=== PATIENT | male | born 1980 | race African-American/Black ===

== ENCOUNTER 2017-01-13 16:17 | Emergency (ER) | payer OTHER ==
[~2017-01-13] VITALS: Ht 188 cm; Wt 97.5 kg
[~2017-01-13 16:17] MED LIST: ZOFRAN ODT4 MG ORAL
[2017-01-13] MEDS ORDERED: METFORMIN HCL1000 M1 ORAL (16:28)
[2017-01-13] MEDS ORDERED: Morphine Sulfate 4mg/ml Inj IVP ONE ×2 (16:45→20:30)
[2017-01-13 17:00] VITALS: BP 149/95
--- NOTE | 2017-01-13 17:02 | Emergency Room Report ---
History of Present Illness General Chief Complaint: General Complaint Source: Patient Present Illness [facility] The patient presents with 2 days of swelling and increased pain in his left testicle. He denies any trauma. Denies any fevers or dysuria. Denies hematuria. Diabetic and has had some dry mouth and polydipsia. He takes metformin and does not take insulin. He denies previous hernia, fevers, chills , vomiting, diarrhea. Pain is 10/10, constant, worse with standing and walking , burning pressure, radiates into abdomen. He walks with a limp due to the pain. No change in bowels, rashes, joint pain, MATHEWS, depression. Allergies: Coded Allergies: No Known Allergies (Unverified , 05/14/15) Patient History Past Medical History: see triage record Social History: Reports: smoking Social History Narrative works at [employer] - Reviewed Nursing Documentation: PMH: Agreed, PSxH: Agreed Nursing Documentation-PMH Past Medical History: No History, Except For Hx Diabetes: Yes Review of Systems All Other Systems: negative except mentioned in HPI Physical Exam Vital Signs Date Time Temp Pulse Resp B/P (MAP) Pulse Ox O2 Delivery O2 Flow Rate FiO2 01/13/17 16:24 98.2 127 20 157/97 97 Room Air Sp02 EP Interpretation: reviewed, normal General Appearance: well appearing, no apparent distress, GCS 15 Head: normocephalic Eyes: bilateral eye normal inspection, bilateral eye PERRL ENT: moist mucus membranes - slightly dry Neck: supple Respiratory: lungs clear, normal breath sounds Cardiovascular #1: regular rate, rhythm Cardiovascular #2: 2+ radial (R) Gastrointestinal: normal inspection, normal bowel sounds, non tender, no mass, non-distended, no hernia Genitourinary: no CVA tenderness, penis normal, other - L scrotal swelling and epididymal tenderness, not high laying testicle Musculoskeletal: back normal, gait/station normal, normal range of motion Neurologic: alert, oriented x3, grossly normal Psychiatric: mood/affect normal Skin: normal inspection, warm/dry, other - min erythema of scrotal tissue Medical Decision Making Diagnostic Impression: Primary Impression: Hyperglycemia Additional Impressions: Acute epididymitis Scrotal abscess ER Course aPatient presents with left testicular pain. Differential includes torsion, epididymitis, hernia, scrotal cellulitis, Laura's gangrene amongst others. In addition to that his diabetes is out of control. He be evaluated with labs and ultrasound. In addition to that he will get IV hydration and repeat Accu- Cheks. He will be treated for pain. Exam against Laura's. Labs significant for leukocytosis, hyperglycemia. Ultrasound with epididymitis and possible early scrotal infection. Antibiotics begun. Excludes torsion. Patient improved treatment but still hyperglycemic. Continue hydration and insulin is ordered. Due to the fact that both blood sugars [id number] and the patient has significant scrotal and epididymal infection patient admitted for IV antibiotics. Patient was discussed with Dr. Saravia who accepts patient at [facility]. Stable for transfer, improved. Laboratory Tests Test 01/13/17 17:00 White Blood Count 13.7 K/UL (4.8-10.8) H Red Blood Count 5.72 M/UL (4.70-6.10) Hemoglobin 15.3 G/DL (14.2-18.0) Hematocrit 46.7 % (42.0-52.0) Mean Corpuscular Volume 82 FL (80-99) Mean Corpuscular Hemoglobin 26.7 PG (27.0-31.0) L Mean Corpuscular Hemoglobin Concent 32.8 G/DL (32.0-36.0) Red Cell Distribution Width 11.5 % (11.6-14.8) L Platelet Count 188 K/UL (150-450) Mean Platelet Volume 9.9 FL (6.5-10.1) Neutrophils (%) (Auto) 80.0 % (45.0-75.0) H Lymphocytes (%) (Auto) 12.3 % (20.0-45.0) L Monocytes (%) (Auto) 6.4 % (1.0-10.0) Eosinophils (%) (Auto) 0.6 % (0.0-3.0) Basophils (%) (Auto) 0.7 % (0.0-2.0) Prothrombin Time 9.8 SEC (9.30-11.50) Prothrombin Time INR 0.9 (0.9-1.1) PTT 28 SEC (23-33) Urine Color Pale yellow Urine Appearance Clear Urine pH 6 (4.5-8.0) Urine Specific [place] 1.010 (1.005-1.035) Urine Protein 3+ (NEGATIVE) H Urine Glucose (UA) 4+ (NEGATIVE) H Urine Ketones 2+ (NEGATIVE) H Urine Occult Blood 4+ (NEGATIVE) H Urine Nitrite Negative (NEGATIVE) Urine Bilirubin Negative (NEGATIVE) Urine Urobilinogen Normal MG/DL (0.0-1.0) Urine Leukocyte Esterase Negative (NEGATIVE) Urine RBC 2-4 /HPF (0 - 0) H Urine WBC 0-2 /HPF (0 - 0) Urine Squamous Epithelial Cells None /LPF (NONE/OCC) Urine Bacteria Few /HPF (NONE) Sodium Level 134 MMOL/L (136-145) L Potassium Level 3.7 MMOL/L (3.5-5.1) Chloride Level 96 MMOL/L (98-107) L Carbon Dioxide Level 27 MMOL/L (21-32) Anion Gap 11 mmol/L (5-15) Blood Urea Nitrogen 9 mg/dL (7-18) Creatinine 1.2 MG/DL (0.55-1.30) Estimate Glomerular Filtration Rate > 60 mL/min (>60) Glucose Level 435 MG/DL (74-106) H Calcium Level 9.4 MG/DL (8.5-10.1) Total Bilirubin 0.5 MG/DL (0.2-1.0) Aspartate Amino Transferase (AST) 13 U/L (15-37) L Alanine Aminotransferase (ALT) 17 U/L (12-78) Alkaline Phosphatase 98 U/L (46-116) Total Protein 7.7 G/DL (6.4-8.2) Albumin 3.1 G/DL (3.4-5.0) L Globulin 4.6 g/dL Albumin/Globulin Ratio 0.7 (1.0-2.7) L Lipase 84 U/L (73-393) CT/MRI/US Diagnostic Results CT/MRI/US Diagnostic Results : Imaging Test Ordered: sctotal u/s Impression epididymitis and ST abscess Last Vital Signs Date Time Temp Pulse Resp B/P (MAP) Pulse Ox O2 Delivery O2 Flow Rate FiO2 01/13/17 23:07 105 20 152/82 100 Room Air 01/13/17 20:00 98.0 Status: improved Disposition: ADMITTED INPATIENT Condition: Serious [facility]errals: [facility]ERR[facility] (PCP) Angel Gallagher M.D. Jan 13, 2017 17:02
--- NOTE | 2017-01-13 17:02 | Emergency Room Report ---
History of Present Illness General Chief Complaint: General Complaint Source: Patient Present Illness [facility] The patient presents with 2 days of swelling and increased pain in his left testicle. He denies any trauma. Denies any fevers or dysuria. Denies hematuria. Diabetic and has had some dry mouth and polydipsia. He takes metformin and does not take insulin. He denies previous hernia, fevers, chills , vomiting, diarrhea. Pain is 10/10, constant, worse with standing and walking , burning pressure, radiates into abdomen. He walks with a limp due to the pain. No change in bowels, rashes, joint pain, MATHEWS, depression. Allergies: Coded Allergies: No Known Allergies (Unverified , 05/14/15) Patient History Past Medical History: see triage record Social History: Reports: smoking Social History Narrative works at [employer] - Reviewed Nursing Documentation: PMH: Agreed, PSxH: Agreed Nursing Documentation-PMH Past Medical History: No History, Except For Hx Diabetes: Yes Review of Systems All Other Systems: negative except mentioned in HPI Physical Exam Vital Signs Date Time Temp Pulse Resp B/P (MAP) Pulse Ox O2 Delivery O2 Flow Rate FiO2 01/13/17 16:24 98.2 127 20 157/97 97 Room Air Sp02 EP Interpretation: reviewed, normal General Appearance: well appearing, no apparent distress, GCS 15 Head: normocephalic Eyes: bilateral eye normal inspection, bilateral eye PERRL ENT: moist mucus membranes - slightly dry Neck: supple Respiratory: lungs clear, normal breath sounds Cardiovascular #1: regular rate, rhythm Cardiovascular #2: 2+ radial (R) Gastrointestinal: normal inspection, normal bowel sounds, non tender, no mass, non-distended, no hernia Genitourinary: no CVA tenderness, penis normal, other - L scrotal swelling and epididymal tenderness, not high laying testicle Musculoskeletal: back normal, gait/station normal, normal range of motion Neurologic: alert, oriented x3, grossly normal Psychiatric: mood/affect normal Skin: normal inspection, warm/dry, other - min erythema of scrotal tissue Medical Decision Making Diagnostic Impression: Primary Impression: Hyperglycemia Additional Impressions: Acute epididymitis Scrotal abscess ER Course aPatient presents with left testicular pain. Differential includes torsion, epididymitis, hernia, scrotal cellulitis, Laura's gangrene amongst others. In addition to that his diabetes is out of control. He be evaluated with labs and ultrasound. In addition to that he will get IV hydration and repeat Accu- Cheks. He will be treated for pain. Exam against Laura's. Labs significant for leukocytosis, hyperglycemia. Ultrasound with epididymitis and possible early scrotal infection. Antibiotics begun. Excludes torsion. Patient improved treatment but still hyperglycemic. Continue hydration and insulin is ordered. Due to the fact that both blood sugars [id number] and the patient has significant scrotal and epididymal infection patient admitted for IV antibiotics. Patient was discussed with Dr. Saravia who accepts patient at [facility]. Stable for transfer, improved. Laboratory Tests Test 01/13/17 17:00 White Blood Count 13.7 K/UL (4.8-10.8) H Red Blood Count 5.72 M/UL (4.70-6.10) Hemoglobin 15.3 G/DL (14.2-18.0) Hematocrit 46.7 % (42.0-52.0) Mean Corpuscular Volume 82 FL (80-99) Mean Corpuscular Hemoglobin 26.7 PG (27.0-31.0) L Mean Corpuscular Hemoglobin Concent 32.8 G/DL (32.0-36.0) Red Cell Distribution Width 11.5 % (11.6-14.8) L Platelet Count 188 K/UL (150-450) Mean Platelet Volume 9.9 FL (6.5-10.1) Neutrophils (%) (Auto) 80.0 % (45.0-75.0) H Lymphocytes (%) (Auto) 12.3 % (20.0-45.0) L Monocytes (%) (Auto) 6.4 % (1.0-10.0) Eosinophils (%) (Auto) 0.6 % (0.0-3.0) Basophils (%) (Auto) 0.7 % (0.0-2.0) Prothrombin Time 9.8 SEC (9.30-11.50) Prothrombin Time INR 0.9 (0.9-1.1) PTT 28 SEC (23-33) Urine Color Pale yellow Urine Appearance Clear Urine pH 6 (4.5-8.0) Urine Specific [place] 1.010 (1.005-1.035) Urine Protein 3+ (NEGATIVE) H Urine Glucose (UA) 4+ (NEGATIVE) H Urine Ketones 2+ (NEGATIVE) H Urine Occult Blood 4+ (NEGATIVE) H Urine Nitrite Negative (NEGATIVE) Urine Bilirubin Negative (NEGATIVE) Urine Urobilinogen Normal MG/DL (0.0-1.0) Urine Leukocyte Esterase Negative (NEGATIVE) Urine RBC 2-4 /HPF (0 - 0) H Urine WBC 0-2 /HPF (0 - 0) Urine Squamous Epithelial Cells None /LPF (NONE/OCC) Urine Bacteria Few /HPF (NONE) Sodium Level 134 MMOL/L (136-145) L Potassium Level 3.7 MMOL/L (3.5-5.1) Chloride Level 96 MMOL/L (98-107) L Carbon Dioxide Level 27 MMOL/L (21-32) Anion Gap 11 mmol/L (5-15) Blood Urea Nitrogen 9 mg/dL (7-18) Creatinine 1.2 MG/DL (0.55-1.30) Estimate Glomerular Filtration Rate > 60 mL/min (>60) Glucose Level 435 MG/DL (74-106) H Calcium Level 9.4 MG/DL (8.5-10.1) Total Bilirubin 0.5 MG/DL (0.2-1.0) Aspartate Amino Transferase (AST) 13 U/L (15-37) L Alanine Aminotransferase (ALT) 17 U/L (12-78) Alkaline Phosphatase 98 U/L (46-116) Total Protein 7.7 G/DL (6.4-8.2) Albumin 3.1 G/DL (3.4-5.0) L Globulin 4.6 g/dL Albumin/Globulin Ratio 0.7 (1.0-2.7) L Lipase 84 U/L (73-393) CT/MRI/US Diagnostic Results CT/MRI/US Diagnostic Results : Imaging Test Ordered: sctotal u/s Impression epididymitis and ST abscess Last Vital Signs Date Time Temp Pulse Resp B/P (MAP) Pulse Ox O2 Delivery O2 Flow Rate FiO2 01/13/17 23:07 105 20 152/82 100 Room Air 01/13/17 20:00 98.0 Status: improved Disposition: ADMITTED INPATIENT Condition: Serious Referrals: [facility] (PCP) Angel Gallagher M.D. Jan 13, 2017 17:02
[2017-01-13 17:21] LABS: BASOPHILS % (AUTO) 0.7 % (0.0-2.0); EOSINOPHILS % (AUTO) 0.6 % (0.0-3.0); HEMATOCRIT 46.7 % (42.0-52.0); HEMOGLOBIN 15.3 G/DL (14.2-18.0); LYMPHOCYTES % (AUTO) 12.3 % (20.0-45.0); MEAN CORPUSCULAR VOLUME 82 FL (80-99); MONOCYTES % (AUTO) 6.4 % (1.0-10.0); PLATELET COUNT 188 K/UL (150-450); RED BLOOD COUNT 5.72 M/UL (4.70-6.10); RED CELL DISTRIBUTION WIDTH 11.5 % (11.6-14.8); WHITE BLOOD COUNT 13.7 K/UL (4.8-10.8)
[2017-01-13 17:22] LABS: APPEARANCE,URINE CLEAR; BILIRUBIN, URINE NEGATIVE (NEGATIVE); COLOR,URINE PALE YELLOW; GLUCOSE, URINE (UA) 4+ (NEGATIVE); KETONES,URINE 2+ (NEGATIVE); LEUKOCYTE ESTERASE ,URINE NEGATIVE (NEGATIVE); NITRITE,URINE NEGATIVE (NEGATIVE); PH,URINE 6 (4.5-8.0); PROTEIN,URINE 3+ (NEGATIVE); UROBILINOGEN,URINE NORMAL MG/DL (0.0-1.0)
[2017-01-13 17:36] LABS: INR 0.9 (0.9-1.1)
[2017-01-13 17:38] LABS: ALANINE AMINOTRANSFERASE 17 U/L (12-78); ALBUMIN 3.1 G/DL (3.4-5.0); ALBUMIN/GLOBULIN RATIO 0.7 (1.0-2.7); ALKALINE PHOSPHATASE 98 U/L (46-116); ANION GAP 11 mmol/L (5-15); ASPARTATE AMINO TRANSFERASE 13 U/L (15-37); BILIRUBIN,TOTAL 0.5 MG/DL (0.2-1.0); BLOOD UREA NITROGEN 9 mg/dL (7-18); CALCIUM 9.4 MG/DL (8.5-10.1); CARBON DIOXIDE 27 MMOL/L (21-32); CHLORIDE 96 MMOL/L (98-107); CREATININE 1.2 MG/DL (0.55-1.30); POTASSIUM 3.7 MMOL/L (3.5-5.1); SODIUM 134 MMOL/L (136-145)
[2017-01-13] MEDS ORDERED: cefTRIAXone 1 GM in NS 55 ML IVPB ONE (18:15)
[2017-01-13 20:00] VITALS: BP 135/68
[2017-01-13 23:07] VITALS: BP 152/82
--- NOTE | 2017-01-14 08:42 | Diagnostic Imaging Report ---
Indication: PAIN Technique: ULT TESTICULAR/SCROTUM Comparison: None. Findings: The testes are normal in size and echogenicity. The right epididymis is normal. There is enlargement of the left epididymis. Left epididymis is heterogeneous. Minimal scrotal fluid on the left. Scrotal wall edema is noted on left. Within the left scrotal wall there is a hypoechoic area measuring approximately 3.7 x 1.2 cm. Impression: Left epididymitis. Scrotal wall swelling. Small hypoechoic area within the left scrotal wall. The possibility of scrotal wall abscess cannot be excluded.
== END 2017-01-13 22:30 | disposition short-term general hospital (02) ==
LOC: EMR 16:45
DX: E11.65 Type 2 diabetes mellitus with hyperglycemia (principal); N45.1 Epididymitis; N49.2 Inflammatory disorders of scrotum; F17.200 Nicotine dependence, unspecified, uncomplicated
CPT/HCPCS: 36415; 76870; 80053; 81003; 82962; 83690; 85025; 85610; 85730; 96361; 96374; 96375; 99285; J0696; J1815; J2270; J2405

== ENCOUNTER 2017-07-06 11:55 | Inpatient (IN) | payer MEDICAID, OTHER ==
[~2017-07-06] VITALS: Ht 188 cm; Wt 90.7 kg
[~2017-07-06 11:55] MED LIST changes: +METFORMIN HCL1000 M1 ORAL
[2017-07-06] MEDS ORDERED: LEVEMIR100 UNIT/1 SUBQ (12:08)
[2017-07-06 12:14] VITALS: BP 115/67
[2017-07-06] MEDS ORDERED: oxyCODONE HCL/Acetaminophen 5/325mg ORAL ONE (12:30)
[2017-07-06 12:52] LABS: APPEARANCE,URINE CLEAR; BILIRUBIN, URINE NEGATIVE (NEGATIVE); COLOR,URINE PALE YELLOW; GLUCOSE, URINE (UA) 4+ (NEGATIVE); KETONES,URINE 2+ (NEGATIVE); LEUKOCYTE ESTERASE ,URINE NEGATIVE (NEGATIVE); NITRITE,URINE NEGATIVE (NEGATIVE); PH,URINE 5 (4.5-8.0); PROTEIN,URINE 3+ (NEGATIVE); UROBILINOGEN,URINE NORMAL MG/DL (0.0-1.0)
[2017-07-06 12:54] LABS: HEMOGLOBIN 12.7 G/DL (14.2-18.0); MEAN CORPUSCULAR VOLUME 77 FL (80-99); PLATELET COUNT 307 K/UL (150-450); RED BLOOD COUNT 4.91 M/UL (4.70-6.10); RED CELL DISTRIBUTION WIDTH 12.2 % (11.6-14.8); WHITE BLOOD COUNT 15.8 K/UL (4.8-10.8)
[2017-07-06 13:13] LABS: ALANINE AMINOTRANSFERASE 14 U/L (12-78); ALBUMIN 1.9 G/DL (3.4-5.0); ALBUMIN/GLOBULIN RATIO 0.3 (1.0-2.7); ALKALINE PHOSPHATASE 137 U/L (46-116); ANION GAP 8 mmol/L (5-15); ASPARTATE AMINO TRANSFERASE 9 U/L (15-37); BILIRUBIN,TOTAL 0.6 MG/DL (0.2-1.0); BLOOD UREA NITROGEN 12 mg/dL (7-18); CALCIUM 8.4 MG/DL (8.5-10.1); CARBON DIOXIDE 29 MMOL/L (21-32); CHLORIDE 92 MMOL/L (98-107); CREATININE 1.5 MG/DL (0.55-1.30); POTASSIUM 3.7 MMOL/L (3.5-5.1); SODIUM 129 MMOL/L (136-145)
[2017-07-06] MEDS ORDERED: Vancomycin 1.5gm/D5W 250ml 250 ML IVPB ONE (14:00)
--- NOTE | 2017-07-06 14:46 | Emergency Room Report ---
History of Present Illness General Chief Complaint: Pain Source: Patient Present Illness HPI 37-year-old male presents to the emergency department complaining of 10 out of 10 in severity localized left hip pain with smelling progressive 4 days. Patient was evaluated by alternate ER several days ago and was discharged home with ibuprofen and no clear explanation for his pain. Patient states x-rays were performed and there were no fractures. Patient states that his pain is progressed to the point where standing or attempts to walk exacerbates his pain. Patient reports history of diabetes he states that he takes insulin and metformin and that his blood sugars are not usually well-controlled. Patient also reports some nausea that he associated with ibuprofen. Patient denies vomiting. He denies history of trauma, fall or open wounds in the affected area. Denies numbness tingling or loss of sensation or gross motor movements of the extremities, incontinence of bowel or bladder. Denies CP, Palpitations, LOC , AMS, dizziness, Changes in Vision, Sensation, paresthesias, or a sudden severe headache. Allergies: Coded Allergies: No Known Allergies (Unverified , 05/14/15) Patient History Past Medical History: see triage record Past Surgical History: none Pertinent Family History: none Immunizations: UTD Reviewed Nursing Documentation: PMH: Agreed; PSxH: Agreed Nursing Documentation-PMH Past Medical History: No History, Except For Hx Diabetes: Yes Review of Systems All Other Systems: negative except mentioned in HPI Physical Exam Vital Signs Date Time Temp Pulse Resp B/P (MAP) Pulse Ox O2 Delivery O2 Flow Rate FiO2 07/06/17 12:00 98.0 118 12 115/67 98 Room Air 98.1 Sp02 EP Interpretation: reviewed, normal General Appearance: no apparent distress, alert, GCS 15, non-toxic Head: normocephalic, atraumatic Eyes: bilateral eye normal inspection, bilateral eye PERRL ENT: hearing grossly normal, normal voice Neck: full range of motion Respiratory: chest non-tender, lungs clear, normal breath sounds, speaking full sentences Cardiovascular #1: regular rate, rhythm, tachycardia Gastrointestinal: normal bowel sounds, non tender, soft Genitourinary: normal inspection, no CVA tenderness Musculoskeletal: back normal, gait/station normal, normal range of motion, swelling - left hip, tender - TTP left anterior and lateral hip, erythema noted , and oft tissue swelling compared to the right hip. Neurologic: alert, oriented x3, responsive, motor strength/tone normal, sensory intact, speech normal, grossly normal Psychiatric: judgement/insight normal Skin: no rash, warm/dry, well hydrated, other - erythema, swelling and increased temperature to palpation of the left hip, no open wounds or scratches , no bruises. Medical Decision Making PA Attestation Dr. Day is my supervising Physician whom patient management has been discussed with. Diagnostic Impression: Primary Impression: Hyperglycemia Additional Impression: Cellulitis of hip, left ER Course 37-year-old male presents to the emergency department complaining of 10 out of 10 in severity localized left hip pain with smelling progressive 4 days. Patient was evaluated by alternate ER several days ago and was discharged home with ibuprofen and no clear explanation for his pain. Patient states x-rays were performed and there were no fractures. Patient states that his pain is progressed to the point where standing or attempts to walk exacerbates his pain. Patient reports history of diabetes he states that he takes insulin and metformin and that his blood sugars are not usually well-controlled. Patient also reports some nausea that he associated with ibuprofen. Patient denies vomiting. He denies history of trauma, fall or open wounds in the affected area. Denies numbness tingling or loss of sensation or gross motor movements of the extremities, incontinence of bowel or bladder. Denies CP, Palpitations, LOC , AMS, dizziness, Changes in Vision, Sensation, paresthesias, or a sudden severe headache. Ddx considered but are not limited to cellulitis, fracture, d/L, gout, hyperglycemia just to name a few. Vital signs: are WNL, pt. is afebrile H&PE are most consistent with left hip cellulitis with no obvious open wounds. - Bedside Accu-Chek was critically high. ORDERS: -CBC: Elevated white blood cell count CMP: Mild hyponatremia with elevated blood glucose of 514. Lactic acid: 2.10 , then 1.1 -Cultures: Pending Magnesium: Acetone: Negative UA: Consistent with hyperglycemia elevated protein and glucose in the urine. occasional bacteria however no inflammatory marker elevation. ED INTERVENTIONS: -2 L normal saline IV -1.5 g, Vancomycin and IV 400 mg ciprofloxacin IV DISPOSITION: at this time pt. will be admitted to Dr. Roman for Hyperglycemia and cellulitis. Dr. Roman agreed to admit the pt. and to continue pt. care management. EKG Diagnostic Results EP Interpretation: Dr. Day Rate: tachycardiac - 106 Rhythm: NSR ST Segments: no acute changes ASA given to the pt in ED: No PA Scribe Text This Interpretation was scribed by ADRIANNE Cueva. Other X-Ray Diagnostic Results Other X-Ray Diagnostic Results : X-Ray ordered: Left Hip # of Views/Limited Vs Complete: 2 View Indication: Swelling EP Interpretation: Yes PA Xray: Interpretation reviewed, by supervising MD, and agrees with findings. Interpretation: no dislocation, no soft tissue swelling, no fractures, other - no subcutaneous gas, no bone errosion Impression: No acute disease Electronically Signed by: Bhavya Cueva PA-C Last Vital Signs Date Time Temp Pulse Resp B/P (MAP) Pulse Ox O2 Delivery O2 Flow Rate FiO2 07/06/17 12:43 98.1 07/06/17 12:14 105 12 115/67 98 Room Air Disposition: ADMITTED INPATIENT Condition: Serious Scripts Multivitamins* (MULTIVITAMINS*) 1 Each Tablet 1 TAB ORAL DAILY, #30 TAB 0 Refills Prov: Bhavya Cueva 07/06/17 Cholecalciferol (Vitamin D3)* (VITAMIN D*) 1,000 Unit Tablet 1000 UNIT ORAL DAILY, #30 TAB Prov: Bhavya Cueva 07/06/17 Referrals: NOT APPLICABLE THIS PATIENT,RE (PCP) Bhavya Cueva Jul 06, 2017 14:46
[2017-07-06] MEDS ORDERED: MULTIVITAMINS1 EAC2 ORAL (15:08)
[2017-07-06] MEDS ORDERED: VITAMIN D1000 UNI1 ORAL (15:08)
[2017-07-06 15:42] VITALS: BP 116/63
--- NOTE | 2017-07-06 15:44 | Diagnostic Imaging Report ---
Indication: Left hip pain Technique: 2 views of the left hip Comparison: none Findings: No acute fractures. No dislocations. The joint spaces are preserved. There are mild degenerative proliferative changes Impression: No acute bony trauma
[2017-07-06 16:47] VITALS: BP 119/72
[2017-07-06] MEDS ORDERED: Levemir Flexpen SUBQ SCH (18:00)
[2017-07-06] MEDS: metFORMIN 500mg tab ORAL SCH (18:35)
[2017-07-06 19:55] VITALS: BP 130/92
[2017-07-06] MEDS: Heparin 5000 units/ml inj SUBQ SCH (21:02)
[2017-07-06] MEDS: NovoLOG Insulin Flexpen SUBQ SCH (21:03)
[2017-07-07] VITALS (10 sets, daily range): BP systolic 119–157; BP diastolic 74–95
--- NOTE | 2017-07-07 03:45 | History and Physical Report ---
DATE OF ADMISSION: 07/06/2017 REASON FOR ADMISSION: Left hip and thigh pain. 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 He came to the emergency room complaining of severe left hip pain and swelling for the past several days. He was seen at [facility] emergency room three or four days ago and was treated with ibuprofen. He was not treated for an infection. The pain has progressed and his blood sugars, although usually elevated have been worsening. The patient has been on ibuprofen since his prior ER visit and notes associated nausea. The patient has not fallen and denies any specific trauma or wound to the area affected. He does have a prior history of cellulitis and about a year ago injured his left first toe and ultimately developed osteomyelitis and required amputation. PAST MEDICAL HISTORY: Insulin-requiring diabetes mellitus. MEDICATIONS: Reviewed and reconciled. SOCIAL HISTORY: Denies smoking, alcohol, or substance abuse. ALLERGIES: None known. REVIEW OF SYSTEMS: Otherwise unremarkable. PHYSICAL EXAMINATION: VITAL SIGNS: Blood pressure 115/67, pulse 118, respiratory rate 12 and afebrile. HEENT: Conjunctivae are pink. Oropharynx clear. No thrush. NECK: Supple. No adenopathy. LUNGS: Clear. CARDIAC: Regular rhythm and rate. Normal S1 and S2 with no murmur, rub, or gallop. ABDOMEN: Soft and nontender. No guarding or rebound. EXTREMITIES: Good pulses distally. No edema. Some healed wound sites are noted on all the extremities. The left hip and upper thigh region are swollen with redness and warmth to palpation. No adenopathy. LABORATORY AND DIAGNOSTIC DATA: White count 15.8 and hemoglobin 12.7. Sodium 129, potassium 3.7, bicarbonate 29, BUN 12, creatinine 1.5, and glucose 514. Magnesium 1.7. Albumin 1.9. Lactic acid 2.1. X-ray of the hip revealed no trauma. IMPRESSION: 1. Diabetes mellitus, out of control. 2. Possible cellulitis, left hip and thigh. 3. . PLAN: 1. IV antibiotics. 2. MRI of the hip and thigh on the left side. 3. Insulin titration. 4. DVT prophylaxis. 5. Further recommendations to follow. Angel Skyler Cano DR: MARY JOB#: [id number] CC:
[2017-07-07] MEDS: Vancomycin 1gm/D5W 275ml IVPB SCH ×4 (05:23→17:32)
[2017-07-07] MEDS: NovoLOG Insulin Flexpen SUBQ SCH ×4 (05:27→21:09)
[2017-07-07 08:06] LABS: BASOPHILS % (AUTO) 0.3 % (0.0-2.0); EOSINOPHILS % (AUTO) 0.3 % (0.0-3.0); HEMATOCRIT 34.7 % (42.0-52.0); HEMOGLOBIN 11.9 G/DL (14.2-18.0); LYMPHOCYTES % (AUTO) 8.4 % (20.0-45.0); MEAN CORPUSCULAR VOLUME 78 FL (80-99); MONOCYTES % (AUTO) 8.2 % (1.0-10.0); NEUTROPHILS % (AUTO) 82.7 % (45.0-75.0); PLATELET COUNT 311 K/UL (150-450); RED BLOOD COUNT 4.43 M/UL (4.70-6.10); RED CELL DISTRIBUTION WIDTH 12.5 % (11.6-14.8); WHITE BLOOD COUNT 17.5 K/UL (4.8-10.8)
[2017-07-07 08:40] LABS: ALANINE AMINOTRANSFERASE 12 U/L (12-78); ALBUMIN 1.8 G/DL (3.4-5.0); ALBUMIN/GLOBULIN RATIO 0.3 (1.0-2.7); ALKALINE PHOSPHATASE 128 U/L (46-116); ANION GAP 8 mmol/L (5-15); ASPARTATE AMINO TRANSFERASE 10 U/L (15-37); BILIRUBIN,TOTAL 0.4 MG/DL (0.2-1.0); BLOOD UREA NITROGEN 15 mg/dL (7-18); CALCIUM 8.2 MG/DL (8.5-10.1); CARBON DIOXIDE 28 MMOL/L (21-32); CHLORIDE 94 MMOL/L (98-107); CREATININE 1.6 MG/DL (0.55-1.30); POTASSIUM 3.9 MMOL/L (3.5-5.1); SODIUM 130 MMOL/L (136-145)
[2017-07-07] MEDS ORDERED: Levemir Flexpen SUBQ SCH ×2 (09:00→18:00)
[2017-07-07] MEDS: metFORMIN 500mg tab ORAL SCH ×2 (09:16→18:31)
[2017-07-07] MEDS: Heparin 5000 units/ml inj SUBQ SCH ×2 (09:17→21:11)
--- NOTE | 2017-07-07 16:51 | Diagnostic Imaging Report ---
Indication: Swelling of left hip and left thigh, pain Technique: Coronal and axial T1 fast spin echo, coronal and axial FSE IR, axial T1 fast spin echo views of the pelvis sagittal, coronal and oblique proton-density fat-saturated images of the left hip, precontrast axial T1 fat saturated postcontrast axial and coronal T1 fat saturated images of the pelvis, Comparison: Plain radiograph yesterday Findings: Between the left gluteus leslie and gluteus medius musculature posteriorly, there is a fluid collection which measures 9.7 x 4 x 6.5 cm. This demonstrates surrounding enhancement. There is also high T2 signal and enhancement involving much of the gluteus leslie muscle, as well as the subcutaneous fat of the lateral thigh. There is also high signal within the proximal tensor fascia jacqui the muscle and the proximal vastus lateralis. No osseous or articular abnormality seen in the left hip. No bone marrow abnormality to suggest osteomyelitis. The pelvic viscera are unremarkable Impression: Abnormal enhancement and high T2 signal within the left hip subcutaneous fat, gluteal and proximal lateral thigh musculature, consistent with soft tissue cellulitis 9.7 x 4 x 6.5 cm abscess deep to the left gluteus leslie muscle No evidence of osteomyelitis or significant articular pathology.
--- NOTE | 2017-07-07 16:54 | Consultation ---
History of Present Illness General Date patient seen: Jul 07, 2017 Chief Complaint: Pain Reason for Consultation: left hip abscess Present Illness HPI 37yo M with DM noted left hip pain and swelling for over a week now. Initially went to outside facility where he was treated for pain but not infection. Was discharged but continued to have discomfort, swelling, worsening erythema/ warmth so he came to [place] for evaluation. Was admitted, placed on Abx, and had imaging. CT identified large intergluteal abscess. Surgery called to evaluate. patient does not recall trauma or injury to area. spontaneous onset without history. glucose has been high for some time now. no drainage. has had history of abscess prior. has left toe amputation and prior scrotal surgery for fluid collection? patient seen, chart reviewed, patient examined. CT reviewed. Allergies: Coded Allergies: No Known Allergies (Unverified , 05/14/15) Medication History Scheduled Cholecalciferol (Vitamin D3)* (Vitamin D*), 1,000 UNIT ORAL DAILY Insulin Detemir (Levemir), 3 UNIT SUBQ BEDTIME, (Reported) Metformin Hcl* (Metformin Hcl*), 1,000 MG ORAL BID, (Reported) Multivitamins* (Multivitamins*), 1 TAB ORAL DAILY Patient History History Provided By: Patient, Medical Record, PMD Healthcare decision maker Resuscitation status Full Code Advanced Directive on File Past Medical/Surgical History Past Medical/Surgical History: (1) Gluteal abscess (2) Nausea, vomiting, and diarrhea (3) Hyperglycemia (4) Cellulitis of hip, left Review of Systems All Other Systems: negative except mentioned in HPI Physical Exam General Appearance: no apparent distress, alert Lines, tubes and drains: peripheral HEENT: normocephalic Neck: supple Respiratory/Chest: chest wall non-tender, lungs clear, normal breath sounds, no respiratory distress, no accessory muscle use Cardiovascular/Chest: normal peripheral pulses, normal rate, regular rhythm Abdomen: normal bowel sounds, non tender, soft, no organomegaly, no mass Genitourinary/Rectal: normal genital exam Extremities: normal range of motion, non-tender, other - left hip with edema, erythema, warmth, no fluctuance. Skin Exam: normal pigmentation Neurologic: alert, oriented x 3 Last 24 Hour Vital Signs Date Time Temp Pulse Resp B/P (MAP) Pulse Ox O2 Delivery O2 Flow Rate FiO2 07/07/17 16:00 98.1 107 21 135/83 98 98.1 07/07/17 12:00 98.7 111 20 136/79 96 98.7 07/07/17 12:00 Room Air 07/07/17 08:18 100.0 101 21 141/88 95 Room Air 100.0 07/07/17 04:10 97 Room Air 07/07/17 04:10 98.0 102 20 123/84 97 Room Air 98.0 07/07/17 00:08 98.7 116 20 148/74 96 Room Air 98.7 07/07/17 00:08 96 Room Air 07/06/17 23:40 98.8 07/06/17 19:55 98.8 117 20 130/92 96 Room Air 98.8 07/06/17 19:55 96 Room Air 07/06/17 16:51 98.1 100 20 119/72 98 Room Air 98.1 07/06/17 16:47 98.1 100 20 119/72 98 98.1 Intake and Output 07/06/17 07/07/17 19:00 07:00 Intake Total 2200 ml 608.708 ml Output Total 200 ml Balance 2000 ml 608.708 ml Intake IV Total 2200 ml 608.708 ml Output Urine Total 200 ml # Voids 1 4 # Bowel Movements 1 Laboratory Tests Test 07/07/17 05:35 White Blood Count 17.5 K/UL (4.8-10.8) H Red Blood Count 4.43 M/UL (4.70-6.10) L Hemoglobin 11.9 G/DL (14.2-18.0) L Hematocrit 34.7 % (42.0-52.0) L Mean Corpuscular Volume 78 FL (80-99) L Mean Corpuscular Hemoglobin 26.8 PG (27.0-31.0) L Mean Corpuscular Hemoglobin Concent 34.2 G/DL (32.0-36.0) Red Cell Distribution Width 12.5 % (11.6-14.8) Platelet Count 311 K/UL (150-450) Mean Platelet Volume 8.1 FL (6.5-10.1) Neutrophils (%) (Auto) 82.7 % (45.0-75.0) H Lymphocytes (%) (Auto) 8.4 % (20.0-45.0) L Monocytes (%) (Auto) 8.2 % (1.0-10.0) Eosinophils (%) (Auto) 0.3 % (0.0-3.0) Basophils (%) (Auto) 0.3 % (0.0-2.0) Sodium Level 130 MMOL/L (136-145) L Potassium Level 3.9 MMOL/L (3.5-5.1) Chloride Level 94 MMOL/L (98-107) L Carbon Dioxide Level 28 MMOL/L (21-32) Anion Gap 8 mmol/L (5-15) Blood Urea Nitrogen 15 mg/dL (7-18) Creatinine 1.6 MG/DL (0.55-1.30) H Estimat Glomerular Filtration Rate 59.3 mL/min (>60) Glucose Level 371 MG/DL (74-106) #H Hemoglobin A1c 13.4 % (4.3-6.0) H Calcium Level 8.2 MG/DL (8.5-10.1) L Total Bilirubin 0.4 MG/DL (0.2-1.0) Aspartate Amino Transf (AST/SGOT) 10 U/L (15-37) L Alanine Aminotransferase (ALT/SGPT) 12 U/L (12-78) Alkaline Phosphatase 128 U/L (46-116) H Total Protein 7.4 G/DL (6.4-8.2) Albumin 1.8 G/DL (3.4-5.0) L Globulin 5.6 g/dL Albumin/Globulin Ratio 0.3 (1.0-2.7) L Thyroid Stimulating Hormone (TSH) 0.602 uiU/mL (0.358-3.740) Height (Feet): 6 Height (Inches): 2.00 Weight (Pounds): 200 Medications Current Medications Medications (Trade) Dose Ordered Sig/Shania Route PRN Reason Start Time Stop Time Status Last Admin Dose Admin Acetaminophen (Tylenol) 650 mg Q6H PRN ORAL Mild Pain/Temp > 100.5 07/06/17 17:32 08/05/17 17:31 07/06/17 22:41 Acetaminophen/ Hydrocodone Bitart ([place] 5/325) 1 tab Q6H PRN ORAL MODERATE PAIN(PAIN SCALE 4-6) 07/06/17 17:33 5/3/18 17:32 Dextrose (Dextrose 50%) 25 ml STAT PRN IV Hypoglycemia BS 60-69mg/dl 07/06/17 17:36 08/05/17 17:35 Dextrose (Dextrose 50%) 50 ml STAT PRN IV Hypoglycemia BS less than 60mg 07/06/17 17:15 08/05/17 17:14 Heparin Sodium (Porcine) (Heparin 5000 units/ml) 5,000 units EVERY 12 HOURS SUBQ 07/06/17 21:00 08/05/17 20:59 07/07/17 09:17 Insulin Aspart (NovoLOG) BEFORE MEALS AND HS SUBQ 07/06/17 21:00 08/05/17 20:59 07/07/17 12:18 Insulin Detemir (Levemir) 12 units TWICE A DAY SUBQ 07/07/17 18:00 08/06/17 17:59 Metformin HCl (Glucophage) 1,000 mg BID ORAL 07/06/17 18:00 08/05/17 17:59 07/07/17 09:16 Multivitamins (Multivitamins) 1 tab DAILY ORAL 07/07/17 09:00 08/06/17 08:59 07/07/17 09:16 Sodium Chloride 1,000 ml @ 125 mls/hr Q8H IV 07/07/17 18:15 08/06/17 18:14 Vancomycin HCl (Vanco rx to dose) 1 ea DAILY PRN MISC Per rx protocol 07/06/17 17:15 08/05/17 17:14 Vancomycin HCl 1 gm/Dextrose 275 ml @ 183.708 mls/hr Q12H IVPB 07/07/17 06:00 07/12/17 05:59 07/07/17 05:23 Assessment/Plan Problem List: (1) Gluteal abscess Assessment & Plan: 37M with left gluteal abscess. low grade fever, leukocytosis, on exam overlying tissue with edema, erythema, warmth, cellulitis. CT with large abscess between major and minor muscle. -Ultrasound guided drain placement for evacuation of abscess today by radiology -If able to successfully drain via catheter will do so. unfortunately it has been present for some time now and fluid may be viscous and unable to drain without formal incision and drainage. will monitor for now. -cont IV Abx -okay for diet -okay for activity -drain care and management. will follow with recs. thank you for this consultation. ICD Codes: L02.31 - Cutaneous abscess of buttock SNOMED: [id number] Status: stable Nahid Bartholomew Jul 07, 2017 16:54
--- NOTE | 2017-07-07 17:29 | Diagnostic Imaging Report ---
Indication: Left buttock abscess demonstrated on MRI Technique: Informed consent obtained prior to commencement of the procedure. Procedural timeout performed. Sterile prepping and draping. Local anesthesia with lidocaine. A large and used to localize the optimal puncture site. Under real-time ultrasound guidance, a 8.5 [place] Cook multipurpose drainage catheter was inserted into the left buttock abscess using trocar technique. Approximately 60 mL of pus aspirated. This failed to completely evacuate the lesion, however. A specimen was sent to the lab for microbial analysis. The catheter was fixed to the skin and placed to UreSil bag drainage. The patient tolerated the procedure well, without immediate complication. Comparison: Reference made to MRI of the pelvis of earlier the same day Findings: As above Impression: Successful placement of drainage catheter for drainage of left buttock abscess, under ultrasound guidance, yielding 60 mL of pus. Note, however, that forcible aspiration failed to completely evacuate the abscess. Contents may be of too high viscosity for complete catheter drainage. Consider imaging follow-up in a few days Procedure and findings discussed by phone with Dr. Bartholomew
--- NOTE | 2017-07-07 18:45 | Consultation ---
DATE OF CONSULTATION: 07/07/2017 INFECTIOUS DISEASE CONSULTATION CONSULTING PHYSICIAN: Terri Escobedo M.D. REFERRING PHYSICIAN: Angel Cano M.D. REASON FOR CONSULTATION: Left thigh cellulitis. 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 He was seen at [facility] and was treated with ibuprofen, but now he has increasing redness with increasing pain and an Infectious Diseases consultation has been obtained for antibiotics. PAST MEDICAL HISTORY: 1. History of diabetes. 2. History of left big toe cellulitis after a spider bite and turned into osteomyelitis and required an amputation. MEDICATIONS: As an inpatient, he is on multivitamin, insulin, IV vancomycin, metformin, [place] and Tylenol. ALLERGIES: No known drug allergies. SOCIAL HISTORY: He does not smoke, drink, or use drugs. FAMILY HISTORY: Noncontributory. REVIEW OF SYSTEMS: RESPIRATORY: No fever, chills, cough, shortness of breath or chest pain. CARDIAC: No chest pain. No palpitations. No dizziness. No syncope. GASTROINTESTINAL: He had nausea. No vomiting. No abdominal pain or diarrhea. MUSCULOSKELETAL: He complains of left hip pain. PHYSICAL EXAMINATION: VITAL SIGNS: Temperature of 100 degrees, T-max of 100 degrees, pulse of 101, respiratory rate 21, blood pressure 141/88 and O2 saturation of 95%. HEENT: Pupils equally reactive to light and accommodation. Mouth appears clean without thrush. NECK: Supple. No adenopathy. No JVD. CARDIOVASCULAR: Regular rate and rhythm. No murmurs. LUNGS: Clear to auscultation bilaterally. No crackles. No wheezes. ABDOMEN: Soft and nontender. No organomegaly. EXTREMITIES: No cyanosis, no clubbing, and no edema. Left hip erythema noted. LABORATORY AND DIAGNOSTIC DATA: White count of 17.5, hemoglobin 11.9, hematocrit 34.7, MCV 78 and platelet count of 311,00 with neutrophils of 82%. Sodium 130, potassium 3.9, chloride 94, bicarbonate 28, BUN 15, creatinine 1.6 and glucose 371. Calcium 8.2. Total bilirubin 0.4. AST 10, ALT 12 and alkaline phosphatase 128. Total protein 7.4. Albumin 1.8. UA showing 0-2 white cells. Blood cultures showing gram-positive cocci in clusters in the aerobic bottle. Hip x-ray showing no acute bony trauma . ASSESSMENT: 1. This is a 37-year-old gentleman with history of diabetes who comes in with left hip erythema and swelling, would be concerned with left hip cellulitis. We would also like to rule out underlying septic arthritis and osteomyelitis. 2. Renal insufficiency. 3. Positive blood cultures with gram-positive cocci in clusters. We would like to rule out sepsis as the possibility. PLAN: 1. Continue IV vancomycin. 2. We will do follow up cultures and MRI results of the left hip. I would like to thank, Dr. Cano, for this consultation. Terri Escobedo M.D. DR: PORTILLO JOB#: [id number] CC: Angel Cano M.D.
[2017-07-08] VITALS: BP 140/86
--- NOTE | 2017-07-08 03:00 | Progress Note ---
DATE: 07/07/2017 INTERNAL MEDICINE PROGRESS NOTE SUBJECTIVE: The patient continues to have pain, fevers, and redness of his left hip and buttocks region. He has been on IV antibiotics since admission. Blood cultures are positive for gram-positive cocci. Imaging studies namely MRI revealed an abscess in the buttocks region. Surgical consultation was obtained and partial drainage of pus performed by Interventional Radiology. OBJECTIVE: VITAL SIGNS: Blood pressure 129/77, pulse 112, respirations 20, and afebrile. LUNGS: Clear. CARDIAC: Regular. No murmur. ABDOMEN: Soft. EXTREMITIES: With left leg, thigh, and pelvis redness and swelling. IMPRESSION: 1. Cellulitis. 2. Abscess. 3. Severe protein-calorie malnutrition. 4. Diabetes mellitus, uncontrolled. PLAN: 1. Drainage catheter. May need I and D. 2. Advance insulin. 3. DVT prophylaxis. 4. Antimicrobials per Infectious Disease networks software consultant. 5. Titrate insulin. Angel Cano M.D. DR: JOHNNIE JOB#: [id number] CC:
[2017-07-08 04:00] VITALS: BP 157/93
[2017-07-08] MEDS: Vancomycin 1gm/D5W 275ml IVPB SCH ×4 (05:45→18:56)
[2017-07-08] MEDS: NovoLOG Insulin Flexpen SUBQ SCH ×7 (05:47→21:25)
[2017-07-08] MEDS ORDERED: NovoLOG Insulin Flexpen SUBQ SCH (06:30)
[2017-07-08 07:37] LABS: ALANINE AMINOTRANSFERASE 12 U/L (12-78); ALBUMIN 1.5 G/DL (3.4-5.0); ALBUMIN/GLOBULIN RATIO 0.3 (1.0-2.7); ALKALINE PHOSPHATASE 134 U/L (46-116); ANION GAP 8 mmol/L (5-15); ASPARTATE AMINO TRANSFERASE 11 U/L (15-37); BILIRUBIN,TOTAL 0.3 MG/DL (0.2-1.0); BLOOD UREA NITROGEN 15 mg/dL (7-18); CALCIUM 8.2 MG/DL (8.5-10.1); CARBON DIOXIDE 26 MMOL/L (21-32); CHLORIDE 96 MMOL/L (98-107); CREATININE 1.3 MG/DL (0.55-1.30); POTASSIUM 4.2 MMOL/L (3.5-5.1); SODIUM 130 MMOL/L (136-145)
[2017-07-08 07:40] LABS: BASOPHILS % (AUTO) 0.3 % (0.0-2.0); EOSINOPHILS % (AUTO) 0.3 % (0.0-3.0); HEMATOCRIT 33.3 % (42.0-52.0); HEMOGLOBIN 11.3 G/DL (14.2-18.0); LYMPHOCYTES % (AUTO) 10.1 % (20.0-45.0); MEAN CORPUSCULAR VOLUME 79 FL (80-99); MONOCYTES % (AUTO) 7.3 % (1.0-10.0); PLATELET COUNT 309 K/UL (150-450); RED BLOOD COUNT 4.23 M/UL (4.70-6.10); RED CELL DISTRIBUTION WIDTH 13.1 % (11.6-14.8); WHITE BLOOD COUNT 17.9 K/UL (4.8-10.8)
[2017-07-08] MEDS: Heparin 5000 units/ml inj SUBQ SCH ×2 (09:00→21:25)
[2017-07-08] MEDS ORDERED: Levemir Flexpen SUBQ SCH (09:00)
[2017-07-08] MEDS: Norco 5mg/325mg tab ORAL PRN (10:11)
[2017-07-08] MEDS: Levemir Flexpen SUBQ SCH ×2 (10:46→17:43)
--- NOTE | 2017-07-08 11:10 | Infectious Diseases Prog Note ---
Assessment/Plan Assessment/Plan antibiotics : vancomycin iv A 1. staph aureus sepsis 2. left hip cellulitis improving 3. left buttock abscess s/p drainage 4. diabetes mellitus 5. renal insufficiency improving P 1. continue iv vancomycin 2. 2 d echo 3. will follow up cultures Subjective Constitutional: Denies: fever, chills Respiratory: Denies: shortness of breath, dry cough Gastrointestinal/Abdominal: Denies: nausea, vomiting, diarrhea Musculoskeletal: Reports: other - sore left hip Allergies: Coded Allergies: No Known Allergies (Unverified , 05/14/15) Objective Vital Signs Last 24 Hour Vital Signs Date Time Temp Pulse Resp B/P (MAP) Pulse Ox O2 Delivery O2 Flow Rate FiO2 07/08/17 10:11 98.4 07/08/17 04:00 98.4 98 20 157/93 100 Room Air 98.4 07/08/17 04:00 100 Room Air 07/08/17 00:00 98.4 100 20 140/86 97 Room Air 98.4 07/08/17 00:00 97 Room Air 07/07/17 19:43 96 Room Air 07/07/17 19:43 98.2 112 20 129/77 96 Room Air 98.2 07/07/17 18:30 110 145/86 07/07/17 18:15 140/78 07/07/17 18:00 134/94 07/07/17 17:40 98.8 111 20 157/95 97 Room Air 98.8 07/07/17 16:00 98.1 107 21 135/83 98 98.1 07/07/17 12:00 98.7 111 20 136/79 96 98.7 07/07/17 12:00 Room Air Height (Feet): 6 Height (Inches): 2.00 Weight (Pounds): 200 Respiratory/Chest: lungs clear Cardiovascular: normal rate, regular rhythm, no gallop/murmur Abdomen: soft, non tender Extremities: no edema, other - left hip decreased erythema, drain Microbiology Date/Time Source Procedure Growth Status 07/06/17 13:30 Blood Blood Culture - Preliminary Staphylococcus Aureus Resulted Laboratory Tests Test 07/08/17 05:20 White Blood Count 17.9 K/UL (4.8-10.8) H Red Blood Count 4.23 M/UL (4.70-6.10) L Hemoglobin 11.3 G/DL (14.2-18.0) L Hematocrit 33.3 % (42.0-52.0) L Mean Corpuscular Volume 79 FL (80-99) L Mean Corpuscular Hemoglobin 26.7 PG (27.0-31.0) L Mean Corpuscular Hemoglobin Concent 33.9 G/DL (32.0-36.0) Red Cell Distribution Width 13.1 % (11.6-14.8) Platelet Count 309 K/UL (150-450) Mean Platelet Volume 7.8 FL (6.5-10.1) Neutrophils (%) (Auto) 82.0 % (45.0-75.0) H Lymphocytes (%) (Auto) 10.1 % (20.0-45.0) L Monocytes (%) (Auto) 7.3 % (1.0-10.0) Eosinophils (%) (Auto) 0.3 % (0.0-3.0) Basophils (%) (Auto) 0.3 % (0.0-2.0) Sodium Level 130 MMOL/L (136-145) L Potassium Level 4.2 MMOL/L (3.5-5.1) Chloride Level 96 MMOL/L (98-107) L Carbon Dioxide Level 26 MMOL/L (21-32) Anion Gap 8 mmol/L (5-15) Blood Urea Nitrogen 15 mg/dL (7-18) Creatinine 1.3 MG/DL (0.55-1.30) Estimat Glomerular Filtration Rate > 60 mL/min (>60) Glucose Level 439 MG/DL (74-106) H Calcium Level 8.2 MG/DL (8.5-10.1) L Total Bilirubin 0.3 MG/DL (0.2-1.0) Aspartate Amino Transf (AST/SGOT) 11 U/L (15-37) L Alanine Aminotransferase (ALT/SGPT) 12 U/L (12-78) Alkaline Phosphatase 134 U/L (46-116) H Total Protein 7.1 G/DL (6.4-8.2) Albumin 1.5 G/DL (3.4-5.0) L Globulin 5.6 g/dL Albumin/Globulin Ratio 0.3 (1.0-2.7) L Current Medications Medications (Trade) Dose Ordered Sig/Shania Route PRN Reason Start Time Stop Time Status Last Admin Dose Admin Acetaminophen (Tylenol) 650 mg Q6H PRN ORAL Mild Pain/Temp > 100.5 07/06/17 17:32 08/05/17 17:31 07/07/17 17:29 Acetaminophen/ Hydrocodone Bitart ([place] 5/325) 1 tab Q6H PRN ORAL MODERATE PAIN(PAIN SCALE 4-6) 07/06/17 17:33 07/13/17 17:32 07/08/17 10:11 Dextrose (Dextrose 50%) 25 ml STAT PRN IV Hypoglycemia 07/08/17 07:00 08/07/17 06:59 Dextrose (Dextrose 50%) 50 ml STAT PRN IV Hypoglycemia 07/08/17 07:00 08/07/17 06:59 Famotidine (Pepcid) 20 mg BID ORAL 07/08/17 09:00 08/07/17 08:59 Heparin Sodium (Porcine) (Heparin 5000 units/ml) 5,000 units EVERY 12 HOURS SUBQ 07/06/17 21:00 08/05/17 20:59 07/07/17 21:11 Insulin Aspart (NovoLOG) BEFORE MEALS AND HS SUBQ 07/08/17 06:30 08/07/17 06:29 07/08/17 05:47 Insulin Aspart (NovoLOG) 10 units NOVOTIAC SUBQ 07/08/17 07:00 08/07/17 06:59 Insulin Detemir (Levemir) 23 units TWICE A DAY SUBQ 07/08/17 09:00 08/07/17 08:59 07/08/17 10:46 Multivitamins (Multivitamins) 1 tab DAILY ORAL 07/07/17 09:00 08/06/17 08:59 07/08/17 10:02 Sodium Chloride 1,000 ml @ 125 mls/hr Q8H IV 07/07/17 18:15 08/06/17 18:14 07/08/17 03:03 Vancomycin HCl (Vanco rx to dose) 1 ea DAILY PRN MISC Per rx protocol 07/06/17 17:15 08/05/17 17:14 Vancomycin HCl 1 gm/Dextrose 275 ml @ 183.708 mls/hr Q12H IVPB 07/07/17 06:00 07/12/17 05:59 07/08/17 05:45 KUSH CUNNINGHAM Jul 08, 2017 11:10
[2017-07-08 12:00] VITALS: BP 163/93
--- NOTE | 2017-07-08 12:54 | General Surgery Progress Note ---
General Surgery-Progress Note Subjective Additional Comments doing well. no acute events. comfortable. had drain placed yesterday. since tenderness and edema improved as per patient. no n/v/f/c. still with leukocytosis Objective Last 24 Hour Vital Signs Date Time Temp Pulse Resp B/P (MAP) Pulse Ox O2 Delivery O2 Flow Rate FiO2 07/08/17 12:00 98.1 100 20 163/93 96 98.1 07/08/17 11:10 98.4 07/08/17 10:11 98.4 07/08/17 04:00 98.4 98 20 157/93 100 Room Air 98.4 07/08/17 04:00 100 Room Air 07/08/17 00:00 98.4 100 20 140/86 97 Room Air 98.4 07/08/17 00:00 97 Room Air 07/07/17 19:43 96 Room Air 07/07/17 19:43 98.2 112 20 129/77 96 Room Air 98.2 07/07/17 18:30 110 145/86 07/07/17 18:15 140/78 07/07/17 18:00 134/94 07/07/17 17:40 98.8 111 20 157/95 97 Room Air 98.8 07/07/17 16:00 98.1 107 21 135/83 98 98.1 I&O Intake and Output 07/07/17 07/08/17 19:00 07:00 Intake Total 471.292 ml 1463.708 ml Output Total 0 ml Balance 471.292 ml 1463.708 ml Intake Oral 380 ml IV Total 91.292 ml 1463.708 ml Other 0 ml # Voids 2 # Bowel Movements 1 Drains: other - with thick purulent drainage Cardiovascular: RSR Respiratory: clear Abdomen: soft, flat, non-tender, present bowel sounds Extremities: edema - around left hip , no tenderness, no cyanosis Laboratory Tests Test 07/08/17 05:20 White Blood Count 17.9 K/UL (4.8-10.8) H Red Blood Count 4.23 M/UL (4.70-6.10) L Hemoglobin 11.3 G/DL (14.2-18.0) L Hematocrit 33.3 % (42.0-52.0) L Mean Corpuscular Volume 79 FL (80-99) L Mean Corpuscular Hemoglobin 26.7 PG (27.0-31.0) L Mean Corpuscular Hemoglobin Concent 33.9 G/DL (32.0-36.0) Red Cell Distribution Width 13.1 % (11.6-14.8) Platelet Count 309 K/UL (150-450) Mean Platelet Volume 7.8 FL (6.5-10.1) Neutrophils (%) (Auto) 82.0 % (45.0-75.0) H Lymphocytes (%) (Auto) 10.1 % (20.0-45.0) L Monocytes (%) (Auto) 7.3 % (1.0-10.0) Eosinophils (%) (Auto) 0.3 % (0.0-3.0) Basophils (%) (Auto) 0.3 % (0.0-2.0) Sodium Level 130 MMOL/L (136-145) L Potassium Level 4.2 MMOL/L (3.5-5.1) Chloride Level 96 MMOL/L (98-107) L Carbon Dioxide Level 26 MMOL/L (21-32) Anion Gap 8 mmol/L (5-15) Blood Urea Nitrogen 15 mg/dL (7-18) Creatinine 1.3 MG/DL (0.55-1.30) Estimat Glomerular Filtration Rate > 60 mL/min (>60) Glucose Level 439 MG/DL (74-106) H Calcium Level 8.2 MG/DL (8.5-10.1) L Total Bilirubin 0.3 MG/DL (0.2-1.0) Aspartate Amino Transf (AST/SGOT) 11 U/L (15-37) L Alanine Aminotransferase (ALT/SGPT) 12 U/L (12-78) Alkaline Phosphatase 134 U/L (46-116) H Total Protein 7.1 G/DL (6.4-8.2) Albumin 1.5 G/DL (3.4-5.0) L Globulin 5.6 g/dL Albumin/Globulin Ratio 0.3 (1.0-2.7) L Plan Problems: (1) Gluteal abscess Assessment & Plan: 37M with left gluteal abscess. low grade fever, leukocytosis, on exam overlying tissue with edema, erythema, warmth, cellulitis. CT with large abscess between major and minor muscle. s/p Ultrasound guided drain placement for evacuation of abscess by radiology. If able to successfully drain via catheter will do so. unfortunately it has been present for some time now and fluid may be viscous and unable to drain without formal incision and drainage. -cont IV Abx -okay for diet -tight glucose control -okay for activity -drain care and management. -discussed with patient and will monitor for next 24-48 hours. if not significantly improved may still need I&D. will monitor for now. will follow with recs. thank you for this consultation. Nahid Bartholomew Jul 08, 2017 12:54
[2017-07-08 16:00] VITALS: BP 150/99
[2017-07-08 20:00] VITALS: BP 147/96
[2017-07-08] MEDS ORDERED: Tubing IV Secondary IV ONE (20:24)
--- NOTE | 2017-07-08 22:30 | Progress Note ---
DATE: 07/08/2017 CARDIOLOGY PROGRESS NOTE SUBJECTIVE: The patient feels weak and tired. He is status post drain placement for abscess in the buttock. He continues to have leukocytosis with white count over 17,000 and is on IV antibiotics. According to the imaging studies, there may continue to be loculated areas of fibrinous abscess that needs to be incised and drained by the surgeon. Glucose parameters remained quite elevated and A1c was noted to be high. PLAN: Plan of care at this time is, continue antibiotics. Drainage procedure. Consideration for incision and drainage, and titration of insulin dosing to optimize blood glucose control. Angel Cano M.D. DR: JESUS JOB#: [id number] CC:
[2017-07-09] VITALS (7 sets, daily range): BP systolic 139–164; BP diastolic 90–109
[2017-07-09] MEDS ORDERED: Vancomycin 1250mg/D5W 250ml IVPB SCH (04:00)
--- NOTE | 2017-07-09 04:45 | Consultation ---
DATE OF CONSULTATION: 07/08/2017 NOTE: POOR AUDIO ENDOCRINOLOGY CONSULTATION CONSULTING PHYSICIAN: Kenyon Kirkpatrick M.D. REFERRING PHYSICIAN: Angel Cano M.D. REASON FOR CONSULTATION: Diabetes management. HISTORY OF PRESENT ILLNESS: The patient is a 37-year-old male with history of diabetes, diagnosed last year, on Levemir 40 units daily and metformin, who presented to the hospital with a left hip pain, was diagnosed with cellulitis. Blood glucose is running around 300. Endocrinology was consulted management of diabetes. PAST MEDICAL HISTORY: 1. History of diabetes as above. 2. cellulitis. 3. osteomyelitis and required amputation. MEDICATIONS: Levemir 40 units daily and metformin. For the rest, refer to medication reconciliation form. ALLERGIES: Allergies to medication, none. SOCIAL HISTORY: No smoking, alcohol, or drug use. FAMILY HISTORY: History of diabetes runs in the family. REVIEW OF SYSTEMS: As per history of present illness. PHYSICAL EXAMINATION: VITAL SIGNS: Temperature of 100, respiratory rate of 20, blood pressure of 140/80. HEENT: Pupils are equal and reactive to light and accommodation. Sclerae anicteric. NECK: No JVD. No thyromegaly. No bruit. LUNGS: Clear. HEART: Regular rate and rhythm. ABDOMEN: Positive bowel sounds. Soft. EXTREMITIES: No clubbing, cyanosis, or edema. Left hip erythema noted. LABORATORY VALUES: Sodium 130, potassium 3.9, chloride 94, bicarbonate 20, BUN 15, creatinine 1.6, glucose of . A1c 13.4. TSH 0.6. DIAGNOSES: 1. Left hip cellulitis. 2. Diabetes, out of control. 3. Acute kidney injury. PLAN: 1. Discontinue metformin. 2. Creatinine elevated. 3. Increase Levemir to 23 units b.i.d. 4. Add NovoLog 10 units before each meal. 5. Continue NovoLog sliding scale. 6. Further adjustment according to blood glucose values. Thank you, Dr. Cano, for the courtesy of this consultation. Kenyon Kirkpatrick M.D. DR: DIANE JOB#: [id number] CC:
--- NOTE | 2017-07-09 06:50 | General Progress Note ---
Assessment/Plan Problem List: (1) Hyperglycemia ICD Codes: R73.9 - Hyperglycemia, unspecified SNOMED: 10552144 (2) Cellulitis of hip, left ICD Codes: L03.116 - Cellulitis of left lower limb SNOMED: 3174031 (3) Gluteal abscess ICD Codes: L02.31 - Cutaneous abscess of buttock SNOMED: 42163823 Assessment/Plan continue Levemir 23 units bid continue Novolog 10 units ac tid + NISS Subjective Allergies: Coded Allergies: No Known Allergies (Unverified , 05/14/15) All Systems: reviewed and negative except above Subjective fasting glucose improved Objective Last 24 Hour Vital Signs Date Time Temp Pulse Resp B/P (MAP) Pulse Ox O2 Delivery O2 Flow Rate FiO2 07/09/17 04:00 98.4 100 19 151/90 97 Room Air 98.4 07/09/17 01:21 Room Air 07/09/17 00:00 97.9 100 20 139/92 97 Room Air 97.9 07/08/17 20:00 98.2 108 18 147/96 96 Room Air 98.2 07/08/17 20:00 Room Air 07/08/17 16:00 97.7 99 18 150/99 99 97.7 07/08/17 12:00 98.1 100 20 163/93 96 98.1 07/08/17 11:10 98.4 07/08/17 10:11 98.4 Intake and Output 07/08/17 07/09/17 19:00 07:00 Intake Total 1696.292 ml 125 ml Output Total 0 ml Balance 1696.292 ml 125 ml Intake Oral 480 ml IV Total 1216.292 ml 125 ml Other 0 ml # Voids 3 4 Laboratory Tests 07/08/17 17:43: Vancomycin Level Trough 9.5 Height (Feet): 6 Height (Inches): 2.00 Weight (Pounds): 200 General Appearance: no apparent distress Neck: normal alignment Cardiovascular: normal rate Respiratory/Chest: lungs clear Abdomen: normal bowel sounds Objective Current Medications Medications (Trade) Dose Ordered Sig/Shania Route PRN Reason Start Time Stop Time Status Last Admin Dose Admin Acetaminophen (Tylenol) 650 mg Q6H PRN ORAL Mild Pain/Temp > 100.5 07/06/17 17:32 08/05/17 17:31 07/07/17 17:29 Acetaminophen/ Hydrocodone Bitart ([place] 5/325) 1 tab Q6H PRN ORAL MODERATE PAIN(PAIN SCALE 4-6) 07/06/17 17:33 07/13/17 17:32 07/08/17 10:11 Dextrose (Dextrose 50%) 25 ml STAT PRN IV Hypoglycemia 07/08/17 07:00 08/07/17 06:59 Dextrose (Dextrose 50%) 50 ml STAT PRN IV Hypoglycemia 07/08/17 07:00 08/07/17 06:59 Famotidine (Pepcid) 20 mg BID ORAL 07/08/17 09:00 08/07/17 08:59 Heparin Sodium (Porcine) (Heparin 5000 units/ml) 5,000 units EVERY 12 HOURS SUBQ 07/06/17 21:00 08/05/17 20:59 07/08/17 21:25 Insulin Aspart (NovoLOG) BEFORE MEALS AND HS SUBQ 07/08/17 06:30 08/07/17 06:29 07/08/17 21:25 Insulin Aspart (NovoLOG) 10 units NOVOTIAC SUBQ 07/08/17 07:00 08/07/17 06:59 07/08/17 17:41 Insulin Detemir (Levemir) 23 units TWICE A DAY SUBQ 07/08/17 09:00 08/07/17 08:59 07/08/17 17:43 Multivitamins (Multivitamins) 1 tab DAILY ORAL 07/07/17 09:00 08/06/17 08:59 07/08/17 10:02 Sodium Chloride 1,000 ml @ 125 mls/hr Q8H IV 07/07/17 18:15 08/06/17 18:14 07/09/17 01:03 Vancomycin HCl (Vanco rx to dose) 1 ea DAILY PRN MISC Per rx protocol 07/06/17 17:15 08/05/17 17:14 Vancomycin HCl/ Dextrose 250 ml @ 166.667 mls/hr Q12H IVPB 07/09/17 04:00 07/14/17 03:59 07/09/17 03:43 Item Value Date Time Bedside Blood Glucose 173 mg/dl H 07/09/17 0633 Bedside Blood Glucose 231 mg/dl H 07/08/17 2125 Bedside Blood Glucose 246 mg/dl H 07/08/17 1743 Bedside Blood Glucose 351 mg/dl H 07/08/17 1209 ADILENE JIMENEZ Jul 09, 2017 06:50
[2017-07-09] MEDS: NovoLOG Insulin Flexpen SUBQ SCH ×7 (06:54→22:39)
[2017-07-09 08:19] LABS: HEMATOCRIT 30.6 % (42.0-52.0); HEMOGLOBIN 10.7 G/DL (14.2-18.0); MEAN CORPUSCULAR VOLUME 78 FL (80-99); PLATELET COUNT 301 K/UL (150-450); RED BLOOD COUNT 3.93 M/UL (4.70-6.10); RED CELL DISTRIBUTION WIDTH 12.9 % (11.6-14.8); WHITE BLOOD COUNT 19.2 K/UL (4.8-10.8)
[2017-07-09 09:16] LABS: ALANINE AMINOTRANSFERASE 12 U/L (12-78); ALBUMIN 1.4 G/DL (3.4-5.0); ALBUMIN/GLOBULIN RATIO 0.3 (1.0-2.7); ALKALINE PHOSPHATASE 137 U/L (46-116); ANION GAP 10 mmol/L (5-15); ASPARTATE AMINO TRANSFERASE 20 U/L (15-37); BILIRUBIN,TOTAL 0.3 MG/DL (0.2-1.0); BLOOD UREA NITROGEN 10 mg/dL (7-18); CALCIUM 7.8 MG/DL (8.5-10.1); CARBON DIOXIDE 26 MMOL/L (21-32); CHLORIDE 97 MMOL/L (98-107); CREATININE 1.2 MG/DL (0.55-1.30); POTASSIUM 3.3 MMOL/L (3.5-5.1); SODIUM 133 MMOL/L (136-145)
[2017-07-09] MEDS: Heparin 5000 units/ml inj SUBQ SCH ×2 (09:43→22:33)
[2017-07-09] MEDS: Levemir Flexpen SUBQ SCH ×2 (09:46→17:16)
[2017-07-09] MEDS ORDERED: Metoprolol 25mg tab ORAL SCH (11:15)
[2017-07-09] MEDS: Norco 5mg/325mg tab ORAL PRN ×2 (12:38→23:10)
--- NOTE | 2017-07-09 13:15 | Infectious Diseases Prog Note ---
Assessment/Plan Assessment/Plan A 1. staph aureus sepsis, MSSA 2. left hip cellulitis improving 3. left buttock abscess s/p drainage 4. diabetes mellitus 5. renal insufficiency improving P 1. change iv vancomycin to Ancef 2. 2 d echo negative 3. will follow up cultures Subjective ROS Limited/Unobtainable: No Constitutional: Reports: no symptoms Respiratory: Reports: no symptoms Cardiovascular: Reports: no symptoms Gastrointestinal/Abdominal: Reports: no symptoms Genitourinary: Reports: no symptoms Musculoskeletal: Reports: pain, other - left leg Allergies: Coded Allergies: No Known Allergies (Unverified , 05/14/15) Objective Vital Signs Last 24 Hour Vital Signs Date Time Temp Pulse Resp B/P (MAP) Pulse Ox O2 Delivery O2 Flow Rate FiO2 07/09/17 12:38 98.1 07/09/17 12:00 98.1 107 20 160/109 98 98.1 07/09/17 11:32 104 162/101 07/09/17 08:56 98.6 104 21 162/101 97 98.6 07/09/17 04:00 98.4 100 19 151/90 97 Room Air 98.4 07/09/17 04:00 Room Air 07/09/17 01:21 Room Air 07/09/17 00:00 97.9 100 20 139/92 97 Room Air 97.9 07/08/17 20:00 98.2 108 18 147/96 96 Room Air 98.2 07/08/17 20:00 Room Air 07/08/17 16:00 97.7 99 18 150/99 99 97.7 Height (Feet): 6 Height (Inches): 2.00 Weight (Pounds): 200 General Appearance: no acute distress HEENT: mucous membranes moist Respiratory/Chest: lungs clear Cardiovascular: normal rate Abdomen: soft, non tender Neurologic/Psychiatric: alert, oriented x 3, responsive Musculoskeletal: other - drain in left buttock Microbiology Date/Time Source Procedure Growth Status 07/06/17 13:30 Blood Blood Culture - Final Staphylococcus Aureus Complete 07/06/17 13:20 Blood Blood Culture - Preliminary NO GROWTH AFTER 48 HOURS Resulted 07/07/17 16:40 Body Fluid Abscess Gram Stain - Final Resulted 07/07/17 16:40 Body Fluid Abscess Aerobic Culture Pending Resulted 07/07/17 16:40 Body Fluid Abscess Anaerobic Culture Pending Resulted 07/07/17 16:40 Body Fluid Abscess Gram Stain - Final Resulted 07/07/17 16:40 Body Fluid Abscess Body Fluid Culture Pending Resulted Laboratory Tests Test 07/08/17 17:43 07/09/17 05:25 Vancomycin Level Trough 9.5 ug/mL (5.0-12.0) White Blood Count 19.2 K/UL (4.8-10.8) H Red Blood Count 3.93 M/UL (4.70-6.10) L Hemoglobin 10.7 G/DL (14.2-18.0) L Hematocrit 30.6 % (42.0-52.0) L Mean Corpuscular Volume 78 FL (80-99) L Mean Corpuscular Hemoglobin 27.2 PG (27.0-31.0) Mean Corpuscular Hemoglobin Concent 34.8 G/DL (32.0-36.0) Red Cell Distribution Width 12.9 % (11.6-14.8) Platelet Count 301 K/UL (150-450) Mean Platelet Volume 8.0 FL (6.5-10.1) Neutrophils (%) (Auto) % (45.0-75.0) Lymphocytes (%) (Auto) % (20.0-45.0) Monocytes (%) (Auto) % (1.0-10.0) Eosinophils (%) (Auto) % (0.0-3.0) Basophils (%) (Auto) % (0.0-2.0) Differential Total Cells Counted 100 Neutrophils % (Manual) 73 % (45-75) Lymphocytes % (Manual) 17 % (20-45) L Monocytes % (Manual) 7 % (1-10) Eosinophils % (Manual) 2 % (0-3) Basophils % (Manual) 0 % (0-2) Band Neutrophils 1 % (0-8) Platelet Estimate Adequate Platelet Morphology Normal Hypochromasia 1+ Microcytosis 1+ Sodium Level 133 MMOL/L (136-145) L Potassium Level 3.3 MMOL/L (3.5-5.1) L Chloride Level 97 MMOL/L (98-107) L Carbon Dioxide Level 26 MMOL/L (21-32) Anion Gap 10 mmol/L (5-15) Blood Urea Nitrogen 10 mg/dL (7-18) Creatinine 1.2 MG/DL (0.55-1.30) Estimat Glomerular Filtration Rate > 60 mL/min (>60) Glucose Level 131 MG/DL (74-106) #H Calcium Level 7.8 MG/DL (8.5-10.1) L Total Bilirubin 0.3 MG/DL (0.2-1.0) Aspartate Amino Transf (AST/SGOT) 20 U/L (15-37) Alanine Aminotransferase (ALT/SGPT) 12 U/L (12-78) Alkaline Phosphatase 137 U/L (46-116) H Total Protein 6.9 G/DL (6.4-8.2) Albumin 1.4 G/DL (3.4-5.0) L Globulin 5.5 g/dL Albumin/Globulin Ratio 0.3 (1.0-2.7) L Current Medications Medications (Trade) Dose Ordered Sig/Shania Route PRN Reason Start Time Stop Time Status Last Admin Dose Admin Acetaminophen (Tylenol) 650 mg Q6H PRN ORAL Mild Pain/Temp > 100.5 07/06/17 17:32 08/05/17 17:31 07/07/17 17:29 Acetaminophen/ Hydrocodone Bitart ([place] 5/325) 1 tab Q6H PRN ORAL MODERATE PAIN(PAIN SCALE 4-6) 07/06/17 17:33 07/13/17 17:32 07/09/17 12:38 Dextrose (Dextrose 50%) 25 ml STAT PRN IV Hypoglycemia 07/08/17 07:00 08/07/17 06:59 Dextrose (Dextrose 50%) 50 ml STAT PRN IV Hypoglycemia 07/08/17 07:00 08/07/17 06:59 Famotidine (Pepcid) 20 mg BID ORAL 07/08/17 09:00 08/07/17 08:59 Heparin Sodium (Porcine) (Heparin 5000 units/ml) 5,000 units EVERY 12 HOURS SUBQ 07/06/17 21:00 08/05/17 20:59 07/09/17 09:43 Insulin Aspart (NovoLOG) BEFORE MEALS AND HS SUBQ 07/08/17 06:30 08/07/17 06:29 07/09/17 06:55 Insulin Aspart (NovoLOG) 10 units NOVOTIAC SUBQ 07/08/17 07:00 5/28/18 06:59 07/09/17 06:54 Insulin Detemir (Levemir) 23 units TWICE A DAY SUBQ 07/08/17 09:00 08/07/17 08:59 07/09/17 09:46 Metoprolol Tartrate (Lopressor) 25 mg Q12HR ORAL 07/09/17 21:00 08/08/17 20:59 Multivitamins (Multivitamins) 1 tab DAILY ORAL 07/07/17 09:00 08/06/17 08:59 07/09/17 09:42 Sodium Chloride 1,000 ml @ 125 mls/hr Q8H IV 07/07/17 18:15 08/06/17 18:14 07/09/17 12:33 Vancomycin HCl (Vanco rx to dose) 1 ea DAILY PRN MISC Per rx protocol 07/06/17 17:15 08/05/17 17:14 Vancomycin HCl/ Dextrose 250 ml @ 166.667 mls/hr Q12H IVPB 07/09/17 04:00 07/14/17 03:59 07/09/17 03:43 DANISHA SOSA Jul 09, 2017 13:15
--- NOTE | 2017-07-09 14:00 | General Surgery Progress Note ---
General Surgery-Progress Note Subjective Additional Comments states he is doing well. pain improved. no n/v/f/c. comfortable. drain without output. cellulitis improved. leukocytosis worse. Objective Last 24 Hour Vital Signs Date Time Temp Pulse Resp B/P (MAP) Pulse Ox O2 Delivery O2 Flow Rate FiO2 07/09/17 12:38 98.1 07/09/17 12:00 98.1 107 20 160/109 98 98.1 07/09/17 11:32 104 162/101 07/09/17 08:56 98.6 104 21 162/101 97 98.6 07/09/17 04:00 98.4 100 19 151/90 97 Room Air 98.4 07/09/17 04:00 Room Air 07/09/17 01:21 Room Air 07/09/17 00:00 97.9 100 20 139/92 97 Room Air 97.9 07/08/17 20:00 98.2 108 18 147/96 96 Room Air 98.2 07/08/17 20:00 Room Air 07/08/17 16:00 97.7 99 18 150/99 99 97.7 I&O Intake and Output 07/08/17 07/09/17 19:00 07:00 Intake Total 1696.292 ml 625.000 ml Output Total 0 ml Balance 1696.292 ml 625.000 ml Intake Oral 480 ml IV Total 1216.292 ml 625.000 ml Other 0 ml # Voids 3 4 Drains: other Cardiovascular: RSR Respiratory: clear Abdomen: soft, flat, non-tender, present bowel sounds Extremities: no tenderness, no cyanosis Laboratory Tests Test 07/08/17 17:43 07/09/17 05:25 Vancomycin Level Trough 9.5 ug/mL (5.0-12.0) White Blood Count 19.2 K/UL (4.8-10.8) H Red Blood Count 3.93 M/UL (4.70-6.10) L Hemoglobin 10.7 G/DL (14.2-18.0) L Hematocrit 30.6 % (42.0-52.0) L Mean Corpuscular Volume 78 FL (80-99) L Mean Corpuscular Hemoglobin 27.2 PG (27.0-31.0) Mean Corpuscular Hemoglobin Concent 34.8 G/DL (32.0-36.0) Red Cell Distribution Width 12.9 % (11.6-14.8) Platelet Count 301 K/UL (150-450) Mean Platelet Volume 8.0 FL (6.5-10.1) Neutrophils (%) (Auto) % (45.0-75.0) Lymphocytes (%) (Auto) % (20.0-45.0) Monocytes (%) (Auto) % (1.0-10.0) Eosinophils (%) (Auto) % (0.0-3.0) Basophils (%) (Auto) % (0.0-2.0) Differential Total Cells Counted 100 Neutrophils % (Manual) 73 % (45-75) Lymphocytes % (Manual) 17 % (20-45) L Monocytes % (Manual) 7 % (1-10) Eosinophils % (Manual) 2 % (0-3) Basophils % (Manual) 0 % (0-2) Band Neutrophils 1 % (0-8) Platelet Estimate Adequate Platelet Morphology Normal Hypochromasia 1+ Microcytosis 1+ Sodium Level 133 MMOL/L (136-145) L Potassium Level 3.3 MMOL/L (3.5-5.1) L Chloride Level 97 MMOL/L (98-107) L Carbon Dioxide Level 26 MMOL/L (21-32) Anion Gap 10 mmol/L (5-15) Blood Urea Nitrogen 10 mg/dL (7-18) Creatinine 1.2 MG/DL (0.55-1.30) Estimat Glomerular Filtration Rate > 60 mL/min (>60) Glucose Level 131 MG/DL (74-106) #H Calcium Level 7.8 MG/DL (8.5-10.1) L Total Bilirubin 0.3 MG/DL (0.2-1.0) Aspartate Amino Transf (AST/SGOT) 20 U/L (15-37) Alanine Aminotransferase (ALT/SGPT) 12 U/L (12-78) Alkaline Phosphatase 137 U/L (46-116) H Total Protein 6.9 G/DL (6.4-8.2) Albumin 1.4 G/DL (3.4-5.0) L Globulin 5.5 g/dL Albumin/Globulin Ratio 0.3 (1.0-2.7) L Plan Problems: (1) Gluteal abscess Assessment & Plan: 37M with left gluteal abscess. low grade fever, leukocytosis, on exam overlying tissue with edema, erythema, warmth, cellulitis. CT with large abscess between major and minor muscle. s/p Ultrasound guided drain placement for evacuation of abscess by radiology. If able to successfully drain via catheter will do so. unfortunately it has been present for some time now and fluid may be viscous and unable to drain without formal incision and drainage. -cont IV Abx -NPO p MN -unfortunately drain not enough to manage abscess. will need formal I&D. will plan for tomorrow if can get no schedule. discussed findings with patient, no drain output, worsening leukocytosis and plan for I&D. he expressed understanding. -tight glucose control -okay for activity -drain care and management. will follow with recs. thank you for this consultation. Nahid Bartholomew Jul 09, 2017 14:00
--- NOTE | 2017-07-09 14:02 | Pre-Procedure Note/Attestation ---
Pre-Procedure Note/Attestation Complete Prior to Procedure Planned Procedure: left Procedure Narrative: incision and drainage of deep left gluteal abscess Indications for Procedure Pre-Operative Diagnosis: left deep intermuscular gluteal abscess Attestation I attest that I discussed the nature of the procedure; its benefits; risks and complications; and alternatives (and the risks and benefits of such alternatives ), prior to the procedure, with the patient (or the patient's legal service center representative). I attest that, if there was a reasonable possibility of needing a blood transfusion, the patient (or the patient's legal service center representative) was given the [facility] standardized written summary, pursuant to the Santiago Zohra Blood Safety Act ([place] Health and Safety Code # 1645, as amended). I attest that I re-evaluated the patient just prior to the surgery and that there has been no change in the patient's H&P, except as documented below: Nahid Bartholomew Jul 09, 2017 14:02
[2017-07-09] MEDS: ceFAZolin sod 1 GM in D5W 55 ML IVPB SCH ×2 (15:15→22:31)
--- NOTE | 2017-07-09 17:51 | Cardiology Report ---
APPROVED REPORT EKG Measurement Heart [id number] Sinus tachycardia Otherwise normal ECG
[2017-07-09] MEDS: Metoprolol 25mg tab ORAL SCH (22:32)
[2017-07-10] VITALS (13 sets, daily range): BP systolic 127–191; BP diastolic 67–119
--- NOTE | 2017-07-10 03:45 | Progress Note ---
DATE: 07/09/2017 INTERNAL MEDICINE PROGRESS NOTE SUBJECTIVE: The patient continues to have left hip and thigh pain. He is scheduled for I and D tomorrow. His white count continues to remain elevated. He continues to have additional abscess that could not be drained percutaneously. OBJECTIVE: VITAL SIGNS: Blood pressure 151/93, pulse 108, respiratory rate 15, temperature 100.2. LUNGS: Clear. CARDIAC: Regular. ABDOMEN: Soft. EXTREMITIES: No edema. Glucose control has improved. IMPRESSION: 1. Peripheral artery disease. 2. Abscess of the left thigh and buttocks. 3. Insulin-requiring diabetes, uncontrolled. 4. Prior history of left first toe amputation. PLAN: As noted. Skyler Rodriguez JOB#: [id number] CC:
[2017-07-10] MEDS: NovoLOG Insulin Flexpen SUBQ SCH ×7 (06:02→20:50)
[2017-07-10] MEDS: ceFAZolin sod 1 GM in D5W 55 ML IVPB SCH (06:05)
--- NOTE | 2017-07-10 07:05 | General Progress Note ---
Assessment/Plan Problem List: (1) Hyperglycemia ICD Codes: R73.9 - Hyperglycemia, unspecified SNOMED: 74806525 (2) Cellulitis of hip, left ICD Codes: L03.116 - Cellulitis of left lower limb SNOMED: 1362935 (3) Gluteal abscess ICD Codes: L02.31 - Cutaneous abscess of buttock SNOMED: 66355763 Assessment/Plan BG values in good control insulin requirement has diminished - reduce Levemir to 15 units bid - reduce Novolog to 6 units ac tid - continue NISS Subjective Allergies: Coded Allergies: No Known Allergies (Unverified , 05/14/15) All Systems: reviewed and negative except above Subjective events noted he is resting Objective Last 24 Hour Vital Signs Date Time Temp Pulse Resp B/P (MAP) Pulse Ox O2 Delivery O2 Flow Rate FiO2 07/10/17 06:05 98.6 07/10/17 05:07 100.4 07/10/17 04:13 100.4 101 16 147/86 97 100.4 07/10/17 00:00 99.9 95 15 127/67 98 99.9 07/09/17 22:32 108 151/93 07/09/17 20:00 100.2 108 15 151/93 97 100.2 07/09/17 18:49 99 158/98 07/09/17 16:00 97.9 101 20 164/92 98 97.9 07/09/17 13:37 98.1 07/09/17 12:38 98.1 07/09/17 12:00 98.1 107 20 160/109 98 98.1 07/09/17 11:32 104 162/101 07/09/17 08:56 98.6 104 21 162/101 97 98.6 Intake and Output 07/09/17 07/10/17 19:00 07:00 Intake Total 1160 ml 55 ml Balance 1160 ml 55 ml Intake Oral 480 ml IV Total 680 ml 55 ml # Voids 3 1 # Bowel Movements 1 1 Laboratory Tests 07/09/17 15:22: Stool Occult Blood [Pending] 07/10/17 04:50: White Blood Count [Pending], Red Blood Count [Pending], Hemoglobin [Pending], Hematocrit [Pending], Mean Corpuscular Volume [Pending], Mean Corpuscular Hemoglobin [Pending], Mean Corpuscular Hemoglobin Concent [Pending], Red Cell Distribution Width [Pending], Platelet Count [Pending], Mean Platelet Volume [ Pending], Neutrophils (%) (Auto) [Pending], Lymphocytes (%) (Auto) [Pending], Monocytes (%) (Auto) [Pending], Eosinophils (%) (Auto) [Pending], Basophils (%) (Auto) [Pending], Prothrombin Time [Pending], Prothromb Time International Ratio [Pending], Activated Partial Thromboplast Time [Pending], Sodium Level [ Pending], Potassium Level [Pending], Chloride Level [Pending], Carbon Dioxide Level [Pending], Blood Urea Nitrogen [Pending], Creatinine [Pending], Estimat Glomerular Filtration Rate [Pending], Glucose Level [Pending], Calcium Level [ Pending], Magnesium Level [Pending] Height (Feet): 6 Height (Inches): 2.00 Weight (Pounds): 200 General Appearance: no apparent distress Neck: normal alignment Cardiovascular: regular rhythm Respiratory/Chest: lungs clear Abdomen: normal bowel sounds Edema: no edema noted Arm (L), no edema noted Arm (R), no edema noted Leg (L), no edema noted Leg (R), no edema noted Pedal (L), no edema noted Pedal (R), no edema noted Generalized Objective Current Medications Medications (Trade) Dose Ordered Sig/Shania Route PRN Reason Start Time Stop Time Status Last Admin Dose Admin Acetaminophen (Tylenol) 650 mg Q6H PRN ORAL Mild Pain/Temp > 100.5 07/06/17 17:32 08/05/17 17:31 07/10/17 05:07 Acetaminophen/ Hydrocodone Bitart ([place] 5/325) 1 tab Q6H PRN ORAL MODERATE PAIN(PAIN SCALE 4-6) 07/06/17 17:33 07/13/17 17:32 07/09/17 23:10 Cefazolin Sodium 1 gm/Dextrose 55 ml @ 110 mls/hr Q8HR IVPB 07/09/17 14:30 07/16/17 14:29 07/10/17 06:05 Dextrose (Dextrose 50%) 25 ml STAT PRN IV Hypoglycemia 07/08/17 07:00 08/07/17 06:59 Dextrose (Dextrose 50%) 50 ml STAT PRN IV Hypoglycemia 07/08/17 07:00 08/07/17 06:59 Famotidine (Pepcid) 20 mg BID ORAL 07/08/17 09:00 08/07/17 08:59 Heparin Sodium (Porcine) (Heparin 5000 units/ml) 5,000 units EVERY 12 HOURS SUBQ 07/06/17 21:00 08/05/17 20:59 07/09/17 22:33 Insulin Aspart (NovoLOG) BEFORE MEALS AND HS SUBQ 07/08/17 06:30 08/07/17 06:29 07/09/17 22:39 Insulin Aspart (NovoLOG) 10 units NOVOTIAC SUBQ 07/08/17 07:00 08/07/17 06:59 07/09/17 17:15 Insulin Detemir (Levemir) 23 units TWICE A DAY SUBQ 07/08/17 09:00 08/07/17 08:59 07/09/17 17:16 Lisinopril (Prinivil) 20 mg DAILY ORAL 07/10/17 16:00 08/09/17 15:59 Metoprolol Tartrate (Lopressor) 25 mg Q12HR ORAL 07/09/17 21:00 08/08/17 20:59 07/09/17 22:32 Multivitamins (Multivitamins) 1 tab DAILY ORAL 07/07/17 09:00 08/06/17 08:59 07/09/17 09:42 Sodium Chloride 1,000 ml @ 125 mls/hr Q8H IV 07/07/17 18:15 08/06/17 18:14 07/09/17 22:42 Item Value Date Time Bedside Blood Glucose 86 mg/dl 07/10/17 0605 Bedside Blood Glucose 136 mg/dl H 07/09/17 2239 Bedside Blood Glucose 111 mg/dl 07/09/17 1716 Bedside Blood Glucose 109 mg/dl 07/09/17 1150 Bedside Blood Glucose 173 mg/dl H 07/09/17 0946 Bedside Blood Glucose 173 mg/dl H 07/09/17 0655 ADILENE JIMENEZ Jul 10, 2017 07:05
[2017-07-10 07:15] LABS: HEMATOCRIT 32.9 % (42.0-52.0); HEMOGLOBIN 11.4 G/DL (14.2-18.0); MEAN CORPUSCULAR VOLUME 78 FL (80-99); PLATELET COUNT 341 K/UL (150-450); RED BLOOD COUNT 4.24 M/UL (4.70-6.10); RED CELL DISTRIBUTION WIDTH 12.9 % (11.6-14.8); WHITE BLOOD COUNT 18.2 K/UL (4.8-10.8)
[2017-07-10 07:20] LABS: ANION GAP 10 mmol/L (5-15); BLOOD UREA NITROGEN 9 mg/dL (7-18); CARBON DIOXIDE 25 MMOL/L (21-32); CHLORIDE 99 MMOL/L (98-107); CREATININE 1.2 MG/DL (0.55-1.30); POTASSIUM 3.6 MMOL/L (3.5-5.1); SODIUM 134 MMOL/L (136-145)
[2017-07-10 07:47] LABS: INR 0.9 (0.9-1.1)
[2017-07-10] MEDS: Norco 5mg/325mg tab ORAL PRN ×2 (08:20→20:45)
[2017-07-10] MEDS: Heparin 5000 units/ml inj SUBQ SCH ×2 (08:43→20:48)
[2017-07-10] MEDS: Levemir Flexpen SUBQ SCH ×2 (09:00→18:15)
[2017-07-10] MEDS: Metoprolol 25mg tab ORAL SCH ×2 (09:19→20:45)
--- NOTE | 2017-07-10 10:54 | Cardiology Report ---
APPROVED REPORT EXAM: Two-dimensional and M-mode echocardiogram with Doppler and color Doppler. INDICATION ENDOCARDITIS M-Mode DIMENSIONS IVSd1.2 (0.7-1.1cm)Left Atrium (MM)3.0 (1.6-4.0cm) LVDd3.3 (3.5-5.6cm)Aortic Root3.5 (2.0-3.7cm) PWd1.1 (0.7-1.1cm)Aortic Cusp Exc.2.0 (1.5-2.0cm) IVSs1.6 cm Normal left ventricular chamber size, systolic function and wall motion . Left ventricular ejection fraction estimated to be 70 %. No evidence of left ventricular hypertrophy . No evidence of pericardial effusion. All other cardiac chamber sizes are within normal limits. Mildly Focal aortic valve sclerosis with adequate cusp excursion. MildlyThickened mitral valve leaflets with normal excursion. Mildly Mitral annulus and aortic root calcification. Normal pulmonic valve structure. Normal tricuspid valve structure. IVC at size 2.2 with physiologic collapse . A color flow and spectral Doppler study was performed and revealed: No aortic regurgitation. Trace mitral regurgitation. Mitral diastolic velocities suggest reduced left ventricular relaxation c/w mild LV diastolic dysfunction (Grade I ). Trace tricuspid regurgitation. Tricuspid systolic velocities suggests peak right ventricular systolic pressure of 15 mmHg. No Pulmonic regurgitation present.
--- NOTE | 2017-07-10 11:39 | Infectious Diseases Prog Note ---
Assessment/Plan Assessment/Plan antibiotics : ancef A 1. staph aureus sepsis 2. left hip cellulitis 3. left buttock abscess s/p drainage with staph aureus 4. diabetes mellitus 5. renal insufficiency improving P 1. continue ancef 2. will follow up cultures 3. i and d planned Subjective Constitutional: Denies: fever, chills Respiratory: Denies: shortness of breath, dry cough Gastrointestinal/Abdominal: Denies: nausea, vomiting, diarrhea Musculoskeletal: Reports: pain - in left hip Allergies: Coded Allergies: No Known Allergies (Unverified , 05/14/15) Objective Vital Signs Last 24 Hour Vital Signs Date Time Temp Pulse Resp B/P (MAP) Pulse Ox O2 Delivery O2 Flow Rate FiO2 07/10/17 09:19 99 159/91 07/10/17 08:00 98.0 99 18 159/91 95 Room Air 98.0 07/10/17 06:05 98.6 07/10/17 05:07 100.4 07/10/17 04:13 100.4 101 16 147/86 97 100.4 07/10/17 00:00 99.9 95 15 127/67 98 99.9 07/09/17 22:32 108 151/93 07/09/17 20:00 100.2 108 15 151/93 97 100.2 07/09/17 18:49 99 158/98 07/09/17 16:00 97.9 101 20 164/92 98 97.9 07/09/17 13:37 98.1 07/09/17 12:38 98.1 07/09/17 12:00 98.1 107 20 160/109 98 98.1 Height (Feet): 6 Height (Inches): 2.00 Weight (Pounds): 200 Respiratory/Chest: lungs clear Cardiovascular: normal rate, regular rhythm, no gallop/murmur Abdomen: soft, non tender Extremities: no edema, other - left hip swelling, erythema, drain Microbiology Date/Time Source Procedure Growth Status 07/07/17 16:40 Body Fluid Abscess Gram Stain - Final Resulted 07/07/17 16:40 Aerobic Culture - Preliminary Staphylococcus Aureus Resulted 07/07/17 16:40 Body Fluid Abscess Anaerobic Culture Pending Resulted 07/07/17 16:40 Body Fluid Abscess Gram Stain - Final Resulted 07/07/17 16:40 Body Fluid Culture - Preliminary Staphylococcus Aureus Resulted Laboratory Tests Test 07/09/17 15:22 07/10/17 04:50 Stool Occult Blood Negative (NEGATIVE) White Blood Count 18.2 K/UL (4.8-10.8) H Red Blood Count 4.24 M/UL (4.70-6.10) L Hemoglobin 11.4 G/DL (14.2-18.0) L Hematocrit 32.9 % (42.0-52.0) L Mean Corpuscular Volume 78 FL (80-99) L Mean Corpuscular Hemoglobin 26.8 PG (27.0-31.0) L Mean Corpuscular Hemoglobin Concent 34.5 G/DL (32.0-36.0) Red Cell Distribution Width 12.9 % (11.6-14.8) Platelet Count 341 K/UL (150-450) Mean Platelet Volume 7.5 FL (6.5-10.1) Neutrophils (%) (Auto) % (45.0-75.0) Lymphocytes (%) (Auto) % (20.0-45.0) Monocytes (%) (Auto) % (1.0-10.0) Eosinophils (%) (Auto) % (0.0-3.0) Basophils (%) (Auto) % (0.0-2.0) Differential Total Cells Counted 100 Neutrophils % (Manual) 80 % (45-75) H Lymphocytes % (Manual) 14 % (20-45) L Monocytes % (Manual) 6 % (1-10) Eosinophils % (Manual) 0 % (0-3) Basophils % (Manual) 0 % (0-2) Band Neutrophils 0 % (0-8) Platelet Estimate Adequate Platelet Morphology Normal Hypochromasia 1+ Anisocytosis 1+ Prothrombin Time 9.6 SEC (9.30-11.50) Prothromb Time International Ratio 0.9 (0.9-1.1) Activated Partial Thromboplast Time 32 SEC (23-33) Sodium Level 134 MMOL/L (136-145) L Potassium Level 3.6 MMOL/L (3.5-5.1) Chloride Level 99 MMOL/L (98-107) Carbon Dioxide Level 25 MMOL/L (21-32) Anion Gap 10 mmol/L (5-15) Blood Urea Nitrogen 9 mg/dL (7-18) Creatinine 1.2 MG/DL (0.55-1.30) Estimat Glomerular Filtration Rate > 60 mL/min (>60) Glucose Level 76 MG/DL (74-106) Calcium Level 8.0 MG/DL (8.5-10.1) L Magnesium Level 2.1 MG/DL (1.8-2.4) Current Medications Medications (Trade) Dose Ordered Sig/Shania Route PRN Reason Start Time Stop Time Status Last Admin Dose Admin Acetaminophen (Tylenol) 650 mg Q6H PRN ORAL Mild Pain/Temp > 100.5 07/06/17 17:32 08/05/17 17:31 07/10/17 05:07 Acetaminophen/ Hydrocodone Bitart ([place] 5/325) 1 tab Q6H PRN ORAL MODERATE PAIN(PAIN SCALE 4-6) 07/06/17 17:33 07/13/17 17:32 07/10/17 08:20 Cefazolin Sodium 1 gm/Dextrose 55 ml @ 110 mls/hr Q8HR IVPB 07/09/17 14:30 07/16/17 14:29 07/10/17 06:05 Dextrose (Dextrose 50%) 25 ml STAT PRN IV Hypoglycemia 07/08/17 07:00 08/07/17 06:59 Dextrose (Dextrose 50%) 50 ml STAT PRN IV Hypoglycemia 07/08/17 07:00 08/07/17 06:59 Famotidine (Pepcid) 20 mg BID ORAL 07/08/17 09:00 08/07/17 08:59 Heparin Sodium (Porcine) (Heparin 5000 units/ml) 5,000 units EVERY 12 HOURS SUBQ 07/06/17 21:00 08/05/17 20:59 07/09/17 22:33 Insulin Aspart (NovoLOG) BEFORE MEALS AND HS SUBQ 07/08/17 06:30 08/07/17 06:29 07/09/17 22:39 Insulin Aspart (NovoLOG) 6 units NOVOTIAC SUBQ 07/10/17 11:50 08/07/17 06:59 Insulin Detemir (Levemir) 15 units TWICE A DAY SUBQ 07/10/17 09:00 08/07/17 08:59 Lisinopril (Prinivil) 20 mg DAILY ORAL 07/10/17 16:00 08/09/17 15:59 Metoprolol Tartrate (Lopressor) 25 mg Q12HR ORAL 07/09/17 21:00 08/08/17 20:59 07/10/17 09:19 Multivitamins (Multivitamins) 1 tab DAILY ORAL 07/07/17 09:00 08/06/17 08:59 07/09/17 09:42 Sodium Chloride 1,000 ml @ 125 mls/hr Q8H IV 07/07/17 18:15 08/06/17 18:14 07/09/17 22:42 KUSH CUNNINGHAM Jul 10, 2017 11:39
[2017-07-10] MEDS ORDERED: Midazolam 2mg/2ml Inj ONE (13:18)
[2017-07-10] MEDS ORDERED: fentaNYL 100 mcg/2 mL IV ONE (13:18)
[2017-07-10] MEDS ORDERED: Bacitracin 50000 Units Vial IRRIG ONE (13:40)
[2017-07-10] MEDS ORDERED: NeoSporin Gu Irrig 1ml Amp IRRIG ONE (13:40)
[2017-07-10] MEDS ORDERED: Lidocaine 1% 10mg/ml/Epi 0.005mg/ml 30ml vial INJ ONE (13:40)
[2017-07-10] MEDS ORDERED: LR 1000ml 1,000 ML IVLG SCH (14:11)
[2017-07-10] MEDS ORDERED: Hydromorphone 0.5mg/0.5ml inj IVP PRN (14:15)
[2017-07-10] MEDS ORDERED: LORazepam Inj 2mg/ml 1ml IV PRN (14:15)
[2017-07-10] MEDS ORDERED: Meperidine 50mg/ml Inj(FOR RIGORS ONLY) IVP ONE (14:15)
--- NOTE | 2017-07-10 14:16 | Anethesia Preoperative Eval ---
Anesthesia Pre-op PMH/ROS General Date of Evaluation: Jul 10, 2017 Time of Evaluation: 13:10 Anesthesiologist: Jake ASA Score: ASA 3 Mallampati Score Class I : Soft palate, uvula, fauces, pillars visible Class II: Soft palate, uvula, fauces visible Class III: Soft palate, base of uvula visible Class IV: Only hard plate visible Mallampati Classification: Class II Surgeon: Puma Diagnosis: Cellulitis, absess left buttocks Surgical Procedure: I&D Family History: no anesthesia problems Allergies: Coded Allergies: No Known Allergies (Unverified , 05/14/15) Medications: see eMAR Past Medical History Cardiovascular: Reports: HTN; Denies: CAD, MD, valve dz, arrhythmia, other Pulmonary: Denies: asthma, COPD, VIDA, other Gastrointestinal/Genitourinary: Denies: GERD, CRI, ESRD, other Neurologic/Psychiatric: Denies: dementia, CVA, depression/anxiety, TIA, other Endocrine: Reports: DM; Denies: hypothyroidism, steroids, other HEENT: Denies: cataract (L), cataract (R), glaucoma, [place] (L), [place] (R), other Hematology/Immune: Denies: anemia, DVT, bleeding disorder, other Musculoskeletal/Integumentary: Denies: OA, RA, DJD, DDD, edema, other PMH Narrative: DM, HTN PSxH Narrative: Right great toe amputation Anesthesia Pre-op Phys. Exam Physician Exam Last Vital Signs Date Time Temp Pulse Resp B/P (MAP) Pulse Ox O2 Delivery O2 Flow Rate FiO2 07/10/17 09:19 99 159/91 07/10/17 08:00 98.0 18 95 Room Air 98.0 Constitutional: NAD Neurologic: CN 2-12 intact Cardiovascular: RRR, no M/R/G Respiratory: CTA Gastrointestinal: S/NT/ND Airway Exam Mallampati Score: Class II MO: full ROM: full Teeth: intact Anesthesia Pre-op A/P Labs Hematology Test 07/10/17 04:50 White Blood Count 18.2 K/UL (4.8-10.8) H Red Blood Count 4.24 M/UL (4.70-6.10) L Hemoglobin 11.4 G/DL (14.2-18.0) L Hematocrit 32.9 % (42.0-52.0) L Mean Corpuscular Volume 78 FL (80-99) L Mean Corpuscular Hemoglobin 26.8 PG (27.0-31.0) L Mean Corpuscular Hemoglobin Concent 34.5 G/DL (32.0-36.0) Red Cell Distribution Width 12.9 % (11.6-14.8) Platelet Count 341 K/UL (150-450) Mean Platelet Volume 7.5 FL (6.5-10.1) Neutrophils (%) (Auto) % (45.0-75.0) Lymphocytes (%) (Auto) % (20.0-45.0) Monocytes (%) (Auto) % (1.0-10.0) Eosinophils (%) (Auto) % (0.0-3.0) Basophils (%) (Auto) % (0.0-2.0) Differential Total Cells Counted 100 Neutrophils % (Manual) 80 % (45-75) H Lymphocytes % (Manual) 14 % (20-45) L Monocytes % (Manual) 6 % (1-10) Eosinophils % (Manual) 0 % (0-3) Basophils % (Manual) 0 % (0-2) Band Neutrophils 0 % (0-8) Platelet Estimate Adequate Platelet Morphology Normal Hypochromasia 1+ Anisocytosis 1+ Coagulation Test 07/10/17 04:50 Prothrombin Time 9.6 SEC (9.30-11.50) Prothromb Time International Ratio 0.9 (0.9-1.1) Activated Partial Thromboplast Time 32 SEC (23-33) Chemistry Test 07/10/17 04:50 Sodium Level 134 MMOL/L (136-145) L Potassium Level 3.6 MMOL/L (3.5-5.1) Chloride Level 99 MMOL/L (98-107) Carbon Dioxide Level 25 MMOL/L (21-32) Anion Gap 10 mmol/L (5-15) Blood Urea Nitrogen 9 mg/dL (7-18) Creatinine 1.2 MG/DL (0.55-1.30) Estimat Glomerular Filtration Rate > 60 mL/min (>60) Glucose Level 76 MG/DL (74-106) Calcium Level 8.0 MG/DL (8.5-10.1) L Magnesium Level 2.1 MG/DL (1.8-2.4) Studies Pre-op Studies: echo - WNL, EF= 70% Risk Assessment & Plan Assessment: Class 3 male here for I&D of left buttocks abscess Plan: GA, LMA Status Change Before Surgery: No Pre-Antibiotics Drug: Patient on antibiotics Santiago Joseph MD Jul 10, 2017 14:16
--- NOTE | 2017-07-10 14:17 | Immediate Post-Op Evaluation ---
Immediate Post-Op Evalulation Immediate Post-Op Evalulation Procedure: I&D left buttocks abscess Date of Evaluation: Jul 10, 2017 Time of Evaluation: 14:55 IV Fluids: 600 Blood Pressure Systolic: 175 Blood Pressure Diastolic: 105 Pulse Rate: 105 Respiratory Rate: 22 O2 Sat by Pulse Oximetry: 100 Temperature (Fahrenheit): 99.4 Pain Score (1-10): 0 Nausea: No Vomiting: No Complications No complication Patient Status: reacts, patent, none Hydration Status: adequate Drug: Patient on antibiotics Santiago Joseph MD Jul 10, 2017 14:17
--- NOTE | 2017-07-10 15:07 | Brief Operative Note ---
Immediate Post Operative Note Operative Note Pre-op Diagnosis: left deep intermuscular gluteal abscess Procedure: 1. incision and drainage of left deep intermuscular gluteal abscess 2. drain placement with complex multi layer closure using adjacent skin tissues Post-op Diagnosis: same as pre-op Surgeon: jaida Anesthesiologist: alonzo Anesthesia: general, local Specimen: yes Complications: none Condition: stable Fluids: see records Estimated Blood Loss: minimal Drains: [place] Implant(s) used?: No Nahid Bartholomew Jul 10, 2017 15:07
[2017-07-10] MEDS ORDERED: Labetalol 5mg/ml 20ml vial IV ONE (15:11)
[2017-07-10] MEDS: Labetalol 5mg/ml 20ml vial IV PRN ×2 (15:14→15:31)
[2017-07-10] MEDS: ceFAZolin sod 2 GM in D5W 110 ML IVPB SCH ×2 (17:01→22:08)
[2017-07-10] MEDS: Lisinopril 20mg tab ORAL SCH (17:01)
--- NOTE | 2017-07-10 17:45 | Operative Note - Dictated ---
DATE OF OPERATION: 07/10/2017 PREOPERATIVE DIAGNOSIS: Left deep intergluteal large abscess. POSTOPERATIVE DIAGNOSIS: Left deep intergluteal large abscess. OPERATION PERFORMED: 1. Incision and drainage of left deep intergluteal abscess. 2. Drain placement with complex multilayer closure using adjacent tissues. ATTENDING SURGEON: Nahid Bartholomew M.D. FILM SOUND COORDINATOR: None. ANESTHESIOLOGIST: Santiago Joseph M.D. 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 ESTIMATED BLOOD LOSS: Minimal. IV FLUIDS: Please see anesthesia records. COMPLICATIONS: None. SPECIMENS: Cultures of purulent fluid sent to pathology for review. DRAINS: A 19-[place] Citizen Gael drain left in the deep abscess cavity after washout. COUNTS: Sponge and needle count correct x2. ANTIBIOTICS: The patient on scheduled IV antibiotics for acute active inflammatory process. INDICATIONS FOR PROCEDURE: This 37-year-old male who initially presented to an outside facility almost 2 weeks back complaining of left-sided cellulitis and pain. The patient was not treated for infectious source and was given pain control and discharged. The patient's cellulitis progressively worsened over the subsequent days and he came to [facility] for evaluation, at which time he was noted to have left gluteal cellulitis, tenderness with some difficulty walking. MRI was performed identifying a 9.7 x 4 x 6.5 abscess deep to the left gluteus leslie muscle. Initial management was attempted with IV antibiotics and Interventional Radiology agreed to place a pigtail catheter. Unfortunately, over the subsequent days, the patient continued to have worsening leukocytosis and cellulitis not significantly improved. During the drain placement, it was noted that the drain fluid was very thick and potential for it not be drained completely using pigtail catheter. As the patient's condition not improved, decision was made to proceed to operating room for formal incision and drainage with washout. Risks, benefits, and alternatives were discussed with the patient and his family member in detail. Consent was obtained for surgery, which was performed on 07/10/2017. OPERATIVE NOTE: The patient was taken to the operating room and placed on the operating table in supine position with bilateral arms out. All bony prominences well padded. Appropriate time-out was taken identifying the patient, procedure, operative staff, and surgical staff. SCDs were placed. Castillo catheter was not inserted. The patient is on scheduled IV antibiotics prior to entering the operating room. General anesthesia was induced and the patient was intubated. The patient was then placed in the right lateral decubitus position using the camacho bag and pads. The left gluteal drain was identified and prepped into the operative field using chlorhexidine. The left gluteal region was prepped and draped in standard surgical fashion. Following this, an incision was made overlying the area, which was identified to be the likely abscess cavity based on MRI findings, physical examination, and drain placement. An incision was made to include the drain site into the incision. This incision was made using fresh #10 scalpel and carried down pass through subcutaneous tissue to the gluteus muscle with electrocautery as necessary. Following this, the gluteal muscles were split with Pean and muscles were cut with electrocautery as necessary. The abscess cavity was identified and approximately 100 to 200 mL of purulent fluid was evacuated. This fluid was sent for Gram stain and cultures. Following this, the deep intergluteal abscess was irrigated with copious amounts of antibiotic sterile saline solution. Hemostasis was achieved with electrocautery. At this time, given size of the cavity, decision was made to leave a larger 19-[place] Citizen Gael drain in the cavity, which was placed through the subcutaneous tissue just proximal to the incision site. A drain was placed in the deep abscess cavity, which was fairly large after appropriate washout. Drain was stitched to the skin using 2-0 nylon suture. Following this, decision was made to began our closure. A complex closure in multiple layers using adjacent tissue flaps was initiated. The fascia overlying the muscles was reapproximated followed by two layers of subcutaneous tissue in interrupted fashion using 3-0 Vicryl sutures followed by closure of the skin using 2-0 nylon interrupted sutures. Dressings were applied. Drain was placed to bulb suction. The patient tolerated the procedure well, was extubated, and taken to postanesthetic care unit. Nahid Bartholomew M.D. DR: Tracey JOB#: [id number] CC:
--- NOTE | 2017-07-10 22:15 | Progress Note ---
DATE: 07/10/2017 INTERNAL MEDICINE PROGRESS NOTE SUBJECTIVE: The patient continues to have leukocytosis with white count [id number]. He is afebrile with stable vital signs. Imaging studies revealed persistent abscess of the hip and buttocks. The patient required incision and drainage of the left deep intragluteal muscle with drain placed. He will continue on IV antibiotics and pain control. We will continue to maximize nutritional parameters and optimize diabetic control. Angel Cano M.D. DR: Skinny JOB#: [id number] CC:
[2017-07-11] MEDS: Norco 5mg/325mg tab ORAL PRN ×4 (02:50→22:50)
[2017-07-11 04:13] VITALS: BP 116/65
[2017-07-11] MEDS: ceFAZolin sod 2 GM in D5W 110 ML IVPB SCH ×3 (05:52→22:49)
[2017-07-11] MEDS: NovoLOG Insulin Flexpen SUBQ SCH ×7 (05:56→21:08)
--- NOTE | 2017-07-11 06:21 | General Progress Note ---
Assessment/Plan Problem List: (1) Hyperglycemia ICD Codes: R73.9 - Hyperglycemia, unspecified SNOMED: 92853110 (2) Cellulitis of hip, left ICD Codes: L03.116 - Cellulitis of left lower limb SNOMED: 7146168 (3) Gluteal abscess ICD Codes: L02.31 - Cutaneous abscess of buttock SNOMED: 49378143 Assessment/Plan elevated glucose this morning after he did not receive full dose of basal insulin yesterday - continue Levemir 15 units bid - continue Novolog 6 units ac tid - continue NISS Subjective Allergies: Coded Allergies: No Known Allergies (Unverified , 05/14/15) All Systems: reviewed and negative except above Subjective events noted missed Levemir 15 units yesterday am this morning glucose is > 200 Objective Last 24 Hour Vital Signs Date Time Temp Pulse Resp B/P (MAP) Pulse Ox O2 Delivery O2 Flow Rate FiO2 07/11/17 04:13 98.2 89 20 116/65 96 Room Air 98.2 89 07/11/17 01:20 99.3 07/11/17 00:21 101.5 07/10/17 23:38 101.5 117 20 152/85 96 Room Air 101.5 117 07/10/17 20:45 114 138/83 07/10/17 19:32 96.8 114 20 138/83 96 Room Air 96.8 116 07/10/17 17:01 154/99 07/10/17 16:00 99.9 110 21 154/99 99 Nasal Cannula 3.0 99.9 07/10/17 15:45 112 17 173/105 99 Nasal Cannula 3.0 07/10/17 15:39 179/109 07/10/17 15:31 111 185/109 07/10/17 15:30 111 11 185/109 99 Nasal Cannula 3.0 07/10/17 15:15 111 18 187/107 99 Nasal Cannula 3.0 07/10/17 15:14 114 187/107 07/10/17 15:05 111 16 191/119 99 Nasal Cannula 3.0 07/10/17 14:57 179/113 07/10/17 14:55 108 21 179/113 99 Simple Mask 6.0 07/10/17 14:53 210.9 105 22 100 07/10/17 14:50 105 21 178/112 99 Simple Mask 6.0 07/10/17 14:45 99.4 104 21 147/93 99 Simple Mask 6.0 99.4 07/10/17 09:19 99 159/91 07/10/17 08:00 98.0 99 18 159/91 95 Room Air 98.0 Intake and Output 07/10/17 07/11/17 19:00 07:00 Intake Total 1750 ml 1360 ml Output Total 65 ml Balance 1685 ml 1360 ml IV Total 1750 ml 1360 ml Drainage Total 50 ml Estimated Blood Loss 15 ml Height (Feet): 6 Height (Inches): 2.00 Weight (Pounds): 200 General Appearance: no apparent distress Neck: normal alignment Cardiovascular: normal rate Respiratory/Chest: lungs clear Abdomen: normal bowel sounds Objective Current Medications Medications (Trade) Dose Ordered Sig/Shania Route PRN Reason Start Time Stop Time Status Last Admin Dose Admin Acetaminophen (Tylenol) 650 mg Q6H PRN ORAL Mild Pain/Temp > 100.5 07/06/17 17:32 08/05/17 17:31 07/11/17 00:21 Acetaminophen/ Hydrocodone Bitart ([place] 5/325) 1 tab Q6H PRN ORAL MODERATE PAIN(PAIN SCALE 4-6) 07/06/17 17:33 07/13/17 17:32 07/11/17 02:50 Cefazolin Sodium 2 gm/Dextrose 110 ml @ 220 mls/hr Q8HR IVPB 07/10/17 14:00 07/17/17 13:59 07/11/17 05:52 Dextrose (Dextrose 50%) 25 ml STAT PRN IV Hypoglycemia 07/08/17 07:00 08/07/17 06:59 Dextrose (Dextrose 50%) 50 ml STAT PRN IV Hypoglycemia 07/08/17 07:00 08/07/17 06:59 Famotidine (Pepcid) 20 mg BID ORAL 07/08/17 09:00 08/07/17 08:59 Heparin Sodium (Porcine) (Heparin 5000 units/ml) 5,000 units EVERY 12 HOURS SUBQ 07/06/17 21:00 08/05/17 20:59 07/10/17 20:48 Insulin Aspart (NovoLOG) BEFORE MEALS AND HS SUBQ 07/08/17 06:30 08/07/17 06:29 07/11/17 05:58 Insulin Aspart (NovoLOG) 6 units NOVOTIAC SUBQ 07/10/17 11:50 08/07/17 06:59 07/11/17 05:56 Insulin Detemir (Levemir) 15 units TWICE A DAY SUBQ 07/10/17 09:00 08/07/17 08:59 07/10/17 18:15 Lisinopril (Prinivil) 20 mg DAILY ORAL 07/10/17 16:00 08/09/17 15:59 07/10/17 17:01 Metoprolol Tartrate (Lopressor) 25 mg Q12HR ORAL 07/09/17 21:00 08/08/17 20:59 07/10/17 20:45 Multivitamins (Multivitamins) 1 tab DAILY ORAL 07/07/17 09:00 08/06/17 08:59 07/09/17 09:42 Sodium Chloride 1,000 ml @ 125 mls/hr Q8H IV 07/07/17 18:15 08/06/17 18:14 07/11/17 02:14 Item Value Date Time Bedside Blood Glucose 242 mg/dl H 07/11/17 0558 Bedside Blood Glucose 221 mg/dl H 07/10/17 2100 Bedside Blood Glucose 193 mg/dl H 07/10/17 1815 Bedside Blood Glucose 102 mg/dl 07/10/17 1150 Bedside Blood Glucose 102 mg/dl 07/10/17 0900 ADILENE JIMENEZ July 11, 2017 06:21
[2017-07-11 07:08] LABS: HEMOGLOBIN 9.7 G/DL (14.2-18.0); MEAN CORPUSCULAR VOLUME 78 FL (80-99); PLATELET COUNT 303 K/UL (150-450); RED BLOOD COUNT 3.61 M/UL (4.70-6.10); RED CELL DISTRIBUTION WIDTH 13.2 % (11.6-14.8); WHITE BLOOD COUNT 19.6 K/UL (4.8-10.8)
[2017-07-11 07:09] LABS: PHOSPHORUS 4.1 MG/DL (2.5-4.9)
[2017-07-11 07:23] LABS: ALANINE AMINOTRANSFERASE 10 U/L (12-78); ALBUMIN 1.2 G/DL (3.4-5.0); ALBUMIN/GLOBULIN RATIO 0.2 (1.0-2.7); ALKALINE PHOSPHATASE 133 U/L (46-116); ANION GAP 8 mmol/L (5-15); ASPARTATE AMINO TRANSFERASE 19 U/L (15-37); BILIRUBIN,TOTAL 0.4 MG/DL (0.2-1.0); BLOOD UREA NITROGEN 10 mg/dL (7-18); CALCIUM 7.6 MG/DL (8.5-10.1); CARBON DIOXIDE 26 MMOL/L (21-32); CHLORIDE 98 MMOL/L (98-107); CREATININE 1.3 MG/DL (0.55-1.30); POTASSIUM 4.1 MMOL/L (3.5-5.1); SODIUM 132 MMOL/L (136-145)
[2017-07-11 08:00] VITALS: BP 152/89
[2017-07-11] MEDS: Lisinopril 20mg tab ORAL SCH (09:04)
[2017-07-11] MEDS: Metoprolol 25mg tab ORAL SCH ×2 (09:04→20:27)
[2017-07-11] MEDS: Heparin 5000 units/ml inj SUBQ SCH ×2 (09:07→20:30)
[2017-07-11] MEDS: Levemir Flexpen SUBQ SCH ×2 (09:08→18:08)
--- NOTE | 2017-07-11 09:31 | 48 Hour Post Anesthesia Eval ---
Post Anesthesia Evaluation Procedure: I&D left buttocks abscess Date of Evaluation: July 11, 2017 Time of Evaluation: 11:00 Blood Pressure Systolic: 152 0: 89 Pulse Rate: 98 Respiratory Rate: 16 Temperature (Fahrenheit): 98.4 O2 Sat by Pulse Oximetry: 97 Airway: patent Nausea: No Vomiting: No Pain Intensity: 3 Hydration Status: adequate Cardiopulmonary Status: Stable Mental Status/LOC: patient returned to baseline Follow-up Care/Observations: As per surgery Post-Anesthesia Complications: No anesthetic complication Follow-up care needed: N/A Santiago Joseph MD July 11, 2017 09:31
--- NOTE | 2017-07-11 10:46 | Infectious Diseases Prog Note ---
Assessment/Plan Assessment/Plan antibiotics : ancef A 1. staph aureus sepsis 2. left hip cellulitis 3. left buttock abscess with staph aureus s/p i and d 4. diabetes mellitus P 1. continue ancef 2. will follow up cultures Subjective Constitutional: Denies: fever, chills Respiratory: Denies: shortness of breath, dry cough Gastrointestinal/Abdominal: Denies: nausea, vomiting, diarrhea Musculoskeletal: Reports: pain - in left hip Allergies: Coded Allergies: No Known Allergies (Unverified , 05/14/15) Objective Vital Signs Last 24 Hour Vital Signs Date Time Temp Pulse Resp B/P (MAP) Pulse Ox O2 Delivery O2 Flow Rate FiO2 07/11/17 09:31 209.1 98 16 97 07/11/17 09:04 152/89 07/11/17 09:04 98 152/89 07/11/17 09:03 98.4 07/11/17 08:00 98.4 98 16 152/89 97 98.4 98 07/11/17 04:13 98.2 89 20 116/65 96 Room Air 98.2 89 07/11/17 01:20 99.3 07/11/17 00:21 101.5 07/10/17 23:38 101.5 117 20 152/85 96 Room Air 101.5 117 07/10/17 20:45 114 138/83 07/10/17 19:32 96.8 114 20 138/83 96 Room Air 96.8 116 07/10/17 17:01 154/99 07/10/17 16:00 99.9 110 21 154/99 99 Nasal Cannula 3.0 99.9 07/10/17 15:45 112 17 173/105 99 Nasal Cannula 3.0 07/10/17 15:39 179/109 07/10/17 15:31 111 185/109 07/10/17 15:30 111 11 185/109 99 Nasal Cannula 3.0 07/10/17 15:15 111 18 187/107 99 Nasal Cannula 3.0 07/10/17 15:14 114 187/107 07/10/17 15:05 111 16 191/119 99 Nasal Cannula 3.0 07/10/17 14:57 179/113 07/10/17 14:55 108 21 179/113 99 Simple Mask 6.0 07/10/17 14:53 210.9 105 22 100 07/10/17 14:50 105 21 178/112 99 Simple Mask 6.0 07/10/17 14:45 99.4 104 21 147/93 99 Simple Mask 6.0 99.4 Height (Feet): 6 Height (Inches): 2.00 Weight (Pounds): 200 Respiratory/Chest: lungs clear Cardiovascular: normal rate, regular rhythm, no gallop/murmur Abdomen: soft, non tender Extremities: no edema, other - left hip [place] drain Laboratory Tests Test 07/11/17 05:20 White Blood Count 19.6 K/UL (4.8-10.8) H Red Blood Count 3.61 M/UL (4.70-6.10) L Hemoglobin 9.7 G/DL (14.2-18.0) L Hematocrit 28.0 % (42.0-52.0) L Mean Corpuscular Volume 78 FL (80-99) L Mean Corpuscular Hemoglobin 26.9 PG (27.0-31.0) L Mean Corpuscular Hemoglobin Concent 34.7 G/DL (32.0-36.0) Red Cell Distribution Width 13.2 % (11.6-14.8) Platelet Count 303 K/UL (150-450) Mean Platelet Volume 7.3 FL (6.5-10.1) Neutrophils (%) (Auto) % (45.0-75.0) Lymphocytes (%) (Auto) % (20.0-45.0) Monocytes (%) (Auto) % (1.0-10.0) Eosinophils (%) (Auto) % (0.0-3.0) Basophils (%) (Auto) % (0.0-2.0) Differential Total Cells Counted 100 Neutrophils % (Manual) 71 % (45-75) Lymphocytes % (Manual) 20 % (20-45) Monocytes % (Manual) 6 % (1-10) Eosinophils % (Manual) 1 % (0-3) Basophils % (Manual) 0 % (0-2) Band Neutrophils 2 % (0-8) Platelet Estimate Adequate Platelet Morphology Normal Hypochromasia 1+ Microcytosis 1+ Sodium Level 132 MMOL/L (136-145) L Potassium Level 4.1 MMOL/L (3.5-5.1) Chloride Level 98 MMOL/L (98-107) Carbon Dioxide Level 26 MMOL/L (21-32) Anion Gap 8 mmol/L (5-15) Blood Urea Nitrogen 10 mg/dL (7-18) Creatinine 1.3 MG/DL (0.55-1.30) Estimat Glomerular Filtration Rate > 60 mL/min (>60) Glucose Level 234 MG/DL (74-106) #H Calcium Level 7.6 MG/DL (8.5-10.1) L Phosphorus Level 4.1 MG/DL (2.5-4.9) Magnesium Level 2.0 MG/DL (1.8-2.4) Total Bilirubin 0.4 MG/DL (0.2-1.0) Aspartate Amino Transf (AST/SGOT) 19 U/L (15-37) Alanine Aminotransferase (ALT/SGPT) 10 U/L (12-78) L Alkaline Phosphatase 133 U/L (46-116) H Total Protein 6.4 G/DL (6.4-8.2) Albumin 1.2 G/DL (3.4-5.0) L Globulin 5.2 g/dL Albumin/Globulin Ratio 0.2 (1.0-2.7) L Current Medications Medications (Trade) Dose Ordered Sig/Shania Route PRN Reason Start Time Stop Time Status Last Admin Dose Admin Acetaminophen (Tylenol) 650 mg Q6H PRN ORAL Mild Pain/Temp > 100.5 07/06/17 17:32 08/05/17 17:31 07/11/17 00:21 Acetaminophen/ Hydrocodone Bitart ([place] 5/325) 1 tab Q6H PRN ORAL MODERATE PAIN(PAIN SCALE 4-6) 07/06/17 17:33 07/13/17 17:32 07/11/17 09:03 Cefazolin Sodium 2 gm/Dextrose 110 ml @ 220 mls/hr Q8HR IVPB 07/10/17 14:00 07/17/17 13:59 07/11/17 05:52 Dextrose (Dextrose 50%) 25 ml STAT PRN IV Hypoglycemia 07/08/17 07:00 08/07/17 06:59 Dextrose (Dextrose 50%) 50 ml STAT PRN IV Hypoglycemia 07/08/17 07:00 08/07/17 06:59 Famotidine (Pepcid) 20 mg BID ORAL 07/08/17 09:00 08/07/17 08:59 07/11/17 09:03 Heparin Sodium (Porcine) (Heparin 5000 units/ml) 5,000 units EVERY 12 HOURS SUBQ 07/06/17 21:00 08/05/17 20:59 07/11/17 09:07 Insulin Aspart (NovoLOG) BEFORE MEALS AND HS SUBQ 07/08/17 06:30 08/07/17 06:29 07/11/17 05:58 Insulin Aspart (NovoLOG) 6 units NOVOTIAC SUBQ 07/10/17 11:50 08/07/17 06:59 07/11/17 05:56 Insulin Detemir (Levemir) 15 units TWICE A DAY SUBQ 07/10/17 09:00 08/07/17 08:59 07/11/17 09:08 Lisinopril (Prinivil) 20 mg DAILY ORAL 07/10/17 16:00 08/09/17 15:59 07/11/17 09:04 Metoprolol Tartrate (Lopressor) 25 mg Q12HR ORAL 07/09/17 21:00 08/08/17 20:59 07/11/17 09:04 Multivitamins (Multivitamins) 1 tab DAILY ORAL 07/07/17 09:00 08/06/17 08:59 07/11/17 09:03 Sodium Chloride 1,000 ml @ 125 mls/hr Q8H IV 07/07/17 18:15 08/06/17 18:14 07/11/17 02:14 KUSH CUNNINGHAM July 11, 2017 10:46
[2017-07-11 12:00] VITALS: BP 140/87
[2017-07-11] MEDS ORDERED: NS Irrig 2000ml IRRIG ONE (13:00)
[2017-07-11] MEDS ORDERED: LR 1000ml ONE (13:00)
[2017-07-11] MEDS ORDERED: NS Irrig 1000ml ONE (13:00)
[2017-07-11] MEDS ORDERED: Propofol 200mg/20ml IV ONE (13:00)
[2017-07-11] MEDS ORDERED: Sterile Water Irrig 1000ml IRRIG ONE (13:00)
--- NOTE | 2017-07-11 14:06 | General Progress Note ---
Progress Note Progress Note Surgery: POD #1 s/p drainage of large 100-200 cc intramuscular gluteal abscess. doing well. pain as anticipated. no n/v/f/c. leukocytosis. incision c/d/i. dressings okay drain with serosang output and some murky output. exam with improved edema/erythema, and area much softer Continue IV Abx drain care and management dressing to wound site pen ambulate and out of bed trend labs will need IV Abx for a few days then can consider transition or oral for d/c planning. will likely need drain for a few days. thank you Nahid Bartholomew July 11, 2017 14:06
[2017-07-11 15:59] VITALS: BP 158/98
[2017-07-11 20:00] VITALS: BP 148/90
[2017-07-12] VITALS (7 sets, daily range): BP systolic 131–157; BP diastolic 70–87
--- NOTE | 2017-07-12 01:30 | Progress Note ---
DATE: 07/11/2017 SUBJECTIVE: The patient is postoperative day #1 following buttock abscess incision and drainage. White count remains elevated at 19,000. He has some decrease in pain and increase in mobility capacity. OBJECTIVE: VITAL SIGNS: Otherwise stable. LUNGS: Clear lungs. HEART: Regular rhythm and rate. Normal S1 and S2. ABDOMEN: Soft. EXTREMITIES: Trace edema. LABORATORY AND DIAGNOSTIC DATA: The labs are notable for albumin of 1.2. Glucose parameters have improved. RECOMMENDATION: 1. Continue IV antibiotics. 2. Continue drainage and local care. 3. DVT prophylaxis. 4. Titration of insulin regimen. 5. Protein supplement. 6. We will consider renal assessment of proteinuria. Angel Cano M.D. DR: MARY JOB#: [id number] CC:
[2017-07-12] MEDS: ceFAZolin sod 2 GM in D5W 110 ML IVPB SCH ×3 (05:04→23:15)
[2017-07-12] MEDS: Norco 5mg/325mg tab ORAL PRN ×3 (05:20→19:05)
[2017-07-12] MEDS: NovoLOG Insulin Flexpen SUBQ SCH ×7 (05:22→21:00)
--- NOTE | 2017-07-12 06:50 | General Progress Note ---
Assessment/Plan Problem List: (1) Hyperglycemia ICD Codes: R73.9 - Hyperglycemia, unspecified SNOMED: 52416841 (2) Cellulitis of hip, left ICD Codes: L03.116 - Cellulitis of left lower limb SNOMED: 3398223 (3) Gluteal abscess ICD Codes: L02.31 - Cutaneous abscess of buttock SNOMED: 17533873 Assessment/Plan glucose values in better control - continue Levemir 15 units bid - continue Novolog 6 units ac tid - continue NISS Subjective Allergies: Coded Allergies: No Known Allergies (Unverified , 05/14/15) All Systems: reviewed and negative except above Subjective events noted BG values in fair control he is resting Objective Last 24 Hour Vital Signs Date Time Temp Pulse Resp B/P (MAP) Pulse Ox O2 Delivery O2 Flow Rate FiO2 07/12/17 06:19 98.8 07/12/17 05:20 98.8 07/12/17 04:20 98.8 07/12/17 04:00 98.5 104 18 139/87 97 98.5 07/12/17 03:21 98.8 07/12/17 00:25 98.8 107 17 140/86 96 98.8 07/11/17 22:50 98.4 07/11/17 20:27 112 148/90 07/11/17 20:25 98.4 07/11/17 20:00 99.0 112 18 148/90 96 99.0 07/11/17 20:00 Room Air 07/11/17 16:44 98.4 07/11/17 15:59 98.4 110 20 158/98 96 98.4 07/11/17 12:00 97.9 89 20 140/87 99 97.9 89 07/11/17 09:31 209.1 98 16 97 07/11/17 09:04 152/89 07/11/17 09:04 98 152/89 07/11/17 09:03 98.4 07/11/17 08:00 98.4 98 16 152/89 97 98.4 98 Intake and Output 07/11/17 07/12/17 19:00 07:00 Intake Total 485 ml 610 ml Output Total 80 ml Balance 485 ml 530 ml Intake Oral 360 ml 360 ml IV Total 125 ml 250 ml Drainage Total 80 ml # Voids 2 # Bowel Movements 1 Height (Feet): 6 Height (Inches): 2.00 Weight (Pounds): 200 General Appearance: no apparent distress Neck: normal alignment Cardiovascular: normal rate Respiratory/Chest: lungs clear Objective Current Medications Medications (Trade) Dose Ordered Sig/Shania Route PRN Reason Start Time Stop Time Status Last Admin Dose Admin Acetaminophen (Tylenol) 650 mg Q6H PRN ORAL Mild Pain/Temp > 100.5 07/06/17 17:32 08/05/17 17:31 07/12/17 03:21 Acetaminophen/ Hydrocodone Bitart ([place] 5/325) 1 tab Q6H PRN ORAL MODERATE PAIN(PAIN SCALE 4-6) 07/06/17 17:33 07/13/17 17:32 07/12/17 05:20 Cefazolin Sodium 2 gm/Dextrose 110 ml @ 220 mls/hr Q8HR IVPB 07/10/17 14:00 07/17/17 13:59 07/12/17 05:04 Dextrose (Dextrose 50%) 25 ml STAT PRN IV Hypoglycemia 07/08/17 07:00 08/07/17 06:59 Dextrose (Dextrose 50%) 50 ml STAT PRN IV Hypoglycemia 07/08/17 07:00 08/07/17 06:59 Famotidine (Pepcid) 20 mg BID ORAL 07/08/17 09:00 08/07/17 08:59 07/11/17 18:07 Heparin Sodium (Porcine) (Heparin 5000 units/ml) 5,000 units EVERY 12 HOURS SUBQ 07/06/17 21:00 08/05/17 20:59 07/11/17 09:07 Insulin Aspart (NovoLOG) BEFORE MEALS AND HS SUBQ 07/08/17 06:30 08/07/17 06:29 07/11/17 21:08 Insulin Aspart (NovoLOG) 6 units NOVOTIAC SUBQ 07/10/17 11:50 08/07/17 06:59 07/11/17 11:40 Insulin Detemir (Levemir) 15 units TWICE A DAY SUBQ 07/10/17 09:00 08/07/17 08:59 07/11/17 18:08 Lisinopril (Prinivil) 40 mg DAILY ORAL 07/12/17 09:00 08/11/17 08:59 Metoprolol Tartrate (Lopressor) 25 mg Q12HR ORAL 07/09/17 21:00 08/08/17 20:59 07/11/17 20:27 Multivitamins (Multivitamins) 1 tab DAILY ORAL 07/07/17 09:00 08/06/17 08:59 07/11/17 09:03 Sodium Chloride 1,000 ml @ 125 mls/hr Q8H IV 07/07/17 18:15 08/06/17 18:14 07/12/17 05:04 Item Value Date Time Bedside Blood Glucose 101 mg/dl 07/12/17 0602 Bedside Blood Glucose 170 mg/dl H 07/11/17 2108 Bedside Blood Glucose 104 mg/dl 07/11/17 1808 Bedside Blood Glucose 213 mg/dl H 07/11/17 1141 Bedside Blood Glucose 242 mg/dl H 07/11/17 0908 Bedside Blood Glucose 242 mg/dl H 07/11/17 0630 ADILENE JIMENEZ July 12, 2017 06:50
[2017-07-12 09:20] LABS: HEMATOCRIT 27.3 % (42.0-52.0); HEMOGLOBIN 9.4 G/DL (14.2-18.0); MEAN CORPUSCULAR VOLUME 78 FL (80-99); PLATELET COUNT 384 K/UL (150-450); RED CELL DISTRIBUTION WIDTH 13.1 % (11.6-14.8)
[2017-07-12] MEDS: Metoprolol 25mg tab ORAL SCH ×2 (10:34→22:23)
[2017-07-12] MEDS: Lisinopril 20mg tab ORAL SCH (10:35)
[2017-07-12] MEDS: Heparin 5000 units/ml inj SUBQ SCH ×2 (10:38→22:25)
[2017-07-12] MEDS: Levemir Flexpen SUBQ SCH ×2 (10:41→17:33)
--- NOTE | 2017-07-12 13:18 | Infectious Diseases Prog Note ---
Assessment/Plan Assessment/Plan A 1. staph aureus sepsis, MSSA 2. left hip cellulitis improving 3. left buttock abscess s/p drainage 4. diabetes mellitus 5. renal insufficiency improving P 1. continue Ancef 2. 2 d echo negative 3. will follow up CBC & wound cultures Subjective ROS Limited/Unobtainable: No Constitutional: Reports: other - doing better Respiratory: Reports: no symptoms Cardiovascular: Reports: no symptoms Gastrointestinal/Abdominal: Reports: no symptoms Genitourinary: Reports: no symptoms Musculoskeletal: Reports: pain, other - buttock Allergies: Coded Allergies: No Known Allergies (Unverified , 05/14/15) Objective Vital Signs Last 24 Hour Vital Signs Date Time Temp Pulse Resp B/P (MAP) Pulse Ox O2 Delivery O2 Flow Rate FiO2 07/12/17 12:42 96.8 07/12/17 12:14 96.8 105 15 153/70 96.8 07/12/17 12:00 96.8 105 15 153/70 98 Room Air 96.8 07/12/17 10:35 159/78 07/12/17 10:34 104 159/78 07/12/17 08:00 98.1 96 15 132/71 97 Room Air 98.1 07/12/17 08:00 97.0 84 15 132/71 97.0 07/12/17 06:19 98.8 07/12/17 05:20 98.8 07/12/17 04:20 98.8 07/12/17 04:00 98.5 104 18 139/87 97 98.5 07/12/17 03:21 98.8 07/12/17 00:25 98.8 107 17 140/86 96 98.8 07/11/17 22:50 98.4 07/11/17 20:27 112 148/90 07/11/17 20:25 98.4 07/11/17 20:00 99.0 112 18 148/90 96 99.0 07/11/17 20:00 Room Air 07/11/17 16:44 98.4 07/11/17 15:59 98.4 110 20 158/98 96 98.4 Height (Feet): 6 Height (Inches): 2.00 Weight (Pounds): 200 General Appearance: no acute distress HEENT: mucous membranes moist Respiratory/Chest: lungs clear Cardiovascular: normal rate Abdomen: soft, non tender Extremities: no edema Skin: other - drain in left buttock Neurologic/Psychiatric: alert, oriented x 3, responsive Microbiology Date/Time Source Procedure Growth Status 07/10/17 14:25 Buttock Left Gram Stain - Final Resulted 07/10/17 14:25 Aerobic Culture - Preliminary Staphylococcus Aureus Resulted 07/10/17 14:25 Buttock Left Anaerobic Culture Pending Resulted Laboratory Tests Test 07/12/17 06:39 White Blood Count 24.0 K/UL (4.8-10.8) *H Red Blood Count 3.50 M/UL (4.70-6.10) L Hemoglobin 9.4 G/DL (14.2-18.0) L Hematocrit 27.3 % (42.0-52.0) L Mean Corpuscular Volume 78 FL (80-99) L Mean Corpuscular Hemoglobin 26.8 PG (27.0-31.0) L Mean Corpuscular Hemoglobin Concent 34.4 G/DL (32.0-36.0) Red Cell Distribution Width 13.1 % (11.6-14.8) Platelet Count 384 K/UL (150-450) Mean Platelet Volume 6.4 FL (6.5-10.1) L Neutrophils (%) (Auto) % (45.0-75.0) Lymphocytes (%) (Auto) % (20.0-45.0) Monocytes (%) (Auto) % (1.0-10.0) Eosinophils (%) (Auto) % (0.0-3.0) Basophils (%) (Auto) % (0.0-2.0) Differential Total Cells Counted 100 Neutrophils % (Manual) 83 % (45-75) H Lymphocytes % (Manual) 8 % (20-45) L Monocytes % (Manual) 5 % (1-10) Eosinophils % (Manual) 0 % (0-3) Basophils % (Manual) 0 % (0-2) Band Neutrophils 4 % (0-8) Platelet Estimate Adequate Platelet Morphology Normal Current Medications Medications (Trade) Dose Ordered Sig/Shania Route PRN Reason Start Time Stop Time Status Last Admin Dose Admin Acetaminophen (Tylenol) 650 mg Q6H PRN ORAL Mild Pain/Temp > 100.5 07/06/17 17:32 08/05/17 17:31 07/12/17 03:21 Acetaminophen/ Hydrocodone Bitart ([place] 5/325) 1 tab Q6H PRN ORAL MODERATE PAIN(PAIN SCALE 4-6) 07/06/17 17:33 07/13/17 17:32 07/12/17 12:42 Cefazolin Sodium 2 gm/Dextrose 110 ml @ 220 mls/hr Q8HR IVPB 07/10/17 14:00 07/17/17 13:59 07/12/17 05:04 Dextrose (Dextrose 50%) 25 ml STAT PRN IV Hypoglycemia 07/08/17 07:00 08/07/17 06:59 Dextrose (Dextrose 50%) 50 ml STAT PRN IV Hypoglycemia 07/08/17 07:00 08/07/17 06:59 Famotidine (Pepcid) 20 mg BID ORAL 07/08/17 09:00 08/07/17 08:59 07/12/17 10:37 Heparin Sodium (Porcine) (Heparin 5000 units/ml) 5,000 units EVERY 12 HOURS SUBQ 07/06/17 21:00 08/05/17 20:59 07/12/17 10:38 Insulin Aspart (NovoLOG) BEFORE MEALS AND HS SUBQ 07/08/17 06:30 08/07/17 06:29 07/12/17 11:27 Insulin Aspart (NovoLOG) 6 units NOVOTIAC SUBQ 07/10/17 11:50 08/07/17 06:59 07/12/17 11:28 Insulin Detemir (Levemir) 15 units TWICE A DAY SUBQ 07/10/17 09:00 08/07/17 08:59 07/12/17 10:41 Lisinopril (Prinivil) 40 mg DAILY ORAL 07/12/17 09:00 08/11/17 08:59 07/12/17 10:35 Metoprolol Tartrate (Lopressor) 25 mg Q12HR ORAL 07/09/17 21:00 08/08/17 20:59 07/12/17 10:34 Multivitamins (Multivitamins) 1 tab DAILY ORAL 07/07/17 09:00 08/06/17 08:59 07/12/17 10:28 Sodium Chloride 1,000 ml @ 125 mls/hr Q8H IV 07/07/17 18:15 08/06/17 18:14 5/2/18 05:04 DANISHA OSSA July 12, 2017 13:18
--- NOTE | 2017-07-12 16:35 | General Surgery Progress Note ---
General Surgery-Progress Note Subjective Procedure Performed 1. incision and drainage of left deep intermuscular gluteal abscess 2. drain placement with complex multi layer closure using adjacent skin tissues Additional Comments doing well. pain improved. ambulatory. leukocytosis worse Objective Last 24 Hour Vital Signs Date Time Temp Pulse Resp B/P (MAP) Pulse Ox O2 Delivery O2 Flow Rate FiO2 07/12/17 15:56 98 Room Air 07/12/17 15:42 99.7 97 18 131/77 99.7 07/12/17 13:41 96.8 07/12/17 12:42 96.8 07/12/17 12:14 96.8 105 15 153/70 96.8 07/12/17 12:00 96.8 105 15 153/70 98 Room Air 96.8 07/12/17 10:35 159/78 07/12/17 10:34 104 159/78 07/12/17 08:00 98.1 96 15 132/71 97 Room Air 98.1 07/12/17 08:00 97.0 84 15 132/71 97.0 07/12/17 05:20 98.8 07/12/17 04:20 98.8 07/12/17 04:00 98.5 104 18 139/87 97 98.5 07/12/17 03:21 98.8 07/12/17 00:25 98.8 107 17 140/86 96 98.8 07/11/17 22:50 98.4 07/11/17 20:27 112 148/90 07/11/17 20:25 98.4 07/11/17 20:00 99.0 112 18 148/90 96 99.0 07/11/17 20:00 Room Air 07/11/17 16:44 98.4 I&O Intake and Output 07/11/17 07/12/17 19:00 07:00 Intake Total 485 ml 610 ml Output Total 80 ml Balance 485 ml 530 ml Intake Oral 360 ml 360 ml IV Total 125 ml 250 ml Drainage Total 80 ml # Voids 2 # Bowel Movements 1 Dressing: dry Wound: clean, dry, intact Drains: liborio Cardiovascular: RSR Respiratory: clear Abdomen: soft, flat, non-tender, present bowel sounds Extremities: edema, no tenderness, no cyanosis Laboratory Tests Test 07/12/17 06:39 White Blood Count 24.0 K/UL (4.8-10.8) *H Red Blood Count 3.50 M/UL (4.70-6.10) L Hemoglobin 9.4 G/DL (14.2-18.0) L Hematocrit 27.3 % (42.0-52.0) L Mean Corpuscular Volume 78 FL (80-99) L Mean Corpuscular Hemoglobin 26.8 PG (27.0-31.0) L Mean Corpuscular Hemoglobin Concent 34.4 G/DL (32.0-36.0) Red Cell Distribution Width 13.1 % (11.6-14.8) Platelet Count 384 K/UL (150-450) Mean Platelet Volume 6.4 FL (6.5-10.1) L Neutrophils (%) (Auto) % (45.0-75.0) Lymphocytes (%) (Auto) % (20.0-45.0) Monocytes (%) (Auto) % (1.0-10.0) Eosinophils (%) (Auto) % (0.0-3.0) Basophils (%) (Auto) % (0.0-2.0) Differential Total Cells Counted 100 Neutrophils % (Manual) 83 % (45-75) H Lymphocytes % (Manual) 8 % (20-45) L Monocytes % (Manual) 5 % (1-10) Eosinophils % (Manual) 0 % (0-3) Basophils % (Manual) 0 % (0-2) Band Neutrophils 4 % (0-8) Platelet Estimate Adequate Platelet Morphology Normal Plan Problems: (1) Gluteal abscess Assessment & Plan: 37M with left gluteal abscess. low grade fever, leukocytosis, on exam overlying tissue with edema, erythema, warmth, cellulitis. CT with large abscess between major and minor muscle. s/p Ultrasound guided drain placement for evacuation of abscess by radiology. If able to successfully drain via catheter will do so. unfortunately it has been present for some time now and fluid may be viscous and unable to drain without formal incision and drainage. POD #2 s/p I&D. recovering. leukocytosis 24k now -CT pelvis to evaluate for another abscess or other etiology of worsening leukocytosis. may be reactive to recent surgery or can be post op related. need to evaluate further -tight glucose control -okay for activity -drain care and management. will follow with recs. thank you for this consultation. Nahid Bartholomew July 12, 2017 16:35
--- NOTE | 2017-07-12 19:15 | Progress Note ---
DATE: 07/12/2017 INTERNAL MEDICINE PROGRESS NOTE SUBJECTIVE: The patient has no new complaints. The patient continues to have leukocytosis now above 24,000. CAT scan of the pelvis was just obtained and the results are pending. OBJECTIVE: VITAL SIGNS: Stable. Blood pressure is ranging from 131/77 to 153/70. LUNGS: Clear. CARDIAC: Regular. ABDOMEN: Soft. EXTREMITIES: No edema. IMPRESSION: 1. Abscess of left buttock. 2. Cellulitis. 3. Insulin-requiring diabetes mellitus, now with better control. 4. Proteinuria. 5. Severe protein-calorie malnutrition. PLAN: 1. Continue antibiotics. 2. Continue drainage. 3. Follow up results of CT scan. 4. May need repeat intervention by surgeon. 5. A 24-hour urine collection for protein and creatinine clearance. 6. Continue ANGELIKA inhibitor. Angel Cano M.D. DR: JOHNNIE JOB#: [id number] CC:
[2017-07-13 00:33] VITALS: BP 147/85
[2017-07-13] MEDS: Norco 5mg/325mg tab ORAL PRN ×3 (01:33→20:30)
[2017-07-13 04:00] VITALS: BP 153/96
[2017-07-13] MEDS: ceFAZolin sod 2 GM in D5W 110 ML IVPB SCH ×3 (06:00→21:27)
[2017-07-13] MEDS: NovoLOG Insulin Flexpen SUBQ SCH ×7 (06:01→20:29)
--- NOTE | 2017-07-13 07:11 | General Progress Note ---
Assessment/Plan Problem List: (1) Hyperglycemia ICD Codes: R73.9 - Hyperglycemia, unspecified SNOMED: 34475339 (2) Cellulitis of hip, left ICD Codes: L03.116 - Cellulitis of left lower limb SNOMED: 0170360 (3) Gluteal abscess ICD Codes: L02.31 - Cutaneous abscess of buttock SNOMED: 55358938 Assessment/Plan glucose values in fair control - continue Levemir 15 units bid - continue Novolog 6 units ac tid - continue NISS Subjective Allergies: Coded Allergies: No Known Allergies (Unverified , 05/14/15) All Systems: reviewed and negative except above Subjective events noted Objective Last 24 Hour Vital Signs Date Time Temp Pulse Resp B/P (MAP) Pulse Ox O2 Delivery O2 Flow Rate FiO2 07/13/17 04:00 97.8 103 18 153/96 98 Room Air 97.8 07/13/17 02:43 99.7 07/13/17 01:33 99.7 07/13/17 00:33 99.7 107 18 147/85 99 Room Air 99.7 07/12/17 22:23 88 157/78 07/12/17 20:00 95 07/12/17 20:00 99.0 88 18 157/78 Room Air 99.0 07/12/17 19:05 99.7 07/12/17 15:56 98 Room Air 07/12/17 15:42 99.7 97 18 131/77 99.7 07/12/17 12:42 96.8 07/12/17 12:14 96.8 105 15 153/70 96.8 07/12/17 12:00 96.8 105 15 153/70 98 Room Air 96.8 07/12/17 10:35 159/78 07/12/17 10:34 104 159/78 07/12/17 08:00 98.1 96 15 132/71 97 Room Air 98.1 07/12/17 08:00 97.0 84 15 132/71 97.0 Intake and Output 07/12/17 07/13/17 19:00 07:00 Intake Total 855 ml 1460 ml Output Total 40 ml 550 ml Balance 815 ml 910 ml Intake Oral 510 ml 240 ml IV Total 345 ml 1220 ml Output Urine Total 500 ml Drainage Total 40 ml 50 ml # Voids 2 Laboratory Tests 07/13/17 05:15: White Blood Count [Pending], Red Blood Count [Pending], Hemoglobin [Pending], Hematocrit [Pending], Mean Corpuscular Volume [Pending], Mean Corpuscular Hemoglobin [Pending], Mean Corpuscular Hemoglobin Concent [Pending], Red Cell Distribution Width [Pending], Platelet Count [Pending], Mean Platelet Volume [ Pending], Neutrophils (%) (Auto) [Pending], Lymphocytes (%) (Auto) [Pending], Monocytes (%) (Auto) [Pending], Eosinophils (%) (Auto) [Pending], Basophils (%) (Auto) [Pending], Sodium Level [Pending], Potassium Level [Pending], Chloride Level [Pending], Carbon Dioxide Level [Pending], Blood Urea Nitrogen [Pending], Creatinine [Pending], Estimat Glomerular Filtration Rate [Pending], Glucose Level [Pending], Calcium Level [Pending], Total Bilirubin [Pending], Aspartate Amino Transf (AST/SGOT) [Pending], Alanine Aminotransferase (ALT/SGPT) [Pending] , Alkaline Phosphatase [Pending], Total Protein [Pending], Albumin [Pending], Globulin [Pending] Height (Feet): 6 Height (Inches): 2.00 Weight (Pounds): 200 General Appearance: no apparent distress Neck: normal alignment Cardiovascular: normal rate Respiratory/Chest: lungs clear Abdomen: normal bowel sounds Objective Current Medications Medications (Trade) Dose Ordered Sig/Shania Route PRN Reason Start Time Stop Time Status Last Admin Dose Admin Acetaminophen (Tylenol) 650 mg Q6H PRN ORAL Mild Pain/Temp > 100.5 07/06/17 17:32 08/05/17 17:31 07/12/17 03:21 Acetaminophen/ Hydrocodone Bitart ([place] 5/325) 1 tab Q6H PRN ORAL MODERATE PAIN(PAIN SCALE 4-6) 07/06/17 17:33 07/13/17 17:32 07/13/17 01:33 Cefazolin Sodium 2 gm/Dextrose 110 ml @ 220 mls/hr Q8HR IVPB 07/10/17 14:00 07/17/17 13:59 07/13/17 06:00 Dextrose (Dextrose 50%) 25 ml STAT PRN IV Hypoglycemia 07/08/17 07:00 08/07/17 06:59 Dextrose (Dextrose 50%) 50 ml STAT PRN IV Hypoglycemia 07/08/17 07:00 08/07/17 06:59 Famotidine (Pepcid) 20 mg BID ORAL 07/08/17 09:00 08/07/17 08:59 07/12/17 17:30 Heparin Sodium (Porcine) (Heparin 5000 units/ml) 5,000 units EVERY 12 HOURS SUBQ 07/06/17 21:00 08/05/17 20:59 07/12/17 22:25 Insulin Aspart (NovoLOG) BEFORE MEALS AND HS SUBQ 07/08/17 06:30 08/07/17 06:29 07/13/17 06:01 Insulin Aspart (NovoLOG) 6 units NOVOTIAC SUBQ 07/10/17 11:50 08/07/17 06:59 07/13/17 06:01 Insulin Detemir (Levemir) 15 units TWICE A DAY SUBQ 07/10/17 09:00 08/07/17 08:59 07/12/17 17:33 Lisinopril (Prinivil) 40 mg DAILY ORAL 07/12/17 09:00 08/11/17 08:59 07/12/17 10:35 Metoprolol Tartrate (Lopressor) 25 mg Q12HR ORAL 07/09/17 21:00 08/08/17 20:59 07/12/17 22:23 Multivitamins (Multivitamins) 1 tab DAILY ORAL 07/07/17 09:00 08/06/17 08:59 07/12/17 10:28 Sodium Chloride 1,000 ml @ 125 mls/hr Q8H IV 07/07/17 18:15 08/06/17 18:14 07/13/17 01:32 Item Value Date Time Bedside Blood Glucose 235 mg/dl H 07/13/17 0601 Bedside Blood Glucose 80 mg/dl 07/12/17 2145 Bedside Blood Glucose 181 mg/dl H 07/12/17 1733 Bedside Blood Glucose 165 mg/dl H 07/12/17 1130 Bedside Blood Glucose 101 mg/dl 07/12/17 1041 Bedside Blood Glucose 101 mg/dl 07/12/17 0602 ADILENE JIMENEZ July 13, 2017 07:11
[2017-07-13 07:30] LABS: HEMOGLOBIN 8.6 G/DL (14.2-18.0); MEAN CORPUSCULAR VOLUME 78 FL (80-99); PLATELET COUNT 405 K/UL (150-450); RED BLOOD COUNT 3.19 M/UL (4.70-6.10); RED CELL DISTRIBUTION WIDTH 13.5 % (11.6-14.8); WHITE BLOOD COUNT 21.5 K/UL (4.8-10.8)
[2017-07-13 07:32] LABS: ALANINE AMINOTRANSFERASE 12 U/L (12-78); ALBUMIN 1.2 G/DL (3.4-5.0); ALBUMIN/GLOBULIN RATIO 0.2 (1.0-2.7); ALKALINE PHOSPHATASE 157 U/L (46-116); ANION GAP 11 mmol/L (5-15); ASPARTATE AMINO TRANSFERASE 18 U/L (15-37); BILIRUBIN,TOTAL 0.1 MG/DL (0.2-1.0); BLOOD UREA NITROGEN 9 mg/dL (7-18); CALCIUM 7.5 MG/DL (8.5-10.1); CARBON DIOXIDE 24 MMOL/L (21-32); CHLORIDE 102 MMOL/L (98-107); CREATININE 1.3 MG/DL (0.55-1.30); POTASSIUM 3.7 MMOL/L (3.5-5.1); SODIUM 136 MMOL/L (136-145)
[2017-07-13 08:00] VITALS: BP 141/83
--- NOTE | 2017-07-13 09:11 | Diagnostic Imaging Report ---
Indication: History of a left buttock abscess status post percutaneous drainage. Follow-up Technique: Continuous helical transaxial imaging of the pelvis was obtained from the iliac crest to the pubic symphysis. Coronal 2-D reformats were also obtained. Study obtained in a Siemens sensation [address] Intravenous non-ionic contrast was not administered. Total Dose length Product (DLP): 1441.[address] Dose Index Volume (CTDIvol): 19.75,19.75 mGy Comparison: None Findings: Study was done without contrast material and as such is limited in evaluation for abscess. There is a percutaneous drain within a fluid collection that is isoattenuated to surrounding gluteal musculature as well as the first edema within the subcutaneous fat. Abscess is therefore not visualized adequately by this examination. There is fullness in the area suggestive of underlying abscess. There is a marked amount of the subcutaneous expansion due to edema consistent with cellulitis. There is generalized subcutaneous edema bilaterally. There is a moderate amount of stool in the visualized colon and rectum. The bladder is mildly distended. IMPRESSION: Percutaneous drain within an abscess collection in the left gluteal region. The study was done without intravenous contrast and as such evaluation for residual collections of abscess is not possible. That said, there is suspected residual abscess present. The CT scanner at [facility] is accredited by the [employer] and the scans are performed using dose optimization techniques as appropriate to a performed exam including Automatic Exposure control.
[2017-07-13] MEDS: Lisinopril 20mg tab ORAL SCH (09:22)
[2017-07-13] MEDS: Metoprolol 25mg tab ORAL SCH ×2 (09:22→20:30)
[2017-07-13] MEDS: Heparin 5000 units/ml inj SUBQ SCH ×2 (09:23→20:28)
[2017-07-13] MEDS: Levemir Flexpen SUBQ SCH ×2 (09:24→18:00)
--- NOTE | 2017-07-13 10:36 | Infectious Diseases Prog Note ---
Assessment/Plan Assessment/Plan antibiotics : ancef A 1. staph aureus sepsis 2. left hip cellulitis 3. left buttock abscess with staph aureus s/p i and d 4. diabetes mellitus 5. leucocytosis improving P 1. continue ancef 2. will follow up cultures Subjective Constitutional: Denies: fever, chills Respiratory: Denies: shortness of breath, dry cough Gastrointestinal/Abdominal: Denies: nausea, vomiting, diarrhea Musculoskeletal: Reports: pain - in left hip Allergies: Coded Allergies: No Known Allergies (Unverified , 05/14/15) Objective Vital Signs Last 24 Hour Vital Signs Date Time Temp Pulse Resp B/P (MAP) Pulse Ox O2 Delivery O2 Flow Rate FiO2 07/13/17 09:22 141/83 07/13/17 09:22 97 141/83 07/13/17 09:21 98.2 07/13/17 08:00 98.2 97 20 141/83 97 98.2 07/13/17 04:00 97.8 103 18 153/96 98 Room Air 97.8 07/13/17 02:43 99.7 07/13/17 01:33 99.7 07/13/17 00:33 99.7 107 18 147/85 99 Room Air 99.7 07/12/17 22:23 88 157/78 07/12/17 20:00 95 07/12/17 20:00 99.0 88 18 157/78 Room Air 99.0 07/12/17 19:05 99.7 07/12/17 15:56 98 Room Air 07/12/17 15:42 99.7 97 18 131/77 99.7 07/12/17 12:42 96.8 07/12/17 12:14 96.8 105 15 153/70 96.8 07/12/17 12:00 96.8 105 15 153/70 98 Room Air 96.8 07/12/17 10:35 159/78 Height (Feet): 6 Height (Inches): 2.00 Weight (Pounds): 200 Respiratory/Chest: lungs clear Cardiovascular: normal rate, regular rhythm, no gallop/murmur Abdomen: soft, non tender Extremities: no edema, other - left hip [place] drain Microbiology Date/Time Source Procedure Growth Status 07/10/17 14:25 Buttock Left Gram Stain - Final Resulted 07/10/17 14:25 Aerobic Culture - Preliminary Staphylococcus Aureus Resulted 07/10/17 14:25 Buttock Left Anaerobic Culture Pending Resulted Laboratory Tests Test 07/13/17 05:15 White Blood Count 21.5 K/UL (4.8-10.8) H Red Blood Count 3.19 M/UL (4.70-6.10) L Hemoglobin 8.6 G/DL (14.2-18.0) L Hematocrit 25.0 % (42.0-52.0) L Mean Corpuscular Volume 78 FL (80-99) L Mean Corpuscular Hemoglobin 26.9 PG (27.0-31.0) L Mean Corpuscular Hemoglobin Concent 34.3 G/DL (32.0-36.0) Red Cell Distribution Width 13.5 % (11.6-14.8) Platelet Count 405 K/UL (150-450) Mean Platelet Volume 6.4 FL (6.5-10.1) L Neutrophils (%) (Auto) % (45.0-75.0) Lymphocytes (%) (Auto) % (20.0-45.0) Monocytes (%) (Auto) % (1.0-10.0) Eosinophils (%) (Auto) % (0.0-3.0) Basophils (%) (Auto) % (0.0-2.0) Neutrophils % (Manual) Pending Lymphocytes % (Manual) Pending Platelet Estimate Pending Platelet Morphology Pending Sodium Level 136 MMOL/L (136-145) Potassium Level 3.7 MMOL/L (3.5-5.1) Chloride Level 102 MMOL/L (98-107) Carbon Dioxide Level 24 MMOL/L (21-32) Anion Gap 11 mmol/L (5-15) Blood Urea Nitrogen 9 mg/dL (7-18) Creatinine 1.3 MG/DL (0.55-1.30) Estimat Glomerular Filtration Rate > 60 mL/min (>60) Glucose Level 248 MG/DL (74-106) H Calcium Level 7.5 MG/DL (8.5-10.1) L Total Bilirubin 0.1 MG/DL (0.2-1.0) L Aspartate Amino Transf (AST/SGOT) 18 U/L (15-37) Alanine Aminotransferase (ALT/SGPT) 12 U/L (12-78) Alkaline Phosphatase 157 U/L (46-116) H Total Protein 6.4 G/DL (6.4-8.2) Albumin 1.2 G/DL (3.4-5.0) L Globulin 5.2 g/dL Albumin/Globulin Ratio 0.2 (1.0-2.7) L Current Medications Medications (Trade) Dose Ordered Sig/Shania Route PRN Reason Start Time Stop Time Status Last Admin Dose Admin Acetaminophen (Tylenol) 650 mg Q6H PRN ORAL Mild Pain/Temp > 100.5 07/06/17 17:32 08/05/17 17:31 07/12/17 03:21 Acetaminophen/ Hydrocodone Bitart ([place] 5/325) 1 tab Q6H PRN ORAL MODERATE PAIN(PAIN SCALE 4-6) 07/06/17 17:33 07/13/17 17:32 07/13/17 09:21 Cefazolin Sodium 2 gm/Dextrose 110 ml @ 220 mls/hr Q8HR IVPB 07/10/17 14:00 07/17/17 13:59 07/13/17 06:00 Dextrose (Dextrose 50%) 25 ml STAT PRN IV Hypoglycemia 07/08/17 07:00 08/07/17 06:59 Dextrose (Dextrose 50%) 50 ml STAT PRN IV Hypoglycemia 07/08/17 07:00 08/07/17 06:59 Famotidine (Pepcid) 20 mg BID ORAL 07/08/17 09:00 08/07/17 08:59 07/13/17 09:22 Heparin Sodium (Porcine) (Heparin 5000 units/ml) 5,000 units EVERY 12 HOURS SUBQ 07/06/17 21:00 08/05/17 20:59 07/13/17 09:23 Insulin Aspart (NovoLOG) BEFORE MEALS AND HS SUBQ 07/08/17 06:30 08/07/17 06:29 07/13/17 06:01 Insulin Aspart (NovoLOG) 6 units NOVOTIAC SUBQ 07/10/17 11:50 08/07/17 06:59 07/13/17 06:01 Insulin Detemir (Levemir) 15 units TWICE A DAY SUBQ 07/10/17 09:00 08/07/17 08:59 07/13/17 09:24 Lisinopril (Prinivil) 40 mg DAILY ORAL 07/12/17 09:00 08/11/17 08:59 07/13/17 09:22 Metoprolol Tartrate (Lopressor) 25 mg Q12HR ORAL 07/09/17 21:00 08/08/17 20:59 07/13/17 09:22 Multivitamins (Multivitamins) 1 tab DAILY ORAL 07/07/17 09:00 08/06/17 08:59 07/13/17 09:22 Sodium Chloride 1,000 ml @ 125 mls/hr Q8H IV 07/07/17 18:15 08/06/17 18:14 07/13/17 01:32 KUSH CUNNINGHAM July 13, 2017 10:36
--- NOTE | 2017-07-13 11:55 | General Surgery Progress Note ---
General Surgery-Progress Note Subjective Procedure Performed 1. incision and drainage of left deep intermuscular gluteal abscess 2. drain placement with complex multi layer closure using adjacent skin tissues Additional Comments no acute events. leukocytosis slightly better. pain improved today. left lower extremity still with edema. Objective Last 24 Hour Vital Signs Date Time Temp Pulse Resp B/P (MAP) Pulse Ox O2 Delivery O2 Flow Rate FiO2 07/13/17 10:20 98.2 07/13/17 09:22 141/83 07/13/17 09:22 97 141/83 07/13/17 09:21 98.2 07/13/17 08:00 98.2 97 20 141/83 97 98.2 07/13/17 04:00 97.8 103 18 153/96 98 Room Air 97.8 07/13/17 01:33 99.7 07/13/17 00:33 99.7 107 18 147/85 99 Room Air 99.7 07/12/17 22:23 88 157/78 07/12/17 20:00 95 07/12/17 20:00 99.0 88 18 157/78 Room Air 99.0 07/12/17 19:05 99.7 07/12/17 15:56 98 Room Air 07/12/17 15:42 99.7 97 18 131/77 99.7 07/12/17 12:42 96.8 07/12/17 12:14 96.8 105 15 153/70 96.8 07/12/17 12:00 96.8 105 15 153/70 98 Room Air 96.8 I&O Intake and Output 07/12/17 07/13/17 19:00 07:00 Intake Total 855 ml 1460 ml Output Total 40 ml 550 ml Balance 815 ml 910 ml Intake Oral 510 ml 240 ml IV Total 345 ml 1220 ml Output Urine Total 500 ml Drainage Total 40 ml 50 ml # Voids 2 Dressing: dry Wound: clean, dry, intact Drains: liborio - milky fluid drainaing Cardiovascular: RSR Respiratory: clear Abdomen: soft, flat, non-tender, present bowel sounds Extremities: edema, tenderness, other - still with left hip/thigh edema/ cellulitis Laboratory Tests Test 07/13/17 05:15 White Blood Count 21.5 K/UL (4.8-10.8) H Red Blood Count 3.19 M/UL (4.70-6.10) L Hemoglobin 8.6 G/DL (14.2-18.0) L Hematocrit 25.0 % (42.0-52.0) L Mean Corpuscular Volume 78 FL (80-99) L Mean Corpuscular Hemoglobin 26.9 PG (27.0-31.0) L Mean Corpuscular Hemoglobin Concent 34.3 G/DL (32.0-36.0) Red Cell Distribution Width 13.5 % (11.6-14.8) Platelet Count 405 K/UL (150-450) Mean Platelet Volume 6.4 FL (6.5-10.1) L Neutrophils (%) (Auto) % (45.0-75.0) Lymphocytes (%) (Auto) % (20.0-45.0) Monocytes (%) (Auto) % (1.0-10.0) Eosinophils (%) (Auto) % (0.0-3.0) Basophils (%) (Auto) % (0.0-2.0) Differential Total Cells Counted 100 Neutrophils % (Manual) 73 % (45-75) Lymphocytes % (Manual) 11 % (20-45) L Monocytes % (Manual) 8 % (1-10) Eosinophils % (Manual) 1 % (0-3) Basophils % (Manual) 0 % (0-2) Band Neutrophils 7 % (0-8) Platelet Estimate Increased H Platelet Morphology Normal Hypochromasia 1+ Microcytosis 1+ Sodium Level 136 MMOL/L (136-145) Potassium Level 3.7 MMOL/L (3.5-5.1) Chloride Level 102 MMOL/L (98-107) Carbon Dioxide Level 24 MMOL/L (21-32) Anion Gap 11 mmol/L (5-15) Blood Urea Nitrogen 9 mg/dL (7-18) Creatinine 1.3 MG/DL (0.55-1.30) Estimat Glomerular Filtration Rate > 60 mL/min (>60) Glucose Level 248 MG/DL (74-106) H Calcium Level 7.5 MG/DL (8.5-10.1) L Total Bilirubin 0.1 MG/DL (0.2-1.0) L Aspartate Amino Transf (AST/SGOT) 18 U/L (15-37) Alanine Aminotransferase (ALT/SGPT) 12 U/L (12-78) Alkaline Phosphatase 157 U/L (46-116) H Total Protein 6.4 G/DL (6.4-8.2) Albumin 1.2 G/DL (3.4-5.0) L Globulin 5.2 g/dL Albumin/Globulin Ratio 0.2 (1.0-2.7) L Plan Problems: (1) Gluteal abscess Assessment & Plan: 37M with left gluteal abscess. low grade fever, leukocytosis, on exam overlying tissue with edema, erythema, warmth, cellulitis. CT with large abscess between major and minor muscle. s/p Ultrasound guided drain placement for evacuation of abscess by radiology. If able to successfully drain via catheter will do so. unfortunately it has been present for some time now and fluid may be viscous and unable to drain without formal incision and drainage. POD #3 s/p I&D. recovering. leukocytosis slightly improved. drain with mikly output. may be cellulitis resolving slowly or forming another abscess. CT scan reviewed and still lots of edema/cellulitis. cannot determine if abscess or not but no large abscess noted. drain in good positioning. -discussed findings with patient. will need to monitor him closely. if does not show improvement over next day or two, or if drain output does not clear up he will likely need more aggressive treatment with open wound, packing and dressings. abscess was completely drained during surgery and large drain was placed after extensive washout. initially drain output serosang but now becoming milky. -tight glucose control -okay for activity -drain care and management. will follow with recs. thank you for this consultation. Nahid Bartholomew July 13, 2017 11:55
[2017-07-13 12:00] VITALS: BP 123/74
--- NOTE | 2017-07-13 15:46 | Consultation ---
History of Present Illness General Date patient seen: July 13, 2017 Time patient seen: 15:41 Chief Complaint: Pain Referring physician: Dr Cano Reason for Consultation: Right hallux abscess Present Illness Allergies: Coded Allergies: No Known Allergies (Unverified , 05/14/15) Medication History Scheduled Cholecalciferol (Vitamin D3)* (Vitamin D*), 1,000 UNIT ORAL DAILY Insulin Detemir (Levemir), 3 UNIT SUBQ BEDTIME, (Reported) Metformin Hcl* (Metformin Hcl*), 1,000 MG ORAL BID, (Reported) Multivitamins* (Multivitamins*), 1 TAB ORAL DAILY Patient History History Provided By: Patient Healthcare decision maker Resuscitation status Full Code Advanced Directive on File Past Medical/Surgical History Past Medical/Surgical History: (1) Hyperglycemia (2) Diabetes mellitus type 2 with neurological manifestations Review of Systems Constitutional: Reports: no symptoms Cardiovascular: Denies: no symptoms, see HPI, chest pain, edema, palpitations, syncope, PND, other Musculoskeletal: Denies: no symptoms, see HPI, back pain, gout, joint pain, joint swelling, muscle pain, muscle stiffness, other Neurological: Reports: numbness Physical Exam General Appearance: WD/WN, alert Extremities: normal range of motion, non-tender, no calf tenderness, normal capillary refill, no edema, no cyanosis Skin Exam: normal pigmentation, other - drainage of lateral border right hallux toenail Neurologic: sensory deficit Musculoskeletal: other - amputated left hallux Last 24 Hour Vital Signs Date Time Temp Pulse Resp B/P (MAP) Pulse Ox O2 Delivery O2 Flow Rate FiO2 07/13/17 12:00 98.1 85 20 123/74 98 98.1 07/13/17 10:20 98.2 07/13/17 09:22 141/83 07/13/17 09:22 97 141/83 07/13/17 09:21 98.2 07/13/17 08:00 98.2 97 20 141/83 97 98.2 07/13/17 04:00 97.8 103 18 153/96 98 Room Air 97.8 07/13/17 01:33 99.7 07/13/17 00:33 99.7 107 18 147/85 99 Room Air 99.7 07/12/17 22:23 88 157/78 07/12/17 20:00 95 07/12/17 20:00 99.0 88 18 157/78 Room Air 99.0 07/12/17 19:05 99.7 07/12/17 15:56 98 Room Air 07/12/17 15:42 99.7 97 18 131/77 99.7 Intake and Output 07/12/17 07/13/17 19:00 07:00 Intake Total 855 ml 1460 ml Output Total 40 ml 550 ml Balance 815 ml 910 ml Intake Oral 510 ml 240 ml IV Total 345 ml 1220 ml Output Urine Total 500 ml Drainage Total 40 ml 50 ml # Voids 2 Laboratory Tests Test 07/13/17 05:15 White Blood Count 21.5 K/UL (4.8-10.8) H Red Blood Count 3.19 M/UL (4.70-6.10) L Hemoglobin 8.6 G/DL (14.2-18.0) L Hematocrit 25.0 % (42.0-52.0) L Mean Corpuscular Volume 78 FL (80-99) L Mean Corpuscular Hemoglobin 26.9 PG (27.0-31.0) L Mean Corpuscular Hemoglobin Concent 34.3 G/DL (32.0-36.0) Red Cell Distribution Width 13.5 % (11.6-14.8) Platelet Count 405 K/UL (150-450) Mean Platelet Volume 6.4 FL (6.5-10.1) L Neutrophils (%) (Auto) % (45.0-75.0) Lymphocytes (%) (Auto) % (20.0-45.0) Monocytes (%) (Auto) % (1.0-10.0) Eosinophils (%) (Auto) % (0.0-3.0) Basophils (%) (Auto) % (0.0-2.0) Differential Total Cells Counted 100 Neutrophils % (Manual) 73 % (45-75) Lymphocytes % (Manual) 11 % (20-45) L Monocytes % (Manual) 8 % (1-10) Eosinophils % (Manual) 1 % (0-3) Basophils % (Manual) 0 % (0-2) Band Neutrophils 7 % (0-8) Platelet Estimate Increased H Platelet Morphology Normal Hypochromasia 1+ Microcytosis 1+ Sodium Level 136 MMOL/L (136-145) Potassium Level 3.7 MMOL/L (3.5-5.1) Chloride Level 102 MMOL/L (98-107) Carbon Dioxide Level 24 MMOL/L (21-32) Anion Gap 11 mmol/L (5-15) Blood Urea Nitrogen 9 mg/dL (7-18) Creatinine 1.3 MG/DL (0.55-1.30) Estimat Glomerular Filtration Rate > 60 mL/min (>60) Glucose Level 248 MG/DL (74-106) H Calcium Level 7.5 MG/DL (8.5-10.1) L Total Bilirubin 0.1 MG/DL (0.2-1.0) L Aspartate Amino Transf (AST/SGOT) 18 U/L (15-37) Alanine Aminotransferase (ALT/SGPT) 12 U/L (12-78) Alkaline Phosphatase 157 U/L (46-116) H Total Protein 6.4 G/DL (6.4-8.2) Albumin 1.2 G/DL (3.4-5.0) L Globulin 5.2 g/dL Albumin/Globulin Ratio 0.2 (1.0-2.7) L Height (Feet): 6 Height (Inches): 2.00 Weight (Pounds): 200 Medications Current Medications Medications (Trade) Dose Ordered Sig/Shania Route PRN Reason Start Time Stop Time Status Last Admin Dose Admin Acetaminophen (Tylenol) 650 mg Q6H PRN ORAL Mild Pain/Temp > 100.5 07/06/17 17:32 08/05/17 17:31 07/12/17 03:21 Acetaminophen/ Hydrocodone Bitart ([place] 5/325) 1 tab Q6H PRN ORAL MODERATE PAIN(PAIN SCALE 4-6) 07/06/17 17:33 07/13/17 17:32 07/13/17 09:21 Cefazolin Sodium 2 gm/Dextrose 110 ml @ 220 mls/hr Q8HR IVPB 07/10/17 14:00 07/17/17 13:59 07/13/17 15:04 Dextrose (Dextrose 50%) 25 ml STAT PRN IV Hypoglycemia 07/08/17 07:00 08/07/17 06:59 Dextrose (Dextrose 50%) 50 ml STAT PRN IV Hypoglycemia 07/08/17 07:00 08/07/17 06:59 Famotidine (Pepcid) 20 mg BID ORAL 07/08/17 09:00 08/07/17 08:59 07/13/17 09:22 Heparin Sodium (Porcine) (Heparin 5000 units/ml) 5,000 units EVERY 12 HOURS SUBQ 07/06/17 21:00 08/05/17 20:59 07/13/17 09:23 Hydrochlorothiazide (Hydrodiuril) 25 mg BID ORAL 07/13/17 18:00 08/12/17 17:59 Insulin Aspart (NovoLOG) BEFORE MEALS AND HS SUBQ 07/08/17 06:30 08/07/17 06:29 07/13/17 06:01 Insulin Aspart (NovoLOG) 6 units NOVOTIAC SUBQ 07/10/17 11:50 08/07/17 06:59 07/13/17 06:01 Insulin Detemir (Levemir) 15 units TWICE A DAY SUBQ 07/10/17 09:00 08/07/17 08:59 07/13/17 09:24 Lisinopril (Prinivil) 40 mg DAILY ORAL 07/12/17 09:00 08/11/17 08:59 07/13/17 09:22 Metoprolol Tartrate (Lopressor) 25 mg Q12HR ORAL 07/09/17 21:00 08/08/17 20:59 07/13/17 09:22 Multivitamins (Multivitamins) 1 tab DAILY ORAL 07/07/17 09:00 08/06/17 08:59 07/13/17 09:22 Assessment/Plan Assessment/Plan A/ 1) Ingrown toenail removed by girl friend with superficial infection 2) DM with neuropathy 3) Left halllux amp 2/2 to spider bite Feb 2017 P/ 1) Patient and mother advised on condition. 2) Will order soaks and topical abx 3) Educated patient on DM control Thank you Daniel Douglas DPM July 13, 2017 15:46
[2017-07-13 16:00] VITALS: BP 157/92
[2017-07-13] MEDS ORDERED: Tubing IV Secondary IV ONE (16:36)
--- NOTE | 2017-07-13 18:15 | Consultation ---
DATE OF CONSULTATION: 07/13/2017 NEPHROLOGY CONSULTATION CONSULTING PHYSICIAN: Angel Barriga M.D. REFERRING PHYSICIAN: Angel Cano M.D. REASON FOR CONSULTATION: Proteinuria and hypoalbuminemia. HISTORY OF PRESENT ILLNESS: The patient is a 37-year-old male who has history of diabetes for about a year, was on metformin at home and now is on insulin. The patient presented with left hip abscess and pain and is now status post incision and drainage of left deep intergluteal abscesses on 07/10/2017. He has had marked swelling of the left greater than the right leg and thigh. History is significant for a left great toe amputation in 02/2017 apparently after an insect bite. He also has scars on his leg and chronic skin problems with his legs. He is not really aware of any renal disease or proteinuria with history of difficulty voiding. He denies history of hypertension prior to admission. MEDICATIONS: Prior to admission included metformin and he got a short dose of ibuprofen from the emergency room. Apparently, he had Levemir insulin as well. Current medications in the hospital include cefazolin, Tylenol for moderate pain, subcutaneous heparin, [place], sliding-scale NovoLog, Levemir, lisinopril, metoprolol, and multivitamin. ALLERGIES: None known. HABITS: He denies cigarette smoking, alcohol, or drugs. REVIEW OF SYSTEMS: HEAD, EYES, EARS, NOSE, THROAT: He has mild decreased visual acuity. He states he needs glasses. No history of diabetic retinopathy. Hearing is good. ENDOCRINE: History of obesity and diabetes. He is not aware of thyroid disease. PULMONARY: No asthma, TB, or chronic cough. CARDIAC: No angina, IN, or palpitations. GASTROINTESTINAL: No GI bleeding, ulcers, or abdominal pain. GENITOURINARY: No dysuria, hematuria, or kidney stones. NEUROLOGIC: No CVA, syncope, or seizures. MUSCULOSKELETAL: No history of chronic joint pains. HEMATOLOGIC/ONCOLOGIC: No history of bleeding disorder, DVT, or malignancy. PHYSICAL EXAMINATION: GENERAL: The patient is an alert man, lying in bed, in no acute distress. VITAL SIGNS: Temperature 98.1 degrees, pulse 85, respirations 20, and blood pressure 123/74. Weight 90.7. BMI 25.7. HEAD, EYES, EARS, NOSE, THROAT: Sclerae are nonicteric. Ocular motions intact in all directions. Oral mucosa moist. NECK: No adenopathy or thyroid enlargement. LUNGS: Clear. HEART: Rhythm is regular. I hear no murmur. ABDOMEN: Obese and soft. No organomegaly or masses. EXTREMITIES: There is marked swelling of the left thigh, 2 to 3+, and 1+ in the left lower leg with trace edema on the right leg. There is a drain in the left thigh area. NEUROLOGIC: He is alert and oriented. Cranial nerves are intact. PERTINENT LABORATORY AND DIAGNOSTIC DATA: Electrolytes are normal. BUN 9 and creatinine 1.3. Earlier, he had creatinine up to 1.6. His glucose was over 500 earlier in the admission. There is one urinalysis on 07/06/2017 with 3+ protein, 4+ glucose, 2+ ketones, 4+ occult blood, 5-10 red cells, and 0-2 white cells per high-power field. His serum albumin is very low and most recent 1.4 and repeat was 1.2. IMPRESSION: The patient has proteinuria and very likely nephrotic syndrome. There is no history of liver disease and he states he has been eating well, although he has had weight loss of over 20 pounds in the last year. PLAN: I will collect 24-hour urine for protein and creatinine clearance. If the heavy proteinuria is confirmed, differential diagnosis includes diabetic nephropathy versus proteinuria from nephrotic syndrome in nondiabetic. 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 He is already on an ANGELIKA inhibitor, which I would continue. I would try to avoid fluid overload and put him on low-salt diet. Pending the results of the 24-hour urine, further recommendations will be given. Thank you so much for allowing me to participate in the care of this patient. Angel Barriga M.D. DR: ERICA JOB#: [id number] CC:
[2017-07-13 20:00] VITALS: BP 154/90
[2017-07-13 21:48] LABS: CREATININE 1.3 MG/DL (0.55-1.30)
[2017-07-14] VITALS: BP 123/74
[2017-07-14 02:50] LABS: APPEARANCE,URINE CLEAR; BILIRUBIN, URINE NEGATIVE (NEGATIVE); COLOR,URINE PALE YELLOW; GLUCOSE, URINE (UA) NEGATIVE (NEGATIVE); KETONES,URINE NEGATIVE (NEGATIVE); LEUKOCYTE ESTERASE ,URINE NEGATIVE (NEGATIVE); NITRITE,URINE NEGATIVE (NEGATIVE); PH,URINE 6 (4.5-8.0); PROTEIN,URINE 1+ (NEGATIVE); UROBILINOGEN,URINE NORMAL MG/DL (0.0-1.0)
--- NOTE | 2017-07-14 03:15 | Progress Note ---
DATE: 07/13/2017 INTERNAL MEDICINE PROGRESS NOTE SUBJECTIVE: The patient is complaining of pain in his right first toe due to an ingrown toenail with drainage noted by that is purulent. Concern is raised because of similar event on his left first toe in the past resulted in gangrene and amputation. The patient continues to require drainage from the left hip area and buttocks region following I and D pockets of abscess still possibly persisting. This was discussed with the surgeon. OBJECTIVE: VITAL SIGNS: Blood pressure 141/83, pulse 97, respirations 20, and afebrile. LUNGS: Clear. CARDIAC: Regular. ABDOMEN: Soft. EXTREMITIES: No edema. Drain in place. Right first toe nail with warmth and redness around the toe. LABORATORY DATA: Glucose control improved. White count down to 21,000. IMPRESSION: Remains high risk. PLAN: I have discussed with the patient, his mother, and his the seriousness of his condition and the fact that his buttocks infection remains uncontrolled and further drainage may be considered over the next several days depending on clinical course. In addition, Podiatry evaluation is requested for management of right first toe. We will continue ongoing titration of insulin, intravenous antibiotics, nutritional support, and a 24 hour urine is in progress for evaluation of proteinuria and kidney disease due to diabetic nephropathy. Angel Cano M.D. DR: JOHNNIE JOB#: [id number] CC:
[2017-07-14 04:00] VITALS: BP 161/99
[2017-07-14] MEDS: Norco 5mg/325mg tab ORAL PRN ×3 (05:27→20:24)
[2017-07-14] MEDS: ceFAZolin sod 2 GM in D5W 110 ML IVPB SCH ×3 (05:27→22:08)
[2017-07-14] MEDS: NovoLOG Insulin Flexpen SUBQ SCH ×7 (05:35→20:28)
[2017-07-14 07:02] LABS: ANION GAP 7 mmol/L (5-15); BLOOD UREA NITROGEN 7 mg/dL (7-18); CARBON DIOXIDE 27 MMOL/L (21-32); CHLORIDE 100 MMOL/L (98-107); CREATININE 1.2 MG/DL (0.55-1.30); SODIUM 134 MMOL/L (136-145)
--- NOTE | 2017-07-14 07:13 | General Progress Note ---
Assessment/Plan Problem List: (1) Hyperglycemia ICD Codes: R73.9 - Hyperglycemia, unspecified SNOMED: 36488867 (2) Cellulitis of hip, left ICD Codes: L03.116 - Cellulitis of left lower limb SNOMED: 4324914 (3) Gluteal abscess ICD Codes: L02.31 - Cutaneous abscess of buttock SNOMED: 95729831 Assessment/Plan glucose values in fair control - continue Levemir 15 units bid - continue Novolog 6 units ac tid - continue NISS Subjective Allergies: Coded Allergies: No Known Allergies (Unverified , 05/14/15) All Systems: reviewed and negative except above Subjective events noted Objective Last 24 Hour Vital Signs Date Time Temp Pulse Resp B/P (MAP) Pulse Ox O2 Delivery O2 Flow Rate FiO2 07/14/17 06:27 98.5 07/14/17 05:27 98.5 07/14/17 04:00 98.1 104 18 161/99 98 98.1 07/14/17 00:00 98.5 93 18 123/74 98 98.5 07/13/17 20:30 98.2 07/13/17 20:30 100 157/92 07/13/17 20:00 98.9 102 18 154/90 100 98.9 07/13/17 16:00 98.2 100 20 157/92 99 98.2 07/13/17 12:00 98.1 85 20 123/74 98 98.1 07/13/17 10:20 98.2 07/13/17 09:22 141/83 07/13/17 09:22 97 141/83 07/13/17 09:21 98.2 07/13/17 08:00 98.2 97 20 141/83 97 98.2 Intake and Output 07/13/17 07/14/17 19:00 07:00 Intake Total 450 ml 980 ml Output Total 1880 ml Balance 450 ml -900 ml Intake Oral 450 ml 760 ml IV Total 220 ml Output Urine Total 1800 ml Drainage Total 80 ml # Voids 3 # Bowel Movements 1 Laboratory Tests 07/14/17 02:20: Urine Color Pale yellow, Urine Appearance Clear, Urine pH 6, Urine Specific [place] 1.005, Urine Protein 1+H, Urine Glucose (UA) Negative, Urine Ketones Negative, Urine Occult Blood 1+H, Urine Nitrite Negative, Urine Bilirubin Negative, Urine Urobilinogen Normal, Urine Leukocyte Esterase Negative, Urine RBC 0-2H, Urine WBC 0, Urine Squamous Epithelial Cells Few, Urine Bacteria None 07/14/17 05:15: Sodium Level [Pending], Potassium Level [Pending], Chloride Level [Pending], Carbon Dioxide Level [Pending], Blood Urea Nitrogen [Pending], Creatinine [ Pending], Estimat Glomerular Filtration Rate [Pending], Glucose Level [Pending] , Calcium Level [Pending], Anti-Nuclear Antibody Screen [Pending], c-ANCA Titer [Pending], p-ANCA Titer [Pending], Complement C3 [Pending], Complement C4 [ Pending], Hepatitis B Surface Antigen [Pending], Hepatitis B Surface Antibody [ Pending], Hepatitis C Antibody [Pending], HIV (1&2) Antibody Rapid [Pending] Height (Feet): 6 Height (Inches): 2.00 Weight (Pounds): 200 General Appearance: no apparent distress Neck: normal alignment Cardiovascular: normal rate Respiratory/Chest: lungs clear Abdomen: normal bowel sounds Objective Current Medications Medications (Trade) Dose Ordered Sig/Shania Route PRN Reason Start Time Stop Time Status Last Admin Dose Admin Acetaminophen (Tylenol) 650 mg Q6H PRN ORAL Mild Pain/Temp > 100.5 07/06/17 17:32 08/05/17 17:31 07/12/17 03:21 Acetaminophen/ Hydrocodone Bitart ([place] 5/325) 1 tab Q6H PRN ORAL For MODERATE PAIN 07/13/17 19:22 07/20/17 19:21 07/14/17 05:27 Cefazolin Sodium 2 gm/Dextrose 110 ml @ 220 mls/hr Q8HR IVPB 07/10/17 14:00 07/17/17 13:59 07/14/17 05:27 Dextrose (Dextrose 50%) 25 ml STAT PRN IV Hypoglycemia 07/08/17 07:00 08/07/17 06:59 Dextrose (Dextrose 50%) 50 ml STAT PRN IV Hypoglycemia 07/08/17 07:00 08/07/17 06:59 Famotidine (Pepcid) 20 mg BID ORAL 07/08/17 09:00 08/07/17 08:59 07/13/17 18:05 Heparin Sodium (Porcine) (Heparin 5000 units/ml) 5,000 units EVERY 12 HOURS SUBQ 07/06/17 21:00 08/05/17 20:59 07/13/17 20:28 Hydrochlorothiazide (Hydrodiuril) 25 mg BID ORAL 07/13/17 18:00 08/12/17 17:59 07/13/17 18:05 Insulin Aspart (NovoLOG) BEFORE MEALS AND HS SUBQ 07/08/17 06:30 08/07/17 06:29 07/14/17 05:37 Insulin Aspart (NovoLOG) 6 units NOVOTIAC SUBQ 07/10/17 11:50 08/07/17 06:59 07/14/17 05:35 Insulin Detemir (Levemir) 15 units TWICE A DAY SUBQ 07/10/17 09:00 08/07/17 08:59 07/13/17 09:24 Lisinopril (Prinivil) 40 mg DAILY ORAL 07/12/17 09:00 08/11/17 08:59 07/13/17 09:22 Metoprolol Tartrate (Lopressor) 25 mg Q12HR ORAL 07/09/17 21:00 08/08/17 20:59 07/13/17 20:30 Multivitamins (Multivitamins) 1 tab DAILY ORAL 07/07/17 09:00 08/06/17 08:59 07/13/17 09:22 Mupirocin (Bactroban Oint) 1 applic DAILY TOPIC 07/14/17 09:00 07/19/17 08:59 Item Value Date Time Bedside Blood Glucose 190 mg/dl H 07/14/17 0626 Bedside Blood Glucose 120 mg/dl 07/13/17 2115 Bedside Blood Glucose 105 mg/dl 07/13/17 1800 Bedside Blood Glucose 95 mg/dl 07/13/17 1150 Bedside Blood Glucose 235 mg/dl H 07/13/17 0924 Bedside Blood Glucose 235 mg/dl H 07/13/17 0601 ADILENE JIMENEZ July 14, 2017 07:13
[2017-07-14 08:40] VITALS: BP 137/80
[2017-07-14] MEDS: Metoprolol 25mg tab ORAL SCH ×2 (09:29→20:24)
[2017-07-14] MEDS: Lisinopril 20mg tab ORAL SCH (09:30)
[2017-07-14] MEDS: Heparin 5000 units/ml inj SUBQ SCH ×2 (09:31→20:25)
[2017-07-14] MEDS: Levemir Flexpen SUBQ SCH ×2 (09:32→20:26)
[2017-07-14 11:55] VITALS: BP 140/87
--- NOTE | 2017-07-14 11:57 | Infectious Diseases Prog Note ---
Assessment/Plan Assessment/Plan antibiotics : ancef A 1. staph aureus sepsis 2. left hip cellulitis 3. left buttock abscess with staph aureus s/p i and d 4. diabetes mellitus 5. leucocytosis improving P 1. continue ancef 2. stool for c.diff 3. will follow up cultures Subjective Constitutional: Denies: fever, chills Respiratory: Denies: shortness of breath, dry cough Gastrointestinal/Abdominal: Reports: diarrhea; Denies: nausea, vomiting Musculoskeletal: Reports: pain Allergies: Coded Allergies: No Known Allergies (Unverified , 05/14/15) Objective Vital Signs Last 24 Hour Vital Signs Date Time Temp Pulse Resp B/P (MAP) Pulse Ox O2 Delivery O2 Flow Rate FiO2 07/14/17 11:55 97.9 86 20 140/87 98 97.9 07/14/17 09:30 137/80 07/14/17 09:29 114 137/80 07/14/17 08:40 98.1 114 20 137/80 99 98.1 07/14/17 06:27 98.5 07/14/17 05:27 98.5 07/14/17 04:00 98.1 104 18 161/99 98 98.1 07/14/17 00:00 98.5 93 18 123/74 98 98.5 07/13/17 20:30 98.2 07/13/17 20:30 100 157/92 07/13/17 20:00 98.9 102 18 154/90 100 98.9 07/13/17 16:00 98.2 100 20 157/92 99 98.2 07/13/17 12:00 98.1 85 20 123/74 98 98.1 Height (Feet): 6 Height (Inches): 2.00 Weight (Pounds): 200 Respiratory/Chest: lungs clear Cardiovascular: normal rate, regular rhythm, no gallop/murmur Abdomen: soft, non tender Extremities: no edema, other - left hip [place] drain Laboratory Tests Test 07/14/17 02:20 07/14/17 05:15 Urine Color Pale yellow Urine Appearance Clear Urine pH 6 (4.5-8.0) Urine Specific [place] 1.005 (1.005-1.035) Urine Protein 1+ (NEGATIVE) H Urine Glucose (UA) Negative (NEGATIVE) Urine Ketones Negative (NEGATIVE) Urine Occult Blood 1+ (NEGATIVE) H Urine Nitrite Negative (NEGATIVE) Urine Bilirubin Negative (NEGATIVE) Urine Urobilinogen Normal MG/DL (0.0-1.0) Urine Leukocyte Esterase Negative (NEGATIVE) Urine RBC 0-2 /HPF (0 - 0) H Urine WBC 0 /HPF (0 - 0) Urine Squamous Epithelial Cells Few /LPF (NONE/OCC) Urine Bacteria None /HPF (NONE) Sodium Level 134 MMOL/L (136-145) L Potassium Level 4.0 MMOL/L (3.5-5.1) Chloride Level 100 MMOL/L (98-107) Carbon Dioxide Level 27 MMOL/L (21-32) Anion Gap 7 mmol/L (5-15) Blood Urea Nitrogen 7 mg/dL (7-18) Creatinine 1.2 MG/DL (0.55-1.30) Estimat Glomerular Filtration Rate > 60 mL/min (>60) Glucose Level 185 MG/DL (74-106) H Calcium Level 8.0 MG/DL (8.5-10.1) L Anti-Nuclear Antibody Screen Pending c-ANCA Titer Pending p-ANCA Titer Pending Complement C3 Pending Complement C4 Pending Hepatitis B Surface Antigen Pending Hepatitis B Surface Antibody Pending Hepatitis C Antibody Pending HIV (1&2) Antibody Rapid Negative (NEGATIVE) Current Medications Medications (Trade) Dose Ordered Sig/Shania Route PRN Reason Start Time Stop Time Status Last Admin Dose Admin Acetaminophen (Tylenol) 650 mg Q6H PRN ORAL Mild Pain/Temp > 100.5 07/06/17 17:32 08/05/17 17:31 07/12/17 03:21 Acetaminophen/ Hydrocodone Bitart ([place] 5/325) 1 tab Q6H PRN ORAL For MODERATE PAIN 07/13/17 19:22 07/20/17 19:21 07/14/17 05:27 Cefazolin Sodium 2 gm/Dextrose 110 ml @ 220 mls/hr Q8HR IVPB 07/10/17 14:00 07/17/17 13:59 07/14/17 05:27 Dextrose (Dextrose 50%) 25 ml STAT PRN IV Hypoglycemia 07/08/17 07:00 08/07/17 06:59 Dextrose (Dextrose 50%) 50 ml STAT PRN IV Hypoglycemia 07/08/17 07:00 08/07/17 06:59 Famotidine (Pepcid) 20 mg BID ORAL 07/08/17 09:00 08/07/17 08:59 07/14/17 09:29 Heparin Sodium (Porcine) (Heparin 5000 units/ml) 5,000 units EVERY 12 HOURS SUBQ 07/06/17 21:00 08/05/17 20:59 07/14/17 09:31 Hydrochlorothiazide (Hydrodiuril) 25 mg BID ORAL 07/13/17 18:00 08/12/17 17:59 07/14/17 09:29 Insulin Aspart (NovoLOG) BEFORE MEALS AND HS SUBQ 07/08/17 06:30 08/07/17 06:29 07/14/17 05:37 Insulin Aspart (NovoLOG) 6 units NOVOTIAC SUBQ 07/10/17 11:50 08/07/17 06:59 07/14/17 05:35 Insulin Detemir (Levemir) 15 units TWICE A DAY SUBQ 07/10/17 09:00 08/07/17 08:59 07/14/17 09:32 Lisinopril (Prinivil) 40 mg DAILY ORAL 07/12/17 09:00 08/11/17 08:59 07/14/17 09:30 Metoprolol Tartrate (Lopressor) 25 mg Q12HR ORAL 07/09/17 21:00 08/08/17 20:59 07/14/17 09:29 Multivitamins (Multivitamins) 1 tab DAILY ORAL 07/07/17 09:00 08/06/17 08:59 07/14/17 09:29 Mupirocin (Bactroban Oint) 1 applic DAILY TOPIC 07/14/17 09:00 07/19/17 08:59 07/14/17 09:32 KUSH CUNNINGHAM July 14, 2017 11:57
--- NOTE | 2017-07-14 12:36 | General Surgery Progress Note ---
General Surgery-Progress Note Subjective Procedure Performed 1. incision and drainage of left deep intermuscular gluteal abscess 2. drain placement with complex multi layer closure using adjacent skin tissues Symptoms: improved Additional Comments no acute events. doing well. ambulatory. states edema improving Objective Last 24 Hour Vital Signs Date Time Temp Pulse Resp B/P (MAP) Pulse Ox O2 Delivery O2 Flow Rate FiO2 07/14/17 11:55 97.9 86 20 140/87 98 97.9 07/14/17 09:30 137/80 07/14/17 09:29 114 137/80 07/14/17 08:40 98.1 114 20 137/80 99 98.1 07/14/17 06:27 98.5 07/14/17 05:27 98.5 07/14/17 04:00 98.1 104 18 161/99 98 98.1 07/14/17 00:00 98.5 93 18 123/74 98 98.5 07/13/17 20:30 98.2 07/13/17 20:30 100 157/92 07/13/17 20:00 98.9 102 18 154/90 100 98.9 07/13/17 16:00 98.2 100 20 157/92 99 98.2 I&O Intake and Output 07/13/17 07/14/17 19:00 07:00 Intake Total 450 ml 980 ml Output Total 1880 ml Balance 450 ml -900 ml Intake Oral 450 ml 760 ml IV Total 220 ml Output Urine Total 1800 ml Drainage Total 80 ml # Voids 3 # Bowel Movements 1 Dressing: dry Wound: clean, dry, intact Drains: liborio - with milky output but seems thinner today Cardiovascular: RSR Respiratory: clear Abdomen: soft, flat, non-tender, present bowel sounds Extremities: edema, tenderness, no cyanosis Laboratory Tests Test 07/14/17 02:20 07/14/17 05:15 Urine Color Pale yellow Urine Appearance Clear Urine pH 6 (4.5-8.0) Urine Specific [place] 1.005 (1.005-1.035) Urine Protein 1+ (NEGATIVE) H Urine Glucose (UA) Negative (NEGATIVE) Urine Ketones Negative (NEGATIVE) Urine Occult Blood 1+ (NEGATIVE) H Urine Nitrite Negative (NEGATIVE) Urine Bilirubin Negative (NEGATIVE) Urine Urobilinogen Normal MG/DL (0.0-1.0) Urine Leukocyte Esterase Negative (NEGATIVE) Urine RBC 0-2 /HPF (0 - 0) H Urine WBC 0 /HPF (0 - 0) Urine Squamous Epithelial Cells Few /LPF (NONE/OCC) Urine Bacteria None /HPF (NONE) White Blood Count Pending Red Blood Count Pending Hemoglobin Pending Hematocrit Pending Mean Corpuscular Volume Pending Mean Corpuscular Hemoglobin Pending Mean Corpuscular Hemoglobin Concent Pending Red Cell Distribution Width Pending Platelet Count Pending Mean Platelet Volume Pending Neutrophils (%) (Auto) Pending Lymphocytes (%) (Auto) Pending Monocytes (%) (Auto) Pending Eosinophils (%) (Auto) Pending Basophils (%) (Auto) Pending Sodium Level 134 MMOL/L (136-145) L Potassium Level 4.0 MMOL/L (3.5-5.1) Chloride Level 100 MMOL/L (98-107) Carbon Dioxide Level 27 MMOL/L (21-32) Anion Gap 7 mmol/L (5-15) Blood Urea Nitrogen 7 mg/dL (7-18) Creatinine 1.2 MG/DL (0.55-1.30) Estimat Glomerular Filtration Rate > 60 mL/min (>60) Glucose Level 185 MG/DL (74-106) H Calcium Level 8.0 MG/DL (8.5-10.1) L Anti-Nuclear Antibody Screen Pending c-ANCA Titer Pending p-ANCA Titer Pending Complement C3 Pending Complement C4 Pending Hepatitis B Surface Antigen Pending Hepatitis B Surface Antibody Pending Hepatitis C Antibody Pending HIV (1&2) Antibody Rapid Negative (NEGATIVE) Plan Problems: (1) Gluteal abscess Assessment & Plan: 37M with left gluteal abscess. low grade fever, leukocytosis, on exam overlying tissue with edema, erythema, warmth, cellulitis. CT with large abscess between major and minor muscle. s/p Ultrasound guided drain placement for evacuation of abscess by radiology. If able to successfully drain via catheter will do so. unfortunately it has been present for some time now and fluid may be viscous and unable to drain without formal incision and drainage. POD #4 s/p I&D. recovering. still with milky drainage but seems to be thinning out. may be cellulitis resolving slowly or forming another abscess. CT scan reviewed and still lots of edema/cellulitis. cannot determine if abscess or not but no large abscess noted. drain in good positioning. -discussed findings with patient. will need to monitor him closely. if does not show improvement over next day or two, or if drain output does not clear up he will likely need more aggressive treatment with open wound, packing and dressings. abscess was completely drained during surgery and large drain was placed after extensive washout. initially drain output serosang but now becoming milky. -tight glucose control -okay for activity -drain care and management. -pending CBC today will follow with recs. thank you for this consultation. Nahid Bartholomew July 14, 2017 12:36
[2017-07-14 12:37] LABS: HEMATOCRIT 28.8 % (42.0-52.0); HEMOGLOBIN 9.4 G/DL (14.2-18.0); MEAN CORPUSCULAR VOLUME 78 FL (80-99); PLATELET COUNT 538 K/UL (150-450); RED BLOOD COUNT 3.68 M/UL (4.70-6.10); RED CELL DISTRIBUTION WIDTH 13.6 % (11.6-14.8); WHITE BLOOD COUNT 23.3 K/UL (4.8-10.8)
[2017-07-14] MEDS ORDERED: Isovue-300 100ml vial INJ PRN (14:00)
--- NOTE | 2017-07-14 14:20 | Nephrology Progress Note ---
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 (6) Fluid overload Plan creat clearance 69 24 hr protein 110mg to repeat, mild proteinuria does not explain severly low albumin, liver serologies pending Subjective Constitutional: Reports: no symptoms HEENT: Reports: no symptoms Genitourinary: Reports: no symptoms Neurologic/Psychiatric: Reports: no symptoms Objective Objective Last 24 Hour Vital Signs Date Time Temp Pulse Resp B/P (MAP) Pulse Ox O2 Delivery O2 Flow Rate FiO2 07/14/17 13:44 97.9 07/14/17 11:55 97.9 86 20 140/87 98 97.9 07/14/17 09:30 137/80 07/14/17 09:29 114 137/80 07/14/17 08:40 98.1 114 20 137/80 99 98.1 07/14/17 06:27 98.5 07/14/17 05:27 98.5 07/14/17 04:00 98.1 104 18 161/99 98 98.1 07/14/17 00:00 98.5 93 18 123/74 98 98.5 07/13/17 20:30 98.2 07/13/17 20:30 100 157/92 07/13/17 20:00 98.9 102 18 154/90 100 98.9 07/13/17 16:00 98.2 100 20 157/92 99 98.2 Intake and Output 07/13/17 07/14/17 19:00 07:00 Intake Total 450 ml 980 ml Output Total 1880 ml Balance 450 ml -900 ml Intake Oral 450 ml 760 ml IV Total 220 ml Output Urine Total 1800 ml Drainage Total 80 ml # Voids 3 # Bowel Movements 1 Laboratory Tests 07/14/17 02:20: Urine Color Pale yellow, Urine Appearance Clear, Urine pH 6, Urine Specific [place] 1.005, Urine Protein 1+H, Urine Glucose (UA) Negative, Urine Ketones Negative, Urine Occult Blood 1+H, Urine Nitrite Negative, Urine Bilirubin Negative, Urine Urobilinogen Normal, Urine Leukocyte Esterase Negative, Urine RBC 0-2H, Urine WBC 0, Urine Squamous Epithelial Cells Few, Urine Bacteria None 07/14/17 05:15: White Blood Count 23.3*H, Red Blood Count 3.68L, Hemoglobin 9.4L, Hematocrit 28.8L, Mean Corpuscular Volume 78L, Mean Corpuscular Hemoglobin 25.6L, Mean Corpuscular Hemoglobin Concent 32.6, Red Cell Distribution Width 13.6, Platelet Count 538H, Mean Platelet Volume 5.8L, Neutrophils (%) (Auto) , Lymphocytes (%) (Auto) , Monocytes (%) (Auto) , Eosinophils (%) (Auto) , Basophils (%) (Auto) , Differential Total Cells Counted 100, Neutrophils % (Manual) 87H, Lymphocytes % (Manual) 10L, Monocytes % (Manual) 2, Eosinophils % (Manual) 1, Basophils % ( Manual) 0, Band Neutrophils 0, Platelet Estimate IncreasedH, Platelet Morphology Normal, Hypochromasia 1+, Microcytosis 1+, Sodium Level 134L, Potassium Level 4.0, Chloride Level 100, Carbon Dioxide Level 27, Anion Gap 7, Blood Urea Nitrogen 7, Creatinine 1.2, Estimat Glomerular Filtration Rate > 60, Glucose Level 185H, Calcium Level 8.0L, Anti-Nuclear Antibody Screen [Pending], c-ANCA Titer [Pending], p-ANCA Titer [Pending], Complement C3 [Pending], Complement C4 [Pending], Hepatitis B Surface Antigen [Pending], Hepatitis B Surface Antibody [Pending], Hepatitis C Antibody [Pending], HIV (1&2) Antibody Rapid Negative Height (Feet): 6 Height (Inches): 2.00 Weight (Pounds): 200 General Appearance: no apparent distress, alert EENT: normal ENT inspection Neck: normal alignment Cardiovascular: normal rate, regular rhythm Respiratory/Chest: lungs clear Abdomen: non tender, soft, no organomegaly Extremities: moderate edema Neurologic: bit setter II-XII grossly normal MAURICIO BERNABE July 14, 2017 14:20
[2017-07-14 16:22] VITALS: BP 143/92
--- NOTE | 2017-07-14 16:59 | Diagnostic Imaging Report ---
Indication: Follow-up, left gluteal abscess Technique: Continuous helical transaxial imaging of the pelvis was obtained from the iliac crest to the pubic symphysis after administration of IV contrast. Coronal 2-D reformats were also obtained. Study obtained in a Siemens sensation [address] Total Dose length Product (DLP): [address] Dose Index Volume (CTDIvol): 27.2 mGy Comparison: 07/12/2017 Findings: A left-sided percutaneous drainage catheter is unchanged in position compared to the prior exam. There is asymmetric edema and infiltration of the left-sided hip musculature and soft tissues, with unchanged obscuration of fat planes between the gluteus muscles and quadratus femoris. There is no well-defined/ring-enhancing fluid collection about the area of the current drainage catheter. There is however a collection of fluid and air with some rim enhancement that tracks inferiorly adjacent to the left vastus lateralis muscle. This measures approximately 3.5 cm AP by 1.6 cm transverse and spans approximately 17 cm in craniocaudal dimension (series 3 image #100; series 5 image #60). There is some prominent bilateral inguinal lymph nodes, likely reactive in etiology. The bladder is mildly distended. Thickening of the bladder wall is noted. Correlate with urinalysis to exclude the possibility of a cystitis. There is trace free fluid in the pelvis. No evidence of bowel obstruction. There is no acute osseous abnormality. IMPRESSION: Left-sided percutaneous drain unchanged in position. There is persistent marked edema and inflammatory change of the left hip musculature. No well-defined/ring-enhancing abscess is noted about the drain in the region of the gluteal musculature. There is however a rim-enhancing thin collection tracking inferiorly along the vastus lateralis muscle as detailed above concerning for abscess. Mild thickening of the bladder wall. Correlate with urinalysis to exclude cystitis. The CT scanner at [facility] is accredited by the [employer] and the scans are performed using dose optimization techniques as appropriate to a performed exam including Automatic Exposure control.
[2017-07-14 20:00] VITALS: BP 155/95
[2017-07-15] VITALS: BP 119/69
--- NOTE | 2017-07-15 00:45 | Progress Note ---
DATE: 07/14/2017 INTERNAL MEDICINE PROGRESS NOTE SUBJECTIVE: The case was reviewed with the surgeon. The patient continues to have leukocytosis. His vital signs are stable. Drainage tube in place. Glucose parameters are somewhat better. Urinary creatinine clearance of 69 and urinary protein of 110 suggest mild proteinuria. OBJECTIVE: LUNGS: Clear. ABDOMEN: Soft. CARDIAC: Regular. Normal S1 and S2 with no murmur. EXTREMITIES: With drain in place in the left hip region. No edema. Right first toe has dressing in place with no active drainage. LABORATORY AND DIAGNOSTIC DATA: White count 23 and hemoglobin 9.4. Potassium 4. IMPRESSION: 1. Abscess of the buttocks. 2. Cellulitis. 3. Diabetes mellitus. 4. Severe protein-calorie malnutrition. 5. Leukocytosis. 6. Chronic kidney disease. 7. Insulin-requiring diabetes mellitus. 8. Hypertension. PLAN: 1. Advance insulin. 2. Continue drainage. 3. Repeat CAT scan. 4. Reassess for new debridement. 5. Monitor white count. 6. Liver panel pending. 7. Protein supplement. 8. Remains high risk. 9. Discussed with family members yesterday. Angel Cano M.D. DR: MARY JOB#: [id number] CC:
[2017-07-15] MEDS: Norco 5mg/325mg tab ORAL PRN ×3 (03:29→19:03)
[2017-07-15 04:00] VITALS: BP 130/86
[2017-07-15] MEDS: ceFAZolin sod 2 GM in D5W 110 ML IVPB SCH ×3 (05:45→21:48)
[2017-07-15] MEDS: NovoLOG Insulin Flexpen SUBQ SCH ×7 (05:59→20:45)
[2017-07-15 08:32] VITALS: BP 128/76
[2017-07-15] MEDS: Lisinopril 20mg tab ORAL SCH (09:00)
[2017-07-15] MEDS: Metoprolol 25mg tab ORAL SCH ×2 (09:01→20:40)
[2017-07-15 09:02] LABS: HEMATOCRIT 25.2 % (42.0-52.0); HEMOGLOBIN 8.5 G/DL (14.2-18.0); MEAN CORPUSCULAR VOLUME 78 FL (80-99); PLATELET COUNT 522 K/UL (150-450); RED BLOOD COUNT 3.22 M/UL (4.70-6.10); RED CELL DISTRIBUTION WIDTH 13.5 % (11.6-14.8)
[2017-07-15 09:04] LABS: WHITE BLOOD COUNT 22.3 K/UL (4.8-10.8)
[2017-07-15] MEDS: Heparin 5000 units/ml inj SUBQ SCH ×2 (09:09→20:42)
[2017-07-15 09:28] LABS: ANION GAP 9 mmol/L (5-15); BLOOD UREA NITROGEN 8 mg/dL (7-18); CALCIUM 8.1 MG/DL (8.5-10.1); CARBON DIOXIDE 27 MMOL/L (21-32); CHLORIDE 102 MMOL/L (98-107); CREATININE 1.1 MG/DL (0.55-1.30); PHOSPHORUS 3.7 MG/DL (2.5-4.9); POTASSIUM 3.9 MMOL/L (3.5-5.1); SODIUM 138 MMOL/L (136-145)
[2017-07-15] MEDS: Levemir Flexpen SUBQ SCH ×2 (09:40→20:43)
--- NOTE | 2017-07-15 10:28 | General Progress Note ---
Assessment/Plan Problem List: (1) Hyperglycemia ICD Codes: R73.9 - Hyperglycemia, unspecified SNOMED: 44719682 (2) Cellulitis of hip, left ICD Codes: L03.116 - Cellulitis of left lower limb SNOMED: 0720880 (3) Gluteal abscess ICD Codes: L02.31 - Cutaneous abscess of buttock SNOMED: 95051399 Assessment/Plan glucose values in fair control - Levemir increased to 17 units bid, keep as is - continue Novolog 6 units ac tid, hold if not eating - continue NISS Subjective Allergies: Coded Allergies: No Known Allergies (Unverified , 05/14/15) Subjective events noted BG values in fair control Objective Last 24 Hour Vital Signs Date Time Temp Pulse Resp B/P (MAP) Pulse Ox O2 Delivery O2 Flow Rate FiO2 07/15/17 09:01 94 128/76 07/15/17 09:00 128/76 07/15/17 08:32 98.2 94 20 128/76 98 98.2 07/15/17 04:28 98.2 07/15/17 04:00 98.6 92 20 130/86 99 Room Air 98.6 07/15/17 03:29 98.2 07/15/17 00:00 98.2 83 19 119/69 97 Room Air 98.2 07/14/17 20:24 97.9 07/14/17 20:24 90 143/92 07/14/17 20:00 98.1 96 18 155/95 98 Room Air 98.1 07/14/17 20:00 98 Room Air 07/14/17 16:22 97.9 90 20 143/92 98 97.9 07/14/17 13:44 97.9 07/14/17 11:55 97.9 86 20 140/87 98 97.9 Intake and Output 07/14/17 07/15/17 19:00 07:00 Intake Total 600 ml 220 ml Balance 600 ml 220 ml Intake Oral 600 ml IV Total 220 ml # Bowel Movements 1 Laboratory Tests 07/15/17 08:20: White Blood Count 22.3*H, Red Blood Count 3.22L, Hemoglobin 8.5L, Hematocrit 25.2L, Mean Corpuscular Volume 78L, Mean Corpuscular Hemoglobin 26.6L, Mean Corpuscular Hemoglobin Concent 33.9, Red Cell Distribution Width 13.5, Platelet Count 522H, Mean Platelet Volume 5.8L, Neutrophils (%) (Auto) , Lymphocytes (%) (Auto) , Monocytes (%) (Auto) , Eosinophils (%) (Auto) , Basophils (%) (Auto) , Neutrophils % (Manual) [Pending], Lymphocytes % (Manual) [Pending], Platelet Estimate [Pending], Platelet Morphology [Pending], Sodium Level 138, Potassium Level 3.9, Chloride Level 102, Carbon Dioxide Level 27, Anion Gap 9, Blood Urea Nitrogen 8, Creatinine 1.1, Estimat Glomerular Filtration Rate > 60, Glucose Level 111H, Calcium Level 8.1L, Phosphorus Level 3.7, Magnesium Level 2.0 Height (Feet): 6 Height (Inches): 2.00 Weight (Pounds): 200 General Appearance: no apparent distress Neck: normal alignment Cardiovascular: normal rate Respiratory/Chest: lungs clear Abdomen: non tender Pelvis: normal external exam Objective Current Medications Medications (Trade) Dose Ordered Sig/Shania Route PRN Reason Start Time Stop Time Status Last Admin Dose Admin Acetaminophen (Tylenol) 650 mg Q6H PRN ORAL Mild Pain/Temp > 100.5 07/06/17 17:32 08/05/17 17:31 07/12/17 03:21 Acetaminophen/ Hydrocodone Bitart ([place] 5/325) 1 tab Q6H PRN ORAL For MODERATE PAIN 07/13/17 19:22 07/20/17 19:21 07/15/17 09:36 Cefazolin Sodium 2 gm/Dextrose 110 ml @ 220 mls/hr Q8HR IVPB 07/10/17 14:00 07/17/17 13:59 07/15/17 05:45 Dextrose (Dextrose 50%) 25 ml STAT PRN IV Hypoglycemia 07/08/17 07:00 08/07/17 06:59 Dextrose (Dextrose 50%) 50 ml STAT PRN IV Hypoglycemia 07/08/17 07:00 08/07/17 06:59 Famotidine (Pepcid) 20 mg BID ORAL 07/08/17 09:00 08/07/17 08:59 07/15/17 09:01 Heparin Sodium (Porcine) (Heparin 5000 units/ml) 5,000 units EVERY 12 HOURS SUBQ 07/06/17 21:00 08/05/17 20:59 07/15/17 09:09 Insulin Aspart (NovoLOG) BEFORE MEALS AND HS SUBQ 07/08/17 06:30 08/07/17 06:29 07/14/17 20:28 Insulin Aspart (NovoLOG) 6 units NOVOTIAC SUBQ 07/10/17 11:50 08/07/17 06:59 07/14/17 17:09 Insulin Detemir (Levemir) 17 units Q12HR SUBQ 07/14/17 21:00 08/13/17 20:59 07/15/17 09:40 Iopamidol (Isovue-300 100ml) 100 ml NOW PRN INJ Radiology Procedure 07/14/17 14:00 07/16/17 23:59 Lisinopril (Prinivil) 40 mg DAILY ORAL 07/12/17 09:00 08/11/17 08:59 07/14/17 09:30 Metoprolol Tartrate (Lopressor) 25 mg Q12HR ORAL 07/09/17 21:00 08/08/17 20:59 07/15/17 09:01 Multivitamins (Multivitamins) 1 tab DAILY ORAL 07/07/17 09:00 08/06/17 08:59 07/15/17 09:01 Mupirocin (Bactroban Oint) 1 applic DAILY TOPIC 07/14/17 09:00 07/19/17 08:59 07/15/17 09:35 Item Value Date Time Bedside Blood Glucose 104 mg/dl 07/15/17 0940 Bedside Blood Glucose 104 mg/dl 07/15/17 0602 Bedside Blood Glucose 162 mg/dl H 07/14/17 2051 Bedside Blood Glucose 194 mg/dl H 07/14/17 1710 Bedside Blood Glucose 106 mg/dl 07/14/17 1135 Bedside Blood Glucose 190 mg/dl H 07/14/17 0932 Bedside Blood Glucose 190 mg/dl H 07/14/17 0626 ADILENE JIMENEZ July 15, 2017 10:28
[2017-07-15 11:55] VITALS: BP 131/78
--- NOTE | 2017-07-15 13:00 | Nephrology Progress Note ---
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 (6) Fluid overload Plan creat clearance 69 24 hr protein 110mg to repeat, mild proteinuria does not explain severly low albumin, liver serologies pending, dyazide+acei for diuresis and renal protection Subjective Constitutional: Reports: weakness HEENT: Reports: no symptoms Genitourinary: Reports: no symptoms Neurologic/Psychiatric: Reports: no symptoms Objective Objective Last 24 Hour Vital Signs Date Time Temp Pulse Resp B/P (MAP) Pulse Ox O2 Delivery O2 Flow Rate FiO2 07/15/17 11:55 98.1 81 20 131/78 98 98.1 07/15/17 09:01 94 128/76 07/15/17 09:00 128/76 07/15/17 08:32 98.2 94 20 128/76 98 98.2 07/15/17 04:28 98.2 07/15/17 04:00 98.6 92 20 130/86 99 Room Air 98.6 07/15/17 03:29 98.2 07/15/17 00:00 98.2 83 19 119/69 97 Room Air 98.2 07/14/17 20:24 97.9 07/14/17 20:24 90 143/92 07/14/17 20:00 98.1 96 18 155/95 98 Room Air 98.1 07/14/17 20:00 98 Room Air 07/14/17 16:22 97.9 90 20 143/92 98 97.9 07/14/17 13:44 97.9 Intake and Output 07/14/17 07/15/17 19:00 07:00 Intake Total 600 ml 220 ml Balance 600 ml 220 ml Intake Oral 600 ml IV Total 220 ml # Bowel Movements 1 Laboratory Tests 07/15/17 08:20: White Blood Count 22.3*H, Red Blood Count 3.22L, Hemoglobin 8.5L, Hematocrit 25.2L, Mean Corpuscular Volume 78L, Mean Corpuscular Hemoglobin 26.6L, Mean Corpuscular Hemoglobin Concent 33.9, Red Cell Distribution Width 13.5, Platelet Count 522H, Mean Platelet Volume 5.8L, Neutrophils (%) (Auto) , Lymphocytes (%) (Auto) , Monocytes (%) (Auto) , Eosinophils (%) (Auto) , Basophils (%) (Auto) , Differential Total Cells Counted 100, Neutrophils % (Manual) 79H, Lymphocytes % (Manual) 15L, Monocytes % (Manual) 6, Eosinophils % (Manual) 0, Basophils % ( Manual) 0, Band Neutrophils 0, Platelet Estimate IncreasedH, Platelet Morphology Normal, Hypochromasia 1+, Sodium Level 138, Potassium Level 3.9, Chloride Level 102, Carbon Dioxide Level 27, Anion Gap 9, Blood Urea Nitrogen 8 , Creatinine 1.1, Estimat Glomerular Filtration Rate > 60, Glucose Level 111H, Calcium Level 8.1L, Phosphorus Level 3.7, Magnesium Level 2.0 Height (Feet): 6 Height (Inches): 2.00 Weight (Pounds): 200 General Appearance: no apparent distress EENT: normal ENT inspection Neck: normal alignment Cardiovascular: normal rate, regular rhythm Respiratory/Chest: lungs clear Abdomen: non tender Extremities: moderate edema Neurologic: husbandry person II-XII grossly normal MAURICIO BERNABE July 15, 2017 13:00
[2017-07-15] MEDS ORDERED: Triamterene/Hctz 37.5/25 cap ORAL SCH (13:15)
--- NOTE | 2017-07-15 15:04 | General Surgery Progress Note ---
General Surgery-Progress Note Subjective Procedure Performed 1. incision and drainage of left deep intermuscular gluteal abscess 2. drain placement with complex multi layer closure using adjacent skin tissues Additional Comments doing well. more comfortable today. edema improving as per patient. ambulatory. glucose improving. Objective Last 24 Hour Vital Signs Date Time Temp Pulse Resp B/P (MAP) Pulse Ox O2 Delivery O2 Flow Rate FiO2 07/15/17 11:55 98.1 81 20 131/78 98 98.1 07/15/17 09:01 94 128/76 07/15/17 09:00 128/76 07/15/17 08:32 98.2 94 20 128/76 98 98.2 07/15/17 04:28 98.2 07/15/17 04:00 98.6 92 20 130/86 99 Room Air 98.6 07/15/17 03:29 98.2 07/15/17 00:00 98.2 83 19 119/69 97 Room Air 98.2 07/14/17 20:24 97.9 07/14/17 20:24 90 143/92 07/14/17 20:00 98.1 96 18 155/95 98 Room Air 98.1 07/14/17 20:00 98 Room Air 07/14/17 16:22 97.9 90 20 143/92 98 97.9 I&O Intake and Output 07/14/17 07/15/17 19:00 07:00 Intake Total 600 ml 220 ml Balance 600 ml 220 ml Intake Oral 600 ml IV Total 220 ml # Bowel Movements 1 Wound: clean, dry Drains: liborio - milky output somewhat thinner today Cardiovascular: RSR Respiratory: clear Abdomen: soft, non-tender, present bowel sounds Extremities: edema, no tenderness, no cyanosis Laboratory Tests Test 07/15/17 08:20 White Blood Count 22.3 K/UL (4.8-10.8) *H Red Blood Count 3.22 M/UL (4.70-6.10) L Hemoglobin 8.5 G/DL (14.2-18.0) L Hematocrit 25.2 % (42.0-52.0) L Mean Corpuscular Volume 78 FL (80-99) L Mean Corpuscular Hemoglobin 26.6 PG (27.0-31.0) L Mean Corpuscular Hemoglobin Concent 33.9 G/DL (32.0-36.0) Red Cell Distribution Width 13.5 % (11.6-14.8) Platelet Count 522 K/UL (150-450) H Mean Platelet Volume 5.8 FL (6.5-10.1) L Neutrophils (%) (Auto) % (45.0-75.0) Lymphocytes (%) (Auto) % (20.0-45.0) Monocytes (%) (Auto) % (1.0-10.0) Eosinophils (%) (Auto) % (0.0-3.0) Basophils (%) (Auto) % (0.0-2.0) Differential Total Cells Counted 100 Neutrophils % (Manual) 79 % (45-75) H Lymphocytes % (Manual) 15 % (20-45) L Monocytes % (Manual) 6 % (1-10) Eosinophils % (Manual) 0 % (0-3) Basophils % (Manual) 0 % (0-2) Band Neutrophils 0 % (0-8) Platelet Estimate Increased H Platelet Morphology Normal Hypochromasia 1+ Sodium Level 138 MMOL/L (136-145) Potassium Level 3.9 MMOL/L (3.5-5.1) Chloride Level 102 MMOL/L (98-107) Carbon Dioxide Level 27 MMOL/L (21-32) Anion Gap 9 mmol/L (5-15) Blood Urea Nitrogen 8 mg/dL (7-18) Creatinine 1.1 MG/DL (0.55-1.30) Estimat Glomerular Filtration Rate > 60 mL/min (>60) Glucose Level 111 MG/DL (74-106) H Calcium Level 8.1 MG/DL (8.5-10.1) L Phosphorus Level 3.7 MG/DL (2.5-4.9) Magnesium Level 2.0 MG/DL (1.8-2.4) Plan Problems: (1) Gluteal abscess Assessment & Plan: 37M with left gluteal abscess. low grade fever, leukocytosis, on exam overlying tissue with edema, erythema, warmth, cellulitis. CT with large abscess between major and minor muscle. s/p Ultrasound guided drain placement for evacuation of abscess by radiology. If able to successfully drain via catheter will do so. unfortunately it has been present for some time now and fluid may be viscous and unable to drain without formal incision and drainage. POD #5 s/p I&D. recovering. still with milky drainage but seems to be thinning out. CT with IV contrast reviewed. no definitive abscess noted. drain in good positioning. -discussed findings with patient. will need to monitor him closely. if does not show improvement or if drain output does not clear up he will likely need more aggressive treatment with open wound, packing and dressings. abscess was completely drained during surgery and large drain was placed after extensive washout. initially drain output serosang but now becoming milky. -tight glucose control -okay for activity -drain care and management. -possible plans for repeat I&D Monday if not improving. will follow with recs. thank you for this consultation. Nahid Bartholomew July 15, 2017 15:04
[2017-07-15 16:00] LABS: CREATININE 1.2 MG/DL (0.55-1.30)
[2017-07-15 16:07] VITALS: BP 163/92
[2017-07-15] MEDS: Triamterene/Hctz 37.5/25 cap ORAL SCH (17:56)
--- NOTE | 2017-07-15 18:15 | Infectious Diseases Prog Note ---
Assessment/Plan Assessment/Plan A 1. staph aureus sepsis, MSSA 2. left hip cellulitis improving 3. left buttock abscess s/p drainage 4. diabetes mellitus 5. Persistent leukocytosis P 1. continue Ancef 2. 2 d echo negative 3. will follow up CBC Subjective ROS Limited/Unobtainable: No Constitutional: Reports: no symptoms Cardiovascular: Reports: no symptoms Gastrointestinal/Abdominal: Reports: diarrhea Genitourinary: Reports: no symptoms Allergies: Coded Allergies: No Known Allergies (Unverified , 05/14/15) Objective Vital Signs Last 24 Hour Vital Signs Date Time Temp Pulse Resp B/P (MAP) Pulse Ox O2 Delivery O2 Flow Rate FiO2 07/15/17 17:56 163/92 07/15/17 16:07 98.4 86 20 163/92 98 98.4 07/15/17 11:55 98.1 81 20 131/78 98 98.1 07/15/17 09:01 94 128/76 07/15/17 09:00 128/76 07/15/17 08:32 98.2 94 20 128/76 98 98.2 07/15/17 04:28 98.2 07/15/17 04:00 98.6 92 20 130/86 99 Room Air 98.6 07/15/17 03:29 98.2 07/15/17 00:00 98.2 83 19 119/69 97 Room Air 98.2 07/14/17 20:24 97.9 07/14/17 20:24 90 143/92 07/14/17 20:00 98.1 96 18 155/95 98 Room Air 98.1 07/14/17 20:00 98 Room Air Height (Feet): 6 Height (Inches): 2.00 Weight (Pounds): 200 General Appearance: no acute distress HEENT: mucous membranes moist Respiratory/Chest: normal breath sounds Cardiovascular: normal rate Abdomen: soft, non tender Extremities: no edema Neurologic/Psychiatric: alert, oriented x 3, responsive Musculoskeletal: other - Gluteal drain Laboratory Tests Test 07/15/17 08:20 White Blood Count 22.3 K/UL (4.8-10.8) *H Red Blood Count 3.22 M/UL (4.70-6.10) L Hemoglobin 8.5 G/DL (14.2-18.0) L Hematocrit 25.2 % (42.0-52.0) L Mean Corpuscular Volume 78 FL (80-99) L Mean Corpuscular Hemoglobin 26.6 PG (27.0-31.0) L Mean Corpuscular Hemoglobin Concent 33.9 G/DL (32.0-36.0) Red Cell Distribution Width 13.5 % (11.6-14.8) Platelet Count 522 K/UL (150-450) H Mean Platelet Volume 5.8 FL (6.5-10.1) L Neutrophils (%) (Auto) % (45.0-75.0) Lymphocytes (%) (Auto) % (20.0-45.0) Monocytes (%) (Auto) % (1.0-10.0) Eosinophils (%) (Auto) % (0.0-3.0) Basophils (%) (Auto) % (0.0-2.0) Differential Total Cells Counted 100 Neutrophils % (Manual) 79 % (45-75) H Lymphocytes % (Manual) 15 % (20-45) L Monocytes % (Manual) 6 % (1-10) Eosinophils % (Manual) 0 % (0-3) Basophils % (Manual) 0 % (0-2) Band Neutrophils 0 % (0-8) Platelet Estimate Increased H Platelet Morphology Normal Hypochromasia 1+ Sodium Level 138 MMOL/L (136-145) Potassium Level 3.9 MMOL/L (3.5-5.1) Chloride Level 102 MMOL/L (98-107) Carbon Dioxide Level 27 MMOL/L (21-32) Anion Gap 9 mmol/L (5-15) Blood Urea Nitrogen 8 mg/dL (7-18) Creatinine 1.1 MG/DL (0.55-1.30) Estimat Glomerular Filtration Rate > 60 mL/min (>60) Glucose Level 111 MG/DL (74-106) H Calcium Level 8.1 MG/DL (8.5-10.1) L Phosphorus Level 3.7 MG/DL (2.5-4.9) Magnesium Level 2.0 MG/DL (1.8-2.4) Current Medications Medications (Trade) Dose Ordered Sig/Shania Route PRN Reason Start Time Stop Time Status Last Admin Dose Admin Acetaminophen (Tylenol) 650 mg Q6H PRN ORAL Mild Pain/Temp > 100.5 07/06/17 17:32 08/05/17 17:31 07/12/17 03:21 Acetaminophen/ Hydrocodone Bitart ([place] 5/325) 1 tab Q6H PRN ORAL For MODERATE PAIN 07/13/17 19:22 07/20/17 19:21 07/15/17 09:36 Cefazolin Sodium 2 gm/Dextrose 110 ml @ 220 mls/hr Q8HR IVPB 07/10/17 14:00 07/17/17 13:59 07/15/17 13:32 Clonidine HCl (Catapres Tab) 0.1 mg QID PRN ORAL SBP > 160 07/15/17 17:29 08/14/17 17:28 07/15/17 17:56 Dextrose (Dextrose 50%) 25 ml STAT PRN IV Hypoglycemia 07/08/17 07:00 08/07/17 06:59 Dextrose (Dextrose 50%) 50 ml STAT PRN IV Hypoglycemia 07/08/17 07:00 08/07/17 06:59 Famotidine (Pepcid) 20 mg BID ORAL 07/08/17 09:00 08/07/17 08:59 07/15/17 17:56 Heparin Sodium (Porcine) (Heparin 5000 units/ml) 5,000 units EVERY 12 HOURS SUBQ 07/06/17 21:00 08/05/17 20:59 07/15/17 09:09 Insulin Aspart (NovoLOG) BEFORE MEALS AND HS SUBQ 07/08/17 06:30 08/07/17 06:29 07/15/17 16:44 Insulin Aspart (NovoLOG) 6 units NOVOTIAC SUBQ 07/10/17 11:50 08/07/17 06:59 07/15/17 16:42 Insulin Detemir (Levemir) 17 units Q12HR SUBQ 07/14/17 21:00 08/13/17 20:59 07/15/17 09:40 Iopamidol (Isovue-300 100ml) 100 ml NOW PRN INJ Radiology Procedure 07/14/17 14:00 07/16/17 23:59 Lisinopril (Prinivil) 40 mg DAILY ORAL 07/12/17 09:00 08/11/17 08:59 07/14/17 09:30 Metoprolol Tartrate (Lopressor) 25 mg Q12HR ORAL 07/09/17 21:00 08/08/17 20:59 07/15/17 09:01 Multivitamins (Multivitamins) 1 tab DAILY ORAL 07/07/17 09:00 08/06/17 08:59 07/15/17 09:01 Mupirocin (Bactroban Oint) 1 applic DAILY TOPIC 07/14/17 09:00 07/19/17 08:59 07/15/17 09:35 Triamterene/HCTZ (Dyazide) 1 cap BID ORAL 07/15/17 18:00 08/14/17 17:59 07/15/17 17:56 DANISHA SOSA July 15, 2017 18:15
[2017-07-15 20:00] VITALS: BP 129/78
[2017-07-16] VITALS: BP 124/73
[2017-07-16] MEDS: Norco 5mg/325mg tab ORAL PRN ×3 (01:17→15:35)
[2017-07-16 04:00] VITALS: BP 130/80
[2017-07-16] MEDS: ceFAZolin sod 2 GM in D5W 110 ML IVPB SCH ×3 (05:31→21:13)
[2017-07-16] MEDS: NovoLOG Insulin Flexpen SUBQ SCH ×7 (06:29→20:22)
[2017-07-16 07:38] VITALS: BP 143/89
--- NOTE | 2017-07-16 08:22 | Infectious Diseases Prog Note ---
Assessment/Plan Assessment/Plan A 1. staph aureus sepsis, MSSA 2. left hip cellulitis improving 3. left buttock abscess s/p drainage 4. diabetes mellitus 5. Persistent leukocytosis 6. Diarrhea P 1. continue Ancef 2. will f/u C. difficile test 3. will follow up CBC Subjective ROS Limited/Unobtainable: Yes Allergies: Coded Allergies: No Known Allergies (Unverified , 05/14/15) Objective Vital Signs Last 24 Hour Vital Signs Date Time Temp Pulse Resp B/P (MAP) Pulse Ox O2 Delivery O2 Flow Rate FiO2 07/16/17 07:38 97.9 86 20 143/89 98 Room Air 97.9 07/16/17 04:00 98.7 89 19 130/80 98 98.7 07/16/17 02:16 98.2 07/16/17 01:17 98.2 07/16/17 00:00 98.2 89 20 124/73 97 Room Air 98.2 07/15/17 20:40 97 129/78 07/15/17 20:00 99.0 97 18 129/78 97 99.0 07/15/17 17:56 163/92 07/15/17 16:07 98.4 86 20 163/92 98 98.4 07/15/17 11:55 98.1 81 20 131/78 98 98.1 07/15/17 09:01 94 128/76 07/15/17 09:00 128/76 07/15/17 08:32 98.2 94 20 128/76 98 98.2 Height (Feet): 6 Height (Inches): 2.00 Weight (Pounds): 200 General Appearance: no acute distress HEENT: mucous membranes moist Respiratory/Chest: lungs clear Cardiovascular: normal rate Abdomen: soft, non tender Extremities: no edema Skin: other - Gluteal drain Neurologic/Psychiatric: other - sleeping Current Medications Medications (Trade) Dose Ordered Sig/Shania Route PRN Reason Start Time Stop Time Status Last Admin Dose Admin Acetaminophen (Tylenol) 650 mg Q6H PRN ORAL Mild Pain/Temp > 100.5 07/06/17 17:32 08/05/17 17:31 07/12/17 03:21 Acetaminophen/ Hydrocodone Bitart ([place] 5/325) 1 tab Q6H PRN ORAL For MODERATE PAIN 07/13/17 19:22 07/20/17 19:21 07/16/17 07:33 Cefazolin Sodium 2 gm/Dextrose 110 ml @ 220 mls/hr Q8HR IVPB 07/10/17 14:00 07/17/17 13:59 07/16/17 05:31 Clonidine HCl (Catapres Tab) 0.1 mg QID PRN ORAL SBP > 160 07/15/17 17:29 08/14/17 17:28 07/15/17 17:56 Dextrose (Dextrose 50%) 25 ml STAT PRN IV Hypoglycemia 07/08/17 07:00 08/07/17 06:59 Dextrose (Dextrose 50%) 50 ml STAT PRN IV Hypoglycemia 07/08/17 07:00 08/07/17 06:59 Famotidine (Pepcid) 20 mg BID ORAL 07/08/17 09:00 08/07/17 08:59 07/15/17 17:56 Heparin Sodium (Porcine) (Heparin 5000 units/ml) 5,000 units EVERY 12 HOURS SUBQ 07/06/17 21:00 08/05/17 20:59 07/15/17 20:42 Insulin Aspart (NovoLOG) BEFORE MEALS AND HS SUBQ 07/08/17 06:30 08/07/17 06:29 07/16/17 06:29 Insulin Aspart (NovoLOG) 6 units NOVOTIAC SUBQ 07/10/17 11:50 08/07/17 06:59 07/16/17 06:30 Insulin Detemir (Levemir) 17 units Q12HR SUBQ 07/14/17 21:00 08/13/17 20:59 07/15/17 20:43 Iopamidol (Isovue-300 100ml) 100 ml NOW PRN INJ Radiology Procedure 07/14/17 14:00 07/16/17 23:59 Lisinopril (Prinivil) 40 mg DAILY ORAL 07/12/17 09:00 08/11/17 08:59 07/14/17 09:30 Metoprolol Tartrate (Lopressor) 25 mg Q12HR ORAL 07/09/17 21:00 08/08/17 20:59 07/15/17 20:40 Multivitamins (Multivitamins) 1 tab DAILY ORAL 07/07/17 09:00 5/27/18 08:59 07/15/17 09:01 Mupirocin (Bactroban Oint) 1 applic DAILY TOPIC 07/16/17 21:00 07/19/17 08:59 UNV Ondansetron HCl (Zofran) 4 mg Q4HR PRN IVP Nausea & Vomiting 07/15/17 19:30 08/14/17 19:29 07/16/17 07:32 Triamterene/HCTZ (Dyazide) 1 cap BID ORAL 07/15/17 18:00 08/14/17 17:59 07/15/17 17:56 DANISHA SOSA July 16, 2017 08:22
[2017-07-16] MEDS: Lisinopril 20mg tab ORAL SCH (08:53)
[2017-07-16] MEDS: Triamterene/Hctz 37.5/25 cap ORAL SCH ×2 (08:53→17:19)
[2017-07-16] MEDS: Metoprolol 25mg tab ORAL SCH ×2 (08:53→20:16)
[2017-07-16] MEDS: Heparin 5000 units/ml inj SUBQ SCH ×2 (08:58→20:14)
[2017-07-16] MEDS: Levemir Flexpen SUBQ SCH ×2 (08:59→20:25)
[2017-07-16] MEDS ORDERED: NS 275ml ONE (09:17)
[2017-07-16 09:36] LABS: HEMATOCRIT 26.4 % (42.0-52.0); HEMOGLOBIN 8.7 G/DL (14.2-18.0); MEAN CORPUSCULAR VOLUME 78 FL (80-99); PLATELET COUNT 642 K/UL (150-450); RED BLOOD COUNT 3.37 M/UL (4.70-6.10); RED CELL DISTRIBUTION WIDTH 13.6 % (11.6-14.8); WHITE BLOOD COUNT 20.7 K/UL (4.8-10.8)
[2017-07-16 10:13] LABS: ANION GAP 12 mmol/L (5-15); BLOOD UREA NITROGEN 7 mg/dL (7-18); CALCIUM 8.5 MG/DL (8.5-10.1); CARBON DIOXIDE 25 MMOL/L (21-32); CHLORIDE 101 MMOL/L (98-107); CREATININE 1.1 MG/DL (0.55-1.30); POTASSIUM 3.7 MMOL/L (3.5-5.1); SODIUM 138 MMOL/L (136-145)
--- NOTE | 2017-07-16 10:57 | General Progress Note ---
Assessment/Plan Problem List: (1) Hyperglycemia ICD Codes: R73.9 - Hyperglycemia, unspecified SNOMED: 52138051 (2) Cellulitis of hip, left ICD Codes: L03.116 - Cellulitis of left lower limb SNOMED: 7732236 (3) Gluteal abscess ICD Codes: L02.31 - Cutaneous abscess of buttock SNOMED: 19179552 Assessment/Plan glucose values in good control - continue Levemir 17 units bid - continue Novolog 6 units ac tid, hold if not eating - continue NISS Subjective Allergies: Coded Allergies: No Known Allergies (Unverified , 05/14/15) All Systems: reviewed and negative except above Subjective events noted BG values controlled received all scheduled insulins Objective Last 24 Hour Vital Signs Date Time Temp Pulse Resp B/P (MAP) Pulse Ox O2 Delivery O2 Flow Rate FiO2 07/16/17 08:53 143/89 07/16/17 08:53 86 143/89 07/16/17 07:38 97.9 86 20 143/89 98 Room Air 97.9 07/16/17 04:00 98.7 89 19 130/80 98 98.7 07/16/17 02:16 98.2 07/16/17 01:17 98.2 07/16/17 00:00 98.2 89 20 124/73 97 Room Air 98.2 07/15/17 20:40 97 129/78 07/15/17 20:00 99.0 97 18 129/78 97 99.0 07/15/17 17:56 163/92 07/15/17 16:07 98.4 86 20 163/92 98 98.4 07/15/17 11:55 98.1 81 20 131/78 98 98.1 Intake and Output 07/15/17 07/16/17 19:00 07:00 Intake Total 590 ml 220 ml Output Total 115 ml 40 ml Balance 475 ml 180 ml Intake Oral 480 ml IV Total 110 ml 220 ml Drainage Total 115 ml 40 ml # Voids 1 4 # Bowel Movements 2 3 Laboratory Tests 07/16/17 07:09: White Blood Count 20.7H, Red Blood Count 3.37L, Hemoglobin 8.7L, Hematocrit 26.4L, Mean Corpuscular Volume 78L, Mean Corpuscular Hemoglobin 25.9L, Mean Corpuscular Hemoglobin Concent 33.1, Red Cell Distribution Width 13.6, Platelet Count 642H, Mean Platelet Volume 5.2L, Neutrophils (%) (Auto) , Lymphocytes (%) (Auto) , Monocytes (%) (Auto) , Eosinophils (%) (Auto) , Basophils (%) (Auto) , Neutrophils % (Manual) [Pending], Lymphocytes % (Manual) [Pending], Platelet Estimate [Pending], Platelet Morphology [Pending], Sodium Level 138, Potassium Level 3.7, Chloride Level 101, Carbon Dioxide Level 25, Anion Gap 12, Blood Urea Nitrogen 7, Creatinine 1.1, Estimat Glomerular Filtration Rate > 60, Glucose Level 105, Calcium Level 8.5 Height (Feet): 6 Height (Inches): 2.00 Weight (Pounds): 200 General Appearance: no apparent distress Neck: normal alignment Cardiovascular: normal rate Respiratory/Chest: lungs clear Abdomen: normal bowel sounds Objective Current Medications Medications (Trade) Dose Ordered Sig/Shania Route PRN Reason Start Time Stop Time Status Last Admin Dose Admin Acetaminophen (Tylenol) 650 mg Q6H PRN ORAL Mild Pain/Temp > 100.5 07/06/17 17:32 08/05/17 17:31 07/12/17 03:21 Acetaminophen/ Hydrocodone Bitart ([place] 5/325) 1 tab Q6H PRN ORAL For MODERATE PAIN 07/13/17 19:22 07/20/17 19:21 07/16/17 07:33 Cefazolin Sodium 2 gm/Dextrose 110 ml @ 220 mls/hr Q8HR IVPB 07/10/17 14:00 07/17/17 13:59 07/16/17 05:31 Clonidine HCl (Catapres Tab) 0.1 mg QID PRN ORAL SBP > 160 07/15/17 17:29 08/14/17 17:28 07/15/17 17:56 Dextrose (Dextrose 50%) 25 ml STAT PRN IV Hypoglycemia 07/08/17 07:00 08/07/17 06:59 Dextrose (Dextrose 50%) 50 ml STAT PRN IV Hypoglycemia 07/08/17 07:00 08/07/17 06:59 Famotidine (Pepcid) 20 mg BID ORAL 07/08/17 09:00 08/07/17 08:59 07/16/17 08:53 Heparin Sodium (Porcine) (Heparin 5000 units/ml) 5,000 units EVERY 12 HOURS SUBQ 07/06/17 21:00 08/05/17 20:59 07/16/17 08:58 Insulin Aspart (NovoLOG) BEFORE MEALS AND HS SUBQ 07/08/17 06:30 08/07/17 06:29 07/16/17 06:29 Insulin Aspart (NovoLOG) 6 units NOVOTIAC SUBQ 07/10/17 11:50 08/07/17 06:59 07/16/17 06:30 Insulin Detemir (Levemir) 17 units Q12HR SUBQ 07/14/17 21:00 08/13/17 20:59 07/16/17 08:59 Iopamidol (Isovue-300 100ml) 100 ml NOW PRN INJ Radiology Procedure 07/14/17 14:00 07/16/17 23:59 Lisinopril (Prinivil) 40 mg DAILY ORAL 07/12/17 09:00 08/11/17 08:59 07/16/17 08:53 Metoprolol Tartrate (Lopressor) 25 mg Q12HR ORAL 07/09/17 21:00 08/08/17 20:59 07/16/17 08:53 Multivitamins (Multivitamins) 1 tab DAILY ORAL 07/07/17 09:00 08/06/17 08:59 07/16/17 08:53 Mupirocin (Bactroban Oint) 1 applic Q24H TOPIC 07/16/17 21:00 07/21/17 20:59 Ondansetron HCl (Zofran) 4 mg Q4HR PRN IVP Nausea & Vomiting 07/15/17 19:30 08/14/17 19:29 07/16/17 07:32 Triamterene/HCTZ (Dyazide) 1 cap BID ORAL 07/15/17 18:00 08/14/17 17:59 07/16/17 08:53 Item Value Date Time Bedside Blood Glucose 124 mg/dl H 07/16/17 0859 Bedside Blood Glucose 124 mg/dl H 07/16/17 0630 Bedside Blood Glucose 129 mg/dl H 07/15/17 2045 Bedside Blood Glucose 129 mg/dl H 07/15/17 1644 Bedside Blood Glucose 122 mg/dl H 07/15/17 1215 Bedside Blood Glucose 104 mg/dl 07/15/17 0940 ADILENE JIMENEZ July 16, 2017 10:57
[2017-07-16 11:25] VITALS: BP 115/70
--- NOTE | 2017-07-16 13:48 | Nephrology Progress Note ---
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 Subjective Constitutional: Reports: weakness HEENT: Reports: no symptoms Genitourinary: Reports: no symptoms Neurologic/Psychiatric: Reports: no symptoms Objective Objective Last 24 Hour Vital Signs Date Time Temp Pulse Resp B/P (MAP) Pulse Ox O2 Delivery O2 Flow Rate FiO2 07/16/17 11:25 97.3 84 18 115/70 93 Room Air 97.3 07/16/17 08:53 143/89 07/16/17 08:53 86 143/89 07/16/17 07:38 97.9 86 20 143/89 98 Room Air 97.9 07/16/17 04:00 98.7 89 19 130/80 98 98.7 07/16/17 02:16 98.2 07/16/17 01:17 98.2 07/16/17 00:00 98.2 89 20 124/73 97 Room Air 98.2 07/15/17 20:40 97 129/78 07/15/17 20:00 99.0 97 18 129/78 97 99.0 07/15/17 17:56 163/92 07/15/17 16:07 98.4 86 20 163/92 98 98.4 Intake and Output 07/15/17 07/16/17 19:00 07:00 Intake Total 590 ml 220 ml Output Total 115 ml 40 ml Balance 475 ml 180 ml Intake Oral 480 ml IV Total 110 ml 220 ml Drainage Total 115 ml 40 ml # Voids 1 4 # Bowel Movements 2 3 Laboratory Tests 07/16/17 07:09: White Blood Count 20.7H, Red Blood Count 3.37L, Hemoglobin 8.7L, Hematocrit 26.4L, Mean Corpuscular Volume 78L, Mean Corpuscular Hemoglobin 25.9L, Mean Corpuscular Hemoglobin Concent 33.1, Red Cell Distribution Width 13.6, Platelet Count 642H, Mean Platelet Volume 5.2L, Neutrophils (%) (Auto) , Lymphocytes (%) (Auto) , Monocytes (%) (Auto) , Eosinophils (%) (Auto) , Basophils (%) (Auto) , Differential Total Cells Counted 100, Neutrophils % (Manual) 82H, Lymphocytes % (Manual) 11L, Monocytes % (Manual) 7, Eosinophils % (Manual) 0, Basophils % ( Manual) 0, Band Neutrophils 0, Platelet Estimate IncreasedH, Platelet Morphology Normal, Red Blood Cell Morphology Normal, Hypochromasia 1+, Sodium Level 138, Potassium Level 3.7, Chloride Level 101, Carbon Dioxide Level 25, Anion Gap 12, Blood Urea Nitrogen 7, Creatinine 1.1, Estimat Glomerular Filtration Rate > 60, Glucose Level 105, Calcium Level 8.5 Height (Feet): 6 Height (Inches): 2.00 Weight (Pounds): 200 General Appearance: no apparent distress, alert EENT: normal ENT inspection Neck: normal alignment Cardiovascular: normal rate Respiratory/Chest: lungs clear Abdomen: non tender, soft Extremities: moderate edema Neurologic: 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
--- NOTE | 2017-07-16 14:03 | General Surgery Progress Note ---
General Surgery-Progress Note Subjective Procedure Performed 1. incision and drainage of left deep intermuscular gluteal abscess 2. drain placement with complex multi layer closure using adjacent skin tissues Symptoms: improved, pain absent, tolerating diet, passing flatus, BM Additional Comments overall improved today. edema in left hip and extremity improved. able to ambulate and move better. leukocytosis still but trending down. glucose controlled. drain still with milky output. Objective Last 24 Hour Vital Signs Date Time Temp Pulse Resp B/P (MAP) Pulse Ox O2 Delivery O2 Flow Rate FiO2 07/16/17 11:25 97.3 84 18 115/70 93 Room Air 97.3 07/16/17 08:53 143/89 07/16/17 08:53 86 143/89 07/16/17 07:38 97.9 86 20 143/89 98 Room Air 97.9 07/16/17 04:00 98.7 89 19 130/80 98 98.7 07/16/17 02:16 98.2 07/16/17 01:17 98.2 07/16/17 00:00 98.2 89 20 124/73 97 Room Air 98.2 07/15/17 20:40 97 129/78 07/15/17 20:00 99.0 97 18 129/78 97 99.0 07/15/17 17:56 163/92 07/15/17 16:07 98.4 86 20 163/92 98 98.4 I&O Intake and Output 07/15/17 07/16/17 19:00 07:00 Intake Total 590 ml 220 ml Output Total 115 ml 40 ml Balance 475 ml 180 ml Intake Oral 480 ml IV Total 110 ml 220 ml Drainage Total 115 ml 40 ml # Voids 1 4 # Bowel Movements 2 3 Wound: clean, dry, intact Drains: liborio Cardiovascular: RSR Respiratory: clear Abdomen: soft, flat, non-tender, present bowel sounds Extremities: edema, no tenderness, no cyanosis Laboratory Tests Test 07/16/17 07:09 White Blood Count 20.7 K/UL (4.8-10.8) H Red Blood Count 3.37 M/UL (4.70-6.10) L Hemoglobin 8.7 G/DL (14.2-18.0) L Hematocrit 26.4 % (42.0-52.0) L Mean Corpuscular Volume 78 FL (80-99) L Mean Corpuscular Hemoglobin 25.9 PG (27.0-31.0) L Mean Corpuscular Hemoglobin Concent 33.1 G/DL (32.0-36.0) Red Cell Distribution Width 13.6 % (11.6-14.8) Platelet Count 642 K/UL (150-450) H Mean Platelet Volume 5.2 FL (6.5-10.1) L Neutrophils (%) (Auto) % (45.0-75.0) Lymphocytes (%) (Auto) % (20.0-45.0) Monocytes (%) (Auto) % (1.0-10.0) Eosinophils (%) (Auto) % (0.0-3.0) Basophils (%) (Auto) % (0.0-2.0) Differential Total Cells Counted 100 Neutrophils % (Manual) 82 % (45-75) H Lymphocytes % (Manual) 11 % (20-45) L Monocytes % (Manual) 7 % (1-10) Eosinophils % (Manual) 0 % (0-3) Basophils % (Manual) 0 % (0-2) Band Neutrophils 0 % (0-8) Platelet Estimate Increased H Platelet Morphology Normal Red Blood Cell Morphology Normal Hypochromasia 1+ Sodium Level 138 MMOL/L (136-145) Potassium Level 3.7 MMOL/L (3.5-5.1) Chloride Level 101 MMOL/L (98-107) Carbon Dioxide Level 25 MMOL/L (21-32) Anion Gap 12 mmol/L (5-15) Blood Urea Nitrogen 7 mg/dL (7-18) Creatinine 1.1 MG/DL (0.55-1.30) Estimat Glomerular Filtration Rate > 60 mL/min (>60) Glucose Level 105 MG/DL (74-106) Calcium Level 8.5 MG/DL (8.5-10.1) Plan Problems: (1) Gluteal abscess Assessment & Plan: 37M with left gluteal abscess. low grade fever, leukocytosis, on exam overlying tissue with edema, erythema, warmth, cellulitis. CT with large abscess between major and minor muscle. s/p Ultrasound guided drain placement for evacuation of abscess by radiology. If able to successfully drain via catheter will do so. unfortunately it has been present for some time now and fluid may be viscous and unable to drain without formal incision and drainage. POD #6 s/p I&D. recovering. still with milky drainage but seems to be thinning out. CT with IV contrast reviewed. no definitive abscess noted. drain in good positioning. Afebrile, HD stable, improving slowly. -discussed findings with patient. will need to monitor him closely. if does not show improvement or if drain output does not clear up he will likely need more aggressive treatment with open wound, packing and dressings. abscess was completely drained during surgery and large drain was placed after extensive washout. initially drain output serosang but now becoming milky. -tight glucose control -okay for activity -drain care and management. -will continue to monitor for now. will follow with recs. thank you for this consultation. Nahid Bartholomew July 16, 2017 14:03
[2017-07-16 16:08] VITALS: BP 148/84
[2017-07-16 19:56] VITALS: BP 139/86
[2017-07-17] VITALS: BP 149/80
[2017-07-17 04:00] VITALS: BP 141/80
[2017-07-17] MEDS: ceFAZolin sod 2 GM in D5W 110 ML IVPB SCH ×3 (05:45→21:46)
[2017-07-17] MEDS: NovoLOG Insulin Flexpen SUBQ SCH ×7 (05:47→20:40)
--- NOTE | 2017-07-17 07:07 | General Progress Note ---
Assessment/Plan Problem List: (1) Hyperglycemia ICD Codes: R73.9 - Hyperglycemia, unspecified SNOMED: 00637158 (2) Cellulitis of hip, left ICD Codes: L03.116 - Cellulitis of left lower limb SNOMED: 2754145 (3) Gluteal abscess ICD Codes: L02.31 - Cutaneous abscess of buttock SNOMED: 36270996 Assessment/Plan glucose values in good control - continue Levemir 17 units bid - continue Novolog 6 units ac tid, hold if not eating - continue NISS Subjective Allergies: Coded Allergies: No Known Allergies (Unverified , 05/14/15) Subjective events noted glucose values are stable Objective Last 24 Hour Vital Signs Date Time Temp Pulse Resp B/P (MAP) Pulse Ox O2 Delivery O2 Flow Rate FiO2 07/17/17 04:00 97.8 91 18 141/80 96 97.8 07/17/17 00:00 97.6 98 18 149/80 98 97.6 07/16/17 20:16 97 139/86 07/16/17 19:56 97.6 104 19 139/86 97 97.6 07/16/17 16:08 98.1 96 18 148/84 99 Room Air 98.1 07/16/17 11:25 97.3 84 18 115/70 93 Room Air 97.3 07/16/17 08:53 143/89 07/16/17 08:53 86 143/89 07/16/17 07:38 97.9 86 20 143/89 98 Room Air 97.9 Intake and Output 07/16/17 07/17/17 19:00 07:00 Intake Total 110 ml 530 ml Output Total 35 ml 20 ml Balance 75 ml 510 ml Intake Oral 420 ml IV Total 110 ml 110 ml Drainage Total 35 ml 20 ml # Voids 3 # Bowel Movements 2 Laboratory Tests 07/16/17 07:09: White Blood Count 20.7H, Red Blood Count 3.37L, Hemoglobin 8.7L, Hematocrit 26.4L, Mean Corpuscular Volume 78L, Mean Corpuscular Hemoglobin 25.9L, Mean Corpuscular Hemoglobin Concent 33.1, Red Cell Distribution Width 13.6, Platelet Count 642H, Mean Platelet Volume 5.2L, Neutrophils (%) (Auto) , Lymphocytes (%) (Auto) , Monocytes (%) (Auto) , Eosinophils (%) (Auto) , Basophils (%) (Auto) , Differential Total Cells Counted 100, Neutrophils % (Manual) 82H, Lymphocytes % (Manual) 11L, Monocytes % (Manual) 7, Eosinophils % (Manual) 0, Basophils % ( Manual) 0, Band Neutrophils 0, Platelet Estimate IncreasedH, Platelet Morphology Normal, Red Blood Cell Morphology Normal, Hypochromasia 1+, Sodium Level 138, Potassium Level 3.7, Chloride Level 101, Carbon Dioxide Level 25, Anion Gap 12, Blood Urea Nitrogen 7, Creatinine 1.1, Estimat Glomerular Filtration Rate > 60, Glucose Level 105, Calcium Level 8.5 Height (Feet): 6 Height (Inches): 2.00 Weight (Pounds): 200 General Appearance: no apparent distress Neck: normal alignment Cardiovascular: normal rate Respiratory/Chest: lungs clear Abdomen: normal bowel sounds Pelvis: normal external exam Objective Item Value Date Time Bedside Blood Glucose 127 mg/dl H 07/17/17 0548 Bedside Blood Glucose 110 mg/dl 07/16/17 2224 Bedside Blood Glucose 153 mg/dl H 07/16/17 1645 Bedside Blood Glucose 135 mg/dl H 07/16/17 1135 Bedside Blood Glucose 124 mg/dl H 07/16/17 0859 Bedside Blood Glucose 124 mg/dl H 07/16/17 0630 Current Medications Medications (Trade) Dose Ordered Sig/Shania Route PRN Reason Start Time Stop Time Status Last Admin Dose Admin Acetaminophen (Tylenol) 650 mg Q6H PRN ORAL Mild Pain/Temp > 100.5 07/06/17 17:32 08/05/17 17:31 07/12/17 03:21 Acetaminophen/ Hydrocodone Bitart ([place] 5/325) 1 tab Q6H PRN ORAL For MODERATE PAIN 07/13/17 19:22 07/20/17 19:21 07/16/17 15:35 Cefazolin Sodium 2 gm/Dextrose 110 ml @ 220 mls/hr Q8HR IVPB 07/10/17 14:00 07/17/17 23:59 07/17/17 05:45 Clonidine HCl (Catapres Tab) 0.1 mg QID PRN ORAL SBP > 160 07/15/17 17:29 08/14/17 17:28 07/15/17 17:56 Dextrose (Dextrose 50%) 25 ml STAT PRN IV Hypoglycemia 07/08/17 07:00 08/07/17 06:59 Dextrose (Dextrose 50%) 50 ml STAT PRN IV Hypoglycemia 07/08/17 07:00 08/07/17 06:59 Famotidine (Pepcid) 20 mg BID ORAL 07/08/17 09:00 08/07/17 08:59 07/16/17 17:19 Heparin Sodium (Porcine) (Heparin 5000 units/ml) 5,000 units EVERY 12 HOURS SUBQ 07/06/17 21:00 08/05/17 20:59 07/16/17 20:14 Insulin Aspart (NovoLOG) BEFORE MEALS AND HS SUBQ 07/08/17 06:30 08/07/17 06:29 07/17/17 05:47 Insulin Aspart (NovoLOG) 6 units NOVOTIAC SUBQ 07/10/17 11:50 08/07/17 06:59 07/17/17 05:48 Insulin Detemir (Levemir) 17 units Q12HR SUBQ 07/14/17 21:00 08/13/17 20:59 07/16/17 20:25 Lisinopril (Prinivil) 40 mg DAILY ORAL 07/12/17 09:00 08/11/17 08:59 07/16/17 08:53 Metoprolol Tartrate (Lopressor) 25 mg Q12HR ORAL 07/09/17 21:00 08/08/17 20:59 07/16/17 20:16 Multivitamins (Multivitamins) 1 tab DAILY ORAL 07/07/17 09:00 08/06/17 08:59 07/16/17 08:53 Mupirocin (Bactroban Oint) 1 applic Q24H TOPIC 07/16/17 21:00 07/21/17 20:59 07/16/17 21:13 Ondansetron HCl (Zofran) 4 mg Q4HR PRN IVP Nausea & Vomiting 07/15/17 19:30 08/14/17 19:29 07/16/17 20:11 Triamterene/HCTZ (Dyazide) 1 cap BID ORAL 07/15/17 18:00 08/14/17 17:59 07/16/17 17:19 ADILENE JIMENEZ July 17, 2017 07:07
[2017-07-17 08:00] VITALS: BP 140/88
[2017-07-17 08:25] LABS: HEMATOCRIT 26.7 % (42.0-52.0); MEAN CORPUSCULAR VOLUME 78 FL (80-99); PLATELET COUNT 705 K/UL (150-450); RED BLOOD COUNT 3.42 M/UL (4.70-6.10); RED CELL DISTRIBUTION WIDTH 13.3 % (11.6-14.8); WHITE BLOOD COUNT 18.2 K/UL (4.8-10.8)
[2017-07-17 08:42] LABS: ALANINE AMINOTRANSFERASE 10 U/L (12-78); ALBUMIN 1.5 G/DL (3.4-5.0); ALBUMIN/GLOBULIN RATIO 0.3 (1.0-2.7); ALKALINE PHOSPHATASE 121 U/L (46-116); ANION GAP 7 mmol/L (5-15); ASPARTATE AMINO TRANSFERASE 16 U/L (15-37); BILIRUBIN,TOTAL 0.2 MG/DL (0.2-1.0); BLOOD UREA NITROGEN 7 mg/dL (7-18); CALCIUM 8.2 MG/DL (8.5-10.1); CARBON DIOXIDE 28 MMOL/L (21-32); CHLORIDE 103 MMOL/L (98-107); CREATININE 1.1 MG/DL (0.55-1.30); POTASSIUM 3.9 MMOL/L (3.5-5.1); SODIUM 138 MMOL/L (136-145)
[2017-07-17] MEDS: Metoprolol 25mg tab ORAL SCH ×2 (08:54→20:38)
[2017-07-17] MEDS: Triamterene/Hctz 37.5/25 cap ORAL SCH ×2 (08:54→17:18)
[2017-07-17] MEDS: Lisinopril 20mg tab ORAL SCH (08:55)
[2017-07-17] MEDS: Heparin 5000 units/ml inj SUBQ SCH ×2 (08:56→20:39)
[2017-07-17] MEDS: Levemir Flexpen SUBQ SCH ×2 (08:59→20:39)
--- NOTE | 2017-07-17 10:27 | Infectious Diseases Prog Note ---
Assessment/Plan Assessment/Plan A 1. staph aureus sepsis, MSSA 2. left hip cellulitis improving 3. left buttock abscess s/p drainage 4. diabetes mellitus 5. leukocytosis decreasing 6. Diarrhea P 1. continue Ancef 2. C. difficile test is negative 3. will follow up CBC Subjective ROS Limited/Unobtainable: No Constitutional: Reports: no symptoms Respiratory: Reports: no symptoms Gastrointestinal/Abdominal: Reports: no symptoms Genitourinary: Reports: no symptoms Skin: Reports: no symptoms Allergies: Coded Allergies: No Known Allergies (Unverified , 05/14/15) Objective Vital Signs Last 24 Hour Vital Signs Date Time Temp Pulse Resp B/P (MAP) Pulse Ox O2 Delivery O2 Flow Rate FiO2 07/17/17 08:55 140/88 07/17/17 08:54 92 140/88 07/17/17 08:00 98.2 92 20 140/88 96 98.2 07/17/17 04:00 97.8 91 18 141/80 96 97.8 07/17/17 00:00 97.6 98 18 149/80 98 97.6 07/16/17 20:16 97 139/86 07/16/17 19:56 97.6 104 19 139/86 97 97.6 07/16/17 16:08 98.1 96 18 148/84 99 Room Air 98.1 07/16/17 11:25 97.3 84 18 115/70 93 Room Air 97.3 Height (Feet): 6 Height (Inches): 2.00 Weight (Pounds): 200 General Appearance: no acute distress HEENT: mucous membranes moist Respiratory/Chest: lungs clear Cardiovascular: normal rate Abdomen: soft, non tender Extremities: no edema, other - left big toe amputation Neurologic/Psychiatric: alert, oriented x 3, responsive Musculoskeletal: other - gluteal drain Microbiology Date/Time Source Procedure Growth Status 07/15/17 18:00 Stool Clostridium difficile Toxin Assay - Final Complete Laboratory Tests Test 07/17/17 06:10 White Blood Count 18.2 K/UL (4.8-10.8) H Red Blood Count 3.42 M/UL (4.70-6.10) L Hemoglobin 9.0 G/DL (14.2-18.0) L Hematocrit 26.7 % (42.0-52.0) L Mean Corpuscular Volume 78 FL (80-99) L Mean Corpuscular Hemoglobin 26.4 PG (27.0-31.0) L Mean Corpuscular Hemoglobin Concent 33.9 G/DL (32.0-36.0) Red Cell Distribution Width 13.3 % (11.6-14.8) Platelet Count 705 K/UL (150-450) H Mean Platelet Volume 5.5 FL (6.5-10.1) L Neutrophils (%) (Auto) % (45.0-75.0) Lymphocytes (%) (Auto) % (20.0-45.0) Monocytes (%) (Auto) % (1.0-10.0) Eosinophils (%) (Auto) % (0.0-3.0) Basophils (%) (Auto) % (0.0-2.0) Differential Total Cells Counted 100 Neutrophils % (Manual) 85 % (45-75) H Lymphocytes % (Manual) 11 % (20-45) L Monocytes % (Manual) 2 % (1-10) Eosinophils % (Manual) 2 % (0-3) Basophils % (Manual) 0 % (0-2) Band Neutrophils 0 % (0-8) Platelet Estimate Increased H Platelet Morphology Normal Sodium Level 138 MMOL/L (136-145) Potassium Level 3.9 MMOL/L (3.5-5.1) Chloride Level 103 MMOL/L (98-107) Carbon Dioxide Level 28 MMOL/L (21-32) Anion Gap 7 mmol/L (5-15) Blood Urea Nitrogen 7 mg/dL (7-18) Creatinine 1.1 MG/DL (0.55-1.30) Estimat Glomerular Filtration Rate > 60 mL/min (>60) Glucose Level 123 MG/DL (74-106) H Calcium Level 8.2 MG/DL (8.5-10.1) L Total Bilirubin 0.2 MG/DL (0.2-1.0) Aspartate Amino Transf (AST/SGOT) 16 U/L (15-37) Alanine Aminotransferase (ALT/SGPT) 10 U/L (12-78) L Alkaline Phosphatase 121 U/L (46-116) H Total Protein 7.0 G/DL (6.4-8.2) Albumin 1.5 G/DL (3.4-5.0) L Globulin 5.5 g/dL Albumin/Globulin Ratio 0.3 (1.0-2.7) L Current Medications Medications (Trade) Dose Ordered Sig/Shania Route PRN Reason Start Time Stop Time Status Last Admin Dose Admin Acetaminophen (Tylenol) 650 mg Q6H PRN ORAL Mild Pain/Temp > 100.5 07/06/17 17:32 08/05/17 17:31 07/12/17 03:21 Acetaminophen/ Hydrocodone Bitart ([place] 5/325) 1 tab Q6H PRN ORAL For MODERATE PAIN 07/13/17 19:22 07/20/17 19:21 07/16/17 15:35 Cefazolin Sodium 2 gm/Dextrose 110 ml @ 220 mls/hr Q8HR IVPB 07/10/17 14:00 07/17/17 23:59 07/17/17 05:45 Clonidine HCl (Catapres Tab) 0.1 mg QID PRN ORAL SBP > 160 07/15/17 17:29 08/14/17 17:28 07/15/17 17:56 Dextrose (Dextrose 50%) 25 ml STAT PRN IV Hypoglycemia 07/08/17 07:00 08/07/17 06:59 Dextrose (Dextrose 50%) 50 ml STAT PRN IV Hypoglycemia 07/08/17 07:00 08/07/17 06:59 Famotidine (Pepcid) 20 mg BID ORAL 07/08/17 09:00 08/07/17 08:59 07/17/17 08:54 Heparin Sodium (Porcine) (Heparin 5000 units/ml) 5,000 units EVERY 12 HOURS SUBQ 07/06/17 21:00 08/05/17 20:59 07/17/17 08:56 Insulin Aspart (NovoLOG) BEFORE MEALS AND HS SUBQ 07/08/17 06:30 08/07/17 06:29 07/17/17 05:47 Insulin Aspart (NovoLOG) 6 units NOVOTIAC SUBQ 07/10/17 11:50 08/07/17 06:59 07/17/17 05:48 Insulin Detemir (Levemir) 17 units Q12HR SUBQ 07/14/17 21:00 08/13/17 20:59 07/17/17 08:59 Lisinopril (Prinivil) 40 mg DAILY ORAL 07/12/17 09:00 08/11/17 08:59 07/17/17 08:55 Metoprolol Tartrate (Lopressor) 25 mg Q12HR ORAL 07/09/17 21:00 08/08/17 20:59 07/17/17 08:54 Multivitamins (Multivitamins) 1 tab DAILY ORAL 07/07/17 09:00 08/06/17 08:59 07/17/17 08:54 Mupirocin (Bactroban Oint) 1 applic Q24H TOPIC 07/16/17 21:00 07/21/17 20:59 07/16/17 21:13 Ondansetron HCl (Zofran) 4 mg Q4HR PRN IVP Nausea & Vomiting 07/15/17 19:30 08/14/17 19:29 07/16/17 20:11 Triamterene/HCTZ (Dyazide) 1 cap BID ORAL 07/15/17 18:00 08/14/17 17:59 07/17/17 08:54 DANISHA SOSA July 17, 2017 10:27
--- NOTE | 2017-07-17 11:58 | General Surgery Progress Note ---
General Surgery-Progress Note Subjective Procedure Performed 1. incision and drainage of left deep intermuscular gluteal abscess 2. drain placement with complex multi layer closure using adjacent skin tissues Symptoms: improved, pain absent, tolerating diet, voiding well, passing flatus , BM Additional Comments no acute events. improving. Objective Last 24 Hour Vital Signs Date Time Temp Pulse Resp B/P (MAP) Pulse Ox O2 Delivery O2 Flow Rate FiO2 07/17/17 08:55 140/88 07/17/17 08:54 92 140/88 07/17/17 08:00 98.2 92 20 140/88 96 98.2 07/17/17 04:00 97.8 91 18 141/80 96 97.8 07/17/17 00:00 97.6 98 18 149/80 98 97.6 07/16/17 20:16 97 139/86 07/16/17 19:56 97.6 104 19 139/86 97 97.6 07/16/17 16:08 98.1 96 18 148/84 99 Room Air 98.1 I&O Intake and Output 07/16/17 07/17/17 19:00 07:00 Intake Total 110 ml 530 ml Output Total 35 ml 20 ml Balance 75 ml 510 ml Intake Oral 420 ml IV Total 110 ml 110 ml Drainage Total 35 ml 20 ml # Voids 3 # Bowel Movements 2 Wound: clean, dry, intact Drains: liborio - output decreasing Cardiovascular: RSR Respiratory: clear Abdomen: soft, flat, non-tender, present bowel sounds Extremities: other - edema much improved today. Laboratory Tests Test 07/17/17 06:10 White Blood Count 18.2 K/UL (4.8-10.8) H Red Blood Count 3.42 M/UL (4.70-6.10) L Hemoglobin 9.0 G/DL (14.2-18.0) L Hematocrit 26.7 % (42.0-52.0) L Mean Corpuscular Volume 78 FL (80-99) L Mean Corpuscular Hemoglobin 26.4 PG (27.0-31.0) L Mean Corpuscular Hemoglobin Concent 33.9 G/DL (32.0-36.0) Red Cell Distribution Width 13.3 % (11.6-14.8) Platelet Count 705 K/UL (150-450) H Mean Platelet Volume 5.5 FL (6.5-10.1) L Neutrophils (%) (Auto) % (45.0-75.0) Lymphocytes (%) (Auto) % (20.0-45.0) Monocytes (%) (Auto) % (1.0-10.0) Eosinophils (%) (Auto) % (0.0-3.0) Basophils (%) (Auto) % (0.0-2.0) Differential Total Cells Counted 100 Neutrophils % (Manual) 85 % (45-75) H Lymphocytes % (Manual) 11 % (20-45) L Monocytes % (Manual) 2 % (1-10) Eosinophils % (Manual) 2 % (0-3) Basophils % (Manual) 0 % (0-2) Band Neutrophils 0 % (0-8) Platelet Estimate Increased H Platelet Morphology Normal Sodium Level 138 MMOL/L (136-145) Potassium Level 3.9 MMOL/L (3.5-5.1) Chloride Level 103 MMOL/L (98-107) Carbon Dioxide Level 28 MMOL/L (21-32) Anion Gap 7 mmol/L (5-15) Blood Urea Nitrogen 7 mg/dL (7-18) Creatinine 1.1 MG/DL (0.55-1.30) Estimat Glomerular Filtration Rate > 60 mL/min (>60) Glucose Level 123 MG/DL (74-106) H Calcium Level 8.2 MG/DL (8.5-10.1) L Total Bilirubin 0.2 MG/DL (0.2-1.0) Aspartate Amino Transf (AST/SGOT) 16 U/L (15-37) Alanine Aminotransferase (ALT/SGPT) 10 U/L (12-78) L Alkaline Phosphatase 121 U/L (46-116) H Total Protein 7.0 G/DL (6.4-8.2) Albumin 1.5 G/DL (3.4-5.0) L Globulin 5.5 g/dL Albumin/Globulin Ratio 0.3 (1.0-2.7) L Plan Problems: (1) Gluteal abscess Assessment & Plan: 37M with left gluteal abscess. low grade fever, leukocytosis, on exam overlying tissue with edema, erythema, warmth, cellulitis. CT with large abscess between major and minor muscle. s/p Ultrasound guided drain placement for evacuation of abscess by radiology. If able to successfully drain via catheter will do so. unfortunately it has been present for some time now and fluid may be viscous and unable to drain without formal incision and drainage. POD #7 s/p I&D. recovering. still with milky drainage but decreasing CT with IV contrast reviewed. no definitive abscess noted. drain in good positioning. Afebrile, HD stable, improving slowly. leukocytosis 18k today -discussed findings with patient. will need to monitor him closely. if does not show improvement or if drain output does not clear up he will likely need more aggressive treatment with open wound, packing and dressings. abscess was completely drained during surgery and large drain was placed after extensive washout. initially drain output serosang but now becoming milky. -tight glucose control -okay for activity -drain care and management. -will continue to monitor for now. drain output decreasing and exam much improved. will follow with recs. thank you for this consultation. Nahid Bartholomew July 17, 2017 11:58
[2017-07-17] MEDS: Norco 5mg/325mg tab ORAL PRN ×2 (12:20→20:37)
[2017-07-17 15:54] VITALS: BP 147/88
--- NOTE | 2017-07-17 19:29 | Nephrology Progress Note ---
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 Subjective Constitutional: Reports: weakness HEENT: Reports: no symptoms Genitourinary: Reports: no symptoms Neurologic/Psychiatric: Reports: no symptoms Objective Objective Last 24 Hour Vital Signs Date Time Temp Pulse Resp B/P (MAP) Pulse Ox O2 Delivery O2 Flow Rate FiO2 07/17/17 15:54 97.5 91 20 147/88 99 97.5 07/17/17 08:55 140/88 07/17/17 08:54 92 140/88 07/17/17 08:00 98.2 92 20 140/88 96 98.2 07/17/17 04:00 97.8 91 18 141/80 96 97.8 07/17/17 00:00 97.6 98 18 149/80 98 97.6 07/16/17 20:16 97 139/86 07/16/17 19:56 97.6 104 19 139/86 97 97.6 Intake and Output 07/16/17 07/17/17 19:00 07:00 Intake Total 110 ml 530 ml Output Total 35 ml 20 ml Balance 75 ml 510 ml Intake Oral 420 ml IV Total 110 ml 110 ml Drainage Total 35 ml 20 ml # Voids 3 # Bowel Movements 2 Laboratory Tests 07/17/17 06:10: White Blood Count 18.2H, Red Blood Count 3.42L, Hemoglobin 9.0L, Hematocrit 26.7L, Mean Corpuscular Volume 78L, Mean Corpuscular Hemoglobin 26.4L, Mean Corpuscular Hemoglobin Concent 33.9, Red Cell Distribution Width 13.3, Platelet Count 705H, Mean Platelet Volume 5.5L, Neutrophils (%) (Auto) , Lymphocytes (%) (Auto) , Monocytes (%) (Auto) , Eosinophils (%) (Auto) , Basophils (%) (Auto) , Differential Total Cells Counted 100, Neutrophils % (Manual) 85H, Lymphocytes % (Manual) 11L, Monocytes % (Manual) 2, Eosinophils % (Manual) 2, Basophils % ( Manual) 0, Band Neutrophils 0, Platelet Estimate IncreasedH, Platelet Morphology Normal, Sodium Level 138, Potassium Level 3.9, Chloride Level 103, Carbon Dioxide Level 28, Anion Gap 7, Blood Urea Nitrogen 7, Creatinine 1.1, Estimat Glomerular Filtration Rate > 60, Glucose Level 123H, Calcium Level 8.2L , Total Bilirubin 0.2, Aspartate Amino Transf (AST/SGOT) 16, Alanine Aminotransferase (ALT/SGPT) 10L, Alkaline Phosphatase 121H, Total Protein 7.0, Albumin 1.5L, Globulin 5.5, Albumin/Globulin Ratio 0.3L Height (Feet): 6 Height (Inches): 2.00 Weight (Pounds): 200 EENT: normal ENT inspection Neck: normal alignment Cardiovascular: normal rate Respiratory/Chest: lungs clear Abdomen: non tender Extremities: moderate edema MAURICIO BERNABE July 17, 2017 19:29
[2017-07-17 20:00] VITALS: BP 149/87
--- NOTE | 2017-07-17 20:45 | Progress Note ---
DATE: 07/17/2017 INTERNAL MEDICINE PROGRESS NOTE SUBJECTIVE: The patient feels better. The case was discussed with multiple consultants today. OBJECTIVE: VITAL SIGNS: He is afebrile, blood pressure range slightly elevated 140/88, pulse 92, and respirations 20. EXTREMITIES: Less edema in the left hip and buttocks region. LABORATORY DATA: Glucose control improved. Creatinine clearance estimated at 69. A 24-hour protein is 1100 mg consistent with mild proteinuria. White count 18 and hemoglobin 9. Potassium 3.9. Albumin 1.5. IMPRESSION: 1. Left buttocks abscess, cellulitis. 2. Severe protein-calorie malnutrition. 3. Insulin-requiring diabetes mellitus. 4. Chronic kidney disease due to diabetic nephropathy. 5. Hypertensive heart disease. PLAN: 1. Optimize antihypertensive regimen. 2. The patient is now started on ANGELIKA inhibitors. 3. He will continue with the antibiotics, skin care, and wound care. Drainage ongoing. 4. We will monitor white blood count, clinical parameters, and titrate insulin dose. 5. Further recommendations to follow. 6. Maintain IV antibiotics and IV access. Remains high risk. Skyler Rodriguez JOB#: [id number] CC:
[2017-07-18] VITALS: BP 146/87
[2017-07-18 04:00] VITALS: BP 138/83
[2017-07-18] MEDS: NovoLOG Insulin Flexpen SUBQ SCH ×7 (05:50→20:45)
--- NOTE | 2017-07-18 06:15 | General Progress Note ---
Assessment/Plan Problem List: (1) Hyperglycemia ICD Codes: R73.9 - Hyperglycemia, unspecified SNOMED: 60296315 (2) Cellulitis of hip, left ICD Codes: L03.116 - Cellulitis of left lower limb SNOMED: 1856634 (3) Gluteal abscess ICD Codes: L02.31 - Cutaneous abscess of buttock SNOMED: 06743112 Assessment/Plan - increase Levemir to 18 units bid - continue Novolog 6 units ac tid, hold if not eating - continue NISS Subjective Allergies: Coded Allergies: No Known Allergies (Unverified , 05/14/15) All Systems: reviewed and negative except above Subjective events noted fasting glucose elevated Objective Last 24 Hour Vital Signs Date Time Temp Pulse Resp B/P (MAP) Pulse Ox O2 Delivery O2 Flow Rate FiO2 07/18/17 04:00 Room Air 07/18/17 04:00 97.9 89 18 138/83 98 97.9 07/18/17 00:00 Room Air 07/18/17 00:00 98.1 88 19 146/87 98 98.1 07/17/17 20:38 100 149/87 07/17/17 20:00 98.2 100 18 149/87 98.2 07/17/17 20:00 99 Room Air 07/17/17 15:54 97.5 91 20 147/88 99 97.5 07/17/17 08:55 140/88 07/17/17 08:54 92 140/88 07/17/17 08:00 98.2 92 20 140/88 96 98.2 Intake and Output 07/17/17 07/18/17 19:00 07:00 Intake Total 358 ml 230 ml Output Total 30 ml Balance 358 ml 200 ml Intake Oral 358 ml 120 ml IV Total 110 ml Drainage Total 30 ml # Voids 4 2 Height (Feet): 6 Height (Inches): 2.00 Weight (Pounds): 200 General Appearance: no apparent distress Neck: normal alignment Cardiovascular: normal rate Respiratory/Chest: lungs clear Abdomen: normal bowel sounds Objective Current Medications Medications (Trade) Dose Ordered Sig/Shania Route PRN Reason Start Time Stop Time Status Last Admin Dose Admin Acetaminophen (Tylenol) 650 mg Q6H PRN ORAL Mild Pain/Temp > 100.5 07/06/17 17:32 08/05/17 17:31 07/12/17 03:21 Acetaminophen/ Hydrocodone Bitart ([place] 5/325) 1 tab Q6H PRN ORAL For MODERATE PAIN 07/13/17 19:22 07/20/17 19:21 07/17/17 20:37 Clonidine HCl (Catapres Tab) 0.1 mg QID PRN ORAL SBP > 160 07/15/17 17:29 08/14/17 17:28 07/15/17 17:56 Dextrose (Dextrose 50%) 25 ml STAT PRN IV Hypoglycemia 07/08/17 07:00 08/07/17 06:59 Dextrose (Dextrose 50%) 50 ml STAT PRN IV Hypoglycemia 07/08/17 07:00 08/07/17 06:59 Famotidine (Pepcid) 20 mg BID ORAL 07/08/17 09:00 08/07/17 08:59 07/17/17 17:18 Heparin Sodium (Porcine) (Heparin 5000 units/ml) 5,000 units EVERY 12 HOURS SUBQ 07/06/17 21:00 08/05/17 20:59 07/17/17 20:39 Insulin Aspart (NovoLOG) BEFORE MEALS AND HS SUBQ 07/08/17 06:30 08/07/17 06:29 07/18/17 05:50 Insulin Aspart (NovoLOG) 6 units NOVOTIAC SUBQ 07/10/17 11:50 08/07/17 06:59 07/18/17 05:51 Insulin Detemir (Levemir) 17 units Q12HR SUBQ 07/14/17 21:00 08/13/17 20:59 07/17/17 20:39 Lisinopril (Prinivil) 40 mg DAILY ORAL 07/12/17 09:00 08/11/17 08:59 07/17/17 08:55 Metoprolol Tartrate (Lopressor) 25 mg Q12HR ORAL 07/09/17 21:00 08/08/17 20:59 07/17/17 20:38 Multivitamins (Multivitamins) 1 tab DAILY ORAL 07/07/17 09:00 08/06/17 08:59 07/17/17 08:54 Mupirocin (Bactroban Oint) 1 applic Q24H TOPIC 07/16/17 21:00 07/21/17 20:59 07/17/17 20:41 Nicotine (Nicoderm) 1 patch Q24H TDERMAL 07/17/17 17:00 08/16/17 16:59 07/17/17 17:18 Ondansetron HCl (Zofran) 4 mg Q4HR PRN IVP Nausea & Vomiting 07/15/17 19:30 08/14/17 19:29 07/16/17 20:11 Triamterene/HCTZ (Dyazide) 1 cap BID ORAL 07/15/17 18:00 08/14/17 17:59 07/17/17 17:18 Item Value Date Time Bedside Blood Glucose 214 mg/dl H 07/18/17 0551 Bedside Blood Glucose 197 mg/dl H 07/17/17 2100 Bedside Blood Glucose 129 mg/dl H 07/17/17 1641 Bedside Blood Glucose 158 mg/dl H 07/17/17 1215 Bedside Blood Glucose 127 mg/dl H 07/17/17 0859 Bedside Blood Glucose 127 mg/dl H 07/17/17 0548 ADILENE JIMENEZ July 18, 2017 06:15
[2017-07-18 07:55] VITALS: BP 138/84
[2017-07-18] MEDS: Lisinopril 20mg tab ORAL SCH (08:38)
[2017-07-18] MEDS: Triamterene/Hctz 37.5/25 cap ORAL SCH ×2 (08:38→17:22)
[2017-07-18] MEDS: Metoprolol 25mg tab ORAL SCH ×2 (08:38→20:43)
[2017-07-18] MEDS: Levemir Flexpen SUBQ SCH ×2 (08:41→20:44)
[2017-07-18] MEDS: Heparin 5000 units/ml inj SUBQ SCH ×2 (08:44→20:44)
[2017-07-18 09:40] LABS: HEMATOCRIT 29.6 % (42.0-52.0); HEMOGLOBIN 9.7 G/DL (14.2-18.0); MEAN CORPUSCULAR VOLUME 78 FL (80-99); PLATELET COUNT 852 K/UL (150-450); RED BLOOD COUNT 3.77 M/UL (4.70-6.10); RED CELL DISTRIBUTION WIDTH 13.5 % (11.6-14.8); WHITE BLOOD COUNT 18.2 K/UL (4.8-10.8)
--- NOTE | 2017-07-18 11:48 | Infectious Diseases Prog Note ---
Assessment/Plan Assessment/Plan antibiotics : ancef A 1. staph aureus sepsis 2. left hip cellulitis improving 3. left buttock abscess with staph aureus s/p i and d 4. diabetes mellitus 5. leucocytosis improving P 1. continue ancef 2. will follow up cultures Subjective ROS Limited/Unobtainable: Yes Allergies: Coded Allergies: No Known Allergies (Unverified , 05/14/15) Objective Vital Signs Last 24 Hour Vital Signs Date Time Temp Pulse Resp B/P (MAP) Pulse Ox O2 Delivery O2 Flow Rate FiO2 07/18/17 08:38 138/84 07/18/17 08:38 92 138/84 07/18/17 07:55 98.8 92 20 138/84 98 98.8 07/18/17 04:00 Room Air 07/18/17 04:00 97.9 89 18 138/83 98 97.9 07/18/17 00:00 Room Air 07/18/17 00:00 98.1 88 19 146/87 98 98.1 07/17/17 20:38 100 149/87 07/17/17 20:00 98.2 100 18 149/87 98.2 07/17/17 20:00 99 Room Air 07/17/17 15:54 97.5 91 20 147/88 99 97.5 Height (Feet): 6 Height (Inches): 2.00 Weight (Pounds): 200 Respiratory/Chest: lungs clear Cardiovascular: normal rate, regular rhythm, no gallop/murmur Abdomen: soft, non tender Extremities: no edema, other - left hip drain with [place] drain with pus Microbiology Date/Time Source Procedure Growth Status 07/15/17 18:00 Stool Clostridium difficile Toxin Assay - Final Complete Laboratory Tests Test 07/18/17 09:15 White Blood Count 18.2 K/UL (4.8-10.8) H Red Blood Count 3.77 M/UL (4.70-6.10) L Hemoglobin 9.7 G/DL (14.2-18.0) L Hematocrit 29.6 % (42.0-52.0) L Mean Corpuscular Volume 78 FL (80-99) L Mean Corpuscular Hemoglobin 25.9 PG (27.0-31.0) L Mean Corpuscular Hemoglobin Concent 33.0 G/DL (32.0-36.0) Red Cell Distribution Width 13.5 % (11.6-14.8) Platelet Count 852 K/UL (150-450) H Mean Platelet Volume 5.3 FL (6.5-10.1) L Neutrophils (%) (Auto) % (45.0-75.0) Lymphocytes (%) (Auto) % (20.0-45.0) Monocytes (%) (Auto) % (1.0-10.0) Eosinophils (%) (Auto) % (0.0-3.0) Basophils (%) (Auto) % (0.0-2.0) Differential Total Cells Counted 100 Neutrophils % (Manual) 85 % (45-75) H Lymphocytes % (Manual) 10 % (20-45) L Monocytes % (Manual) 3 % (1-10) Eosinophils % (Manual) 0 % (0-3) Basophils % (Manual) 0 % (0-2) Band Neutrophils 2 % (0-8) Platelet Estimate Increased H Platelet Morphology Normal Hypochromasia 1+ Microcytosis 1+ Stomatocytes Occasional Current Medications Medications (Trade) Dose Ordered Sig/Shania Route PRN Reason Start Time Stop Time Status Last Admin Dose Admin Acetaminophen (Tylenol) 650 mg Q6H PRN ORAL Mild Pain/Temp > 100.5 07/06/17 17:32 08/05/17 17:31 07/12/17 03:21 Acetaminophen/ Hydrocodone Bitart ([place] 5/325) 1 tab Q6H PRN ORAL For MODERATE PAIN 07/13/17 19:22 07/20/17 19:21 07/17/17 20:37 Clonidine HCl (Catapres Tab) 0.1 mg QID PRN ORAL SBP > 160 07/15/17 17:29 08/14/17 17:28 07/15/17 17:56 Dextrose (Dextrose 50%) 25 ml STAT PRN IV Hypoglycemia 07/08/17 07:00 08/07/17 06:59 Dextrose (Dextrose 50%) 50 ml STAT PRN IV Hypoglycemia 07/08/17 07:00 08/07/17 06:59 Famotidine (Pepcid) 20 mg BID ORAL 07/08/17 09:00 08/07/17 08:59 07/18/17 08:38 Heparin Sodium (Porcine) (Heparin 5000 units/ml) 5,000 units EVERY 12 HOURS SUBQ 07/06/17 21:00 08/05/17 20:59 07/17/17 20:39 Insulin Aspart (NovoLOG) BEFORE MEALS AND HS SUBQ 07/08/17 06:30 08/07/17 06:29 07/18/17 05:50 Insulin Aspart (NovoLOG) 6 units NOVOTIAC SUBQ 07/10/17 11:50 08/07/17 06:59 07/18/17 05:51 Insulin Detemir (Levemir) 18 units Q12HR SUBQ 07/18/17 09:00 08/13/17 20:59 07/18/17 08:41 Lisinopril (Prinivil) 40 mg DAILY ORAL 07/12/17 09:00 08/11/17 08:59 07/18/17 08:38 Metoprolol Tartrate (Lopressor) 25 mg Q12HR ORAL 07/09/17 21:00 08/08/17 20:59 07/18/17 08:38 Multivitamins (Multivitamins) 1 tab DAILY ORAL 07/07/17 09:00 08/06/17 08:59 07/18/17 08:38 Mupirocin (Bactroban Oint) 1 applic Q24H TOPIC 07/16/17 21:00 07/21/17 20:59 07/17/17 20:41 Nicotine (Nicoderm) 1 patch Q24H TDERMAL 07/17/17 17:00 08/16/17 16:59 07/17/17 17:18 Ondansetron HCl (Zofran) 4 mg Q4HR PRN IVP Nausea & Vomiting 07/15/17 19:30 08/14/17 19:29 07/16/17 20:11 Triamterene/HCTZ (Dyazide) 1 cap BID ORAL 07/15/17 18:00 08/14/17 17:59 07/18/17 08:38 KUSH CUNNINGHAM July 18, 2017 11:48
[2017-07-18 12:52] VITALS: BP 132/87
[2017-07-18] MEDS ORDERED: ceFAZolin 2gm/50ml Premix 50 ML IV SCH (13:00)
[2017-07-18] MEDS: ceFAZolin sod 2 GM in D5W 110 ML IVPB SCH ×2 (13:17→21:13)
[2017-07-18 15:59] VITALS: BP 147/88
--- NOTE | 2017-07-18 16:27 | General Surgery Progress Note ---
General Surgery-Progress Note Subjective Procedure Performed 1. incision and drainage of left deep intermuscular gluteal abscess 2. drain placement with complex multi layer closure using adjacent skin tissues Symptoms: improved, tolerating diet, passing flatus Additional Comments no acute events. Objective Last 24 Hour Vital Signs Date Time Temp Pulse Resp B/P (MAP) Pulse Ox O2 Delivery O2 Flow Rate FiO2 07/18/17 15:59 97.9 95 20 147/88 99 97.9 07/18/17 12:52 98.2 90 18 132/87 98 98.2 07/18/17 08:38 138/84 07/18/17 08:38 92 138/84 07/18/17 07:55 98.8 92 20 138/84 98 98.8 07/18/17 04:00 Room Air 07/18/17 04:00 97.9 89 18 138/83 98 97.9 07/18/17 00:00 Room Air 07/18/17 00:00 98.1 88 19 146/87 98 98.1 07/17/17 20:38 100 149/87 07/17/17 20:00 98.2 100 18 149/87 98.2 07/17/17 20:00 99 Room Air I&O Intake and Output 07/17/17 07/18/17 19:00 07:00 Intake Total 358 ml 230 ml Output Total 30 ml Balance 358 ml 200 ml Intake Oral 358 ml 120 ml IV Total 110 ml Drainage Total 30 ml # Voids 4 2 Wound: clean, dry, intact Drains: liborio - output much more thin and clearning up Cardiovascular: RSR Respiratory: clear Abdomen: soft, non-tender, present bowel sounds Extremities: edema - improved, no tenderness, no cyanosis Laboratory Tests Test 07/18/17 09:15 White Blood Count 18.2 K/UL (4.8-10.8) H Red Blood Count 3.77 M/UL (4.70-6.10) L Hemoglobin 9.7 G/DL (14.2-18.0) L Hematocrit 29.6 % (42.0-52.0) L Mean Corpuscular Volume 78 FL (80-99) L Mean Corpuscular Hemoglobin 25.9 PG (27.0-31.0) L Mean Corpuscular Hemoglobin Concent 33.0 G/DL (32.0-36.0) Red Cell Distribution Width 13.5 % (11.6-14.8) Platelet Count 852 K/UL (150-450) H Mean Platelet Volume 5.3 FL (6.5-10.1) L Neutrophils (%) (Auto) % (45.0-75.0) Lymphocytes (%) (Auto) % (20.0-45.0) Monocytes (%) (Auto) % (1.0-10.0) Eosinophils (%) (Auto) % (0.0-3.0) Basophils (%) (Auto) % (0.0-2.0) Differential Total Cells Counted 100 Neutrophils % (Manual) 85 % (45-75) H Lymphocytes % (Manual) 10 % (20-45) L Monocytes % (Manual) 3 % (1-10) Eosinophils % (Manual) 0 % (0-3) Basophils % (Manual) 0 % (0-2) Band Neutrophils 2 % (0-8) Platelet Estimate Increased H Platelet Morphology Normal Hypochromasia 1+ Microcytosis 1+ Stomatocytes Occasional Plan Problems: (1) Gluteal abscess Assessment & Plan: 37M with left gluteal abscess. low grade fever, leukocytosis, on exam overlying tissue with edema, erythema, warmth, cellulitis. CT with large abscess between major and minor muscle. s/p Ultrasound guided drain placement for evacuation of abscess by radiology. If able to successfully drain via catheter will do so. unfortunately it has been present for some time now and fluid may be viscous and unable to drain without formal incision and drainage. POD #8 s/p I&D. recovering. CT with IV contrast reviewed. no definitive abscess noted. drain in good positioning. Afebrile, HD stable, improving slowly. leukocytosis 18k today drain output much better today -discussed findings with patient. will need to monitor him closely. if does not show improvement or if drain output does not clear up he will likely need more aggressive treatment with open wound, packing and dressings. abscess was completely drained during surgery and large drain was placed after extensive washout. initially drain output serosang but now becoming milky. -tight glucose control -okay for activity -drain care and management. -will continue to monitor for now. drain output decreasing and exam much improved. will follow with recs. thank you for this consultation. Nahid Bartholomew 8, 2018 16:27
[2017-07-18] MEDS: Norco 5mg/325mg tab ORAL PRN (16:31)
[2017-07-18 20:43] VITALS: BP 132/86
--- NOTE | 2017-07-18 20:43 | Nephrology Progress Note ---
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 (6) Fluid overload Plan creat clearance 69 24 hr protein 1100 mg to repeat, I calculate 950 mg mild proteinuria does not explain severly low albumin, liver serologies pending, dyazide+acei for diuresis and renal protection, low albumin likely nutritional from prolonged abscess, supervisor cellars to provide supplements, low Na diet Subjective Constitutional: Reports: weakness HEENT: Reports: no symptoms Genitourinary: Reports: no symptoms Neurologic/Psychiatric: Reports: no symptoms Objective Objective Last 24 Hour Vital Signs Date Time Temp Pulse Resp B/P (MAP) Pulse Ox O2 Delivery O2 Flow Rate FiO2 07/18/17 15:59 97.9 95 20 147/88 99 97.9 07/18/17 12:52 98.2 90 18 132/87 98 98.2 07/18/17 08:38 138/84 07/18/17 08:38 92 138/84 07/18/17 07:55 98.8 92 20 138/84 98 98.8 07/18/17 04:00 Room Air 07/18/17 04:00 97.9 89 18 138/83 98 97.9 07/18/17 00:00 Room Air 07/18/17 00:00 98.1 88 19 146/87 98 98.1 Intake and Output 07/17/17 07/18/17 19:00 07:00 Intake Total 358 ml 230 ml Output Total 30 ml Balance 358 ml 200 ml Intake Oral 358 ml 120 ml IV Total 110 ml Drainage Total 30 ml # Voids 4 2 Laboratory Tests 07/18/17 09:15: White Blood Count 18.2H, Red Blood Count 3.77L, Hemoglobin 9.7L, Hematocrit 29.6L, Mean Corpuscular Volume 78L, Mean Corpuscular Hemoglobin 25.9L, Mean Corpuscular Hemoglobin Concent 33.0, Red Cell Distribution Width 13.5, Platelet Count 852H, Mean Platelet Volume 5.3L, Neutrophils (%) (Auto) , Lymphocytes (%) (Auto) , Monocytes (%) (Auto) , Eosinophils (%) (Auto) , Basophils (%) (Auto) , Differential Total Cells Counted 100, Neutrophils % (Manual) 85H, Lymphocytes % (Manual) 10L, Monocytes % (Manual) 3, Eosinophils % (Manual) 0, Basophils % ( Manual) 0, Band Neutrophils 2, Platelet Estimate IncreasedH, Platelet Morphology Normal, Hypochromasia 1+, Microcytosis 1+, Stomatocytes Occasional Height (Feet): 6 Height (Inches): 2.00 Weight (Pounds): 200 General Appearance: no apparent distress EENT: PERRL/EOMI Neck: normal alignment Cardiovascular: regular rhythm Respiratory/Chest: lungs clear Abdomen: soft Extremities: trace edema 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
[2017-07-19 00:35] VITALS: BP 131/80
[2017-07-19 04:23] VITALS: BP 140/90
[2017-07-19] MEDS: ceFAZolin sod 2 GM in D5W 110 ML IVPB SCH ×2 (05:35→13:00)
[2017-07-19] MEDS: NovoLOG Insulin Flexpen SUBQ SCH ×7 (05:58→22:16)
[2017-07-19] MEDS: Norco 5mg/325mg tab ORAL PRN ×2 (06:03→17:56)
--- NOTE | 2017-07-19 07:10 | General Progress Note ---
Assessment/Plan Problem List: (1) Hyperglycemia ICD Codes: R73.9 - Hyperglycemia, unspecified SNOMED: 07284296 (2) Cellulitis of hip, left ICD Codes: L03.116 - Cellulitis of left lower limb SNOMED: 1653733 (3) Gluteal abscess ICD Codes: L02.31 - Cutaneous abscess of buttock SNOMED: 48643727 Assessment/Plan - continue Levemir 18 units bid - continue Novolog 6 units ac tid, hold if not eating - continue NISS Subjective Allergies: Coded Allergies: No Known Allergies (Unverified , 05/14/15) All Systems: reviewed and negative except above Subjective events noted Objective Last 24 Hour Vital Signs Date Time Temp Pulse Resp B/P (MAP) Pulse Ox O2 Delivery O2 Flow Rate FiO2 07/19/17 04:24 Room Air 07/19/17 04:23 98.0 91 19 140/90 99 98.0 07/19/17 00:36 Room Air 07/19/17 00:35 98.2 97 18 131/80 98 98.2 07/18/17 20:44 Room Air 07/18/17 20:43 98.1 100 20 132/86 99 98.1 07/18/17 20:43 100 132/86 07/18/17 15:59 97.9 95 20 147/88 99 97.9 07/18/17 12:52 98.2 90 18 132/87 98 98.2 07/18/17 08:38 138/84 07/18/17 08:38 92 138/84 07/18/17 07:55 98.8 92 20 138/84 98 98.8 Intake and Output 07/18/17 07/19/17 19:00 07:00 Intake Total 460 ml 580 ml Output Total 40 ml Balance 460 ml 540 ml Intake Oral 460 ml 360 ml IV Total 220 ml Drainage Total 40 ml # Voids 3 2 Laboratory Tests 07/18/17 09:15: White Blood Count 18.2H, Red Blood Count 3.77L, Hemoglobin 9.7L, Hematocrit 29.6L, Mean Corpuscular Volume 78L, Mean Corpuscular Hemoglobin 25.9L, Mean Corpuscular Hemoglobin Concent 33.0, Red Cell Distribution Width 13.5, Platelet Count 852H, Mean Platelet Volume 5.3L, Neutrophils (%) (Auto) , Lymphocytes (%) (Auto) , Monocytes (%) (Auto) , Eosinophils (%) (Auto) , Basophils (%) (Auto) , Differential Total Cells Counted 100, Neutrophils % (Manual) 85H, Lymphocytes % (Manual) 10L, Monocytes % (Manual) 3, Eosinophils % (Manual) 0, Basophils % ( Manual) 0, Band Neutrophils 2, Platelet Estimate IncreasedH, Platelet Morphology Normal, Hypochromasia 1+, Microcytosis 1+, Stomatocytes Occasional Height (Feet): 6 Height (Inches): 2.00 Weight (Pounds): 200 General Appearance: no apparent distress Neck: normal alignment Cardiovascular: normal rate Respiratory/Chest: lungs clear Abdomen: normal bowel sounds Pelvis: normal external exam Edema: no edema noted Arm (L), no edema noted Arm (R), no edema noted Leg (L), no edema noted Leg (R), no edema noted Pedal (L), no edema noted Pedal (R), no edema noted Generalized Objective Current Medications Medications (Trade) Dose Ordered Sig/Shania Route PRN Reason Start Time Stop Time Status Last Admin Dose Admin Acetaminophen (Tylenol) 650 mg Q6H PRN ORAL Mild Pain/Temp > 100.5 07/06/17 17:32 08/05/17 17:31 07/12/17 03:21 Acetaminophen/ Hydrocodone Bitart ([place] 5/325) 1 tab Q6H PRN ORAL For MODERATE PAIN 07/13/17 19:22 07/20/17 19:21 07/19/17 06:03 Cefazolin Sodium 2 gm/Dextrose 110 ml @ 110 mls/hr Q8H IVPB 07/18/17 13:00 07/25/17 12:59 07/19/17 05:35 Clonidine HCl (Catapres Tab) 0.1 mg QID PRN ORAL SBP > 160 07/15/17 17:29 08/14/17 17:28 07/15/17 17:56 Dextrose (Dextrose 50%) 25 ml STAT PRN IV Hypoglycemia 07/08/17 07:00 08/07/17 06:59 Dextrose (Dextrose 50%) 50 ml STAT PRN IV Hypoglycemia 07/08/17 07:00 08/07/17 06:59 Famotidine (Pepcid) 20 mg BID ORAL 07/08/17 09:00 08/07/17 08:59 07/18/17 17:22 Heparin Sodium (Porcine) (Heparin 5000 units/ml) 5,000 units EVERY 12 HOURS SUBQ 07/06/17 21:00 08/05/17 20:59 07/18/17 20:44 Insulin Aspart (NovoLOG) BEFORE MEALS AND HS SUBQ 07/08/17 06:30 08/07/17 06:29 07/19/17 05:58 Insulin Aspart (NovoLOG) 6 units NOVOTIAC SUBQ 07/10/17 11:50 08/07/17 06:59 07/19/17 05:59 Insulin Detemir (Levemir) 18 units Q12HR SUBQ 07/18/17 09:00 08/13/17 20:59 07/18/17 20:44 Lisinopril (Prinivil) 40 mg DAILY ORAL 07/12/17 09:00 08/11/17 08:59 07/18/17 08:38 Metoprolol Tartrate (Lopressor) 25 mg Q12HR ORAL 07/09/17 21:00 08/08/17 20:59 07/18/17 20:43 Multivitamins (Multivitamins) 1 tab DAILY ORAL 07/07/17 09:00 08/06/17 08:59 07/18/17 08:38 Mupirocin (Bactroban Oint) 1 applic Q24H TOPIC 07/16/17 21:00 07/21/17 20:59 07/18/17 21:13 Nicotine (Nicoderm) 1 patch Q24H TDERMAL 07/17/17 17:00 08/16/17 16:59 07/18/17 17:22 Ondansetron HCl (Zofran) 4 mg Q4HR PRN IVP Nausea & Vomiting 07/15/17 19:30 08/14/17 19:29 07/16/17 20:11 Triamterene/HCTZ (Dyazide) 1 cap BID ORAL 07/15/17 18:00 08/14/17 17:59 07/18/17 17:22 Item Value Date Time Bedside Blood Glucose 111 mg/dl 07/19/17 0630 Bedside Blood Glucose 223 mg/dl H 07/18/17 2100 Bedside Blood Glucose 99 mg/dl 5/8/18 1630 Bedside Blood Glucose 178 mg/dl H 07/18/17 1209 Bedside Blood Glucose 214 mg/dl H 07/18/17 0841 Bedside Blood Glucose 214 mg/dl H 07/18/17 0622 ADILENE JIMENEZ July 19, 2017 07:10
[2017-07-19] MEDS: Metoprolol 25mg tab ORAL SCH ×2 (08:20→22:12)
[2017-07-19] MEDS: Lisinopril 20mg tab ORAL SCH (08:21)
[2017-07-19] MEDS: Triamterene/Hctz 37.5/25 cap ORAL SCH ×2 (08:21→17:56)
[2017-07-19] MEDS: Levemir Flexpen SUBQ SCH ×2 (08:24→22:15)
[2017-07-19] MEDS: Heparin 5000 units/ml inj SUBQ SCH ×2 (08:25→22:17)
[2017-07-19 08:43] VITALS: BP 133/84
--- NOTE | 2017-07-19 09:16 | Progress Note ---
DATE: 07/18/2017 NOTE: "POOR AUDIO QUALITY" INTERNAL MEDICINE PROGRESS NOTE SUBJECTIVE: Chest pain noted. Drainage is somewhat purulent. Sounds are diminished. Exam otherwise unchanged. control slightly better. Blood pressure parameters with elevated . White count remains elevated at 18.2. PLAN: 1. Continue . 2. Continue exercise. 3. 4. Consider repeat imaging if condition deteriorates and signs of new or worsening infection are noted. 5. Maintain IV antibiotics. 6. Titrate insulin and antihypertensive regimen. 7. at bedside. Angel Cano M.D. DR: MARY JOB#: [id number] CC:
[2017-07-19 09:21] LABS: HEMATOCRIT 30.5 % (42.0-52.0); HEMOGLOBIN 10.1 G/DL (14.2-18.0); MEAN CORPUSCULAR VOLUME 77 FL (80-99); PLATELET COUNT 875 K/UL (150-450); RED BLOOD COUNT 3.93 M/UL (4.70-6.10); RED CELL DISTRIBUTION WIDTH 13.2 % (11.6-14.8); WHITE BLOOD COUNT 19.6 K/UL (4.8-10.8)
[2017-07-19 09:47] LABS: ALANINE AMINOTRANSFERASE 10 U/L (12-78); ALBUMIN/GLOBULIN RATIO 0.3 (1.0-2.7); ALKALINE PHOSPHATASE 119 U/L (46-116); ANION GAP 8 mmol/L (5-15); ASPARTATE AMINO TRANSFERASE 17 U/L (15-37); BILIRUBIN,TOTAL 0.2 MG/DL (0.2-1.0); BLOOD UREA NITROGEN 13 mg/dL (7-18); CALCIUM 9.6 MG/DL (8.5-10.1); CARBON DIOXIDE 28 MMOL/L (21-32); CHLORIDE 102 MMOL/L (98-107); POTASSIUM 3.9 MMOL/L (3.5-5.1); SODIUM 138 MMOL/L (136-145)
[2017-07-19 12:55] VITALS: BP 120/71
[2017-07-19] MEDS ORDERED: Isovue-300 100ml vial INJ PRN (13:45)
--- NOTE | 2017-07-19 14:01 | Infectious Diseases Prog Note ---
Assessment/Plan Assessment/Plan A 1. staph aureus sepsis, MSSA 2. left hip cellulitis improving 3. left buttock abscess s/p drainage 4. diabetes mellitus 5. leukocytosis 6. Diarrhea P 1. change Ancef to Cefepime & Flagyl 2. Case was D/W surgeon 3. will f/u CT scan & repeated wound culture from drain Subjective ROS Limited/Unobtainable: No Constitutional: Reports: no symptoms Cardiovascular: Reports: no symptoms Genitourinary: Reports: no symptoms Allergies: Coded Allergies: No Known Allergies (Unverified , 05/14/15) Objective Vital Signs Last 24 Hour Vital Signs Date Time Temp Pulse Resp B/P (MAP) Pulse Ox O2 Delivery O2 Flow Rate FiO2 07/19/17 12:55 97.3 71 18 120/71 Room Air 97.3 07/19/17 08:43 97.9 87 16 133/84 Room Air 97.9 07/19/17 08:21 140/90 07/19/17 08:20 91 140/90 07/19/17 04:24 Room Air 07/19/17 04:23 98.0 91 19 140/90 99 98.0 07/19/17 00:36 Room Air 07/19/17 00:35 98.2 97 18 131/80 98 98.2 07/18/17 20:44 Room Air 07/18/17 20:43 98.1 100 20 132/86 99 98.1 07/18/17 20:43 100 132/86 07/18/17 15:59 97.9 95 20 147/88 99 97.9 Height (Feet): 6 Height (Inches): 2.00 Weight (Pounds): 200 General Appearance: no acute distress HEENT: mucous membranes moist Respiratory/Chest: lungs clear Cardiovascular: normal rate Abdomen: soft, non tender Extremities: no edema Neurologic/Psychiatric: alert, oriented x 3, responsive Lymphatic: other - Gluteal drain Laboratory Tests Test 07/19/17 07:58 White Blood Count 19.6 K/UL (4.8-10.8) H Red Blood Count 3.93 M/UL (4.70-6.10) L Hemoglobin 10.1 G/DL (14.2-18.0) L Hematocrit 30.5 % (42.0-52.0) L Mean Corpuscular Volume 77 FL (80-99) L Mean Corpuscular Hemoglobin 25.5 PG (27.0-31.0) L Mean Corpuscular Hemoglobin Concent 33.0 G/DL (32.0-36.0) Red Cell Distribution Width 13.2 % (11.6-14.8) Platelet Count 875 K/UL (150-450) H Mean Platelet Volume 5.0 FL (6.5-10.1) L Neutrophils (%) (Auto) % (45.0-75.0) Lymphocytes (%) (Auto) % (20.0-45.0) Monocytes (%) (Auto) % (1.0-10.0) Eosinophils (%) (Auto) % (0.0-3.0) Basophils (%) (Auto) % (0.0-2.0) Differential Total Cells Counted 100 Neutrophils % (Manual) 74 % (45-75) Lymphocytes % (Manual) 18 % (20-45) L Monocytes % (Manual) 6 % (1-10) Eosinophils % (Manual) 1 % (0-3) Basophils % (Manual) 0 % (0-2) Band Neutrophils 1 % (0-8) Platelet Estimate Increased H Platelet Morphology Normal Hypochromasia 1+ Microcytosis 1+ Stomatocytes Occasional Sodium Level 138 MMOL/L (136-145) Potassium Level 3.9 MMOL/L (3.5-5.1) Chloride Level 102 MMOL/L (98-107) Carbon Dioxide Level 28 MMOL/L (21-32) Anion Gap 8 mmol/L (5-15) Blood Urea Nitrogen 13 mg/dL (7-18) Creatinine 1.0 MG/DL (0.55-1.30) Estimat Glomerular Filtration Rate > 60 mL/min (>60) Glucose Level 47 MG/DL (74-106) L Calcium Level 9.6 MG/DL (8.5-10.1) Total Bilirubin 0.2 MG/DL (0.2-1.0) Aspartate Amino Transf (AST/SGOT) 17 U/L (15-37) Alanine Aminotransferase (ALT/SGPT) 10 U/L (12-78) L Alkaline Phosphatase 119 U/L (46-116) H Total Protein 8.4 G/DL (6.4-8.2) H Albumin 2.0 G/DL (3.4-5.0) L Globulin 6.4 g/dL Albumin/Globulin Ratio 0.3 (1.0-2.7) L Current Medications Medications (Trade) Dose Ordered Sig/Shania Route PRN Reason Start Time Stop Time Status Last Admin Dose Admin Acetaminophen (Tylenol) 650 mg Q6H PRN ORAL Mild Pain/Temp > 100.5 07/06/17 17:32 08/05/17 17:31 07/12/17 03:21 Acetaminophen/ Hydrocodone Bitart ([place] 5/325) 1 tab Q6H PRN ORAL For MODERATE PAIN 07/13/17 19:22 07/20/17 19:21 07/19/17 06:03 Cefazolin Sodium 2 gm/Dextrose 110 ml @ 110 mls/hr Q8H IVPB 07/18/17 13:00 07/25/17 12:59 07/19/17 05:35 Clonidine HCl (Catapres Tab) 0.1 mg QID PRN ORAL SBP > 160 07/15/17 17:29 08/14/17 17:28 07/15/17 17:56 Dextrose (Dextrose 50%) 25 ml STAT PRN IV Hypoglycemia 07/08/17 07:00 08/07/17 06:59 Dextrose (Dextrose 50%) 50 ml STAT PRN IV Hypoglycemia 07/08/17 07:00 08/07/17 06:59 Famotidine (Pepcid) 20 mg BID ORAL 07/08/17 09:00 08/07/17 08:59 07/19/17 08:20 Heparin Sodium (Porcine) (Heparin 5000 units/ml) 5,000 units EVERY 12 HOURS SUBQ 07/06/17 21:00 08/05/17 20:59 07/19/17 08:25 Insulin Aspart (NovoLOG) BEFORE MEALS AND HS SUBQ 07/08/17 06:30 08/07/17 06:29 07/19/17 11:47 Insulin Aspart (NovoLOG) 6 units NOVOTIAC SUBQ 07/10/17 11:50 08/07/17 06:59 07/19/17 11:47 Insulin Detemir (Levemir) 18 units Q12HR SUBQ 07/18/17 09:00 08/13/17 20:59 07/19/17 08:24 Iopamidol (Isovue-300 100ml) 100 ml NOW PRN INJ Radiology Procedure 07/19/17 13:45 07/19/17 16:00 Lisinopril (Prinivil) 40 mg DAILY ORAL 07/12/17 09:00 08/11/17 08:59 07/19/17 08:21 Metoprolol Tartrate (Lopressor) 25 mg Q12HR ORAL 07/09/17 21:00 08/08/17 20:59 07/19/17 08:20 Multivitamins (Multivitamins) 1 tab DAILY ORAL 07/07/17 09:00 08/06/17 08:59 07/19/17 08:21 Mupirocin (Bactroban Oint) 1 applic Q24H TOPIC 07/16/17 21:00 07/21/17 20:59 07/18/17 21:13 Nicotine (Nicoderm) 1 patch Q24H TDERMAL 07/17/17 17:00 08/16/17 16:59 07/18/17 17:22 Ondansetron HCl (Zofran) 4 mg Q4HR PRN IVP Nausea & Vomiting 07/15/17 19:30 08/14/17 19:29 07/16/17 20:11 Triamterene/HCTZ (Dyazide) 1 cap BID ORAL 07/15/17 18:00 08/14/17 17:59 07/19/17 08:21 DANISHA SOAS July 19, 2017 14:01
--- NOTE | 2017-07-19 14:39 | Diagnostic Imaging Report ---
Indication: ABSCESS Technique: CT of the abdomen and pelvis utilizing automated exposure control with intravenous contrast. Venous scanning performed. Axial, sagittal and coronal reformats. Total Dose length Product (DLP): 991.[address] Dose Index Volume (CTDIvol): 18.16 mGy Comparison: CT of the pelvis 07/14/2017 Findings: There is dependent atelectasis in the lung bases. Heart size within normal limits. There is no pericardial effusion. There is apparent layering high attenuation material in the gallbladder suggestive of gallbladder sludge versus volume averaging artifact. No CT evidence to suggest an acute cholecystitis. Spleen, adrenal glands and pancreas grossly unremarkable. The kidneys enhance atrophy. There is no urinary tract stone or hydronephrosis bilaterally. There is mild thickening of the bladder wall. Prostate is not enlarged. There is no free intraperitoneal air. There is moderate distention of the stomach with ingested contents. There is copious stool in the colon suggestive of constipation. There is no definite evidence to suggest a small bowel obstruction. Appendix is normal. There is mild free fluid in the pelvis. A surgical drainage catheter is again noted in the left gluteal musculature. Catheter is unchanged in position from the prior exam. There is no significant residual fluid collection around the catheter. Anterior to the catheter however in the lateral soft tissues of the left hip there is a rim-enhancing fluid collection containing foci of air that tracks inferiorly down the vastus lateralis, as described on the prior exam. The more cephalad component of this abscess measures approximately 3.5 cm transverse by 6 cm AP (series 3 image #90). The inferior extent of the abscess is not totally covered on this exam. Given persistence since the prior exam is unlikely that the current drainage catheter is draining this collection and additional drainage should be pursued as clinically indicated. Is interval decreased edema and inflammatory change in the soft tissues of the left hip compared to the prior exam. There are some prominent bilateral inguinal lymph nodes, likely reactive in etiology. Abdominal aorta is normal in caliber. No acute osseous abnormality is seen. IMPRESSION: Interval decrease in edema and inflammatory change in the soft tissues of the left hip. Surgical drainage catheter in place in the left gluteal musculature. No significant fluid collection around the catheter. There is however a persistent collection of fluid and air more anteriorly in the lateral soft tissues of the left hip which was noted to track inferiorly along the vastus lateralis on the exam of 07/14/2017. This collection (series 3 image #90) is overall unchanged and is likely not being drained by the current catheter. Consider placement of additional percutaneous drainage catheter as clinically indicated. Trace nonspecific free fluid in the pelvis. Copious stool in the colon suggestive of constipation. Moderate distention of the stomach with ingested material. Correlate clinically to exclude a degree of gastric outlet obstruction/gastroparesis. Apparent layering high attenuation material in the gallbladder suggestive of gallbladder sludge versus volume averaging artifact. No CT evidence to suggest an acute cholecystitis The CT scanner at [facility] is accredited by the [employer] and the scans are performed using dose optimization techniques as appropriate to a performed exam including Automatic Exposure control.
[2017-07-19] MEDS ORDERED: Lidocaine 1% Plain 30 ml INJ SCH (15:15)
[2017-07-19] MEDS: metroNIDAZOLE 500mg tab ORAL SCH ×2 (15:15→22:14)
--- NOTE | 2017-07-19 15:30 | General Surgery Progress Note ---
General Surgery-Progress Note Subjective Procedure Performed 1. incision and drainage of left deep intermuscular gluteal abscess 2. drain placement with complex multi layer closure using adjacent skin tissues Additional Comments worsening leukocytosis. exam much improved. repeat CT with unresolved small fluid collection tracking down possibly not being drained by current drain Objective Last 24 Hour Vital Signs Date Time Temp Pulse Resp B/P (MAP) Pulse Ox O2 Delivery O2 Flow Rate FiO2 07/19/17 12:55 97.3 71 18 120/71 Room Air 97.3 07/19/17 08:43 97.9 87 16 133/84 Room Air 97.9 07/19/17 08:21 140/90 07/19/17 08:20 91 140/90 07/19/17 04:24 Room Air 07/19/17 04:23 98.0 91 19 140/90 99 98.0 07/19/17 00:36 Room Air 07/19/17 00:35 98.2 97 18 131/80 98 98.2 07/18/17 20:44 Room Air 07/18/17 20:43 98.1 100 20 132/86 99 98.1 07/18/17 20:43 100 132/86 07/18/17 15:59 97.9 95 20 147/88 99 97.9 I&O Intake and Output 07/18/17 07/19/17 19:00 07:00 Intake Total 460 ml 580 ml Output Total 40 ml 40 ml Balance 420 ml 540 ml Intake Oral 460 ml 360 ml IV Total 220 ml Drainage Total 40 ml 40 ml # Voids 3 2 Wound: clean, dry, intact Drains: liborio Cardiovascular: RSR Respiratory: clear Abdomen: soft, non-tender, present bowel sounds Extremities: edema - edema much improved , no tenderness, no cyanosis Laboratory Tests Test 07/19/17 07:58 White Blood Count 19.6 K/UL (4.8-10.8) H Red Blood Count 3.93 M/UL (4.70-6.10) L Hemoglobin 10.1 G/DL (14.2-18.0) L Hematocrit 30.5 % (42.0-52.0) L Mean Corpuscular Volume 77 FL (80-99) L Mean Corpuscular Hemoglobin 25.5 PG (27.0-31.0) L Mean Corpuscular Hemoglobin Concent 33.0 G/DL (32.0-36.0) Red Cell Distribution Width 13.2 % (11.6-14.8) Platelet Count 875 K/UL (150-450) H Mean Platelet Volume 5.0 FL (6.5-10.1) L Neutrophils (%) (Auto) % (45.0-75.0) Lymphocytes (%) (Auto) % (20.0-45.0) Monocytes (%) (Auto) % (1.0-10.0) Eosinophils (%) (Auto) % (0.0-3.0) Basophils (%) (Auto) % (0.0-2.0) Differential Total Cells Counted 100 Neutrophils % (Manual) 74 % (45-75) Lymphocytes % (Manual) 18 % (20-45) L Monocytes % (Manual) 6 % (1-10) Eosinophils % (Manual) 1 % (0-3) Basophils % (Manual) 0 % (0-2) Band Neutrophils 1 % (0-8) Platelet Estimate Increased H Platelet Morphology Normal Hypochromasia 1+ Microcytosis 1+ Stomatocytes Occasional Sodium Level 138 MMOL/L (136-145) Potassium Level 3.9 MMOL/L (3.5-5.1) Chloride Level 102 MMOL/L (98-107) Carbon Dioxide Level 28 MMOL/L (21-32) Anion Gap 8 mmol/L (5-15) Blood Urea Nitrogen 13 mg/dL (7-18) Creatinine 1.0 MG/DL (0.55-1.30) Estimat Glomerular Filtration Rate > 60 mL/min (>60) Glucose Level 47 MG/DL (74-106) L Calcium Level 9.6 MG/DL (8.5-10.1) Total Bilirubin 0.2 MG/DL (0.2-1.0) Aspartate Amino Transf (AST/SGOT) 17 U/L (15-37) Alanine Aminotransferase (ALT/SGPT) 10 U/L (12-78) L Alkaline Phosphatase 119 U/L (46-116) H Total Protein 8.4 G/DL (6.4-8.2) H Albumin 2.0 G/DL (3.4-5.0) L Globulin 6.4 g/dL Albumin/Globulin Ratio 0.3 (1.0-2.7) L Plan Problems: (1) Gluteal abscess Assessment & Plan: 37M with left gluteal abscess. low grade fever, leukocytosis, on exam overlying tissue with edema, erythema, warmth, cellulitis. CT with large abscess between major and minor muscle. s/p Ultrasound guided drain placement for evacuation of abscess by radiology. If able to successfully drain via catheter will do so. unfortunately it has been present for some time now and fluid may be viscous and unable to drain without formal incision and drainage. s/p I&D. recovering. CT with IV contrast reviewed. no definitive abscess noted. drain in good positioning. Afebrile, HD stable, improving slowly. leukocytosis 19K now drain output much better today and becoming serous CT repeated and fluid collection noted that is not being drained. small. will attempt radiological drainage today. if unsuccessful will need another I& D in OR. will follow with recs. thank you for this consultation. Nahid Bartholomew July 19, 2017 15:30
--- NOTE | 2017-07-19 16:12 | Pre-Procedure Note/Attestation ---
Pre-Procedure Note/Attestation Complete Prior to Procedure Planned Procedure: left Procedure Narrative: CT guided aspiration left hip collection/abscess Indications for Procedure Pre-Operative Diagnosis: left hip soft tissue collection/abscess Attestation I attest that I discussed the nature of the procedure; its benefits; risks and complications; and alternatives (and the risks and benefits of such alternatives ), prior to the procedure, with the patient (or the patient's legal food products sales representative). I attest that, if there was a reasonable possibility of needing a blood transfusion, the patient (or the patient's legal food products sales representative) was given the [facility] standardized written summary, pursuant to the [place] Zohra Blood Safety Act ([place] Health and Safety Code # 1645, as amended). I attest that I re-evaluated the patient just prior to the surgery and that there has been no change in the patient's H&P, except as documented below: Raoul Morales M.D. July 19, 2017 16:12
[2017-07-19 16:25] VITALS: BP 156/97
--- NOTE | 2017-07-19 16:32 | Nephrology Progress Note ---
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 (6) Fluid overload Plan creat clearance 69 24 hr protein 1100 mg to repeat, I calculate 950 mg mild proteinuria does not explain severly low albumin, liver serologies negative for hepatitis, dyazide+acei for diuresis and renal protection, low albumin likely nutritional from prolonged abscess, animal control supervisor to provide supplements, low Na diet, surgery for abscess Subjective Constitutional: Reports: no symptoms HEENT: Reports: no symptoms Genitourinary: Reports: no symptoms Neurologic/Psychiatric: Reports: no symptoms Objective Objective Last 24 Hour Vital Signs Date Time Temp Pulse Resp B/P (MAP) Pulse Ox O2 Delivery O2 Flow Rate FiO2 07/19/17 16:25 97.7 97 16 156/97 97 Room Air 97.7 07/19/17 16:22 97.7 97 16 97 Room Air 97.7 07/19/17 12:55 97.3 71 18 120/71 Room Air 97.3 07/19/17 08:43 97.9 87 16 133/84 Room Air 97.9 07/19/17 08:21 140/90 07/19/17 08:20 91 140/90 07/19/17 04:24 Room Air 07/19/17 04:23 98.0 91 19 140/90 99 98.0 07/19/17 00:36 Room Air 07/19/17 00:35 98.2 97 18 131/80 98 98.2 07/18/17 20:44 Room Air 07/18/17 20:43 98.1 100 20 132/86 99 98.1 07/18/17 20:43 100 132/86 Intake and Output 07/18/17 07/19/17 19:00 07:00 Intake Total 460 ml 580 ml Output Total 40 ml 40 ml Balance 420 ml 540 ml Intake Oral 460 ml 360 ml IV Total 220 ml Drainage Total 40 ml 40 ml # Voids 3 2 Laboratory Tests 07/19/17 07:58: White Blood Count 19.6H, Red Blood Count 3.93L, Hemoglobin 10.1L, Hematocrit 30.5L, Mean Corpuscular Volume 77L, Mean Corpuscular Hemoglobin 25.5L, Mean Corpuscular Hemoglobin Concent 33.0, Red Cell Distribution Width 13.2, Platelet Count 875H, Mean Platelet Volume 5.0L, Neutrophils (%) (Auto) , Lymphocytes (%) (Auto) , Monocytes (%) (Auto) , Eosinophils (%) (Auto) , Basophils (%) (Auto) , Differential Total Cells Counted 100, Neutrophils % (Manual) 74, Lymphocytes % ( Manual) 18L, Monocytes % (Manual) 6, Eosinophils % (Manual) 1, Basophils % ( Manual) 0, Band Neutrophils 1, Platelet Estimate IncreasedH, Platelet Morphology Normal, Hypochromasia 1+, Microcytosis 1+, Stomatocytes Occasional, Sodium Level 138, Potassium Level 3.9, Chloride Level 102, Carbon Dioxide Level 28, Anion Gap 8, Blood Urea Nitrogen 13, Creatinine 1.0, Estimat Glomerular Filtration Rate > 60, Glucose Level 47L, Calcium Level 9.6, Total Bilirubin 0.2 , Aspartate Amino Transf (AST/SGOT) 17, Alanine Aminotransferase (ALT/SGPT) 10L , Alkaline Phosphatase 119H, Total Protein 8.4H, Albumin 2.0L, Globulin 6.4, Albumin/Globulin Ratio 0.3L Height (Feet): 6 Height (Inches): 2.00 Weight (Pounds): 200 General Appearance: no apparent distress, alert EENT: normal ENT inspection Neck: normal alignment Cardiovascular: normal rate, regular rhythm Respiratory/Chest: lungs clear Abdomen: non tender Extremities: moderate edema Neurologic: prescriptionist II-XII grossly normal MAURICIO BERNABE July 19, 2017 16:32
--- NOTE | 2017-07-19 18:21 | Operative Note - PDOC ---
Operative Note Operative Note Date of Operation/Procedure: July 19, 2017 Pre-op Diagnosis: left hip soft tissue collection/abscess Post-op Diagnosis: same as pre-op Surgeon: jaida Anesthesiologist: alonzo Anesthesia: general, local Specimen: yes Complications: none Condition: stable Fluids: see records Estimated Blood Loss: minimal Drains: none Implant(s) used?: No Indications for Procedure residual left hip fluid collections Description of Procedure attempted CT guided drainage. Initially placed a 12F drain however unable to form pigtail given small collection and somewhat indurated skin/soft tissues. Attempted from different approach and again unable to form the pigtail of the drainage catheter. Aspiration was performed yeilding approximately 45mL of bloody pus, specimen sent for culture. Unfortunately no drain was left in place as the pigtail could not form. Raoul Morales M.D. July 19, 2017 18:21
--- NOTE | 2017-07-19 19:14 | Diagnostic Imaging Report ---
Indication: Residual left hip abscess Technique: Informed consent obtained. Patient positioned on the CT table with good marker over the left hip. Findings CT was performed. Appropriate access site was chosen and prepped and draped in usual sterile fashion. It was locally anesthetized 1% lidocaine. Under CT guidance the abscess was accessed with a 12 German multiple purpose drainage catheter utilizing trocar technique. The catheter was advanced off the stiffening however the pigtail cannot be formed and locked within the collection. Multiple attempts were made at trying to form the drainage catheter within this collection including using a different, more anterior access site. This was ultimately unsuccessful, possibly related to the induration of the skin the thin nature of the abscess. Aspiration was then performed via the catheter and a straight/nonlocked position yielding approximately 45 cc of bloody pus. A specimen was sent for culture and sensitivity. As no further aspiration was able to be performed via the catheter and given the instability, the catheter was removed. Sterile dressings were applied. IMPRESSION: CT-guided aspiration of residual left hip abscess as above yielding approximately 45 cc of bloody pus. Specimen was sent for culture and sensitivity. Unfortunately, the pigtail of the 12 German drainage catheter would not form despite multiple attempts. This may be related to the thin, superficial nature of the collection. Aspiration was performed with the catheter in an nonlocked/straight position until no further fluid was returned. Given inability to lock the catheter and no further yield on aspiration, the catheter was removed. The CT scanner at [facility] is accredited by the [employer] and the scans are performed using protocols designed to limit radiation exposure to as low as reasonably achievable to attain images of sufficient resolution adequate for diagnostic evaluation.
[2017-07-19 20:00] VITALS: BP 134/86
[2017-07-19] MEDS: Cefepime HCl 1 GM in D5W 55 ML IVPB SCH (22:12)
[2017-07-20] VITALS: BP 149/99
--- NOTE | 2017-07-20 03:30 | Progress Note ---
DATE: 07/19/2017 INTERNAL MEDICINE PROGRESS NOTE SUBJECTIVE: Case was reviewed with the surgeon. The patient's white count has risen slightly today to over 19,000. Imaging studies revealed no new pocket of pus. The patient was sent to Interventional Radiology for drainage procedure, which was accomplished with 45 mL of bloody pus removed. The drainage catheter, however, could not be maintained in the site due to coiling and it was removed. OBJECTIVE: VITAL SIGNS: Afebrile, blood pressure 149/99, postprocedure and earlier 134/86, heart rate 94, and respiratory rate 18. LUNGS: Clear. CARDIAC: Regular. ABDOMEN: Soft. EXTREMITIES: Left leg with trace edema and warmth around the buttocks region and groin. IMPRESSION: 1. Buttocks abscess. 2. Insulin-requiring diabetes mellitus. 3. Hypertensive heart disease. 4. Chronic kidney disease with mild proteinuria. 5. Severe protein-calorie malnutrition, slightly improving. PLAN: 1. Continue antibiotics. 2. Follow up imaging studies will be required in the next few days to reassess for new abscess. 3. Continue monitoring clinical parameters and white blood counts. 4. Titrate insulin. 5. DVT prophylaxis. Angel Cano M.D. DR: JOHNNIE JOB#: [id number] CC:
[2017-07-20 04:00] VITALS: BP 144/90
[2017-07-20] MEDS: metroNIDAZOLE 500mg tab ORAL SCH ×3 (06:19→22:24)
[2017-07-20] MEDS: NovoLOG Insulin Flexpen SUBQ SCH ×7 (06:21→22:24)
[2017-07-20 07:59] LABS: BASOPHILS % (AUTO) 0.7 % (0.0-2.0); EOSINOPHILS % (AUTO) 1.6 % (0.0-3.0); HEMATOCRIT 28.9 % (42.0-52.0); HEMOGLOBIN 9.3 G/DL (14.2-18.0); LYMPHOCYTES % (AUTO) 18.3 % (20.0-45.0); MEAN CORPUSCULAR VOLUME 78 FL (80-99); MONOCYTES % (AUTO) 4.7 % (1.0-10.0); NEUTROPHILS % (AUTO) 74.6 % (45.0-75.0); PLATELET COUNT 758 K/UL (150-450); RED BLOOD COUNT 3.71 M/UL (4.70-6.10); RED CELL DISTRIBUTION WIDTH 13.7 % (11.6-14.8); WHITE BLOOD COUNT 13.9 K/UL (4.8-10.8)
[2017-07-20 08:00] VITALS: BP 121/80
[2017-07-20 08:18] LABS: ANION GAP 7 mmol/L (5-15); BLOOD UREA NITROGEN 16 mg/dL (7-18); CALCIUM 9.1 MG/DL (8.5-10.1); CARBON DIOXIDE 29 MMOL/L (21-32); CHLORIDE 100 MMOL/L (98-107); CREATININE 1.1 MG/DL (0.55-1.30); POTASSIUM 4.7 MMOL/L (3.5-5.1); SODIUM 136 MMOL/L (136-145)
[2017-07-20 08:20] LABS: ALANINE AMINOTRANSFERASE 10 U/L (12-78); ALKALINE PHOSPHATASE 108 U/L (46-116); ASPARTATE AMINO TRANSFERASE 14 U/L (15-37); BILIRUBIN,DIRECT 0.1 MG/DL (0.0-0.3); BILIRUBIN,TOTAL 0.2 MG/DL (0.2-1.0)
[2017-07-20] MEDS: Lisinopril 20mg tab ORAL SCH (09:13)
[2017-07-20] MEDS: Metoprolol 25mg tab ORAL SCH ×2 (09:13→22:20)
[2017-07-20] MEDS: Triamterene/Hctz 37.5/25 cap ORAL SCH ×2 (09:14→18:02)
[2017-07-20] MEDS: Cefepime HCl 1 GM in D5W 55 ML IVPB SCH ×2 (09:14→22:18)
[2017-07-20] MEDS: Heparin 5000 units/ml inj SUBQ SCH ×2 (09:19→22:22)
[2017-07-20] MEDS: Levemir Flexpen SUBQ SCH ×2 (09:21→22:23)
[2017-07-20] MEDS ORDERED: Tubing IV Secondary IV ONE (09:32)
--- NOTE | 2017-07-20 11:31 | General Surgery Progress Note ---
General Surgery-Progress Note Subjective Procedure Performed 1. incision and drainage of left deep intermuscular gluteal abscess 2. drain placement with complex multi layer closure using adjacent skin tissues Symptoms: improved, pain absent Additional Comments no acute events. had drainage yesterday by radiology. collection evacuated and no drain placed. changed abx today leukocytosis improved. doing well. no complaints. Objective Last 24 Hour Vital Signs Date Time Temp Pulse Resp B/P (MAP) Pulse Ox O2 Delivery O2 Flow Rate FiO2 07/20/17 09:13 121/80 07/20/17 09:13 89 121/80 07/20/17 08:00 98.1 89 20 121/80 98 98.1 07/20/17 04:00 97.5 83 18 144/90 99 97.5 07/20/17 00:00 97.9 93 18 149/99 100 97.9 07/19/17 22:12 94 134/86 07/19/17 20:00 97.9 94 18 134/86 97 97.9 07/19/17 18:55 97.7 07/19/17 16:25 97.7 97 16 156/97 97 Room Air 97.7 07/19/17 16:22 97.7 97 16 97 Room Air 97.7 07/19/17 12:55 97.3 71 18 120/71 Room Air 97.3 I&O Intake and Output 07/19/17 07/20/17 19:00 07:00 Intake Total 420 ml 535 ml Output Total 40 ml 45 ml Balance 380 ml 490 ml Intake Oral 420 ml 480 ml IV Total 55 ml Drainage Total 40 ml 45 ml # Voids 4 2 Wound: clean, dry, intact Drains: liborio - drain output much improved and almost serous today Cardiovascular: RSR Respiratory: clear Abdomen: soft, flat, non-tender, present bowel sounds Extremities: edema - minimal residural edema, no tenderness, no cyanosis Laboratory Tests Test 07/20/17 06:55 White Blood Count 13.9 K/UL (4.8-10.8) H Red Blood Count 3.71 M/UL (4.70-6.10) L Hemoglobin 9.3 G/DL (14.2-18.0) L Hematocrit 28.9 % (42.0-52.0) L Mean Corpuscular Volume 78 FL (80-99) L Mean Corpuscular Hemoglobin 25.1 PG (27.0-31.0) L Mean Corpuscular Hemoglobin Concent 32.1 G/DL (32.0-36.0) Red Cell Distribution Width 13.7 % (11.6-14.8) Platelet Count 758 K/UL (150-450) H Mean Platelet Volume 5.1 FL (6.5-10.1) L Neutrophils (%) (Auto) 74.6 % (45.0-75.0) Lymphocytes (%) (Auto) 18.3 % (20.0-45.0) L Monocytes (%) (Auto) 4.7 % (1.0-10.0) Eosinophils (%) (Auto) 1.6 % (0.0-3.0) Basophils (%) (Auto) 0.7 % (0.0-2.0) Sodium Level 136 MMOL/L (136-145) Potassium Level 4.7 MMOL/L (3.5-5.1) Chloride Level 100 MMOL/L (98-107) Carbon Dioxide Level 29 MMOL/L (21-32) Anion Gap 7 mmol/L (5-15) Blood Urea Nitrogen 16 mg/dL (7-18) Creatinine 1.1 MG/DL (0.55-1.30) Estimat Glomerular Filtration Rate > 60 mL/min (>60) Glucose Level 239 MG/DL (74-106) #H Calcium Level 9.1 MG/DL (8.5-10.1) Total Bilirubin 0.2 MG/DL (0.2-1.0) Direct Bilirubin 0.1 MG/DL (0.0-0.3) Aspartate Amino Transf (AST/SGOT) 14 U/L (15-37) L Alanine Aminotransferase (ALT/SGPT) 10 U/L (12-78) L Alkaline Phosphatase 108 U/L (46-116) Total Protein 7.9 G/DL (6.4-8.2) Albumin 2.0 G/DL (3.4-5.0) L Plan Problems: (1) Gluteal abscess Assessment & Plan: 37M with left gluteal abscess. low grade fever, leukocytosis, on exam overlying tissue with edema, erythema, warmth, cellulitis. CT with large abscess between major and minor muscle. s/p I&D, drain, radiological aspiration. recovering. Afebrile, HD stable, improving slowly. leukocytosis 13k today! drain output much better today and becoming serous exam benign. -cont abx -cont drain -trend labs -much improved and continues to do so -will follow. thank you will follow with recs. thank you for this consultation. Nahid Bartholomew July 20, 2017 11:31
[2017-07-20 12:00] VITALS: BP 140/75
--- NOTE | 2017-07-20 13:58 | Infectious Diseases Prog Note ---
Assessment/Plan Assessment/Plan A 1. staph aureus sepsis, MSSA 2. left hip cellulitis improving 3. left buttock abscess s/p drainage 4. diabetes mellitus 5. leukocytosis improving P 1. continue Cefepime & Flagyl 2. Case was D/W surgeon 3. will f/u cultures Subjective ROS Limited/Unobtainable: No Constitutional: Reports: no symptoms Respiratory: Reports: no symptoms Cardiovascular: Reports: no symptoms Gastrointestinal/Abdominal: Reports: nausea Genitourinary: Reports: no symptoms Musculoskeletal: Reports: other - had CT drainage of Abscess in gluteal area Allergies: Coded Allergies: No Known Allergies (Unverified , 05/14/15) Objective Vital Signs Last 24 Hour Vital Signs Date Time Temp Pulse Resp B/P (MAP) Pulse Ox O2 Delivery O2 Flow Rate FiO2 07/20/17 12:00 98.0 76 20 140/75 98 98.0 07/20/17 09:13 121/80 07/20/17 09:13 89 121/80 07/20/17 08:00 98.1 89 20 121/80 98 98.1 07/20/17 04:00 97.5 83 18 144/90 99 97.5 07/20/17 00:00 97.9 93 18 149/99 100 97.9 07/19/17 22:12 94 134/86 07/19/17 20:00 97.9 94 18 134/86 97 97.9 07/19/17 18:55 97.7 07/19/17 16:25 97.7 97 16 156/97 97 Room Air 97.7 07/19/17 16:22 97.7 97 16 97 Room Air 97.7 Height (Feet): 6 Height (Inches): 2.00 Weight (Pounds): 200 General Appearance: no acute distress HEENT: mucous membranes moist Respiratory/Chest: lungs clear Cardiovascular: normal rate Abdomen: soft, non tender Extremities: no edema Neurologic/Psychiatric: alert, oriented x 3, responsive Musculoskeletal: other - left gluteal drain Microbiology Date/Time Source Procedure Growth Status 07/19/17 13:45 Drainage Fluid Gram Stain - Final Resulted 07/19/17 13:45 Drainage Fluid Body Fluid Culture - Preliminary Resulted Laboratory Tests Test 07/20/17 06:55 White Blood Count 13.9 K/UL (4.8-10.8) H Red Blood Count 3.71 M/UL (4.70-6.10) L Hemoglobin 9.3 G/DL (14.2-18.0) L Hematocrit 28.9 % (42.0-52.0) L Mean Corpuscular Volume 78 FL (80-99) L Mean Corpuscular Hemoglobin 25.1 PG (27.0-31.0) L Mean Corpuscular Hemoglobin Concent 32.1 G/DL (32.0-36.0) Red Cell Distribution Width 13.7 % (11.6-14.8) Platelet Count 758 K/UL (150-450) H Mean Platelet Volume 5.1 FL (6.5-10.1) L Neutrophils (%) (Auto) 74.6 % (45.0-75.0) Lymphocytes (%) (Auto) 18.3 % (20.0-45.0) L Monocytes (%) (Auto) 4.7 % (1.0-10.0) Eosinophils (%) (Auto) 1.6 % (0.0-3.0) Basophils (%) (Auto) 0.7 % (0.0-2.0) Sodium Level 136 MMOL/L (136-145) Potassium Level 4.7 MMOL/L (3.5-5.1) Chloride Level 100 MMOL/L (98-107) Carbon Dioxide Level 29 MMOL/L (21-32) Anion Gap 7 mmol/L (5-15) Blood Urea Nitrogen 16 mg/dL (7-18) Creatinine 1.1 MG/DL (0.55-1.30) Estimat Glomerular Filtration Rate > 60 mL/min (>60) Glucose Level 239 MG/DL (74-106) #H Calcium Level 9.1 MG/DL (8.5-10.1) Total Bilirubin 0.2 MG/DL (0.2-1.0) Direct Bilirubin 0.1 MG/DL (0.0-0.3) Aspartate Amino Transf (AST/SGOT) 14 U/L (15-37) L Alanine Aminotransferase (ALT/SGPT) 10 U/L (12-78) L Alkaline Phosphatase 108 U/L (46-116) Total Protein 7.9 G/DL (6.4-8.2) Albumin 2.0 G/DL (3.4-5.0) L Current Medications Medications (Trade) Dose Ordered Sig/Shania Route PRN Reason Start Time Stop Time Status Last Admin Dose Admin Acetaminophen (Tylenol) 650 mg Q6H PRN ORAL Mild Pain/Temp > 100.5 07/06/17 17:32 08/05/17 17:31 07/12/17 03:21 Acetaminophen/ Hydrocodone Bitart ([place] 5/325) 1 tab Q6H PRN ORAL For MODERATE PAIN 07/13/17 19:22 07/20/17 19:21 07/19/17 17:56 Cefepime HCl 1 gm/ Dextrose 55 ml @ 110 mls/hr EVERY 12 HOURS IVPB 07/19/17 21:00 07/26/17 20:59 07/20/17 09:14 Clonidine HCl (Catapres Tab) 0.1 mg QID PRN ORAL SBP > 160 07/15/17 17:29 08/14/17 17:28 07/15/17 17:56 Dextrose (Dextrose 50%) 25 ml STAT PRN IV Hypoglycemia 07/08/17 07:00 08/07/17 06:59 Dextrose (Dextrose 50%) 50 ml STAT PRN IV Hypoglycemia 07/08/17 07:00 08/07/17 06:59 Famotidine (Pepcid) 20 mg BID ORAL 07/08/17 09:00 08/07/17 08:59 07/20/17 09:14 Heparin Sodium (Porcine) (Heparin 5000 units/ml) 5,000 units EVERY 12 HOURS SUBQ 07/06/17 21:00 08/05/17 20:59 07/20/17 09:19 Insulin Aspart (NovoLOG) BEFORE MEALS AND HS SUBQ 07/08/17 06:30 08/07/17 06:29 07/20/17 12:09 Insulin Aspart (NovoLOG) 6 units NOVOTIAC SUBQ 07/10/17 11:50 08/07/17 06:59 07/20/17 06:21 Insulin Detemir (Levemir) 18 units Q12HR SUBQ 07/18/17 09:00 08/13/17 20:59 07/20/17 09:21 Lisinopril (Prinivil) 40 mg DAILY ORAL 07/12/17 09:00 08/11/17 08:59 07/20/17 09:13 Metoprolol Tartrate (Lopressor) 25 mg Q12HR ORAL 07/09/17 21:00 08/08/17 20:59 07/20/17 09:13 Metronidazole (Flagyl) 500 mg Q8HR ORAL 07/19/17 14:00 07/26/17 13:59 07/20/17 06:19 Multivitamins (Multivitamins) 1 tab DAILY ORAL 07/07/17 09:00 08/06/17 08:59 07/20/17 09:13 Mupirocin (Bactroban Oint) 1 applic Q24H TOPIC 07/16/17 21:00 07/21/17 20:59 07/19/17 22:13 Nicotine (Nicoderm) 1 patch Q24H TDERMAL 07/17/17 17:00 08/16/17 16:59 07/19/17 17:56 Ondansetron HCl (Zofran) 4 mg Q4HR PRN IVP Nausea & Vomiting 07/15/17 19:30 08/14/17 19:29 07/16/17 20:11 Triamterene/HCTZ (Dyazide) 1 cap BID ORAL 07/15/17 18:00 08/14/17 17:59 07/20/17 09:14 DANISHA SOSA July 20, 2017 13:58
[2017-07-20 16:00] VITALS: BP 130/84
--- NOTE | 2017-07-20 18:58 | Nephrology Progress Note ---
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 (6) Fluid overload Plan creat clearance 69 24 hr protein 1100 mg to repeat, I calculate 950 mg mild proteinuria does not explain severly low albumin, liver serologies negative for hepatitis, dyazide+acei for diuresis and renal protection, low albumin likely nutritional from prolonged abscess, roaster operator to provide supplements, low Na diet, surgery for abscess done, edema less, rnal function stable Subjective HEENT: Reports: no symptoms Genitourinary: Reports: no symptoms Neurologic/Psychiatric: Reports: no symptoms Objective Objective Last 24 Hour Vital Signs Date Time Temp Pulse Resp B/P (MAP) Pulse Ox O2 Delivery O2 Flow Rate FiO2 07/20/17 16:00 98.0 85 20 130/84 98 98.0 07/20/17 12:00 98.0 76 20 140/75 98 98.0 07/20/17 09:13 121/80 07/20/17 09:13 89 121/80 07/20/17 08:00 98.1 89 20 121/80 98 98.1 07/20/17 04:00 97.5 83 18 144/90 99 97.5 07/20/17 00:00 97.9 93 18 149/99 100 97.9 07/19/17 22:12 94 134/86 07/19/17 20:00 97.9 94 18 134/86 97 97.9 Intake and Output 07/19/17 07/20/17 19:00 07:00 Intake Total 420 ml 535 ml Output Total 40 ml 45 ml Balance 380 ml 490 ml Intake Oral 420 ml 480 ml IV Total 55 ml Drainage Total 40 ml 45 ml # Voids 4 2 Laboratory Tests 07/20/17 06:55: White Blood Count 13.9H, Red Blood Count 3.71L, Hemoglobin 9.3L, Hematocrit 28.9L, Mean Corpuscular Volume 78L, Mean Corpuscular Hemoglobin 25.1L, Mean Corpuscular Hemoglobin Concent 32.1, Red Cell Distribution Width 13.7, Platelet Count 758H, Mean Platelet Volume 5.1L, Neutrophils (%) (Auto) 74.6, Lymphocytes (%) (Auto) 18.3L, Monocytes (%) (Auto) 4.7, Eosinophils (%) (Auto) 1.6, Basophils (%) (Auto) 0.7, Sodium Level 136, Potassium Level 4.7, Chloride Level 100, Carbon Dioxide Level 29, Anion Gap 7, Blood Urea Nitrogen 16, Creatinine 1.1, Estimat Glomerular Filtration Rate > 60, Glucose Level 239#H, Calcium Level 9.1, Total Bilirubin 0.2, Direct Bilirubin 0.1, Aspartate Amino Transf ( AST/SGOT) 14L, Alanine Aminotransferase (ALT/SGPT) 10L, Alkaline Phosphatase 108 , Total Protein 7.9, Albumin 2.0L Height (Feet): 6 Height (Inches): 2.00 Weight (Pounds): 200 General Appearance: no apparent distress EENT: normal ENT inspection Neck: normal alignment Respiratory/Chest: lungs clear Abdomen: no organomegaly Extremities: trace edema Neurologic: balance staff staker II-XII grossly normal MAURICIO BERNABE July 20, 2017 18:58
--- NOTE | 2017-07-20 19:41 | General Progress Note ---
Assessment/Plan Problem List: (1) Hyperglycemia ICD Codes: R73.9 - Hyperglycemia, unspecified SNOMED: 80745286 (2) Cellulitis of hip, left ICD Codes: L03.116 - Cellulitis of left lower limb SNOMED: 4639854 (3) Gluteal abscess ICD Codes: L02.31 - Cutaneous abscess of buttock SNOMED: 65229863 Assessment/Plan - continue Levemir 18 units bid - continue Novolog 6 units ac tid, hold if not eating - continue NISS Subjective Allergies: Coded Allergies: No Known Allergies (Unverified , 05/14/15) All Systems: reviewed and negative except above Subjective events noted - interval notes reviewed Objective Last 24 Hour Vital Signs Date Time Temp Pulse Resp B/P (MAP) Pulse Ox O2 Delivery O2 Flow Rate FiO2 07/20/17 16:00 98.0 85 20 130/84 98 98.0 07/20/17 12:00 98.0 76 20 140/75 98 98.0 07/20/17 09:13 121/80 07/20/17 09:13 89 121/80 07/20/17 08:00 98.1 89 20 121/80 98 98.1 07/20/17 04:00 97.5 83 18 144/90 99 97.5 07/20/17 00:00 97.9 93 18 149/99 100 97.9 07/19/17 22:12 94 134/86 07/19/17 20:00 97.9 94 18 134/86 97 97.9 Intake and Output 07/19/17 07/20/17 19:00 07:00 Intake Total 420 ml 535 ml Output Total 40 ml 45 ml Balance 380 ml 490 ml Intake Oral 420 ml 480 ml IV Total 55 ml Drainage Total 40 ml 45 ml # Voids 4 2 Laboratory Tests 07/20/17 06:55: White Blood Count 13.9H, Red Blood Count 3.71L, Hemoglobin 9.3L, Hematocrit 28.9L, Mean Corpuscular Volume 78L, Mean Corpuscular Hemoglobin 25.1L, Mean Corpuscular Hemoglobin Concent 32.1, Red Cell Distribution Width 13.7, Platelet Count 758H, Mean Platelet Volume 5.1L, Neutrophils (%) (Auto) 74.6, Lymphocytes (%) (Auto) 18.3L, Monocytes (%) (Auto) 4.7, Eosinophils (%) (Auto) 1.6, Basophils (%) (Auto) 0.7, Sodium Level 136, Potassium Level 4.7, Chloride Level 100, Carbon Dioxide Level 29, Anion Gap 7, Blood Urea Nitrogen 16, Creatinine 1.1, Estimat Glomerular Filtration Rate > 60, Glucose Level 239#H, Calcium Level 9.1, Total Bilirubin 0.2, Direct Bilirubin 0.1, Aspartate Amino Transf ( AST/SGOT) 14L, Alanine Aminotransferase (ALT/SGPT) 10L, Alkaline Phosphatase 108 , Total Protein 7.9, Albumin 2.0L Height (Feet): 6 Height (Inches): 2.00 Weight (Pounds): 200 General Appearance: no apparent distress Neck: normal alignment Cardiovascular: normal rate Respiratory/Chest: lungs clear Abdomen: non tender Edema: no edema noted Arm (L), no edema noted Arm (R), no edema noted Leg (L), no edema noted Leg (R), no edema noted Pedal (L), no edema noted Pedal (R), no edema noted Generalized Objective Current Medications Medications (Trade) Dose Ordered Sig/Shania Route PRN Reason Start Time Stop Time Status Last Admin Dose Admin Acetaminophen (Tylenol) 650 mg Q6H PRN ORAL Mild Pain/Temp > 100.5 07/06/17 17:32 08/05/17 17:31 07/12/17 03:21 Cefepime HCl 1 gm/ Dextrose 55 ml @ 110 mls/hr EVERY 12 HOURS IVPB 07/19/17 21:00 07/26/17 20:59 07/20/17 09:14 Clonidine HCl (Catapres Tab) 0.1 mg QID PRN ORAL SBP > 160 07/15/17 17:29 08/14/17 17:28 07/15/17 17:56 Dextrose (Dextrose 50%) 25 ml STAT PRN IV Hypoglycemia 07/08/17 07:00 08/07/17 06:59 Dextrose (Dextrose 50%) 50 ml STAT PRN IV Hypoglycemia 07/08/17 07:00 08/07/17 06:59 Famotidine (Pepcid) 20 mg BID ORAL 07/08/17 09:00 08/07/17 08:59 07/20/17 18:02 Heparin Sodium (Porcine) (Heparin 5000 units/ml) 5,000 units EVERY 12 HOURS SUBQ 07/06/17 21:00 08/05/17 20:59 07/20/17 09:19 Insulin Aspart (NovoLOG) BEFORE MEALS AND HS SUBQ 07/08/17 06:30 08/07/17 06:29 07/20/17 17:11 Insulin Aspart (NovoLOG) 6 units NOVOTIAC SUBQ 07/10/17 11:50 08/07/17 06:59 07/20/17 06:21 Insulin Detemir (Levemir) 18 units Q12HR SUBQ 07/18/17 09:00 08/13/17 20:59 07/20/17 09:21 Lisinopril (Prinivil) 40 mg DAILY ORAL 07/12/17 09:00 08/11/17 08:59 07/20/17 09:13 Metoprolol Tartrate (Lopressor) 25 mg Q12HR ORAL 07/09/17 21:00 08/08/17 20:59 07/20/17 09:13 Metronidazole (Flagyl) 500 mg Q8HR ORAL 07/19/17 14:00 07/26/17 13:59 07/20/17 14:01 Multivitamins (Multivitamins) 1 tab DAILY ORAL 07/07/17 09:00 08/06/17 08:59 07/20/17 09:13 Mupirocin (Bactroban Oint) 1 applic Q24H TOPIC 07/16/17 21:00 07/21/17 20:59 07/19/17 22:13 Nicotine (Nicoderm) 1 patch Q24H TDERMAL 07/17/17 17:00 08/16/17 16:59 07/20/17 17:06 Ondansetron HCl (Zofran) 4 mg Q4HR PRN IVP Nausea & Vomiting 07/15/17 19:30 08/14/17 19:29 07/16/17 20:11 Triamterene/HCTZ (Dyazide) 1 cap BID ORAL 07/15/17 18:00 08/14/17 17:59 07/20/17 18:02 Item Value Date Time Bedside Blood Glucose 155 mg/dl H 07/20/17 1711 Bedside Blood Glucose 114 mg/dl 07/20/17 1209 Bedside Blood Glucose 250 mg/dl H 07/20/17 0921 Bedside Blood Glucose 250 mg/dl H 07/20/17 0630 Bedside Blood Glucose 198 mg/dl H 07/19/17 2216 ADILENE JIMENEZ July 20, 2017 19:41
[2017-07-20 20:20] VITALS: BP 132/82
--- NOTE | 2017-07-20 23:30 | Progress Note ---
DATE: 07/20/2017 INTERNAL MEDICINE PROGRESS NOTE SUBJECTIVE: The patient has no new complaints. He is status post I and D repeat since yesterday. He denies pain. Labs are reviewed. Vitals are stable. He is afebrile. White count has decreased to 13.9 and hemoglobin is 9.3. Glucose results are quite labile today. IMPRESSION: 1. Buttock abscess. 2. Sepsis. 3. Cellulitis. 4. Diabetes mellitus, on insulin, uncontrolled. 5. Severe protein-calorie malnutrition. 6. Mild proteinuria. PLAN: 1. Continue antibiotics. 2. Drain in place to the left buttock. 3. Titrate insulin. 4. Continue current antihypertensives. 5. Protein supplementation. 6. DVT prophylaxis. 7. IV antibiotics. 8. Followup white blood count. 9. Not stable for discharge. 10. Remains tenuous and at high risk for recurring abscess formation. Angel Cano M.D. DR: MARY JOB#: [id number] CC:
[2017-07-21] VITALS (7 sets, daily range): BP systolic 112–131; BP diastolic 65–88
[2017-07-21] MEDS: metroNIDAZOLE 500mg tab ORAL SCH ×2 (05:48→14:12)
[2017-07-21] MEDS: NovoLOG Insulin Flexpen SUBQ SCH ×7 (05:53→20:59)
[2017-07-21 07:19] LABS: BASOPHILS % (AUTO) 0.6 % (0.0-2.0); EOSINOPHILS % (AUTO) 1.7 % (0.0-3.0); HEMATOCRIT 29.9 % (42.0-52.0); HEMOGLOBIN 10.2 G/DL (14.2-18.0); LYMPHOCYTES % (AUTO) 18.5 % (20.0-45.0); MEAN CORPUSCULAR VOLUME 77 FL (80-99); MONOCYTES % (AUTO) 4.8 % (1.0-10.0); NEUTROPHILS % (AUTO) 74.3 % (45.0-75.0); PLATELET COUNT 791 K/UL (150-450); RED BLOOD COUNT 3.88 M/UL (4.70-6.10); RED CELL DISTRIBUTION WIDTH 13.4 % (11.6-14.8); WHITE BLOOD COUNT 13.6 K/UL (4.8-10.8)
[2017-07-21] MEDS: Triamterene/Hctz 37.5/25 cap ORAL SCH ×2 (08:13→17:07)
[2017-07-21] MEDS: Lisinopril 20mg tab ORAL SCH (08:13)
[2017-07-21] MEDS: Metoprolol 25mg tab ORAL SCH ×2 (08:14→20:50)
[2017-07-21] MEDS: Heparin 5000 units/ml inj SUBQ SCH ×2 (08:14→20:51)
[2017-07-21] MEDS: Levemir Flexpen SUBQ SCH ×2 (08:23→21:06)
[2017-07-21] MEDS: Cefepime HCl 1 GM in D5W 55 ML IVPB SCH ×2 (08:27→20:50)
--- NOTE | 2017-07-21 10:47 | Infectious Diseases Prog Note ---
Assessment/Plan Assessment/Plan antibiotics : cefepime, flagyl A 1. staph aureus sepsis 2. left hip cellulitis improving 3. left buttock abscess with staph aureus s/p i and d 4. diabetes mellitus 5. leucocytosis improving P 1. continue cefepime, flagyl 2. PICC line 3. will follow up cultures Subjective Constitutional: Denies: fever, chills Respiratory: Denies: shortness of breath, dry cough Gastrointestinal/Abdominal: Denies: nausea, vomiting, diarrhea Musculoskeletal: Denies: pain Allergies: Coded Allergies: No Known Allergies (Unverified , 05/14/15) Objective Vital Signs Last 24 Hour Vital Signs Date Time Temp Pulse Resp B/P (MAP) Pulse Ox O2 Delivery O2 Flow Rate FiO2 07/21/17 08:33 97.7 83 20 112/68 100 97.7 07/21/17 08:14 80 112/68 07/21/17 08:13 112/68 07/21/17 05:02 98.2 71 20 118/70 98 Room Air 98.2 07/21/17 04:00 98.2 78 20 118/70 97 Room Air 98.2 07/21/17 00:27 98.1 89 20 129/81 98 Room Air 98.1 07/20/17 22:20 75 132/82 07/20/17 20:20 98.2 75 20 132/82 97 Room Air 98.2 07/20/17 16:00 98.0 85 20 130/84 98 98.0 07/20/17 12:00 98.0 76 20 140/75 98 98.0 Height (Feet): 6 Height (Inches): 2.00 Weight (Pounds): 200 Respiratory/Chest: lungs clear Cardiovascular: normal rate, regular rhythm, no gallop/murmur Abdomen: soft, non tender Extremities: other - left hip [place] drain Microbiology Date/Time Source Procedure Growth Status 07/19/17 19:00 Body Fluid Abscess Gram Stain Pending Resulted 07/19/17 19:00 Body Fluid Abscess Body Fluid Culture - Preliminary Resulted 07/19/17 13:45 Drainage Fluid Gram Stain - Final Resulted 07/19/17 13:45 Body Fluid Culture - Preliminary Staphylococcus Aureus Resulted Laboratory Tests Test 07/21/17 05:45 White Blood Count 13.6 K/UL (4.8-10.8) H Red Blood Count 3.88 M/UL (4.70-6.10) L Hemoglobin 10.2 G/DL (14.2-18.0) L Hematocrit 29.9 % (42.0-52.0) L Mean Corpuscular Volume 77 FL (80-99) L Mean Corpuscular Hemoglobin 26.3 PG (27.0-31.0) L Mean Corpuscular Hemoglobin Concent 34.2 G/DL (32.0-36.0) Red Cell Distribution Width 13.4 % (11.6-14.8) Platelet Count 791 K/UL (150-450) H Mean Platelet Volume 5.4 FL (6.5-10.1) L Neutrophils (%) (Auto) 74.3 % (45.0-75.0) Lymphocytes (%) (Auto) 18.5 % (20.0-45.0) L Monocytes (%) (Auto) 4.8 % (1.0-10.0) Eosinophils (%) (Auto) 1.7 % (0.0-3.0) Basophils (%) (Auto) 0.6 % (0.0-2.0) Current Medications Medications (Trade) Dose Ordered Sig/Shania Route PRN Reason Start Time Stop Time Status Last Admin Dose Admin Acetaminophen (Tylenol) 650 mg Q6H PRN ORAL Mild Pain/Temp > 100.5 07/06/17 17:32 08/05/17 17:31 07/12/17 03:21 Cefepime HCl 1 gm/ Dextrose 55 ml @ 110 mls/hr EVERY 12 HOURS IVPB 07/19/17 21:00 07/26/17 20:59 07/21/17 08:27 Clonidine HCl (Catapres Tab) 0.1 mg QID PRN ORAL SBP > 160 07/15/17 17:29 08/14/17 17:28 07/15/17 17:56 Dextrose (Dextrose 50%) 25 ml STAT PRN IV Hypoglycemia 07/08/17 07:00 08/07/17 06:59 Dextrose (Dextrose 50%) 50 ml STAT PRN IV Hypoglycemia 07/08/17 07:00 08/07/17 06:59 Famotidine (Pepcid) 20 mg BID ORAL 07/08/17 09:00 08/07/17 08:59 07/21/17 08:14 Heparin Sodium (Porcine) (Heparin 5000 units/ml) 5,000 units EVERY 12 HOURS SUBQ 07/06/17 21:00 08/05/17 20:59 07/20/17 22:22 Insulin Aspart (NovoLOG) BEFORE MEALS AND HS SUBQ 07/08/17 06:30 08/07/17 06:29 07/21/17 05:53 Insulin Aspart (NovoLOG) 6 units NOVOTIAC SUBQ 07/10/17 11:50 08/07/17 06:59 07/21/17 07:37 Insulin Detemir (Levemir) 18 units Q12HR SUBQ 07/18/17 09:00 08/13/17 20:59 07/20/17 22:23 Lisinopril (Prinivil) 40 mg DAILY ORAL 07/12/17 09:00 08/11/17 08:59 07/21/17 08:13 Metoprolol Tartrate (Lopressor) 25 mg Q12HR ORAL 07/09/17 21:00 08/08/17 20:59 07/21/17 08:14 Metronidazole (Flagyl) 500 mg Q8HR ORAL 07/19/17 14:00 07/26/17 13:59 07/21/17 05:48 Multivitamins (Multivitamins) 1 tab DAILY ORAL 07/07/17 09:00 08/06/17 08:59 07/21/17 08:13 Mupirocin (Bactroban Oint) 1 applic Q24H TOPIC 07/16/17 21:00 07/21/17 20:59 07/20/17 21:00 Nicotine (Nicoderm) 1 patch Q24H TDERMAL 07/17/17 17:00 08/16/17 16:59 07/20/17 17:06 Ondansetron HCl (Zofran) 4 mg Q4HR PRN IVP Nausea & Vomiting 07/15/17 19:30 08/14/17 19:29 07/21/17 03:31 Triamterene/HCTZ (Dyazide) 1 cap BID ORAL 07/15/17 18:00 08/14/17 17:59 07/21/17 08:13 KUSH CUNNINGHAM July 21, 2017 10:47
[2017-07-21] MEDS ORDERED: Lidocaine 1% Plain 30 ml INJ SCH (11:00)
--- NOTE | 2017-07-21 15:05 | General Progress Note ---
Assessment/Plan Problem List: (1) Hyperglycemia ICD Codes: R73.9 - Hyperglycemia, unspecified SNOMED: 23658501 (2) Cellulitis of hip, left ICD Codes: L03.116 - Cellulitis of left lower limb SNOMED: 7433967 (3) Gluteal abscess ICD Codes: L02.31 - Cutaneous abscess of buttock SNOMED: 30611467 Assessment/Plan BG was on lower side today, Levemir 18 units was held - reduce Levemir to 14 units bid - continue Novolog 6 units ac tid, hold if not eating - continue NISS Subjective Allergies: Coded Allergies: No Known Allergies (Unverified , 05/14/15) All Systems: reviewed and negative except above Subjective events noted - interval notes reviewed Objective Last 24 Hour Vital Signs Date Time Temp Pulse Resp B/P (MAP) Pulse Ox O2 Delivery O2 Flow Rate FiO2 07/21/17 11:57 97.7 78 20 122/65 99 97.7 07/21/17 08:33 97.7 83 20 112/68 100 97.7 07/21/17 08:14 80 112/68 07/21/17 08:13 112/68 07/21/17 05:02 98.2 71 20 118/70 98 Room Air 98.2 07/21/17 04:00 98.2 78 20 118/70 97 Room Air 98.2 07/21/17 00:27 98.1 89 20 129/81 98 Room Air 98.1 07/20/17 22:20 75 132/82 07/20/17 20:20 98.2 75 20 132/82 97 Room Air 98.2 07/20/17 16:00 98.0 85 20 130/84 98 98.0 Intake and Output 07/20/17 07/21/17 19:00 07:00 Intake Total 55 ml Output Total 840 ml Balance -785 ml IV Total 55 ml Output Urine Total 800 ml Drainage Total 40 ml # Voids 2 3 # Bowel Movements 2 Laboratory Tests 07/21/17 05:45: White Blood Count 13.6H, Red Blood Count 3.88L, Hemoglobin 10.2L, Hematocrit 29.9L, Mean Corpuscular Volume 77L, Mean Corpuscular Hemoglobin 26.3L, Mean Corpuscular Hemoglobin Concent 34.2, Red Cell Distribution Width 13.4, Platelet Count 791H, Mean Platelet Volume 5.4L, Neutrophils (%) (Auto) 74.3, Lymphocytes (%) (Auto) 18.5L, Monocytes (%) (Auto) 4.8, Eosinophils (%) (Auto) 1.7, Basophils (%) (Auto) 0.6 Height (Feet): 6 Height (Inches): 2.00 Weight (Pounds): 200 General Appearance: no apparent distress Neck: normal alignment Respiratory/Chest: lungs clear Abdomen: normal bowel sounds Pelvis: normal external exam Edema: no edema noted Arm (L), no edema noted Arm (R), no edema noted Leg (L), no edema noted Leg (R), no edema noted Pedal (L), no edema noted Pedal (R), no edema noted Generalized Objective Item Value Date Time Bedside Blood Glucose 143 mg/dl H 07/21/17 1144 Bedside Blood Glucose 74 mg/dl 07/21/17 0823 Bedside Blood Glucose 125 mg/dl H 07/21/17 0630 Bedside Blood Glucose 136 mg/dl H 07/20/17 2224 ADILENE JIMENEZ July 21, 2017 15:05
[2017-07-21] MEDS ORDERED: metroNIDAZOLE 500mg tab ORAL SCH (22:00)
--- NOTE | 2017-07-21 23:14 | General Surgery Progress Note ---
General Surgery-Progress Note Subjective Procedure Performed 1. incision and drainage of left deep intermuscular gluteal abscess 2. drain placement with complex multi layer closure using adjacent skin tissues Symptoms: improved Additional Comments late entry for patient seen at 10:00am Objective Last 24 Hour Vital Signs Date Time Temp Pulse Resp B/P (MAP) Pulse Ox O2 Delivery O2 Flow Rate FiO2 07/21/17 20:50 83 131/88 07/21/17 20:00 98.2 83 21 131/88 100 98.2 07/21/17 16:04 97.9 81 20 124/78 99 97.9 07/21/17 11:57 97.7 78 20 122/65 99 97.7 07/21/17 08:33 97.7 83 20 112/68 100 97.7 07/21/17 08:14 80 112/68 07/21/17 08:13 112/68 07/21/17 05:02 98.2 71 20 118/70 98 Room Air 98.2 07/21/17 04:00 98.2 78 20 118/70 97 Room Air 98.2 07/21/17 00:27 98.1 89 20 129/81 98 Room Air 98.1 I&O Intake and Output 07/20/17 07/21/17 19:00 07:00 Intake Total 55 ml Output Total 840 ml Balance -785 ml IV Total 55 ml Output Urine Total 800 ml Drainage Total 40 ml # Voids 2 3 # Bowel Movements 2 Wound: clean, dry Drains: liborio - serosang output Cardiovascular: RSR Respiratory: clear Abdomen: soft, flat, non-tender Extremities: no tenderness, no cyanosis Laboratory Tests Test 07/21/17 05:45 White Blood Count 13.6 K/UL (4.8-10.8) H Red Blood Count 3.88 M/UL (4.70-6.10) L Hemoglobin 10.2 G/DL (14.2-18.0) L Hematocrit 29.9 % (42.0-52.0) L Mean Corpuscular Volume 77 FL (80-99) L Mean Corpuscular Hemoglobin 26.3 PG (27.0-31.0) L Mean Corpuscular Hemoglobin Concent 34.2 G/DL (32.0-36.0) Red Cell Distribution Width 13.4 % (11.6-14.8) Platelet Count 791 K/UL (150-450) H Mean Platelet Volume 5.4 FL (6.5-10.1) L Neutrophils (%) (Auto) 74.3 % (45.0-75.0) Lymphocytes (%) (Auto) 18.5 % (20.0-45.0) L Monocytes (%) (Auto) 4.8 % (1.0-10.0) Eosinophils (%) (Auto) 1.7 % (0.0-3.0) Basophils (%) (Auto) 0.6 % (0.0-2.0) Plan Problems: (1) Gluteal abscess Assessment & Plan: 37M with left gluteal abscess. low grade fever, leukocytosis, on exam overlying tissue with edema, erythema, warmth, cellulitis. CT with large abscess between major and minor muscle. s/p I&D, drain, radiological aspiration. recovering. Afebrile, HD stable, improving slowly. leukocytosis 13k drain output much better today and becoming serosang exam benign. -cont abx -cont drain -trend labs -will follow. thank you will follow with recs. thank you for this consultation. Nahid Bartholomew July 21, 2017 23:14
[2017-07-22] VITALS (7 sets, daily range): BP systolic 106–153; BP diastolic 63–81
[2017-07-22] MEDS: NovoLOG Insulin Flexpen SUBQ SCH ×7 (05:42→21:00)
[2017-07-22] MEDS ORDERED: metroNIDAZOLE 500mg tab ORAL SCH (06:00)
[2017-07-22 07:23] LABS: BASOPHILS % (AUTO) 0.6 % (0.0-2.0); EOSINOPHILS % (AUTO) 2.4 % (0.0-3.0); HEMATOCRIT 30.6 % (42.0-52.0); LYMPHOCYTES % (AUTO) 20.3 % (20.0-45.0); MEAN CORPUSCULAR VOLUME 78 FL (80-99); MONOCYTES % (AUTO) 6.6 % (1.0-10.0); NEUTROPHILS % (AUTO) 70.1 % (45.0-75.0); PLATELET COUNT 714 K/UL (150-450); RED BLOOD COUNT 3.94 M/UL (4.70-6.10); RED CELL DISTRIBUTION WIDTH 13.7 % (11.6-14.8); WHITE BLOOD COUNT 11.3 K/UL (4.8-10.8)
--- NOTE | 2017-07-22 07:59 | General Progress Note ---
Assessment/Plan Problem List: (1) Hyperglycemia ICD Codes: R73.9 - Hyperglycemia, unspecified SNOMED: 12464940 (2) Cellulitis of hip, left ICD Codes: L03.116 - Cellulitis of left lower limb SNOMED: 8447685 (3) Gluteal abscess ICD Codes: L02.31 - Cutaneous abscess of buttock SNOMED: 74606879 Assessment/Plan BG values are stable - continue Levemir to 14 units bid - continue Novolog 6 units ac tid, hold if not eating - continue NISS Subjective Allergies: Coded Allergies: No Known Allergies (Unverified , 05/14/15) All Systems: reviewed and negative except above Subjective events noted - interval notes reviewed Objective Last 24 Hour Vital Signs Date Time Temp Pulse Resp B/P (MAP) Pulse Ox O2 Delivery O2 Flow Rate FiO2 07/22/17 04:00 97.5 78 22 118/75 98 97.5 07/22/17 00:00 98.1 81 22 129/74 98 98.1 07/21/17 20:50 83 131/88 07/21/17 20:00 98.2 83 21 131/88 100 98.2 07/21/17 16:04 97.9 81 20 124/78 99 97.9 07/21/17 11:57 97.7 78 20 122/65 99 97.7 07/21/17 08:33 97.7 83 20 112/68 100 97.7 07/21/17 08:14 80 112/68 07/21/17 08:13 112/68 Intake and Output 07/21/17 07/22/17 19:00 07:00 Intake Total 810 ml Balance 810 ml Intake Oral 700 ml IV Total 110 ml # Voids 2 Laboratory Tests 07/22/17 05:50: White Blood Count 11.3H, Red Blood Count 3.94L, Hemoglobin 10.0L, Hematocrit 30.6L, Mean Corpuscular Volume 78L, Mean Corpuscular Hemoglobin 25.4L, Mean Corpuscular Hemoglobin Concent 32.7, Red Cell Distribution Width 13.7, Platelet Count 714H, Mean Platelet Volume 5.4L, Neutrophils (%) (Auto) 70.1, Lymphocytes (%) (Auto) 20.3, Monocytes (%) (Auto) 6.6, Eosinophils (%) (Auto) 2.4, Basophils (%) (Auto) 0.6 Height (Feet): 6 Height (Inches): 2.00 Weight (Pounds): 200 General Appearance: no apparent distress Neck: normal alignment Cardiovascular: normal peripheral pulses Respiratory/Chest: lungs clear Abdomen: normal bowel sounds Edema: no edema noted Arm (L), no edema noted Arm (R), no edema noted Leg (L), no edema noted Leg (R), no edema noted Pedal (L), no edema noted Pedal (R), no edema noted Generalized Objective Current Medications Medications (Trade) Dose Ordered Sig/Shania Route PRN Reason Start Time Stop Time Status Last Admin Dose Admin Acetaminophen (Tylenol) 650 mg Q6H PRN ORAL Mild Pain/Temp > 100.5 07/06/17 17:32 08/05/17 17:31 07/12/17 03:21 Cefepime HCl 1 gm/ Dextrose 55 ml @ 110 mls/hr EVERY 12 HOURS IVPB 07/19/17 21:00 07/26/17 20:59 07/21/17 20:50 Clonidine HCl (Catapres Tab) 0.1 mg QID PRN ORAL SBP > 160 07/15/17 17:29 08/14/17 17:28 07/15/17 17:56 Dextrose (Dextrose 50%) 25 ml STAT PRN IV Hypoglycemia 07/08/17 07:00 08/07/17 06:59 Dextrose (Dextrose 50%) 50 ml STAT PRN IV Hypoglycemia 07/08/17 07:00 08/07/17 06:59 Famotidine (Pepcid) 20 mg BID ORAL 07/08/17 09:00 08/07/17 08:59 07/21/17 17:07 Heparin Sodium (Porcine) (Heparin 5000 units/ml) 5,000 units EVERY 12 HOURS SUBQ 07/06/17 21:00 08/05/17 20:59 07/21/17 20:51 Insulin Aspart (NovoLOG) BEFORE MEALS AND HS SUBQ 07/08/17 06:30 08/07/17 06:29 07/22/17 05:42 Insulin Aspart (NovoLOG) 6 units NOVOTIAC SUBQ 07/10/17 11:50 08/07/17 06:59 07/22/17 05:43 Insulin Detemir (Levemir) 14 units Q12HR SUBQ 07/21/17 21:00 08/13/17 20:59 07/21/17 21:06 Lisinopril (Prinivil) 40 mg DAILY ORAL 07/12/17 09:00 08/11/17 08:59 07/21/17 08:13 Metoprolol Tartrate (Lopressor) 25 mg Q12HR ORAL 07/09/17 21:00 08/08/17 20:59 07/21/17 20:50 Metronidazole (Flagyl) 500 mg Q8HR ORAL 07/22/17 06:00 07/29/17 05:59 07/22/17 05:40 Multivitamins (Multivitamins) 1 tab DAILY ORAL 07/07/17 09:00 08/06/17 08:59 07/21/17 08:13 Nicotine (Nicoderm) 1 patch Q24H TDERMAL 07/17/17 17:00 08/16/17 16:59 07/21/17 17:07 Ondansetron HCl (Zofran) 4 mg Q4HR PRN IVP Nausea & Vomiting 07/15/17 19:30 08/14/17 19:29 07/21/17 03:31 Triamterene/HCTZ (Dyazide) 1 cap BID ORAL 07/15/17 18:00 08/14/17 17:59 07/21/17 17:07 Item Value Date Time Bedside Blood Glucose 160 mg/dl H 07/22/17 0606 Bedside Blood Glucose 86 mg/dl 07/21/17 2106 Bedside Blood Glucose 123 mg/dl H 07/21/17 1639 Bedside Blood Glucose 143 mg/dl H 07/21/17 1144 Bedside Blood Glucose 74 mg/dl 07/21/17 0823 ADILENE JIMENEZ July 22, 2017 07:59
[2017-07-22] MEDS ORDERED: Metoprolol 25mg tab ORAL SCH (09:00)
[2017-07-22] MEDS ORDERED: Heparin 5000 units/ml inj SUBQ SCH (09:00)
[2017-07-22] MEDS ORDERED: Lisinopril 20mg tab ORAL SCH (09:00)
[2017-07-22] MEDS ORDERED: Triamterene/Hctz 37.5/25 cap ORAL SCH (09:00)
--- NOTE | 2017-07-22 09:29 | General Surgery Progress Note ---
General Surgery-Progress Note Subjective Procedure Performed 1. incision and drainage of left deep intermuscular gluteal abscess 2. drain placement with complex multi layer closure using adjacent skin tissues Symptoms: improved, pain absent, tolerating diet, passing flatus Objective Last 24 Hour Vital Signs Date Time Temp Pulse Resp B/P (MAP) Pulse Ox O2 Delivery O2 Flow Rate FiO2 07/22/17 08:39 97.3 85 20 120/81 99 97.3 07/22/17 04:00 97.5 78 22 118/75 98 97.5 07/22/17 00:00 98.1 81 22 129/74 98 98.1 07/21/17 20:50 83 131/88 07/21/17 20:00 98.2 83 21 131/88 100 98.2 07/21/17 16:04 97.9 81 20 124/78 99 97.9 07/21/17 11:57 97.7 78 20 122/65 99 97.7 I&O Intake and Output 07/21/17 07/22/17 19:00 07:00 Intake Total 810 ml Balance 810 ml Intake Oral 700 ml IV Total 110 ml # Voids 2 Wound: clean, dry, intact Drains: liborio - clearing up well Cardiovascular: RSR Respiratory: clear Abdomen: soft, non-tender, present bowel sounds Extremities: no edema, no tenderness, no cyanosis Laboratory Tests Test 07/22/17 05:50 White Blood Count 11.3 K/UL (4.8-10.8) H Red Blood Count 3.94 M/UL (4.70-6.10) L Hemoglobin 10.0 G/DL (14.2-18.0) L Hematocrit 30.6 % (42.0-52.0) L Mean Corpuscular Volume 78 FL (80-99) L Mean Corpuscular Hemoglobin 25.4 PG (27.0-31.0) L Mean Corpuscular Hemoglobin Concent 32.7 G/DL (32.0-36.0) Red Cell Distribution Width 13.7 % (11.6-14.8) Platelet Count 714 K/UL (150-450) H Mean Platelet Volume 5.4 FL (6.5-10.1) L Neutrophils (%) (Auto) 70.1 % (45.0-75.0) Lymphocytes (%) (Auto) 20.3 % (20.0-45.0) Monocytes (%) (Auto) 6.6 % (1.0-10.0) Eosinophils (%) (Auto) 2.4 % (0.0-3.0) Basophils (%) (Auto) 0.6 % (0.0-2.0) Plan Problems: (1) Gluteal abscess Assessment & Plan: 37M with left gluteal abscess. low grade fever, leukocytosis, on exam overlying tissue with edema, erythema, warmth, cellulitis. CT with large abscess between major and minor muscle. s/p I&D, drain, radiological aspiration. recovering. Afebrile, HD stable, improving slowly. leukocytosis 11k!!! drain output much better and becoming serosang exam benign. -cont abx -cont drain -trend labs -will follow. thank you will follow with recs. thank you for this consultation. Nahid Bartholomew July 22, 2017 09:29
[2017-07-22] MEDS: Cefepime HCl 1 GM in D5W 55 ML IVPB SCH ×2 (09:31→21:54)
[2017-07-22] MEDS: Levemir Flexpen SUBQ SCH ×2 (09:44→21:59)
[2017-07-22] MEDS: metroNIDAZOLE 500mg tab ORAL SCH ×2 (14:48→22:00)
[2017-07-22] MEDS: Triamterene/Hctz 37.5/25 cap ORAL SCH (17:39)
[2017-07-22] MEDS: Metoprolol 25mg tab ORAL SCH (21:55)
[2017-07-22] MEDS: Heparin 5000 units/ml inj SUBQ SCH (22:00)
[2017-07-23] VITALS: BP 112/71
[2017-07-23 04:00] VITALS: BP 116/76
[2017-07-23] MEDS: metroNIDAZOLE 500mg tab ORAL SCH (06:15)
[2017-07-23] MEDS: NovoLOG Insulin Flexpen SUBQ SCH ×7 (06:22→21:00)
--- NOTE | 2017-07-23 06:49 | General Progress Note ---
Assessment/Plan Problem List: (1) Hyperglycemia ICD Codes: R73.9 - Hyperglycemia, unspecified SNOMED: 61270681 (2) Cellulitis of hip, left ICD Codes: L03.116 - Cellulitis of left lower limb SNOMED: 3214869 (3) Gluteal abscess ICD Codes: L02.31 - Cutaneous abscess of buttock SNOMED: 55642381 Assessment/Plan fasting glucose is elevated - increase Levemir to 16 units bid - continue Novolog 6 units ac tid, hold if not eating - continue NISS Subjective Allergies: Coded Allergies: No Known Allergies (Unverified , 05/14/15) All Systems: reviewed and negative except above Subjective events noted - interval notes reviewed Objective Last 24 Hour Vital Signs Date Time Temp Pulse Resp B/P (MAP) Pulse Ox O2 Delivery O2 Flow Rate FiO2 07/23/17 04:00 97.9 77 18 116/76 100 Room Air 97.9 07/23/17 00:00 98.3 86 18 112/71 99 Room Air 98.3 07/22/17 21:55 92 106/70 07/22/17 20:00 98.0 92 18 106/70 99 Room Air 98.0 07/22/17 17:40 106/63 07/22/17 16:02 98.3 87 21 107/65 97 Room Air 98.3 07/22/17 12:00 97.1 96 21 153/71 96 Room Air 97.1 07/22/17 10:23 120/81 07/22/17 09:32 85 120/81 07/22/17 08:39 97.3 85 20 120/81 99 97.3 Intake and Output 07/22/17 07/23/17 19:00 07:00 Intake Total 960 ml 110 ml Output Total 20 ml 50 ml Balance 940 ml 60 ml Intake Oral 960 ml IV Total 110 ml Drainage Total 20 ml 50 ml Height (Feet): 6 Height (Inches): 2.00 Weight (Pounds): 200 General Appearance: no apparent distress Neck: normal alignment Cardiovascular: normal rate Respiratory/Chest: lungs clear Abdomen: normal bowel sounds Pelvis: normal external exam Objective Current Medications Medications (Trade) Dose Ordered Sig/Shania Route PRN Reason Start Time Stop Time Status Last Admin Dose Admin Acetaminophen (Tylenol) 650 mg Q6H PRN ORAL Mild Pain/Temp > 100.5 07/06/17 17:32 08/05/17 17:31 07/12/17 03:21 Cefepime HCl 1 gm/ Dextrose 55 ml @ 110 mls/hr EVERY 12 HOURS IVPB 07/19/17 21:00 07/26/17 20:59 07/22/17 21:54 Clonidine HCl (Catapres Tab) 0.1 mg QID PRN ORAL SBP > 160 07/15/17 17:29 08/14/17 17:28 07/15/17 17:56 Dextrose (Dextrose 50%) 25 ml STAT PRN IV Hypoglycemia 07/08/17 07:00 08/07/17 06:59 Dextrose (Dextrose 50%) 50 ml STAT PRN IV Hypoglycemia 07/08/17 07:00 08/07/17 06:59 Famotidine (Pepcid) 20 mg BID ORAL 07/22/17 18:00 08/21/17 17:59 Heparin Sodium (Porcine) (Heparin 5000 units/ml) 5,000 units EVERY 12 HOURS SUBQ 07/22/17 21:00 08/21/17 20:59 07/22/17 22:00 Insulin Aspart (NovoLOG) BEFORE MEALS AND HS SUBQ 07/08/17 06:30 08/07/17 06:29 07/23/17 06:23 Insulin Aspart (NovoLOG) 6 units NOVOTIAC SUBQ 07/10/17 11:50 08/07/17 06:59 07/23/17 06:22 Insulin Detemir (Levemir) 14 units Q12HR SUBQ 07/21/17 21:00 08/13/17 20:59 07/22/17 21:59 Lisinopril (Prinivil) 40 mg DAILY ORAL 07/23/17 09:00 08/21/17 08:59 Metoprolol Tartrate (Lopressor) 25 mg Q12HR ORAL 07/22/17 21:00 08/21/17 20:59 07/22/17 21:55 Metronidazole (Flagyl) 500 mg Q8HR ORAL 07/22/17 14:00 07/26/17 23:00 07/23/17 06:15 Multivitamins (Multivitamins) 1 tab DAILY ORAL 07/23/17 09:00 08/21/17 08:59 Nicotine (Nicoderm) 1 patch Q24H TDERMAL 07/23/17 09:00 08/22/17 08:59 Ondansetron HCl (Zofran) 4 mg Q4HR PRN IVP Nausea & Vomiting 07/15/17 19:30 08/14/17 19:29 07/21/17 03:31 Triamterene/HCTZ (Dyazide) 1 cap BID ORAL 07/22/17 18:00 08/21/17 17:59 Item Value Date Time Bedside Blood Glucose 160 mg/dl H 07/23/17 0623 Bedside Blood Glucose 106 mg/dl 07/22/17 2159 Bedside Blood Glucose 137 mg/dl H 07/22/17 1739 Bedside Blood Glucose 131 mg/dl H 07/22/17 1252 Bedside Blood Glucose 150 mg/dl H 07/22/17 0944 Bedside Blood Glucose 160 mg/dl H 07/22/17 0606 ADILENE JIMENEZ July 23, 2017 06:49
[2017-07-23 08:00] VITALS: BP 116/75
[2017-07-23 08:04] LABS: BASOPHILS % (AUTO) 0.8 % (0.0-2.0); EOSINOPHILS % (AUTO) 2.6 % (0.0-3.0); HEMATOCRIT 32.9 % (42.0-52.0); HEMOGLOBIN 10.5 G/DL (14.2-18.0); LYMPHOCYTES % (AUTO) 24.5 % (20.0-45.0); MEAN CORPUSCULAR VOLUME 78 FL (80-99); MONOCYTES % (AUTO) 5.9 % (1.0-10.0); NEUTROPHILS % (AUTO) 66.2 % (45.0-75.0); PLATELET COUNT 657 K/UL (150-450); RED BLOOD COUNT 4.21 M/UL (4.70-6.10); RED CELL DISTRIBUTION WIDTH 13.9 % (11.6-14.8); WHITE BLOOD COUNT 11.9 K/UL (4.8-10.8)
[2017-07-23] MEDS: Metoprolol 25mg tab ORAL SCH ×2 (09:00→21:00)
[2017-07-23] MEDS: Triamterene/Hctz 37.5/25 cap ORAL SCH ×2 (09:21→17:20)
[2017-07-23] MEDS: Cefepime HCl 1 GM in D5W 55 ML IVPB SCH ×2 (09:21→21:00)
[2017-07-23] MEDS: Lisinopril 20mg tab ORAL SCH (09:22)
[2017-07-23] MEDS: Heparin 5000 units/ml inj SUBQ SCH ×2 (09:24→21:00)
[2017-07-23] MEDS: Levemir Flexpen SUBQ SCH ×2 (09:25→21:00)
[2017-07-23 12:00] VITALS: BP 120/80
--- NOTE | 2017-07-23 12:03 | General Surgery Progress Note ---
General Surgery-Progress Note Subjective Procedure Performed 1. incision and drainage of left deep intermuscular gluteal abscess 2. drain placement with complex multi layer closure using adjacent skin tissues Symptoms: improved, tolerating diet, passing flatus, BM Additional Comments no acute events. comfortable. Objective Last 24 Hour Vital Signs Date Time Temp Pulse Resp B/P (MAP) Pulse Ox O2 Delivery O2 Flow Rate FiO2 07/23/17 09:22 116/76 07/23/17 09:00 77 116/76 07/23/17 08:00 97.7 91 18 116/75 100 Room Air 97.7 07/23/17 04:00 97.9 77 18 116/76 100 Room Air 97.9 07/23/17 00:00 98.3 86 18 112/71 99 Room Air 98.3 07/22/17 21:55 92 106/70 07/22/17 20:00 98.0 92 18 106/70 99 Room Air 98.0 07/22/17 17:40 106/63 07/22/17 16:02 98.3 87 21 107/65 97 Room Air 98.3 I&O Intake and Output 07/22/17 07/23/17 19:00 07:00 Intake Total 960 ml 110 ml Output Total 20 ml 50 ml Balance 940 ml 60 ml Intake Oral 960 ml IV Total 110 ml Drainage Total 20 ml 50 ml Wound: clean, dry, intact Drains: liborio Cardiovascular: RSR Respiratory: clear Abdomen: soft, flat, non-tender, present bowel sounds Extremities: no edema, no tenderness, no cyanosis Laboratory Tests Test 07/23/17 06:10 White Blood Count 11.9 K/UL (4.8-10.8) H Red Blood Count 4.21 M/UL (4.70-6.10) L Hemoglobin 10.5 G/DL (14.2-18.0) L Hematocrit 32.9 % (42.0-52.0) L Mean Corpuscular Volume 78 FL (80-99) L Mean Corpuscular Hemoglobin 24.9 PG (27.0-31.0) L Mean Corpuscular Hemoglobin Concent 31.9 G/DL (32.0-36.0) L Red Cell Distribution Width 13.9 % (11.6-14.8) Platelet Count 657 K/UL (150-450) H Mean Platelet Volume 5.5 FL (6.5-10.1) L Neutrophils (%) (Auto) 66.2 % (45.0-75.0) Lymphocytes (%) (Auto) 24.5 % (20.0-45.0) Monocytes (%) (Auto) 5.9 % (1.0-10.0) Eosinophils (%) (Auto) 2.6 % (0.0-3.0) Basophils (%) (Auto) 0.8 % (0.0-2.0) Plan Problems: (1) Gluteal abscess Assessment & Plan: 37M with left gluteal abscess. low grade fever, leukocytosis, on exam overlying tissue with edema, erythema, warmth, cellulitis. CT with large abscess between major and minor muscle. s/p I&D, drain, radiological aspiration. recovering. Afebrile, HD stable, improving slowly. leukocytosis 11k drain output much better and becoming serosang. minimal output exam benign. -cont abx -cont drain -trend labs -will follow. thank you will follow with recs. thank you for this consultation. Nahid Bartholomew July 23, 2017 12:03
--- NOTE | 2017-07-23 13:18 | Infectious Diseases Prog Note ---
Assessment/Plan Assessment/Plan A 1. staph aureus sepsis, MSSA 2. left hip cellulitis improving 3. left buttock abscess s/p drainage 4. diabetes mellitus 5. leukocytosis improving P 1. continue Cefepime in hospital , discontinue Flagyl 2. PO Levaquin X 2 weeks, at time of discharge 3. will f/u cultures Subjective ROS Limited/Unobtainable: No Constitutional: Reports: no symptoms Respiratory: Reports: no symptoms Cardiovascular: Reports: no symptoms Gastrointestinal/Abdominal: Reports: no symptoms Genitourinary: Reports: no symptoms Allergies: Coded Allergies: No Known Allergies (Unverified , 05/14/15) Objective Vital Signs Last 24 Hour Vital Signs Date Time Temp Pulse Resp B/P (MAP) Pulse Ox O2 Delivery O2 Flow Rate FiO2 07/23/17 12:00 98.1 92 19 120/80 100 Room Air 98.1 07/23/17 09:22 116/76 07/23/17 09:00 77 116/76 07/23/17 08:00 97.7 91 18 116/75 100 Room Air 97.7 07/23/17 04:00 97.9 77 18 116/76 100 Room Air 97.9 07/23/17 00:00 98.3 86 18 112/71 99 Room Air 98.3 07/22/17 21:55 92 106/70 07/22/17 20:00 98.0 92 18 106/70 99 Room Air 98.0 07/22/17 17:40 106/63 07/22/17 16:02 98.3 87 21 107/65 97 Room Air 98.3 Height (Feet): 6 Height (Inches): 2.00 Weight (Pounds): 200 Respiratory/Chest: lungs clear Cardiovascular: normal rate Abdomen: soft, non tender Extremities: no edema Neurologic/Psychiatric: alert, oriented x 3, responsive Laboratory Tests Test 07/23/17 06:10 White Blood Count 11.9 K/UL (4.8-10.8) H Red Blood Count 4.21 M/UL (4.70-6.10) L Hemoglobin 10.5 G/DL (14.2-18.0) L Hematocrit 32.9 % (42.0-52.0) L Mean Corpuscular Volume 78 FL (80-99) L Mean Corpuscular Hemoglobin 24.9 PG (27.0-31.0) L Mean Corpuscular Hemoglobin Concent 31.9 G/DL (32.0-36.0) L Red Cell Distribution Width 13.9 % (11.6-14.8) Platelet Count 657 K/UL (150-450) H Mean Platelet Volume 5.5 FL (6.5-10.1) L Neutrophils (%) (Auto) 66.2 % (45.0-75.0) Lymphocytes (%) (Auto) 24.5 % (20.0-45.0) Monocytes (%) (Auto) 5.9 % (1.0-10.0) Eosinophils (%) (Auto) 2.6 % (0.0-3.0) Basophils (%) (Auto) 0.8 % (0.0-2.0) Current Medications Medications (Trade) Dose Ordered Sig/Shania Route PRN Reason Start Time Stop Time Status Last Admin Dose Admin Acetaminophen (Tylenol) 650 mg Q6H PRN ORAL Mild Pain/Temp > 100.5 07/06/17 17:32 08/05/17 17:31 07/12/17 03:21 Cefepime HCl 1 gm/ Dextrose 55 ml @ 110 mls/hr EVERY 12 HOURS IVPB 07/19/17 21:00 07/26/17 20:59 07/23/17 09:21 Clonidine HCl (Catapres Tab) 0.1 mg QID PRN ORAL SBP > 160 07/15/17 17:29 08/14/17 17:28 07/15/17 17:56 Dextrose (Dextrose 50%) 25 ml STAT PRN IV Hypoglycemia 07/08/17 07:00 08/07/17 06:59 Dextrose (Dextrose 50%) 50 ml STAT PRN IV Hypoglycemia 07/08/17 07:00 08/07/17 06:59 Famotidine (Pepcid) 20 mg BID ORAL 07/22/17 18:00 08/21/17 17:59 07/23/17 09:21 Heparin Sodium (Porcine) (Heparin 5000 units/ml) 5,000 units EVERY 12 HOURS SUBQ 07/22/17 21:00 08/21/17 20:59 07/23/17 09:24 Insulin Aspart (NovoLOG) BEFORE MEALS AND HS SUBQ 07/08/17 06:30 08/07/17 06:29 07/23/17 12:30 Insulin Aspart (NovoLOG) 6 units NOVOTIAC SUBQ 07/10/17 11:50 08/07/17 06:59 07/23/17 06:22 Insulin Detemir (Levemir) 16 units Q12HR SUBQ 07/23/17 09:00 08/13/17 20:59 07/23/17 09:25 Lisinopril (Prinivil) 40 mg DAILY ORAL 07/23/17 09:00 08/21/17 08:59 07/23/17 09:22 Metoprolol Tartrate (Lopressor) 25 mg Q12HR ORAL 07/22/17 21:00 08/21/17 20:59 07/22/17 21:55 Metronidazole (Flagyl) 500 mg Q8HR ORAL 07/22/17 14:00 07/26/17 23:00 07/23/17 06:15 Multivitamins (Multivitamins) 1 tab DAILY ORAL 07/23/17 09:00 08/21/17 08:59 07/23/17 09:21 Nicotine (Nicoderm) 1 patch Q24H TDERMAL 07/23/17 09:00 08/22/17 08:59 07/23/17 09:22 Ondansetron HCl (Zofran) 4 mg Q4HR PRN IVP Nausea & Vomiting 07/15/17 19:30 08/14/17 19:29 07/21/17 03:31 Triamterene/HCTZ (Dyazide) 1 cap BID ORAL 07/22/17 18:00 08/21/17 17:59 07/23/17 09:21 DANISHA SOSA July 23, 2017 13:18
[2017-07-23 16:00] VITALS: BP 139/90
[2017-07-23 20:00] VITALS: BP 113/74
[2017-07-24] VITALS: BP 115/76
--- NOTE | 2017-07-24 03:45 | Progress Note ---
DATE: 07/21/2017 INTERNAL MEDICINE PROGRESS NOTE Late entry for 07/21/2017. SUBJECTIVE: Condition improving. Pain decreasing. White blood count remained at 13,000. Drainage is noted from the catheters. Glucose control remained labile and suboptimal. OBJECTIVE: VITAL SIGNS: Afebrile. Vitals are stable. LUNGS: Clear. CARDIAC: Regular. ABDOMEN: Soft. EXTREMITIES: Left buttock and hip region with minimal erythema. IMPRESSION: 1. Buttock abscess, improving. Status post incision and drainage. Continues to have drain following multilayer closure. 2. Diabetes mellitus, poor control, improving. 3. Hypertension, controlled. 4. Severe protein-calorie malnutrition, improved. 5. Mild proteinuria due to diabetes and chronic kidney disease. PLAN: 1. Plan of care in place. 2. Continue observation. 3. Consideration for oral antibiotics and outpatient management in the next 48 hours if continued progress. Angel Cano M.D. DR: JOHNNIE JOB#: [id number] CC:
--- NOTE | 2017-07-24 03:45 | Progress Note ---
DATE: 07/23/2017 CARDIOLOGY PROGRESS NOTE SUBJECTIVE: Progress continues. Pain and drainage decreased . Glucose control stabilized. OBJECTIVE: Drainage catheter from the left buttock with serous discharge. LABORATORY DATA: White count is 11.3. PLAN: 1. Continue current therapy. 2. Consideration for oral antibiotics the next 24 hours following surgical assessment of wound site and adequacy of drainage. 3. The patient remains at high risk for microabscesses. Angel Cano M.D. DR: JOHNNIE JOB#: [id number] CC:
[2017-07-24 04:00] VITALS: BP 104/71
[2017-07-24] MEDS: NovoLOG Insulin Flexpen SUBQ SCH ×7 (06:27→21:38)
[2017-07-24 08:00] VITALS: BP 118/76
[2017-07-24] MEDS: Triamterene/Hctz 37.5/25 cap ORAL SCH ×2 (09:25→17:39)
[2017-07-24] MEDS: Metoprolol 25mg tab ORAL SCH ×2 (09:26→21:00)
[2017-07-24] MEDS: Heparin 5000 units/ml inj SUBQ SCH ×2 (09:31→21:39)
[2017-07-24] MEDS: Lisinopril 20mg tab ORAL SCH (09:50)
[2017-07-24] MEDS: Cefepime HCl 1 GM in D5W 55 ML IVPB SCH ×2 (09:50→22:43)
[2017-07-24] MEDS: Levemir Flexpen SUBQ SCH ×2 (10:11→21:37)
--- NOTE | 2017-07-24 11:22 | General Surgery Progress Note ---
General Surgery-Progress Note Subjective Procedure Performed 1. incision and drainage of left deep intermuscular gluteal abscess 2. drain placement with complex multi layer closure using adjacent skin tissues Symptoms: improved, tolerating diet, voiding well, passing flatus, BM Additional Comments no acute events. comfortable. no n/v/f/c. Objective Last 24 Hour Vital Signs Date Time Temp Pulse Resp B/P (MAP) Pulse Ox O2 Delivery O2 Flow Rate FiO2 07/24/17 09:50 118/76 07/24/17 09:26 85 118/76 07/24/17 08:00 97.1 85 18 118/76 100 Room Air 97.1 07/24/17 04:00 97.3 75 18 104/71 99 Room Air 97.3 07/24/17 00:00 98.7 89 18 115/76 97 Room Air 98.7 07/23/17 21:00 95 113/74 07/23/17 20:00 98.1 95 18 113/74 100 Room Air 98.1 07/23/17 16:00 98.3 96 19 139/90 97 Room Air 98.3 07/23/17 12:00 98.1 92 19 120/80 100 Room Air 98.1 I&O Intake and Output 07/23/17 07/24/17 19:00 07:00 Intake Total 1055 ml 405 ml Output Total 25 ml Balance 1030 ml 405 ml Intake Oral 350 ml IV Total 55 ml 55 ml Other 1000 ml Drainage Total 25 ml # Voids 4 2 Wound: clean, dry, intact Drains: liborio - serosang output Cardiovascular: RSR Respiratory: clear Abdomen: soft, flat, non-tender, present bowel sounds Extremities: no edema, no tenderness, no cyanosis Plan Problems: (1) Gluteal abscess Assessment & Plan: 37M with left gluteal abscess. low grade fever, leukocytosis, on exam overlying tissue with edema, erythema, warmth, cellulitis. CT with large abscess between major and minor muscle. s/p I&D, drain, radiological aspiration. recovering. Afebrile, HD stable, improving slowly. leukocytosis improved drain output much better and becoming serosang. minimal output exam benign. no edema or inflammation -cont abx; consider transition to oral for discharge. -cont drain -trend labs -okay to d/c from surgical standpoint soon. will remove drain and sutures in office. office info given to patient for follow up. -will follow. thank you will follow with recs. thank you for this consultation. Nahid Bartholomew July 24, 2017 11:22
[2017-07-24 11:59] LABS: BASOPHILS % (AUTO) 0.9 % (0.0-2.0); EOSINOPHILS % (AUTO) 1.8 % (0.0-3.0); HEMOGLOBIN 10.2 G/DL (14.2-18.0); LYMPHOCYTES % (AUTO) 20.1 % (20.0-45.0); MEAN CORPUSCULAR VOLUME 78 FL (80-99); MONOCYTES % (AUTO) 6.3 % (1.0-10.0); NEUTROPHILS % (AUTO) 70.9 % (45.0-75.0); PLATELET COUNT 526 K/UL (150-450); RED BLOOD COUNT 4.09 M/UL (4.70-6.10); RED CELL DISTRIBUTION WIDTH 14.2 % (11.6-14.8); WHITE BLOOD COUNT 12.8 K/UL (4.8-10.8)
[2017-07-24 12:00] VITALS: BP 122/75
[2017-07-24 12:38] LABS: ALANINE AMINOTRANSFERASE 18 U/L (12-78); ALBUMIN 2.3 G/DL (3.4-5.0); ALBUMIN/GLOBULIN RATIO 0.4 (1.0-2.7); ALKALINE PHOSPHATASE 95 U/L (46-116); ANION GAP 6 mmol/L (5-15); ASPARTATE AMINO TRANSFERASE 20 U/L (15-37); BILIRUBIN,TOTAL 0.1 MG/DL (0.2-1.0); BLOOD UREA NITROGEN 27 mg/dL (7-18); CALCIUM 8.7 MG/DL (8.5-10.1); CARBON DIOXIDE 27 MMOL/L (21-32); CHLORIDE 102 MMOL/L (98-107); CREATININE 1.4 MG/DL (0.55-1.30); POTASSIUM 4.7 MMOL/L (3.5-5.1); SODIUM 135 MMOL/L (136-145)
--- NOTE | 2017-07-24 14:48 | Infectious Diseases Prog Note ---
Assessment/Plan Assessment/Plan A 1. staph aureus sepsis, MSSA 2. left hip cellulitis improving 3. left buttock abscess s/p drainage 4. diabetes mellitus 5. leukocytosis P 1. continue Cefepime in hospital , 2. PO Levaquin X 2 weeks, at time of discharge 3. will f/u cultures Subjective ROS Limited/Unobtainable: No Constitutional: Reports: no symptoms Respiratory: Reports: no symptoms Cardiovascular: Reports: no symptoms Genitourinary: Reports: no symptoms Allergies: Coded Allergies: No Known Allergies (Unverified , 05/14/15) Objective Vital Signs Last 24 Hour Vital Signs Date Time Temp Pulse Resp B/P (MAP) Pulse Ox O2 Delivery O2 Flow Rate FiO2 07/24/17 12:00 98.2 77 18 122/75 100 Room Air 98.2 07/24/17 09:50 118/76 07/24/17 09:26 85 118/76 07/24/17 08:00 97.1 85 18 118/76 100 Room Air 97.1 07/24/17 04:00 97.3 75 18 104/71 99 Room Air 97.3 07/24/17 00:00 98.7 89 18 115/76 97 Room Air 98.7 07/23/17 21:00 95 113/74 07/23/17 20:00 98.1 95 18 113/74 100 Room Air 98.1 07/23/17 16:00 98.3 96 19 139/90 97 Room Air 98.3 Height (Feet): 6 Height (Inches): 2.00 Weight (Pounds): 200 General Appearance: no acute distress HEENT: mucous membranes moist Respiratory/Chest: lungs clear Cardiovascular: normal rate Abdomen: soft, non tender Extremities: no edema Neurologic/Psychiatric: alert, oriented x 3, responsive Musculoskeletal: other - Gluteal drain Laboratory Tests Test 07/24/17 11:30 White Blood Count 12.8 K/UL (4.8-10.8) H Red Blood Count 4.09 M/UL (4.70-6.10) L Hemoglobin 10.2 G/DL (14.2-18.0) L Hematocrit 32.0 % (42.0-52.0) L Mean Corpuscular Volume 78 FL (80-99) L Mean Corpuscular Hemoglobin 25.0 PG (27.0-31.0) L Mean Corpuscular Hemoglobin Concent 31.8 G/DL (32.0-36.0) L Red Cell Distribution Width 14.2 % (11.6-14.8) Platelet Count 526 K/UL (150-450) H Mean Platelet Volume 5.7 FL (6.5-10.1) L Neutrophils (%) (Auto) 70.9 % (45.0-75.0) Lymphocytes (%) (Auto) 20.1 % (20.0-45.0) Monocytes (%) (Auto) 6.3 % (1.0-10.0) Eosinophils (%) (Auto) 1.8 % (0.0-3.0) Basophils (%) (Auto) 0.9 % (0.0-2.0) Sodium Level 135 MMOL/L (136-145) L Potassium Level 4.7 MMOL/L (3.5-5.1) Chloride Level 102 MMOL/L (98-107) Carbon Dioxide Level 27 MMOL/L (21-32) Anion Gap 6 mmol/L (5-15) Blood Urea Nitrogen 27 mg/dL (7-18) H Creatinine 1.4 MG/DL (0.55-1.30) H Estimat Glomerular Filtration Rate > 60 mL/min (>60) Glucose Level 195 MG/DL (74-106) H Calcium Level 8.7 MG/DL (8.5-10.1) Magnesium Level 2.0 MG/DL (1.8-2.4) Total Bilirubin 0.1 MG/DL (0.2-1.0) L Aspartate Amino Transf (AST/SGOT) 20 U/L (15-37) Alanine Aminotransferase (ALT/SGPT) 18 U/L (12-78) Alkaline Phosphatase 95 U/L (46-116) Total Protein 8.0 G/DL (6.4-8.2) Albumin 2.3 G/DL (3.4-5.0) L Globulin 5.7 g/dL Albumin/Globulin Ratio 0.4 (1.0-2.7) L Current Medications Medications (Trade) Dose Ordered Sig/Shania Route PRN Reason Start Time Stop Time Status Last Admin Dose Admin Acetaminophen (Tylenol) 650 mg Q6H PRN ORAL Mild Pain/Temp > 100.5 07/06/17 17:32 08/05/17 17:31 07/12/17 03:21 Cefepime HCl 1 gm/ Dextrose 55 ml @ 110 mls/hr EVERY 12 HOURS IVPB 07/19/17 21:00 07/26/17 20:59 07/24/17 09:50 Clonidine HCl (Catapres Tab) 0.1 mg QID PRN ORAL SBP > 160 07/15/17 17:29 08/14/17 17:28 07/15/17 17:56 Dextrose (Dextrose 50%) 25 ml STAT PRN IV Hypoglycemia 07/08/17 07:00 08/07/17 06:59 Dextrose (Dextrose 50%) 50 ml STAT PRN IV Hypoglycemia 07/08/17 07:00 08/07/17 06:59 Famotidine (Pepcid) 20 mg BID ORAL 07/22/17 18:00 08/21/17 17:59 07/24/17 09:25 Heparin Sodium (Porcine) (Heparin 5000 units/ml) 5,000 units EVERY 12 HOURS SUBQ 07/22/17 21:00 08/21/17 20:59 07/24/17 09:31 Insulin Aspart (NovoLOG) BEFORE MEALS AND HS SUBQ 07/08/17 06:30 08/07/17 06:29 07/24/17 12:08 Insulin Aspart (NovoLOG) 6 units NOVOTIAC SUBQ 07/10/17 11:50 08/07/17 06:59 07/24/17 12:09 Insulin Detemir (Levemir) 16 units Q12HR SUBQ 07/23/17 09:00 08/13/17 20:59 07/24/17 10:11 Lisinopril (Prinivil) 40 mg DAILY ORAL 07/23/17 09:00 08/21/17 08:59 07/24/17 09:50 Metoprolol Tartrate (Lopressor) 25 mg Q12HR ORAL 07/22/17 21:00 08/21/17 20:59 07/24/17 09:26 Multivitamins (Multivitamins) 1 tab DAILY ORAL 07/23/17 09:00 08/21/17 08:59 07/24/17 09:25 Nicotine (Nicoderm) 1 patch Q24H TDERMAL 07/23/17 09:00 08/22/17 08:59 07/24/17 09:27 Ondansetron HCl (Zofran) 4 mg Q4HR PRN IVP Nausea & Vomiting 07/15/17 19:30 08/14/17 19:29 07/21/17 03:31 Triamterene/HCTZ (Dyazide) 1 cap BID ORAL 07/22/17 18:00 08/21/17 17:59 07/24/17 09:25 DANISHA SOSA July 24, 2017 14:48
[2017-07-24 16:00] VITALS: BP 117/80
[2017-07-24 20:00] VITALS: BP 117/79
[2017-07-25] VITALS: BP 115/76
--- NOTE | 2017-07-25 02:00 | Progress Note ---
DATE: 07/24/2017 INTERNAL MEDICINE PROGRESS NOTE SUBJECTIVE: The patient feels well. Still with moderate drainage into the drain from his gluteal abscess site and surrounding edema and mild erythema. White count increased slightly to over 12,000. OBJECTIVE: Exam is otherwise unchanged. LABORATORY DATA: Glucose parameters are slightly increased. PLAN: 1. Continue current plan of care. 2. If white count continues to increase, repeat imaging study will be required to assess for new microabscess formation and we will continue to titrate insulin dose as well. 3. Disability paperwork was left with the patient's today and they have been informed as to the goals of discharge. Angel Cano M.D. DR: MARY JOB#: [id number] CC:
[2017-07-25 04:00] VITALS: BP 103/63
[2017-07-25] MEDS: NovoLOG Insulin Flexpen SUBQ SCH ×4 (06:19→11:50)
--- NOTE | 2017-07-25 07:12 | General Progress Note ---
Assessment/Plan Problem List: (1) Hyperglycemia ICD Codes: R73.9 - Hyperglycemia, unspecified SNOMED: 20497376 (2) Cellulitis of hip, left ICD Codes: L03.116 - Cellulitis of left lower limb SNOMED: 8488024 (3) Gluteal abscess ICD Codes: L02.31 - Cutaneous abscess of buttock SNOMED: 62936755 Assessment/Plan - continue Levemir 17 units bid - continue Novolog 6 units ac tid, hold if not eating - continue NISS Subjective Allergies: Coded Allergies: No Known Allergies (Unverified , 05/14/15) All Systems: reviewed and negative except above Subjective events noted - interval notes reviewed Objective Last 24 Hour Vital Signs Date Time Temp Pulse Resp B/P (MAP) Pulse Ox O2 Delivery O2 Flow Rate FiO2 07/25/17 04:00 98.3 81 19 103/63 98 98.3 07/25/17 00:00 98.6 85 20 115/76 99 98.6 07/24/17 21:00 88 117/79 07/24/17 20:00 98.4 88 21 117/79 98 98.4 07/24/17 16:00 97.2 92 18 117/80 97 Room Air 97.2 07/24/17 12:00 98.2 77 18 122/75 100 Room Air 98.2 07/24/17 09:50 118/76 07/24/17 09:26 85 118/76 07/24/17 08:00 97.1 85 18 118/76 100 Room Air 97.1 Intake and Output 07/24/17 07/25/17 19:00 07:00 Intake Total 1150 ml 1072 ml Output Total 40 ml Balance 1150 ml 1032 ml Intake Oral 1000 ml IV Total 150 ml 1072 ml Drainage Total 40 ml # Voids 3 2 Laboratory Tests 07/24/17 11:30: White Blood Count 12.8H, Red Blood Count 4.09L, Hemoglobin 10.2L, Hematocrit 32.0L, Mean Corpuscular Volume 78L, Mean Corpuscular Hemoglobin 25.0L, Mean Corpuscular Hemoglobin Concent 31.8L, Red Cell Distribution Width 14.2, Platelet Count 526H, Mean Platelet Volume 5.7L, Neutrophils (%) (Auto) 70.9, Lymphocytes (%) (Auto) 20.1, Monocytes (%) (Auto) 6.3, Eosinophils (%) (Auto) 1.8, Basophils (%) (Auto) 0.9, Sodium Level 135L, Potassium Level 4.7, Chloride Level 102, Carbon Dioxide Level 27, Anion Gap 6, Blood Urea Nitrogen 27H, Creatinine 1.4H, Estimat Glomerular Filtration Rate > 60, Glucose Level 195H, Calcium Level 8.7, Magnesium Level 2.0, Total Bilirubin 0.1L, Aspartate Amino Transf (AST/SGOT) 20, Alanine Aminotransferase (ALT/SGPT) 18, Alkaline Phosphatase 95, Total Protein 8.0, Albumin 2.3L, Globulin 5.7, Albumin/Globulin Ratio 0.4L Height (Feet): 6 Height (Inches): 2.00 Weight (Pounds): 200 General Appearance: no apparent distress EENT: TMs normal Neck: normal inspection Cardiovascular: normal peripheral pulses Respiratory/Chest: chest wall non-tender Abdomen: normal bowel sounds Edema: no edema noted Arm (L), no edema noted Arm (R), no edema noted Leg (L), no edema noted Leg (R), no edema noted Pedal (L), no edema noted Pedal (R), no edema noted Generalized Objective Current Medications Medications (Trade) Dose Ordered Sig/Shania Route PRN Reason Start Time Stop Time Status Last Admin Dose Admin Acetaminophen (Tylenol) 650 mg Q6H PRN ORAL Mild Pain/Temp > 100.5 07/06/17 17:32 08/05/17 17:31 07/12/17 03:21 Cefepime HCl 1 gm/ Dextrose 55 ml @ 110 mls/hr EVERY 12 HOURS IVPB 07/19/17 21:00 07/26/17 20:59 07/24/17 22:43 Clonidine HCl (Catapres Tab) 0.1 mg QID PRN ORAL SBP > 160 07/15/17 17:29 08/14/17 17:28 07/15/17 17:56 Dextrose (Dextrose 50%) 25 ml STAT PRN IV Hypoglycemia 07/08/17 07:00 08/07/17 06:59 Dextrose (Dextrose 50%) 50 ml STAT PRN IV Hypoglycemia 07/08/17 07:00 08/07/17 06:59 Famotidine (Pepcid) 20 mg BID ORAL 07/22/17 18:00 08/21/17 17:59 07/24/17 17:39 Heparin Sodium (Porcine) (Heparin 5000 units/ml) 5,000 units EVERY 12 HOURS SUBQ 07/22/17 21:00 08/21/17 20:59 07/24/17 21:39 Insulin Aspart (NovoLOG) BEFORE MEALS AND HS SUBQ 07/08/17 06:30 08/07/17 06:29 07/25/17 06:19 Insulin Aspart (NovoLOG) 6 units NOVOTIAC SUBQ 07/10/17 11:50 08/07/17 06:59 07/25/17 06:19 Insulin Detemir (Levemir) 17 units Q12HR SUBQ 07/25/17 09:00 08/24/17 08:59 Lisinopril (Prinivil) 40 mg DAILY ORAL 07/23/17 09:00 08/21/17 08:59 07/24/17 09:50 Metoprolol Tartrate (Lopressor) 25 mg Q12HR ORAL 07/22/17 21:00 08/21/17 20:59 07/24/17 09:26 Multivitamins (Multivitamins) 1 tab DAILY ORAL 07/23/17 09:00 08/21/17 08:59 07/24/17 09:25 Nicotine (Nicoderm) 1 patch Q24H TDERMAL 07/23/17 09:00 08/22/17 08:59 07/24/17 09:27 Ondansetron HCl (Zofran) 4 mg Q4HR PRN IVP Nausea & Vomiting 07/15/17 19:30 08/14/17 19:29 07/21/17 03:31 Sodium Chloride 1,000 ml @ 150 mls/hr Q6H40M IV 07/24/17 17:30 08/23/17 17:29 07/25/17 04:31 Triamterene/HCTZ (Dyazide) 1 cap BID ORAL 07/22/17 18:00 08/21/17 17:59 07/24/17 17:39 Item Value Date Time Bedside Blood Glucose 131 mg/dl H 07/25/17 0626 Bedside Blood Glucose 158 mg/dl H 07/24/17 2138 Bedside Blood Glucose 102 mg/dl 07/24/17 1650 Bedside Blood Glucose 187 mg/dl H 07/24/17 1209 Bedside Blood Glucose 168 mg/dl H 07/24/17 1011 Bedside Blood Glucose 165 mg/dl H 07/24/17 0630 ADILENE JIMENEZ July 25, 2017 07:12
[2017-07-25 08:00] VITALS: BP 115/75
[2017-07-25 08:23] LABS: BASOPHILS % (AUTO) 0.9 % (0.0-2.0); EOSINOPHILS % (AUTO) 1.9 % (0.0-3.0); HEMATOCRIT 29.9 % (42.0-52.0); HEMOGLOBIN 9.4 G/DL (14.2-18.0); LYMPHOCYTES % (AUTO) 21.7 % (20.0-45.0); MEAN CORPUSCULAR VOLUME 78 FL (80-99); MONOCYTES % (AUTO) 6.3 % (1.0-10.0); NEUTROPHILS % (AUTO) 69.2 % (45.0-75.0); PLATELET COUNT 487 K/UL (150-450); RED BLOOD COUNT 3.83 M/UL (4.70-6.10); RED CELL DISTRIBUTION WIDTH 14.1 % (11.6-14.8); WHITE BLOOD COUNT 11.6 K/UL (4.8-10.8)
[2017-07-25 08:44] LABS: ALANINE AMINOTRANSFERASE 15 U/L (12-78); ALBUMIN 2.3 G/DL (3.4-5.0); ALBUMIN/GLOBULIN RATIO 0.4 (1.0-2.7); ALKALINE PHOSPHATASE 94 U/L (46-116); ANION GAP 6 mmol/L (5-15); ASPARTATE AMINO TRANSFERASE 14 U/L (15-37); BILIRUBIN,TOTAL 0.2 MG/DL (0.2-1.0); BLOOD UREA NITROGEN 26 mg/dL (7-18); CALCIUM 9.1 MG/DL (8.5-10.1); CARBON DIOXIDE 28 MMOL/L (21-32); CHLORIDE 103 MMOL/L (98-107); CREATININE 1.3 MG/DL (0.55-1.30); POTASSIUM 4.6 MMOL/L (3.5-5.1); SODIUM 137 MMOL/L (136-145)
[2017-07-25] MEDS ORDERED: Levemir Flexpen SUBQ SCH (09:00)
[2017-07-25] MEDS: Heparin 5000 units/ml inj SUBQ SCH (09:00)
[2017-07-25] MEDS: Cefepime HCl 1 GM in D5W 55 ML IVPB SCH (09:00)
[2017-07-25] MEDS: Triamterene/Hctz 37.5/25 cap ORAL SCH (09:00)
[2017-07-25] MEDS: Metoprolol 25mg tab ORAL SCH (09:00)
[2017-07-25] MEDS: Lisinopril 20mg tab ORAL SCH (09:00)
--- NOTE | 2017-07-25 10:52 | Infectious Diseases Prog Note ---
Assessment/Plan Assessment/Plan antibiotics : cefepime A 1. staph aureus sepsis 2. left hip cellulitis improving 3. left buttock abscess with staph aureus s/p i and d 4. diabetes mellitus 5. leucocytosis improving P 1. d/c cefepime 2. po levoquin 8 more days 3. will follow up cultures Subjective Constitutional: Denies: fever, chills Respiratory: Denies: shortness of breath, dry cough Gastrointestinal/Abdominal: Denies: nausea, vomiting, diarrhea Musculoskeletal: Denies: pain Allergies: Coded Allergies: No Known Allergies (Unverified , 05/14/15) Objective Vital Signs Last 24 Hour Vital Signs Date Time Temp Pulse Resp B/P (MAP) Pulse Ox O2 Delivery O2 Flow Rate FiO2 07/25/17 09:00 114/75 07/25/17 09:00 84 115/75 07/25/17 08:00 98.4 84 19 115/75 98 98.4 07/25/17 04:00 98.3 81 19 103/63 98 98.3 07/25/17 00:00 98.6 85 20 115/76 99 98.6 07/24/17 21:00 88 117/79 07/24/17 20:00 98.4 88 21 117/79 98 98.4 07/24/17 16:00 97.2 92 18 117/80 97 Room Air 97.2 07/24/17 12:00 98.2 77 18 122/75 100 Room Air 98.2 Height (Feet): 6 Height (Inches): 2.00 Weight (Pounds): 200 Respiratory/Chest: lungs clear Cardiovascular: normal rate, regular rhythm, no gallop/murmur Abdomen: soft, non tender Extremities: no edema, other - left thigh Arnav drain Laboratory Tests Test 07/24/17 11:30 07/25/17 06:50 White Blood Count 12.8 K/UL (4.8-10.8) H 11.6 K/UL (4.8-10.8) H Red Blood Count 4.09 M/UL (4.70-6.10) L 3.83 M/UL (4.70-6.10) L Hemoglobin 10.2 G/DL (14.2-18.0) L 9.4 G/DL (14.2-18.0) L Hematocrit 32.0 % (42.0-52.0) L 29.9 % (42.0-52.0) L Mean Corpuscular Volume 78 FL (80-99) L 78 FL (80-99) L Mean Corpuscular Hemoglobin 25.0 PG (27.0-31.0) L 24.6 PG (27.0-31.0) L Mean Corpuscular Hemoglobin Concent 31.8 G/DL (32.0-36.0) L 31.4 G/DL (32.0-36.0) L Red Cell Distribution Width 14.2 % (11.6-14.8) 14.1 % (11.6-14.8) Platelet Count 526 K/UL (150-450) H 487 K/UL (150-450) H Mean Platelet Volume 5.7 FL (6.5-10.1) L 5.7 FL (6.5-10.1) L Neutrophils (%) (Auto) 70.9 % (45.0-75.0) 69.2 % (45.0-75.0) Lymphocytes (%) (Auto) 20.1 % (20.0-45.0) 21.7 % (20.0-45.0) Monocytes (%) (Auto) 6.3 % (1.0-10.0) 6.3 % (1.0-10.0) Eosinophils (%) (Auto) 1.8 % (0.0-3.0) 1.9 % (0.0-3.0) Basophils (%) (Auto) 0.9 % (0.0-2.0) 0.9 % (0.0-2.0) Sodium Level 135 MMOL/L (136-145) L 137 MMOL/L (136-145) Potassium Level 4.7 MMOL/L (3.5-5.1) 4.6 MMOL/L (3.5-5.1) Chloride Level 102 MMOL/L (98-107) 103 MMOL/L (98-107) Carbon Dioxide Level 27 MMOL/L (21-32) 28 MMOL/L (21-32) Anion Gap 6 mmol/L (5-15) 6 mmol/L (5-15) Blood Urea Nitrogen 27 mg/dL (7-18) H 26 mg/dL (7-18) H Creatinine 1.4 MG/DL (0.55-1.30) H 1.3 MG/DL (0.55-1.30) Estimat Glomerular Filtration Rate > 60 mL/min (>60) > 60 mL/min (>60) Glucose Level 195 MG/DL (74-106) H 135 MG/DL (74-106) H Calcium Level 8.7 MG/DL (8.5-10.1) 9.1 MG/DL (8.5-10.1) Magnesium Level 2.0 MG/DL (1.8-2.4) Total Bilirubin 0.1 MG/DL (0.2-1.0) L 0.2 MG/DL (0.2-1.0) Aspartate Amino Transf (AST/SGOT) 20 U/L (15-37) 14 U/L (15-37) L Alanine Aminotransferase (ALT/SGPT) 18 U/L (12-78) 15 U/L (12-78) Alkaline Phosphatase 95 U/L (46-116) 94 U/L (46-116) Total Protein 8.0 G/DL (6.4-8.2) 7.9 G/DL (6.4-8.2) Albumin 2.3 G/DL (3.4-5.0) L 2.3 G/DL (3.4-5.0) L Globulin 5.7 g/dL 5.6 g/dL Albumin/Globulin Ratio 0.4 (1.0-2.7) L 0.4 (1.0-2.7) L Current Medications Medications (Trade) Dose Ordered Sig/Shania Route PRN Reason Start Time Stop Time Status Last Admin Dose Admin Acetaminophen (Tylenol) 650 mg Q6H PRN ORAL Mild Pain/Temp > 100.5 07/06/17 17:32 08/05/17 17:31 07/12/17 03:21 Cefepime HCl 1 gm/ Dextrose 55 ml @ 110 mls/hr EVERY 12 HOURS IVPB 07/19/17 21:00 07/26/17 20:59 07/25/17 09:00 Clonidine HCl (Catapres Tab) 0.1 mg QID PRN ORAL SBP > 160 07/15/17 17:29 08/14/17 17:28 07/15/17 17:56 Dextrose (Dextrose 50%) 25 ml STAT PRN IV Hypoglycemia 07/08/17 07:00 08/07/17 06:59 Dextrose (Dextrose 50%) 50 ml STAT PRN IV Hypoglycemia 07/08/17 07:00 08/07/17 06:59 Famotidine (Pepcid) 20 mg BID ORAL 07/22/17 18:00 08/21/17 17:59 07/25/17 09:00 Heparin Sodium (Porcine) (Heparin 5000 units/ml) 5,000 units EVERY 12 HOURS SUBQ 07/22/17 21:00 08/21/17 20:59 07/25/17 09:00 Insulin Aspart (NovoLOG) BEFORE MEALS AND HS SUBQ 07/08/17 06:30 08/07/17 06:29 07/25/17 06:19 Insulin Aspart (NovoLOG) 6 units NOVOTIAC SUBQ 07/10/17 11:50 08/07/17 06:59 07/25/17 06:19 Insulin Detemir (Levemir) 17 units Q12HR SUBQ 07/25/17 09:00 08/24/17 08:59 07/25/17 10:44 Lisinopril (Prinivil) 40 mg DAILY ORAL 07/23/17 09:00 08/21/17 08:59 07/25/17 09:00 Metoprolol Tartrate (Lopressor) 25 mg Q12HR ORAL 07/22/17 21:00 08/21/17 20:59 07/25/17 09:00 Multivitamins (Multivitamins) 1 tab DAILY ORAL 07/23/17 09:00 08/21/17 08:59 07/25/17 09:00 Nicotine (Nicoderm) 1 patch Q24H TDERMAL 07/23/17 09:00 08/22/17 08:59 07/25/17 09:00 Ondansetron HCl (Zofran) 4 mg Q4HR PRN IVP Nausea & Vomiting 07/15/17 19:30 08/14/17 19:29 07/21/17 03:31 Sodium Chloride 1,000 ml @ 150 mls/hr Q6H40M IV 07/24/17 17:30 08/23/17 17:29 07/25/17 04:31 Triamterene/HCTZ (Dyazide) 1 cap BID ORAL 07/22/17 18:00 08/21/17 17:59 07/25/17 09:00 KUSH CUNNINGHAM July 25, 2017 10:52
[2017-07-25] MEDS ORDERED: Levofloxacin 500mg tab ORAL SCH (11:00)
[2017-07-25 12:00] VITALS: BP 121/74
[2017-07-25] MEDS ORDERED: LEVAQUIN500 MG ORAL (14:11)
[2017-07-25] MEDS ORDERED: LANTUS SOL100 UNIT/1 SUBQ (14:12)
[2017-07-25] MEDS ORDERED: NOVOLOG100 UNIT/3 SUBQ (14:16)
[2017-07-25] MEDS ORDERED: LISINOPRIL40 MG ORAL (14:16)
[2017-07-25] MEDS ORDERED: PRAVASTATIN SOD20 M1 ORAL (14:17)
[2017-07-25] MEDS ORDERED: METOPROLOL SUCC25 MG ORAL (14:17)
--- NOTE | 2017-07-25 14:20 | General Surgery Progress Note ---
General Surgery-Progress Note Subjective Procedure Performed 1. incision and drainage of left deep intermuscular gluteal abscess 2. drain placement with complex multi layer closure using adjacent skin tissues Symptoms: improved, pain absent, tolerating diet, passing flatus Objective Last 24 Hour Vital Signs Date Time Temp Pulse Resp B/P (MAP) Pulse Ox O2 Delivery O2 Flow Rate FiO2 07/25/17 12:00 98.4 79 19 121/74 98 98.4 07/25/17 09:00 114/75 07/25/17 09:00 84 115/75 07/25/17 08:00 98.4 84 19 115/75 98 98.4 07/25/17 04:00 98.3 81 19 103/63 98 98.3 07/25/17 00:00 98.6 85 20 115/76 99 98.6 07/24/17 21:00 88 117/79 07/24/17 20:00 98.4 88 21 117/79 98 98.4 07/24/17 16:00 97.2 92 18 117/80 97 Room Air 97.2 I&O Intake and Output 07/24/17 07/25/17 19:00 07:00 Intake Total 1150 ml 1072 ml Output Total 40 ml Balance 1150 ml 1032 ml Intake Oral 1000 ml IV Total 150 ml 1072 ml Drainage Total 40 ml # Voids 3 2 Wound: clean, dry, intact Drains: liborio Cardiovascular: RSR Respiratory: clear Abdomen: soft, non-tender, present bowel sounds Extremities: no edema, no tenderness, no cyanosis Laboratory Tests Test 07/25/17 06:50 White Blood Count 11.6 K/UL (4.8-10.8) H Red Blood Count 3.83 M/UL (4.70-6.10) L Hemoglobin 9.4 G/DL (14.2-18.0) L Hematocrit 29.9 % (42.0-52.0) L Mean Corpuscular Volume 78 FL (80-99) L Mean Corpuscular Hemoglobin 24.6 PG (27.0-31.0) L Mean Corpuscular Hemoglobin Concent 31.4 G/DL (32.0-36.0) L Red Cell Distribution Width 14.1 % (11.6-14.8) Platelet Count 487 K/UL (150-450) H Mean Platelet Volume 5.7 FL (6.5-10.1) L Neutrophils (%) (Auto) 69.2 % (45.0-75.0) Lymphocytes (%) (Auto) 21.7 % (20.0-45.0) Monocytes (%) (Auto) 6.3 % (1.0-10.0) Eosinophils (%) (Auto) 1.9 % (0.0-3.0) Basophils (%) (Auto) 0.9 % (0.0-2.0) Sodium Level 137 MMOL/L (136-145) Potassium Level 4.6 MMOL/L (3.5-5.1) Chloride Level 103 MMOL/L (98-107) Carbon Dioxide Level 28 MMOL/L (21-32) Anion Gap 6 mmol/L (5-15) Blood Urea Nitrogen 26 mg/dL (7-18) H Creatinine 1.3 MG/DL (0.55-1.30) Estimat Glomerular Filtration Rate > 60 mL/min (>60) Glucose Level 135 MG/DL (74-106) H Calcium Level 9.1 MG/DL (8.5-10.1) Total Bilirubin 0.2 MG/DL (0.2-1.0) Aspartate Amino Transf (AST/SGOT) 14 U/L (15-37) L Alanine Aminotransferase (ALT/SGPT) 15 U/L (12-78) Alkaline Phosphatase 94 U/L (46-116) Total Protein 7.9 G/DL (6.4-8.2) Albumin 2.3 G/DL (3.4-5.0) L Globulin 5.6 g/dL Albumin/Globulin Ratio 0.4 (1.0-2.7) L Plan Problems: (1) Gluteal abscess Assessment & Plan: 37M with left gluteal abscess. low grade fever, leukocytosis, on exam overlying tissue with edema, erythema, warmth, cellulitis. CT with large abscess between major and minor muscle. s/p I&D, drain, radiological aspiration. recovering. Afebrile, HD stable, improving slowly. leukocytosis improved drain output much better and becoming serosang. minimal output exam benign. no edema or inflammation -drain removed at bedside. sutures removed at bedside -transition to oral for discharge. -okay to d/c from surgical standpoint soon. office info given to patient for follow up. -will follow. thank you will follow with recs. thank you for this consultation. Nahid Bartholomew July 25, 2017 14:20
[2017-07-25] MEDS ORDERED: 1/2 NS 1000ml IV ONE (14:44)
--- NOTE | 2017-07-27 15:24 | Discharge Summary ---
Discharge Summary Discharge Summary Discharge Summary DATE OF ADMISSION: 07/06/2017 DATE OF DISCHARGE: 07/25/2017 CONSULTANTS: Dr. 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 He came to the emergency room complaining of severe left hip pain with swelling. He was seen at [facility] emergency room 3-4 days prior to admission where he was treated with ibuprofen. Symptoms had progressed, his sugar was usually elevated and had been worsening. There was no history of trauma or falls. He presented to ED, on evaluation blood work showed white count of 15.8, hemoglobin 12.7, sodium 129, potassium 3.7, BUN 12, creatinine 1.5. Glucose was elevated to 514. Lactic acid was 2.1. X-ray of the hip showed no acute bony trauma. He was admitted for diabetes mellitus which is out of control and for possible cellulitis of the hip and thigh. He was started on IV vancomycin. He was seen by surgery CT showed large abscess between major and minor muscles. On 07/07/2017, he underwent ultrasound guided drain placement and evacuation of abscess by radiology. Procedure yielded 60 mL of pus. Drain was without any output. Patient has worsening leukocytosis. Drain was not enough to manage abscess. He was placed on nothing by mouth and on 07/10/2017, underwent incision and drainage of the left intermuscular gluteal abscess with drain placement and multilayer closure of adjacent skin tissue. Initially abscess was serosanguineous, however was becoming milky. Repeat CT was done, there was noted definitive abscess noted and drain was in good position. Drain output was decreasing. Another repeat CT was done and showed small fluid collection that is not being drained. Attempted pigtail insertion by IR however was unsuccessful however, collection was evacuated no drain was placed. Blood culture with Staphylococcus aureus. Vancomycin was changed to Ancef. Antibiotic was later was changed to cefepime and Flagyl due to worsening leukocytosis. C. diff was negative. Echocardiogram was negative for vegetations. Cefepime was eventually discontinued recommended to continue by mouth antibiotics. He had diabetes mellitus which was out of control. Metformin was discontinued. He was given NovoLog and Levemir. Blood sugar was monitored. A1c was 13. He was also seen by senior qa analyst. Patient had an ingrown toenail removed and with superficial infection. He was on ordered topical antibiotics and soaks. Dr. eastman was consulted for evaluation of proteinuria and hypoalbuminemia. Creatinine clearance was 69/24 hour, protein 110. Patient has mild proteinuria. She was continued on Dyazide and ANGELIKA inhibitor for diuresis and renal protection. Hepatitis and HIV were negative. Low albumin likely nutritional from prolonged abscess. Leukocytosis down trended. He was eventually discharged home. To continue by mouth antibiotics. FINAL DIAGNOSES: Sepsis Buttock abscess and cellulitis, status post incision and drainage Diabetes mellitus out of control Hypertension Severe protein calorie malnutrition Mild proteinuria due to diabetes and chronic kidney disease Hypoalbuminemia Chronic kidney disease DISPOSITION: Patient was discharged home. DISCHARGE MEDICATIONS: Refer to Discharge Medication List. Continue with Levaquin 500 milligrams daily for 8 more days. DISCHARGE INSTRUCTIONS: Follow up with PCP in a week. I have been assigned to dictate discharge summary on this account, and I was not involved in the patient's management. Prema Ibarra NP July 27, 2017 15:24
== END 2017-07-25 14:45 | disposition home or self-care (01) | DRG 710 ==
LOC: EMR 12:28 → 4W 14:16 → EDBEDREQ 14:37 → 4W 07-14 10:09 → 4E 07-22 09:10
PROC: 0K9P3ZZ Drainage of Left Hip Muscle, Percutaneous Approach (ICD-10-PCS; 2017-07-07)
PROC: 0K9P00Z Drainage of Left Hip Muscle with Drainage Device, Open Approach (ICD-10-PCS; 2017-07-10)
PROC: 0K9P3ZZ Drainage of Left Hip Muscle, Percutaneous Approach (ICD-10-PCS; principal; 2017-07-19)
DX: A41.01 Sepsis due to Methicillin susceptible Staphylococcus aureus (principal); E43 Unspecified severe protein-calorie malnutrition; N17.9 Acute kidney failure, unspecified; M60.004 Infective myositis, unspecified left leg; L03.317 Cellulitis of buttock; E11.40 Type 2 diabetes mellitus with diabetic neuropathy, unspecified; E11.22 Type 2 diabetes mellitus with diabetic chronic kidney disease; I13.10 Hypertensive heart and chronic kidney disease without heart failure, with stage 1 through stage 4 chronic kidney disease, or unspecified chronic kidney disease; E11.65 Type 2 diabetes mellitus with hyperglycemia; Z79.4 Long term (current) use of insulin; Z79.84 Long term (current) use of oral hypoglycemic drugs; N18.9 Chronic kidney disease, unspecified; L60.0 Ingrowing nail; R80.9 Proteinuria, unspecified; E87.70 Fluid overload, unspecified; Z68.25 Body mass index [BMI] 25.0-25.9, adult
CPT/HCPCS: 36415; 72192; 72193; 73502; 74177; 75989; 80048; 80053; 80076; 80202; 81001; 81003; 81050; 82009; 82270; 82575; 82962; 83036; 83605; 83735; 84100; 84156; 84443; 85007; 85025; 85610; 85730; 86021; 86039; 86160; 86703; 86803; 87040; 87070; 87075; 87181; 87205; 87324; 87340; 87517; 93005; 93306; 94003; 94150; 99285; A9585; J1815; J2250; J2405; J8499; S5561